=== PATIENT | male | born 1955 | race African-American/Black ===

== ENCOUNTER → 2016-08-31 | Outpatient (CLI) | payer MEDICAID, MEDICARE ==
[~2016-08-31] MED LIST: AMLODIPINE BESY10 MG ORAL; AMLODIPINE BESYL5 MG ORAL; ATARAX25 MG ORAL; CITALOPRAM HBR40 M1 ORAL; FERROUS GLUCON324 M2 PO; FERROUS SULFAT325 MG ORAL; HYDROCORTISO1 APPLIC TOPIC; HYDROXYZINE HCL25 M1 PO; LISINOPRIL10 MG ORAL; LISINOPRIL5 MG ORAL; METHOCARBAMOL5000 GM MC; NORCO 5-325 TA1 EACH ORAL; PROTONIX40 MG ORAL; ROBAXIN-750750 MG PO; VITAMIN C500 M1 ORAL; VITAMIN D400 INTLU ORAL
--- NOTE | 2016-09-01 11:21 | Diagnostic Imaging Report ---
Indication: History of right wrist pain and swelling. Injury to the wrist one month ago. Technique: MRI of the right wrist and the proximal portion of the right hand performed in a 1.5 [place] magnet. Pulse sequences obtained include multiplanar proton fast spin-echo fat saturation, T2 fast echo fat saturation, T1 fast spin-echo. No gadolinium given. Comparison: None Findings: There is widening of the scapholunate distance. The scapholunate ligaments are not seen specifically but based on the distance and intervening T2 edematous signal, there is evidence of a scapholunate dissociation or ligamentous disruption. The acuity of this injury is unknown. Minimal subchondral T2 hyperintense signal noted at the scapholunate interface. Some nonspecific cystic changes are also demonstrated within several carpal bones. In addition the lunate shows a very minor dorsal tilt. Nonspecific subcutaneous edema demonstrated within the dorsum of the hand and in the area of the thumb. No obvious ligamentous or tendinous disruption identified. Bone marrow signal within the first metacarpal and the remainder of the visualized osseous structures appears normal with the exception of the mild cystic changes described. There is a small cystic focus at the head of the third metacarpal which is probably degenerative in nature as it is subchondral location. Extensor tendons appear normal. The contents of the carpal tunnel appear unremarkable. There is no joint effusion. Triangular fibrocartilage complex is unremarkable in appearance. Impression: Scapholunate dissociation. Dorsal tilt of the lunate noted (dorsal intercalated segment instability or DISI). Scapholunate ligamentous tear could be recent given the edema in the intervening space. Please correlate clinically. No acute fracture or bone marrow contusion. Nonspecific subcutaneous edema at the base of the thumb without evidence of associated ligamentous or tendon disruption. Cystic changes within the carpal bones probably degenerative in nature.
--- NOTE | 2016-09-01 11:22 | Diagnostic Imaging Report ---
Please for to the MRI wrist report
== END | disposition home or self-care (01) ==
LOC: MRI 10:35
DX: R22.31 Localized swelling, mass and lump, right upper limb (principal)

== ENCOUNTER 2017-02-04 00:58 | Inpatient (IN) | payer MEDICARE, OTHER ==
[~2017-02-04] VITALS: Ht 182.9 cm; Wt 104.3 kg
[2017-02-04] VITALS (9 sets, daily range): BP systolic 101–147; BP diastolic 46–100
[2017-02-04] MEDS ORDERED: Sodium Chloride 500ML 500 ML IV ONE (01:17)
[2017-02-04] MEDS ORDERED: DiphenhydrAMINE 50mg/ml Inj IVP ONE (01:30)
[2017-02-04] MEDS ORDERED: Morphine Sulfate 4mg/ml Inj IVP ONE (01:30)
[2017-02-04 01:52] LABS: APPEARANCE,URINE CLEAR; BASOPHILS % (AUTO) 0.9 % (0.0-2.0); EOSINOPHILS % (AUTO) 2.9 % (0.0-3.0); KETONES,URINE NEGATIVE (NEGATIVE); LYMPHOCYTES % (AUTO) 37.1 % (20.0-45.0); MEAN CORPUSCULAR HEMOGLOBIN 30.6 PG (27.0-31.0); MEAN CORPUSCULAR VOLUME 96 FL (80-99); MEAN PLATELET VOLUME 9.5 FL (6.5-10.1); MONOCYTES % (AUTO) 8.6 % (1.0-10.0); NEUTROPHILS % (AUTO) 50.4 % (45.0-75.0); NITRITE,URINE NEGATIVE (NEGATIVE); PH,URINE 6 (4.5-8.0); PLATELET COUNT 229 K/UL (150-450); PROTEIN,URINE NEGATIVE (NEGATIVE); RED BLOOD COUNT 4.57 M/UL (4.70-6.10); RED CELL DISTRIBUTION WIDTH 13.7 % (11.6-14.8); UROBILINOGEN,URINE NORMAL MG/DL (0.0-1.0)
[2017-02-04 01:55] LABS: LEUKOCYTE ESTERASE ,URINE NEGATIVE (NEGATIVE)
[2017-02-04] MEDS ORDERED: HYDROCORTISONE-30 GM TOPIC (02:00)
[2017-02-04] MEDS ORDERED: VITAMIN D250000 UNI1 ORAL (02:00)
[2017-02-04] MEDS ORDERED: CATAPRES0.1 MG ORAL (02:00)
[2017-02-04] MEDS ORDERED: DULCOLAX10 MG RC (02:00)
[2017-02-04] MEDS ORDERED: ARTIFICIAL TEAR15 ML BOTH EYES (02:00)
[2017-02-04] MEDS ORDERED: MIRALAX17 G2 ORAL (02:06)
[2017-02-04] MEDS ORDERED: MULTIVITAMINS1 EAC8 ORAL (02:06)
[2017-02-04] MEDS ORDERED: HYDROXYZINE HCL25 M1 PO (02:06)
[2017-02-04] MEDS ORDERED: LACTULOSE20 GM/301 ORAL (02:06)
[2017-02-04] MEDS ORDERED: NITROGLYCERIN0.4 MG SL (02:06)
[2017-02-04 02:09] LABS: ALANINE AMINOTRANSFERASE 20 U/L (3-41); ALBUMIN/GLOBULIN RATIO 1.2 (1.0-2.7); ANION GAP 14 (5-15); ASPARTATE AMINO TRANSFERASE 18 U/L (5-40); CALCIUM 10.1 mg/dL (8.6-10.2); CARBON DIOXIDE 25 mEQ/L (20-30); CHLORIDE 102 mEQ/L (98-107); CREATININE 1.5 mg/dL (0.7-1.2); GLOMERULAR FILTRATION RATE 58.1 mL/min (>60); HEMOLYSIS 9; LIPASE 32 U/L (< 60); POTASSIUM 4.6 mEQ/L (3.4-4.9); SODIUM 141 mEQ/L (135-145); TOTAL PROTEIN 7.7 g/dL (6.6-8.7)
[2017-02-04 02:10] LABS: TROPONIN I < 0.30 ng/mL (<=0.30)
[2017-02-04] MEDS ORDERED: NORCO1 E1 ORAL (02:11)
[2017-02-04] MEDS ORDERED: TYLENOL EXTRA500 MG ORAL (02:11)
[2017-02-04] MEDS ORDERED: ACETAMINOPHEN325 M3 PO (02:11)
[2017-02-04] MEDS ORDERED: RESTORIL30 MG ORAL (02:11)
[2017-02-04] MEDS ORDERED: HYDROmorphone 1mg/ml Carpuject IVP ONE (03:45)
--- NOTE | 2017-02-04 04:59 | Emergency Room Report ---
History of Present Illness General Chief Complaint: Abdominal Pain Source: Patient, Medical Record Present Illness HPI 61-year-old male presents ED for evaluation. Patient states she's been having abdominal pain times one week but worse today. History of chronic abdominal pain but worse over the last one week. Patient resides in the nursing facility. Patient has history of stomach cancer. Has had previous operations. Patient is also noting blood in his stool. Pain is a 10 out of 10, sharp, nonradiating. Denies fevers or chills. Denies chest breath. No other aggravating or leading factors. Denies any other associated symptoms Allergies: Coded Allergies: MORPHINE (Verified Allergy, Unknown, 10/11/15) Patient History Past Medical History: HTN, asthma, psych hx Past Surgical History: other - gastric cancer Social History: Denies: smoking, alcohol use, drug use Immunizations: UTD Reviewed Nursing Documentation: PMH: Agreed, PSxH: Agreed Nursing Documentation-PMH Hx Cardiac Problems: Yes - murmur Hx Hypertension: Yes Hx Pacemaker: No Hx Asthma: Yes Hx COPD: No Hx Diabetes: Yes Hx Cancer: Yes - Gastric cancer Hx Gastrointestinal Problems: No Hx Dialysis: No Hx Neurological Problems: Yes - Depression Hx Cerebrovascular Accident: No Hx Transient Ischemic Attacks: No Hx Dementia: No Hx Alzheimer's Disease: No Hx Parkinson's Disease: No Hx Meningitis: No Hx Encephalitis: No Hx Seizures: No Hx Epilepsy: No Hx Multiple Sclerosis: No Hx Cerebral Palsy: No Hx Amyotrophic Lat Sclerosis: No Hx [place] Syndrome: No Hx Paralysis: No Hx Peripheral Neuropathy: No Hx Spinal Cord Injury: No Hx Head Trauma: No - year 1998 Hx Traumatic Brain Injury: Yes - year 1998 Hx Memory Loss: No Hx Concentration Difficulty: No Hx Speech Problem: No Hx Tremors: No Hx Vertigo: Yes Hx Dizziness: Yes Hx Syncope: Yes Hx Headaches: No Hx Aphasia: No Hx Dysphasia: No Hx Numbness: Yes - fingers and legs Hx Weakness: Yes - general Hx Fatigue: Yes - general Hx Neurologic Surgery: No Hx Brain Shunt: No Review of Systems All Other Systems: negative except mentioned in HPI Physical Exam Vital Signs Date Time Temp Pulse Resp B/P (MAP) Pulse Ox O2 Delivery O2 Flow Rate FiO2 02/04/17 00:58 97.7 84 18 136/86 99 Room Air Sp02 EP Interpretation: reviewed, normal General Appearance: no apparent distress, alert, GCS 15, non-toxic, mild distress Head: normocephalic, atraumatic Eyes: bilateral eye normal inspection, bilateral eye PERRL ENT: hearing grossly normal, normal pharynx, no angioedema, normal voice Neck: full range of motion, supple/symm/no masses Respiratory: chest non-tender, lungs clear, normal breath sounds, speaking full sentences Cardiovascular #1: regular rate, rhythm, no edema Cardiovascular #2: 2+ carotid (R), 2+ carotid (L), 2+ radial (R), 2+ radial (L) , 2+ dorsalis pedis (R), 2+ dorsalis pedis (L) Gastrointestinal: normal bowel sounds, soft, non-distended, no guarding, no rebound, tenderness Rectal: deferred Genitourinary: normal inspection, no CVA tenderness Musculoskeletal: back normal, gait/station normal, normal range of motion, non- tender Neurologic: alert, oriented x3, responsive, motor strength/tone normal, sensory intact, speech normal Psychiatric: judgement/insight normal, memory normal, mood/affect normal, no suicidal/homicidal ideation Reflexes: 3+ bicep (R), 3+ bicep (L), 3+ tricep (R), 3+ tricep (L), 3+ knee (R) , 3+ knee (L) Skin: normal color, no rash, warm/dry, well hydrated Lymphatic: no adenopathy Medical Decision Making Diagnostic Impression: Primary Impression: Intractable abdominal pain Additional Impressions: Renal insufficiency Colon cancer Qualified Codes: C18.9 - Malignant neoplasm of colon, unspecified ER Course Hospital Course 61-year-old male presents to ED with abd pain Differential diagnoses include: SBO, gastritis, pancreatitis Clinical course 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 After initial history and physical I ordered labs, IV fluids, UA, pain medication and CT scan Labs - no leukocytosis, Hb/Hct stable, Cr 1.5 CT abdomen and pelvis - enteritis, diverticulosis without diverticulitis Patient given multiple rounds of pain medication without significant relief. States his PMD is Dr. Sandhu Case discussed with Dr. Sandhu and he agreed to accept the patient to his service for further care and support I feel this is a highly complex case requiring extensive working including EKG/ Rhythm strip, Xray/CT/US, Blood/urine lab work, repeat exams while in ED, and administration of strong opiates/narcotics for pain control, admission to hospital or close patient follow up. Diagnosis - intractable abd pain, renal insufficiency, colon cancer Patient admitted to floor in serious condition Labs Test 02/04/17 01:30 White Blood Count 7.0 K/UL (4.8-10.8) Red Blood Count 4.57 M/UL (4.70-6.10) Hemoglobin 14.0 G/DL (14.2-18.0) Hematocrit 43.7 % (42.0-52.0) Mean Corpuscular Volume 96 FL (80-99) Mean Corpuscular Hemoglobin 30.6 PG (27.0-31.0) Mean Corpuscular Hemoglobin Concent 32.0 G/DL (32.0-36.0) Red Cell Distribution Width 13.7 % (11.6-14.8) Platelet Count 229 K/UL (150-450) Mean Platelet Volume 9.5 FL (6.5-10.1) Neutrophils (%) (Auto) 50.4 % (45.0-75.0) Lymphocytes (%) (Auto) 37.1 % (20.0-45.0) Monocytes (%) (Auto) 8.6 % (1.0-10.0) Eosinophils (%) (Auto) 2.9 % (0.0-3.0) Basophils (%) (Auto) 0.9 % (0.0-2.0) Urine Color Yellow Urine Appearance Clear Urine pH 6 (4.5-8.0) Urine Specific [place] 1.010 (1.005-1.035) Urine Protein Negative (NEGATIVE) Urine Glucose (UA) Negative (NEGATIVE) Urine Ketones Negative (NEGATIVE) Urine Occult Blood Negative (NEGATIVE) Urine Nitrite Negative (NEGATIVE) Urine Bilirubin Negative (NEGATIVE) Urine Urobilinogen Normal MG/DL (0.0-1.0) Urine Leukocyte Esterase Negative (NEGATIVE) Sodium Level 141 mEQ/L (135-145) Potassium Level 4.6 mEQ/L (3.4-4.9) Chloride Level 102 mEQ/L (98-107) Carbon Dioxide Level 25 mEQ/L (20-30) Anion Gap 14 (5-15) Blood Urea Nitrogen 30 mg/dL (7-23) Creatinine 1.5 mg/dL (0.7-1.2) Estimat Glomerular Filtration Rate 58.1 mL/min (>60) Glucose Level 90 mg/dL (74-106) Calcium Level 10.1 mg/dL (8.6-10.2) Total Bilirubin < 0.2 mg/dL (0.0-1.2) Aspartate Amino Transf (AST/SGOT) 18 U/L (5-40) Alanine Aminotransferase (ALT/SGPT) 20 U/L (3-41) Alkaline Phosphatase 84 U/L (40-129) Troponin I < 0.30 ng/mL (<=0.30) Total Protein 7.7 g/dL (6.6-8.7) Albumin 4.2 g/dL (3.5-5.2) Globulin 3.5 g/dL Albumin/Globulin Ratio 1.2 (1.0-2.7) Lipase 32 U/L (< 60) CT/MRI/US Diagnostic Results CT/MRI/US Diagnostic Results : Imaging Test Ordered: CT A/P Impression enteritis. diverticulosis without diverticulitis Last Vital Signs Date Time Temp Pulse Resp B/P (MAP) Pulse Ox O2 Delivery O2 Flow Rate FiO2 02/04/17 04:22 98.3 02/04/17 04:00 82 18 126/84 100 Room Air Status: unchanged Disposition: ADMITTED INPATIENT Condition: Serious Referrals: NON PHYSICIAN (PCP) MILLER HARRINGTON M.D. Feb 04, 2017 04:59
[2017-02-04] MEDS ORDERED: Mylanta II UD 30ml ORAL PRN (07:30)
[2017-02-04] MEDS ORDERED: Nitroglycerin Subl 0.4mg tab SL PRN (07:30)
[2017-02-04] MEDS ORDERED: Miralax 17gm pkt ORAL PRN (07:30)
[2017-02-04] MEDS: Hydromorphone 0.5mg/0.5ml inj IVP PRN ×4 (08:56→22:10)
--- NOTE | 2017-02-04 09:05 | Diagnostic Imaging Report ---
Indication: Abdominal pain, history of colon cancer Comparison: CT abdomen and pelvis 05/17/2015 Technique: Contiguous helical CT images through the abdomen and pelvis was performed without intravenous or oral contrast. Reportedly, patient had elevated creatinine too high to administer IV contrast. Axial, coronal and sagittal reconstructions were reformatted. CT Dose: Total DLP: 1593 mGycm; Total CTDI volume 30.2 Findings: Exam is limited due to lack of IV and oral contrast. Liver is normal. Gallbladder is normal. Spleen is normal. Pancreas is normal. Adrenal glands are normal. Kidneys are without hydronephrosis. There are low densities noted in the bilateral cortical and right parapelvic areas which may represent cysts. Overall, these appear unchanged in size or appearance from the prior exam 05/17/2015. There is a nonobstructive left intrarenal calculus without hydronephrosis. Ureters are normal. Fluid present in nondistended mid/distal small bowel loops and liquid stool present throughout the colon without colonic wall thickening. Given history, findings likely reflect enteritis/diarrheal illness. There is colonic diverticulosis without diverticulitis. Patient is status post segmental sigmoid colectomy without evidence for small bowel obstruction. Normal appendix. No free fluid or free air. Atherosclerosis infrarenal abdominal aortic aneurysm measuring 3.8 cm (unchanged from prior CT scan 05/17/2015). Bibasilar atelectasis/scarring is noted. Thoracolumbar spondylosis. Postsurgical changes in the anterior abdominal wall. Left fat-containing inguinal hernia. Impression: Fluid present in nondistended mid/distal small bowel loops and liquid stool present throughout the colon without colonic wall thickening. Given history, findings likely reflect enteritis/diarrheal illness. Diverticulosis without diverticulitis. Status post segmental sigmoid colectomy without evidence for small obstruction. Atherosclerosis an infrarenal abdominal aortic aneurysm measuring 3.8 cm (unchanged from prior CT 05/17/2015). Normal appendix. No free fluid or free air. Incidental findings include: Bibasilar atelectasis/scarring. Nonobstructive left intrarenal calculus without hydronephrosis. Low -density renal cortical and right parapelvic may represent cysts, unchanged from prior. Fat-containing left inguinal hernia. Postsurgical change in the anterior abdominal wall. Thoracolumbar spondylosis.
[2017-02-04] MEDS: Pantoprazole Inj IVP SCH (10:08)
[2017-02-04] MEDS: Heparin 5000 units/ml inj SUBQ SCH ×2 (10:08→20:57)
[2017-02-04] MEDS: Citalopram 20mg Tab ORAL SCH (10:10)
[2017-02-04] MEDS: D5 1/2NS 1,000 ML IV SCH ×2 (10:11→22:17)
[2017-02-04] MEDS: Lisinopril 10mg tab ORAL SCH (10:11)
--- NOTE | 2017-02-04 13:37 | Infectious Diseases Prog Note ---
Assessment/Plan Assessment/Plan ID consult dictated # [id number] Subjective Allergies: Coded Allergies: MORPHINE (Verified Allergy, Unknown, 10/11/15) Objective Vital Signs Last 24 Hour Vital Signs Date Time Temp Pulse Resp B/P (MAP) Pulse Ox O2 Delivery O2 Flow Rate FiO2 02/04/17 12:00 98.0 77 18 127/82 99 Room Air 02/04/17 10:11 139/85 02/04/17 10:11 76 139/85 02/04/17 08:00 97.9 79 20 121/85 98 Room Air 02/04/17 05:50 97.5 82 18 147/100 98 Room Air 02/04/17 05:45 98.7 70 20 120/73 98 Room Air 02/04/17 05:00 98.7 79 18 128/78 98 Room Air 02/04/17 04:22 98.3 02/04/17 04:00 98.3 82 18 126/84 100 Room Air 02/04/17 02:40 98.6 80 18 130/88 100 Room Air 02/04/17 02:06 98.3 02/04/17 00:58 98.3 87 19 126/96 100 Room Air 02/04/17 00:58 97.7 84 18 136/86 99 Room Air Height (Feet): 6 Height (Inches): 0.00 Weight (Pounds): 230 Laboratory Tests Test 02/04/17 01:30 White Blood Count 7.0 K/UL (4.8-10.8) Red Blood Count 4.57 M/UL (4.70-6.10) L Hemoglobin 14.0 G/DL (14.2-18.0) L Hematocrit 43.7 % (42.0-52.0) Mean Corpuscular Volume 96 FL (80-99) Mean Corpuscular Hemoglobin 30.6 PG (27.0-31.0) Mean Corpuscular Hemoglobin Concent 32.0 G/DL (32.0-36.0) Red Cell Distribution Width 13.7 % (11.6-14.8) Platelet Count 229 K/UL (150-450) Mean Platelet Volume 9.5 FL (6.5-10.1) Neutrophils (%) (Auto) 50.4 % (45.0-75.0) Lymphocytes (%) (Auto) 37.1 % (20.0-45.0) Monocytes (%) (Auto) 8.6 % (1.0-10.0) Eosinophils (%) (Auto) 2.9 % (0.0-3.0) Basophils (%) (Auto) 0.9 % (0.0-2.0) Urine Color Yellow Urine Appearance Clear Urine pH 6 (4.5-8.0) Urine Specific [place] 1.010 (1.005-1.035) Urine Protein Negative (NEGATIVE) Urine Glucose (UA) Negative (NEGATIVE) Urine Ketones Negative (NEGATIVE) Urine Occult Blood Negative (NEGATIVE) Urine Nitrite Negative (NEGATIVE) Urine Bilirubin Negative (NEGATIVE) Urine Urobilinogen Normal MG/DL (0.0-1.0) Urine Leukocyte Esterase Negative (NEGATIVE) Sodium Level 141 mEQ/L (135-145) Potassium Level 4.6 mEQ/L (3.4-4.9) Chloride Level 102 mEQ/L (98-107) Carbon Dioxide Level 25 mEQ/L (20-30) Anion Gap 14 (5-15) Blood Urea Nitrogen 30 mg/dL (7-23) H Creatinine 1.5 mg/dL (0.7-1.2) H Estimat Glomerular Filtration Rate 58.1 mL/min (>60) Glucose Level 90 mg/dL (74-106) Calcium Level 10.1 mg/dL (8.6-10.2) Total Bilirubin < 0.2 mg/dL (0.0-1.2) Aspartate Amino Transf (AST/SGOT) 18 U/L (5-40) Alanine Aminotransferase (ALT/SGPT) 20 U/L (3-41) Alkaline Phosphatase 84 U/L (40-129) Troponin I < 0.30 ng/mL (<=0.30) Total Protein 7.7 g/dL (6.6-8.7) Albumin 4.2 g/dL (3.5-5.2) Globulin 3.5 g/dL Albumin/Globulin Ratio 1.2 (1.0-2.7) Lipase 32 U/L (< 60) Current Medications Medications (Trade) Dose Ordered Sig/Blanche Route PRN Reason Start Time Stop Time Status Last Admin Dose Admin Acetaminophen (Tylenol) 650 mg Q4H PRN ORAL fever 02/04/17 07:30 03/06/17 07:29 Al Hydroxide/Mg Hydroxide (Mylanta II) 30 ml Q6H PRN ORAL dyspepsia 02/04/17 07:30 03/06/17 07:29 Amlodipine Besylate (Norvasc) 10 mg DAILY ORAL 02/04/17 09:00 03/06/17 08:59 02/04/17 10:11 Citalopram Hydrobromide (celeXA) 40 mg DAILY ORAL 02/04/17 09:00 03/06/17 08:59 02/04/17 10:10 Dextrose (Dextrose 50%) STAT PRN IV Hypoglycemia 02/04/17 07:30 03/06/17 07:29 Dextrose/Sodium Chloride 1,000 ml @ 75 mls/hr [id number] IV 02/04/17 09:00 03/06/17 08:59 02/04/17 10:11 Diphenhydramine HCl (Benadryl) 25 mg Q6H PRN ORAL Itching/Pruritis 02/04/17 07:30 03/06/17 07:29 Heparin Sodium (Porcine) (Heparin 5000 units/ml) 5,000 units EVERY 12 HOURS SUBQ 02/04/17 09:00 03/06/17 08:59 02/04/17 10:08 Hydromorphone HCl (Dilaudid) 1 mg Q4H PRN IVP Severe Pain (Pain Scale 7-10) 02/04/17 08:15 02/11/17 08:14 02/04/17 08:56 Lisinopril (Zestril) 10 mg DAILY ORAL 02/04/17 09:00 03/06/17 08:59 02/04/17 10:11 Nitroglycerin (Ntg) 0.4 mg Q5M X 3 DOSES PRN SL Prn Chest Pain 02/04/17 07:30 03/06/17 07:29 Ondansetron HCl (Zofran) 4 mg Q6H PRN IVP Nausea & Vomiting 02/04/17 07:30 03/06/17 07:29 Pantoprazole (Protonix) 40 mg DAILY IVP 02/04/17 09:00 03/06/17 08:59 02/04/17 10:08 Piperacillin Sod/ Tazobactam Sod 3.375 gm/Sodium Chloride 110 ml @ 27.5 mls/hr EVERY 8 HOURS IVPB 02/04/17 14:00 02/11/17 13:59 Polyethylene Glycol (Miralax) 17 gm HSPRN PRN ORAL Constipation 02/04/17 07:30 03/06/17 07:29 Temazepam (Restoril) 15 mg HSPRN PRN ORAL Insomnia 02/04/17 07:30 02/11/17 07:29 SULTANA ELMORE Feb 04, 2017 13:37
[2017-02-04] MEDS: Piperacillin/Tazobactam 3.375 GM in NS 110 ML IVPB SCH ×2 (13:45→22:09)
[2017-02-04] MEDS ORDERED: D5NS 1000ml IV ONE (15:26)
[2017-02-04] MEDS ORDERED: Tubing IV Secondary IV ONE (15:26)
--- NOTE | 2017-02-04 16:13 | History and Physical ---
History of Present Illness General Date patient seen: Feb 04, 2017 Reason for Hospitalization: Abdominal Pain Present Illness HPI 61-year-old male with hx of gastric cancer, sigmoidectomy presented to ED for evaluation of abdominal pain times one week but worse today. Patient is also noting blood in his stool. Pain is a 10 out of 10, sharp, nonradiating. Denies fevers or chills. Denies chest breath. Denies any other associated symptoms. Pt is admitted for further evaluation. Allergies: Coded Allergies: MORPHINE (Verified Allergy, Unknown, 10/11/15) Medication History Scheduled Amlodipine Besylate* (Amlodipine Besylate*), 10 MG ORAL DAILY, (Reported) Ascorbic Acid* (Vitamin C*), 500 MG ORAL DAILY, (Reported) Citalopram Hydrobromide* (Citalopram Hbr*), 40 MG ORAL DAILY, (Reported) Clonidine Hcl* (Catapres*), 0.1 MG ORAL EVERY 8 HOURS, (Reported) Dextran 70/Hypromellose (Artificial Tears Eye Drops*), 1 DROP BOTH EYES BID, ( Reported) Ergocalciferol (Vitamin D2)* (Vitamin D*), 50,000 UNIT ORAL ONCE A WEEK, ( Reported) Ferrous Sulfate* (Ferrous Sulfate*), 325 MG ORAL DAILY, (Reported) Hydroxyzine HCl (Hydroxyzine HCl), 25 MG ORAL FOUR TIMES A DAY Hydroxyzine Hcl (Hydroxyzine Hcl), 25 MG PO TID, (Reported) Lactulose (Lactulose*), 30 ML ORAL BID, (Reported) Lisinopril (Lisinopril*), 10 MG ORAL DAILY, (Reported) Methocarbamol* (Robaxin-750*), 750 MG PO TID Multivitamin With Minerals (Multivitamins With Minerals*), 1 TAB ORAL DAILY, ( Reported) Pantoprazole* (Protonix*), 40 MG ORAL DAILY Polyethylene Glycol 3350* (Miralax*), 17 GM ORAL BID, (Reported) Vitamin D (Vitamin D3), 50,000 UNITS ORAL DAILY, (Reported) Scheduled PRN Acetaminophen (Acetaminophen), 325 MG PO Q4HR PRN for For Pain, (Reported) Acetaminophen* (Tylenol Extra Strength*), 1,000 MG ORAL Q6H PRN for Moderate Pain (Pain Scale 4-6), (Reported) Acetaminophen/Hydrocodone ([place] 7.5-325 Tablet), 2 TAB ORAL Q6HR PRN for Severe Pain (Pain Scale 7-10), (Reported) Bisacodyl (Dulcolax), 10 MG RC for bowel management, (Reported) Hydrocodone Bit/Acetaminophen 5-325* ([place] 5-325*), 1 TAB ORAL Q6H PRN for For Pain Hydrocodone Bit/Acetaminophen 5-325* ([place] 5-325*), 1 TAB ORAL Q12HR PRN for For Pain Temazepam (Restoril*), 30 MG ORAL BEDTIME PRN for insomnia , (Reported) Miscellaneous Medications Hydrocortisone/Aloe Vera 1%* (Hydrocortisone-Aloe 1% Cream*), 1 APPLIC TOPIC, ( Reported) Methocarbamol (Methocarbamol), 5,000 GM MC, (Reported) Nitroglycerin (Nitroglycerin), 0.4 MG SL, (Reported) Patient History Healthcare decision maker Resuscitation status Full Code Advanced Directive on File Past Medical/Surgical History Past Medical/Surgical History: (1) Gastritis (2) Colon cancer (3) HTN (hypertension) Review of Systems All Other Systems: negative except mentioned in HPI Physical Exam General Appearance: WD/WN, no apparent distress Lines, tubes and drains: peripheral HEENT: normocephalic, atraumatic Neck: non-tender, normal alignment Respiratory/Chest: chest wall non-tender, lungs clear Cardiovascular/Chest: normal peripheral pulses, normal rate Genitourinary/Rectal: normal genital exam, normal rectal exam Extremities: normal range of motion, non-tender Skin Exam: normal pigmentation Neurologic: delivery mgr II-XII grossly normal Last 24 Hour Vital Signs Date Time Temp Pulse Resp B/P (MAP) Pulse Ox O2 Delivery O2 Flow Rate FiO2 02/04/17 12:00 98.0 77 18 127/82 99 Room Air 02/04/17 10:11 139/85 02/04/17 10:11 76 139/85 02/04/17 08:00 97.9 79 20 121/85 98 Room Air 02/04/17 05:50 97.5 82 18 147/100 98 Room Air 02/04/17 05:45 98.7 70 20 120/73 98 Room Air 02/04/17 05:00 98.7 79 18 128/78 98 Room Air 02/04/17 04:22 98.3 02/04/17 04:00 98.3 82 18 126/84 100 Room Air 02/04/17 02:40 98.6 80 18 130/88 100 Room Air 02/04/17 02:06 98.3 02/04/17 00:58 98.3 87 19 126/96 100 Room Air 02/04/17 00:58 97.7 84 18 136/86 99 Room Air Laboratory Tests Test 02/04/17 01:30 White Blood Count 7.0 K/UL (4.8-10.8) Red Blood Count 4.57 M/UL (4.70-6.10) L Hemoglobin 14.0 G/DL (14.2-18.0) L Hematocrit 43.7 % (42.0-52.0) Mean Corpuscular Volume 96 FL (80-99) Mean Corpuscular Hemoglobin 30.6 PG (27.0-31.0) Mean Corpuscular Hemoglobin Concent 32.0 G/DL (32.0-36.0) Red Cell Distribution Width 13.7 % (11.6-14.8) Platelet Count 229 K/UL (150-450) Mean Platelet Volume 9.5 FL (6.5-10.1) Neutrophils (%) (Auto) 50.4 % (45.0-75.0) Lymphocytes (%) (Auto) 37.1 % (20.0-45.0) Monocytes (%) (Auto) 8.6 % (1.0-10.0) Eosinophils (%) (Auto) 2.9 % (0.0-3.0) Basophils (%) (Auto) 0.9 % (0.0-2.0) Urine Color Yellow Urine Appearance Clear Urine pH 6 (4.5-8.0) Urine Specific [place] 1.010 (1.005-1.035) Urine Protein Negative (NEGATIVE) Urine Glucose (UA) Negative (NEGATIVE) Urine Ketones Negative (NEGATIVE) Urine Occult Blood Negative (NEGATIVE) Urine Nitrite Negative (NEGATIVE) Urine Bilirubin Negative (NEGATIVE) Urine Urobilinogen Normal MG/DL (0.0-1.0) Urine Leukocyte Esterase Negative (NEGATIVE) Sodium Level 141 mEQ/L (135-145) Potassium Level 4.6 mEQ/L (3.4-4.9) Chloride Level 102 mEQ/L (98-107) Carbon Dioxide Level 25 mEQ/L (20-30) Anion Gap 14 (5-15) Blood Urea Nitrogen 30 mg/dL (7-23) H Creatinine 1.5 mg/dL (0.7-1.2) H Estimat Glomerular Filtration Rate 58.1 mL/min (>60) Glucose Level 90 mg/dL (74-106) Calcium Level 10.1 mg/dL (8.6-10.2) Total Bilirubin < 0.2 mg/dL (0.0-1.2) Aspartate Amino Transf (AST/SGOT) 18 U/L (5-40) Alanine Aminotransferase (ALT/SGPT) 20 U/L (3-41) Alkaline Phosphatase 84 U/L (40-129) Troponin I < 0.30 ng/mL (<=0.30) Total Protein 7.7 g/dL (6.6-8.7) Albumin 4.2 g/dL (3.5-5.2) Globulin 3.5 g/dL Albumin/Globulin Ratio 1.2 (1.0-2.7) Lipase 32 U/L (< 60) Height (Feet): 6 Height (Inches): 0.00 Weight (Pounds): 230 Medications Current Medications Medications (Trade) Dose Ordered Sig/Blanche Route PRN Reason Start Time Stop Time Status Last Admin Dose Admin Acetaminophen (Tylenol) 650 mg Q4H PRN ORAL fever 02/04/17 07:30 03/06/17 07:29 Al Hydroxide/Mg Hydroxide (Mylanta II) 30 ml Q6H PRN ORAL dyspepsia 02/04/17 07:30 03/06/17 07:29 Amlodipine Besylate (Norvasc) 10 mg DAILY ORAL 02/04/17 09:00 03/06/17 08:59 02/04/17 10:11 Citalopram Hydrobromide (celeXA) 40 mg DAILY ORAL 02/04/17 09:00 03/06/17 08:59 02/04/17 10:10 Dextrose (Dextrose 50%) STAT PRN IV Hypoglycemia 02/04/17 07:30 03/06/17 07:29 Dextrose/Sodium Chloride 1,000 ml @ 75 mls/hr [id number] IV 02/04/17 09:00 03/06/17 08:59 101/17 10:11 Diphenhydramine HCl (Benadryl) 25 mg Q6H PRN ORAL Itching/Pruritis 02/04/17 07:30 03/06/17 07:29 Heparin Sodium (Porcine) (Heparin 5000 units/ml) 5,000 units EVERY 12 HOURS SUBQ 02/04/17 09:00 03/06/17 08:59 02/04/17 10:08 Hydromorphone HCl (Dilaudid) 1 mg Q4H PRN IVP Severe Pain (Pain Scale 7-10) 02/04/17 08:15 02/11/17 08:14 02/04/17 13:45 Lisinopril (Zestril) 10 mg DAILY ORAL 02/04/17 09:00 03/06/17 08:59 02/04/17 10:11 Nitroglycerin (Ntg) 0.4 mg Q5M X 3 DOSES PRN SL Prn Chest Pain 02/04/17 07:30 03/06/17 07:29 Ondansetron HCl (Zofran) 4 mg Q6H PRN IVP Nausea & Vomiting 02/04/17 07:30 03/06/17 07:29 Pantoprazole (Protonix) 40 mg DAILY IVP 02/04/17 09:00 03/06/17 08:59 02/04/17 10:08 Piperacillin Sod/ Tazobactam Sod 3.375 gm/Sodium Chloride 110 ml @ 27.5 mls/hr EVERY 8 HOURS IVPB 02/04/17 14:00 02/11/17 13:59 02/04/17 13:45 Polyethylene Glycol (Miralax) 17 gm HSPRN PRN ORAL Constipation 02/04/17 07:30 03/06/17 07:29 Temazepam (Restoril) 15 mg HSPRN PRN ORAL Insomnia 02/04/17 07:30 02/11/17 07:29 Assessment/Plan Problem List: (1) Intractable abdominal pain ICD Codes: R10.9 - Unspecified abdominal pain SNOMED: 85394214, [id number] (2) Diarrhea ICD Codes: R19.7 - Diarrhea, unspecified SNOMED: 94516813 (3) Enteritis ICD Codes: K52.9 - Noninfective gastroenteritis and colitis, unspecified SNOMED: 01012555 (4) Gastritis ICD Codes: K29.70 - Gastritis, unspecified, without bleeding SNOMED: 6611093 (5) HTN (hypertension) ICD Codes: I10 - Essential (primary) hypertension SNOMED: 37581509 Assessment/Plan IV fluids GI evaluation stool for O&P check electrolytes ANURAG GARCIA Feb 04, 2017 16:13
[2017-02-05 00:30] VITALS: BP 124/92
[2017-02-05] MEDS: Hydromorphone 0.5mg/0.5ml inj IVP PRN ×5 (02:10→20:21)
[2017-02-05 04:30] VITALS: BP 104/60
[2017-02-05] MEDS: Piperacillin/Tazobactam 3.375 GM in NS 110 ML IVPB SCH ×2 (05:44→14:00)
[2017-02-05 08:00] VITALS: BP 114/79
[2017-02-05 08:02] LABS: MEAN CORPUSCULAR HEMOGLOBIN 31.9 PG (27.0-31.0); MEAN CORPUSCULAR HGB CONC 32.5 G/DL (32.0-36.0); MEAN CORPUSCULAR VOLUME 98 FL (80-99); MEAN PLATELET VOLUME 10.2 FL (6.5-10.1); PLATELET COUNT 198 K/UL (150-450); RED BLOOD COUNT 4.09 M/UL (4.70-6.10); WHITE BLOOD COUNT 4.7 K/UL (4.8-10.8)
[2017-02-05 08:20] LABS: ALBUMIN/GLOBULIN RATIO 1.1 (1.0-2.7); CREATININE 1.7 mg/dL (0.7-1.2); GLOMERULAR FILTRATION RATE 50.3 mL/min (>60); POTASSIUM 4.5 mEQ/L (3.4-4.9)
--- NOTE | 2017-02-05 08:32 | Consultation ---
DATE OF CONSULTATION: 02/04/2017 INFECTIOUS DISEASES CONSULTATION This consult is for coverage of Dr. Ramos. CONSULTING PHYSICIAN: Homero Cullen M.D. PRIMARY ATTENDING PHYSICIAN: Aleksandra Rodriguez M.D. REASON FOR CONSULTATION: Enteritis. History Of Present Illness: This is a 61-year-old male admitted today from a residential facility complaining of abdominal pain, also had diarrhea. The patient had history of colon cancer before and two abdominal surgeries. Pain is constant, 10/10, has bleeding in the stool. CT scan of the abdomen and pelvis shows enteritis. Past Medical History: Significant for hypertension, asthma, depression, traumatic brain injury in 1998, colon cancer, status post surgery, history of hernia repair, had anemia two years ago, and had colonoscopy and upper GI endoscopy. ALLERGIES: Allergic to morphine. Medications: Zosyn, amlodipine, Celexa, lisinopril, heparin, Protonix, hydromorphone, Tylenol, Zofran, temazepam, Mylanta, Benadryl, nitroglycerin. Social History: senior living resident. Single. Has two grownup children. Family History: Diabetes in mother's side of the family. History of cancer including colon cancer in father's side. Review Of Systems: Like in history of present illness. No fever. No chills. No nausea. No vomiting. Has diarrhea. Has some urinary frequency. PHYSICAL EXAMINATION: GENERAL APPEARANCE: Well developed in no acute distress. Vital Signs: Temperature 98 degrees, pulse 77, and blood pressure 127/82. Head And Neck: No oral lesion. Has poor dentition with many loss of teeth. HEART: Regular. LUNGS: Clear. ABDOMEN: Soft. Scar of previous surgery. Mildly tender. EXTREMITIES: He has no edema. Laboratory And Diagnostic Data: WBC 7000, hemoglobin 13, hematocrit 43.7, and platelets 329. Sodium 141, potassium 4.6, chloride 102, bicarbonate 25, BUN 30, creatinine 1.5, and glucose 90. CT scan for the abdomen and pelvis was limited because of lack of IV and oral contrast; enteritis,, diverticular disease of the colon without diverticulitis. IMPRESSION: 1. Enteritis, may have infectious cause. The patient had history of colon cancer, has infrarenal abdominal aortic aneurysm. 2. Hypertension. 3. Asthma. 4. Depression. Recommendation: We will continue Zosyn. We will follow up to see C. difficile tests. We will follow up with GI. At the end of my exam, I thank, Dr. Rodriguez, for involving me in the care of this patient. Homero Cullen M.D. DR: [place] JOB#: [id number] CC: VICENTA
[2017-02-05] MEDS: Heparin 5000 units/ml inj SUBQ SCH ×2 (08:51→20:20)
[2017-02-05] MEDS: Citalopram 20mg Tab ORAL SCH (08:55)
[2017-02-05] MEDS: Pantoprazole Inj IVP SCH (08:55)
[2017-02-05] MEDS: Lisinopril 10mg tab ORAL SCH (08:56)
[2017-02-05 10:13] LABS: ANISOCYTOSIS 1+; BAND NEUTROPHILS % (MANUAL) 0 % (0-8); BASOPHILS % (MANUAL) 0 % (0-2); EOSINOPHILS % (MANUAL) 6 % (0-3); LYMPHOCYTES % (MANUAL) 38 % (20-45); NEUTROPHILS % (MANUAL) 51 % (45-75); PLATELET ESTIMATE ADEQUATE; PLATELET MORPHOLOGY NORMAL; TOTAL CELLS COUNTED 100
--- NOTE | 2017-02-05 10:56 | Consultation ---
Consult Note Consult Note asked to eval for renal failure and rising Cr Chief Complaint: Abdominal Pain 61-year-old male presents ED for evaluation. Patient states she's been having abdominal pain times one week but worse today. History of chronic abdominal pain but worse over the last one week. Patient resides in the nursing facility. Patient has history of stomach cancer. Has had previous operations. Patient is also noting blood in his stool. Pain is a 10 out of 10, sharp, nonradiating. Denies fevers or chills. Denies chest breath. No other aggravating or leading factors. Denies any other associated symptoms Allergies: MORPHINE (Verified Allergy, Unknown, 10/11/15) Patient History Past Medical History: HTN, asthma, psych hx Hx Cardiac Problems: Yes - murmur Hx Hypertension: Yes Hx Asthma: Yes Hx Diabetes: Yes Hx Cancer: Yes - Gastric cancer Hx Neurological Problems: Yes - Depression Hx Vertigo: Yes Hx Dizziness: Yes Hx Syncope: Yes Hx Numbness: Yes - fingers and legs Hx Weakness: Yes - general Hx Fatigue: Yes - general interviewed examined data reviewed Assessment/Plan Renal failure likely chronic- likely HTN CT abd shows kidney stone- UA negative ! other: 1. Enteritis, may have infectious cause. The patient had history of colon cancer, has infrarenal abdominal aortic aneurysm. 2. Hypertension. 3. Asthma. 4. Depression. Kidney FOX repeat UA and urine studies avoid Nephrotoxics Keep BP in check monitor renal parameters SKY NASH Feb 05, 2017 10:56
[2017-02-05 12:00] VITALS: BP 115/73
--- NOTE | 2017-02-05 12:51 | Infectious Diseases Prog Note ---
Assessment/Plan Assessment/Plan IMPRESSION: Chronic diarrhea with acute abd pain- CT shows Enteritis - given duration fo diarrhea, typical bacterial infections are less likely. R/o parasitic, R/o HIV, r/o non-infectious causes of diarrhea -afebrile,no leukocytosis -Cdiff neg -CT abd/p: Fluid present in nondistended mid/distal small bowel loops and liquid stool present throughout the colon without colonic wall thickening. Given history, findings likely reflect enteritis/diarrheal illness. Diverticulosis without diverticulitis.Status post segmental sigmoid colectomy without evidence for small obstruction.Atherosclerosis an infrarenal abdominal aortic aneurysm measuring 3.8 cm (unchanged). Bibasilar atelectasis/scarring. Nonobstructive left intrarenal calculus without hydronephrosis. Fat-containing left inguinal hernia. history of colon cancer s/p surgery x2 infrarenal abdominal aortic aneurysm. Hypertension. Asthma. Depression. Recommendation: -Will d/c Zosyn and monitor off abx as bacterial infections of diarrhea are less likely and no colitis/diverticulitis -s/p Zosyn #2 02/05 -Check o+p stool x3, Giardia, cyclospora and Cryptosporidium on stool, stool cx -Check HIV screen -appreciate GI recs Discussed with RN Subjective Allergies: Coded Allergies: MORPHINE (Verified Allergy, Unknown, 10/11/15) Subjective afebrile VSS cdiff neg abd pain improving still having about 3 daily episodes of diarrhea Objective Vital Signs Last 24 Hour Vital Signs Date Time Temp Pulse Resp B/P (MAP) Pulse Ox O2 Delivery O2 Flow Rate FiO2 02/05/17 08:56 114/79 02/05/17 08:55 68 114/79 02/05/17 08:00 97.3 68 18 114/79 100 Room Air 02/05/17 06:43 97.5 02/05/17 04:30 97.5 65 19 104/60 96 Room Air 02/05/17 00:30 97.9 96 20 124/92 98 Room Air 02/04/17 21:00 97.4 69 18 101/46 99 Room Air 02/04/17 16:00 97.5 82 18 116/72 97 Room Air Height (Feet): 6 Height (Inches): 0.00 Weight (Pounds): 230 Objective GENERAL APPEARANCE: Well developed in no acute distress. Vital Signs: Temperature 98 degrees, pulse 77, and blood pressure 127/82. Head And Neck: No oral lesion. Has poor dentition with many loss of teeth. HEART: Regular. LUNGS: Clear. ABDOMEN: Soft. Scar of previous surgery. Mildly tender. EXTREMITIES: He has no edema. Microbiology Date/Time Source Procedure Growth Status 02/04/17 11:39 Stool Clostridium difficile Toxin Assay - Final Complete Laboratory Tests Test 02/05/17 07:05 White Blood Count 4.7 K/UL (4.8-10.8) L Red Blood Count 4.09 M/UL (4.70-6.10) L Hemoglobin 13.0 G/DL (14.2-18.0) L Hematocrit 40.1 % (42.0-52.0) L Mean Corpuscular Volume 98 FL (80-99) Mean Corpuscular Hemoglobin 31.9 PG (27.0-31.0) H Mean Corpuscular Hemoglobin Concent 32.5 G/DL (32.0-36.0) Red Cell Distribution Width 14.0 % (11.6-14.8) Platelet Count 198 K/UL (150-450) Mean Platelet Volume 10.2 FL (6.5-10.1) H Neutrophils (%) (Auto) % (45.0-75.0) Lymphocytes (%) (Auto) % (20.0-45.0) Monocytes (%) (Auto) % (1.0-10.0) Eosinophils (%) (Auto) % (0.0-3.0) Basophils (%) (Auto) % (0.0-2.0) Differential Total Cells Counted 100 Neutrophils % (Manual) 51 % (45-75) Lymphocytes % (Manual) 38 % (20-45) Monocytes % (Manual) 5 % (1-10) Eosinophils % (Manual) 6 % (0-3) H Basophils % (Manual) 0 % (0-2) Band Neutrophils 0 % (0-8) Platelet Estimate Adequate Platelet Morphology Normal Anisocytosis 1+ Activated Partial Thromboplast Time 30 SEC (23-33) Sodium Level 139 mEQ/L (135-145) Potassium Level 4.5 mEQ/L (3.4-4.9) Chloride Level 103 mEQ/L (98-107) Carbon Dioxide Level 27 mEQ/L (20-30) Anion Gap 9 (5-15) Blood Urea Nitrogen 19 mg/dL (7-23) Creatinine 1.7 mg/dL (0.7-1.2) H Estimat Glomerular Filtration Rate 50.3 mL/min (>60) Glucose Level 81 mg/dL (74-106) Calcium Level 9.0 mg/dL (8.6-10.2) Total Bilirubin 0.3 mg/dL (0.0-1.2) Aspartate Amino Transf (AST/SGOT) 19 U/L (5-40) Alanine Aminotransferase (ALT/SGPT) 16 U/L (3-41) Alkaline Phosphatase 69 U/L (40-129) Total Protein 7.0 g/dL (6.6-8.7) Albumin 3.8 g/dL (3.5-5.2) Globulin 3.2 g/dL Albumin/Globulin Ratio 1.1 (1.0-2.7) Amylase Level 109 U/L (10-110) Lipase 22 U/L (< 60) Current Medications Medications (Trade) Dose Ordered Sig/Blanche Route PRN Reason Start Time Stop Time Status Last Admin Dose Admin Acetaminophen (Tylenol) 650 mg Q4H PRN ORAL fever 02/04/17 07:30 03/06/17 07:29 Al Hydroxide/Mg Hydroxide (Mylanta II) 30 ml Q6H PRN ORAL dyspepsia 02/04/17 07:30 03/06/17 07:29 Amlodipine Besylate (Norvasc) 5 mg BID ORAL 02/06/17 09:00 03/06/17 08:59 Citalopram Hydrobromide (celeXA) 40 mg DAILY ORAL 02/04/17 09:00 03/06/17 08:59 02/05/17 08:55 Dextrose (Dextrose 50%) STAT PRN IV Hypoglycemia 02/04/17 07:30 03/06/17 07:29 Dextrose/Sodium Chloride 1,000 ml @ 50 mls/hr Q20H IV 02/05/17 11:00 03/07/17 10:59 Diphenhydramine HCl (Benadryl) 25 mg Q6H PRN ORAL Itching/Pruritis 02/04/17 07:30 03/06/17 07:29 Heparin Sodium (Porcine) (Heparin 5000 units/ml) 5,000 units EVERY 12 HOURS SUBQ 02/04/17 09:00 03/06/17 08:59 02/05/17 08:51 Hydromorphone HCl (Dilaudid) 1 mg Q4H PRN IVP Severe Pain (Pain Scale 7-10) 02/04/17 08:15 02/11/17 08:14 02/05/17 10:49 Nitroglycerin (Ntg) 0.4 mg Q5M X 3 DOSES PRN SL Prn Chest Pain 02/04/17 07:30 03/06/17 07:29 Ondansetron HCl (Zofran) 4 mg Q6H PRN IVP Nausea & Vomiting 02/04/17 07:30 03/06/17 07:29 Pantoprazole (Protonix) 40 mg DAILY IVP 02/04/17 09:00 03/06/17 08:59 02/05/17 08:55 Piperacillin Sod/ Tazobactam Sod 3.375 gm/Sodium Chloride 110 ml @ 27.5 mls/hr EVERY 8 HOURS IVPB 02/04/17 14:00 02/11/17 13:59 02/05/17 05:44 Polyethylene Glycol (Miralax) 17 gm HSPRN PRN ORAL Constipation 02/04/17 07:30 03/06/17 07:29 Temazepam (Restoril) 15 mg HSPRN PRN ORAL Insomnia 02/04/17 07:30 02/11/17 07:29 02/04/17 20:55 Shivani Finney M.D. Feb 05, 2017 12:51
[2017-02-05] MEDS: D5NS 1,000 ML IV SCH (13:20)
--- NOTE | 2017-02-05 13:20 | GI Initial Consult Note ---
History of Present Illness General Date patient seen: Feb 05, 2017 Time patient seen: 10:00 Reason for Hospitalization: Abdominal Pain Referring physician: ANURAG WISDOM Reason for Consultation: DIARRHEA Present Illness HPI 61-year-old male presents ED for evaluation. Patient states she's been having abdominal pain times one week but worse today. History of chronic abdominal pain but worse over the last one week. Patient resides in the nursing facility. Patient has history of stomach cancer. Has had previous operations. Patient is also noting blood in his stool. Pain is a 10 out of 10, sharp, nonradiating. Denies fevers or chills. Denies chest breath. No other aggravating or leading factors. Denies any other associated symptoms. GI consult for diarrhea lasting over period of 3+ months. HPI as noted above. Pt seen on floor, awake A&Ox4 NAD, ambulatory, no active s/sx of N/V/D presents today with c/o of watery diarrhea. CT AP shows possible enteritis with history of sigmoid colectomy. Patient states he has history of ?gastric CA with multiple polypectomies. Last EGD/colonoscopy was performed in shown to have gastritis and hemorrhoids. Recent cdiff is negative. Mild anemia noted. Home Meds Active Scripts Hydrocodone Bit/Acetaminophen 5-325* (NORCO 5-325*) 1 Each Tablet, 1 TAB ORAL Q12HR Y for For Pain, #10 TAB Prov:LORETTA YING.ORox 10/11/15 Methocarbamol* (ROBAXIN-750*) 750 Mg Tablet, 750 MG PO TID, #21 TAB 0 Refills Prov:LORETTA YINGORox 10/11/15 Hydrocodone Bit/Acetaminophen 5-325* (NORCO 5-325*) 1 Each Tablet, 1 TAB ORAL Q6H Y for For Pain, #20 TAB 0 Refills Prov:Aamir Frazier 09/02/15 Hydroxyzine HCl (Hydroxyzine HCl) 25 Mg Tab, 25 MG ORAL FOUR TIMES A DAY, #30 TAB Prov:Aamir Frazier 02/23/15 Pantoprazole* (PROTONIX*) 40 Mg Tablet.dr, 40 MG ORAL DAILY for 30 Days, TAB Prov:Daljit Sandhu MD 02/18/15 Reported Medications Acetaminophen (Acetaminophen) 325 Mg Capsule, 325 MG PO Q4HR Y for For Pain, CAP 02/04/17 Acetaminophen* (TYLENOL EXTRA STRENGTH*) 500 Mg Tablet, 1000 MG ORAL Q6H Y for Moderate Pain (Pain Scale 4-6), TAB 0 Refills 02/04/17 Temazepam (RESTORIL*) 30 Mg Capsule, 30 MG ORAL BEDTIME Y for insomnia , #7 CAP 0 Refills 02/04/17 Acetaminophen/Hydrocodone ([place] 7.5-325 Tablet) 1 Each Tablet, 2 TAB ORAL Q6HR Y for Severe Pain (Pain Scale 7-10), #30 TAB 0 Refills 02/04/17 Nitroglycerin (NITROGLYCERIN) 0.4 Mg Tab.subl, 0.4 MG SL, TAB 02/04/17 Multivitamin With Minerals (MULTIVITAMINS WITH MINERALS*) 1 Each Tablet, 1 TAB ORAL DAILY, TAB 02/04/17 Polyethylene Glycol 3350* (MIRALAX*) 17 Gm Powd.pack, 17 GM ORAL BID, PACKET 02/04/17 Lactulose (LACTULOSE*) 20 Gm/30 Ml Solution, 30 ML ORAL BID, ML 0 Refills 02/04/17 Hydroxyzine Hcl (HYDROXYZINE HCL) 25 Mg Tablet, 25 MG PO TID for Itching, TAB 02/04/17 Hydrocortisone/Aloe Vera 1%* (HYDROCORTISONE-ALOE 1% CREAM*) Y Cr, 1 APPLIC TOPIC, #30 GM 02/04/17 Ergocalciferol (Vitamin D2)* (VITAMIN D*) 50,000 Unit Capsule, 42484 UNIT ORAL ONCE A WEEK, CAP Every Sunday for supplement 02/04/17 Bisacodyl (DULCOLAX) 10 Mg Supp.rect, 10 MG RC Y for bowel management, SUPP 02/04/17 Clonidine Hcl* (CATAPRES*) 0.1 Mg Tablet, 0.1 MG ORAL EVERY 8 HOURS for For High Blood Pressure, TAB 02/04/17 Dextran 70/Hypromellose (ARTIFICIAL TEARS EYE DROPS*) 15 Ml Drops, 1 DROP BOTH EYES BID, #15 ML 0 Refills 02/04/17 Amlodipine Besylate* (AMLODIPINE BESYLATE*) 10 Mg Tablet, 10 MG ORAL DAILY, TAB 05/17/15 Lisinopril (LISINOPRIL*) 5 Mg Tablet, 10 MG ORAL DAILY, TAB 05/17/15 Vitamin D (Vitamin D3) 400 Intlu Cap, 20432 UNITS ORAL DAILY, CAP 05/17/15 Ascorbic Acid* (VITAMIN C*) 500 Mg Tablet, 500 MG ORAL DAILY, #30 TAB 0 Refills 05/17/15 Ferrous Sulfate* (FERROUS SULFATE*) 325 Mg Tablet, 325 MG ORAL DAILY, #60 TAB 0 Refills 05/17/15 Methocarbamol (METHOCARBAMOL) 5,000 Gm Powder, 5000 GM MC, GM 02/11/15 Citalopram Hydrobromide* (CITALOPRAM HBR*) 40 Mg Tablet, 40 MG ORAL DAILY, TAB 02/11/15 Med list reviewed/reconciled: Yes Allergies: Coded Allergies: MORPHINE (Verified Allergy, Unknown, 10/11/15) Patient History History Provided By: Patient, Medical Record PMH Narrative Past Medical History: HTN, asthma, psych hx Past Surgical History: other - gastric cancer Social History: Denies: smoking, alcohol use, drug use Immunizations: UTD Reviewed Nursing Documentation: PMH: Agreed, PSxH: Agreed Nursing Documentation-PMH Hx Cardiac Problems: Yes - murmur Hx Hypertension: Yes Hx Pacemaker: No Hx Asthma: Yes Hx COPD: No Hx Diabetes: Yes Hx Cancer: Yes - Gastric cancer Hx Gastrointestinal Problems: No Hx Dialysis: No Hx Neurological Problems: Yes - Depression Hx Cerebrovascular Accident: No Hx Transient Ischemic Attacks: No Hx Dementia: No Hx Alzheimer's Disease: No Hx Parkinson's Disease: No Hx Meningitis: No Hx Encephalitis: No Hx Seizures: No Hx Epilepsy: No Hx Multiple Sclerosis: No Hx Cerebral Palsy: No Hx Amyotrophic Lat Sclerosis: No Hx Guillian-[place] Syndrome: No Hx Paralysis: No Hx Peripheral Neuropathy: No Hx Spinal Cord Injury: No Hx Head Trauma: No - year 1998 Hx Traumatic Brain Injury: Yes - year 1998 Hx Memory Loss: No Hx Concentration Difficulty: No Hx Speech Problem: No Hx Tremors: No Hx Vertigo: Yes Hx Dizziness: Yes Hx Syncope: Yes Hx Headaches: No Hx Aphasia: No Hx Dysphasia: No Hx Numbness: Yes - fingers and legs Hx Weakness: Yes - general Hx Fatigue: Yes - general Hx Neurologic Surgery: No Hx Brain Shunt: No Social History: Denies: smoking, alcohol use, drug use, other Review of Systems All Other Systems: negative except mentioned in HPI Physical Exam Vital Signs Date Time Temp Pulse Resp B/P (MAP) Pulse Ox O2 Delivery O2 Flow Rate FiO2 02/04/17 00:58 97.7 84 18 136/86 99 Room Air Sp02 EP Interpretation: reviewed Labs Laboratory Tests Test 02/05/17 07:05 White Blood Count 4.7 K/UL (4.8-10.8) L Red Blood Count 4.09 M/UL (4.70-6.10) L Hemoglobin 13.0 G/DL (14.2-18.0) L Hematocrit 40.1 % (42.0-52.0) L Mean Corpuscular Volume 98 FL (80-99) Mean Corpuscular Hemoglobin 31.9 PG (27.0-31.0) H Mean Corpuscular Hemoglobin Concent 32.5 G/DL (32.0-36.0) Red Cell Distribution Width 14.0 % (11.6-14.8) Platelet Count 198 K/UL (150-450) Mean Platelet Volume 10.2 FL (6.5-10.1) H Neutrophils (%) (Auto) % (45.0-75.0) Lymphocytes (%) (Auto) % (20.0-45.0) Monocytes (%) (Auto) % (1.0-10.0) Eosinophils (%) (Auto) % (0.0-3.0) Basophils (%) (Auto) % (0.0-2.0) Differential Total Cells Counted 100 Neutrophils % (Manual) 51 % (45-75) Lymphocytes % (Manual) 38 % (20-45) Monocytes % (Manual) 5 % (1-10) Eosinophils % (Manual) 6 % (0-3) H Basophils % (Manual) 0 % (0-2) Band Neutrophils 0 % (0-8) Platelet Estimate Adequate Platelet Morphology Normal Anisocytosis 1+ Activated Partial Thromboplast Time 30 SEC (23-33) Sodium Level 139 mEQ/L (135-145) Potassium Level 4.5 mEQ/L (3.4-4.9) Chloride Level 103 mEQ/L (98-107) Carbon Dioxide Level 27 mEQ/L (20-30) Anion Gap 9 (5-15) Blood Urea Nitrogen 19 mg/dL (7-23) Creatinine 1.7 mg/dL (0.7-1.2) H Estimat Glomerular Filtration Rate 50.3 mL/min (>60) Glucose Level 81 mg/dL (74-106) Calcium Level 9.0 mg/dL (8.6-10.2) Total Bilirubin 0.3 mg/dL (0.0-1.2) Aspartate Amino Transf (AST/SGOT) 19 U/L (5-40) Alanine Aminotransferase (ALT/SGPT) 16 U/L (3-41) Alkaline Phosphatase 69 U/L (40-129) Total Protein 7.0 g/dL (6.6-8.7) Albumin 3.8 g/dL (3.5-5.2) Globulin 3.2 g/dL Albumin/Globulin Ratio 1.1 (1.0-2.7) Amylase Level 109 U/L (10-110) Lipase 22 U/L (< 60) General Appearance: well appearing, no apparent distress, alert Head: normocephalic EENT: PERRL/EOMI, normal ENT inspection Neck: supple Respiratory: normal breath sounds Cardiovascular: normal rate Gastrointestinal: normal inspection, non tender, soft Genitourinary: normal inspection Musculoskeletal: normal inspection, back normal Neurologic: normal inspection, alert, oriented x3, responsive Psychiatric: normal inspection, judgement/insight normal, memory normal Skin: normal inspection, normal color, no rash, warm/dry, palpation normal Lymphatic: normal inspection, no adenopathy Current Medications Current Medications Medications (Trade) Dose Ordered Sig/Blanche Route PRN Reason Start Time Stop Time Status Last Admin Dose Admin Acetaminophen (Tylenol) 650 mg Q4H PRN ORAL fever 02/04/17 07:30 03/06/17 07:29 Al Hydroxide/Mg Hydroxide (Mylanta II) 30 ml Q6H PRN ORAL dyspepsia 02/04/17 07:30 03/06/17 07:29 Amlodipine Besylate (Norvasc) 5 mg BID ORAL 02/06/17 09:00 03/06/17 08:59 Citalopram Hydrobromide (celeXA) 40 mg DAILY ORAL 02/04/17 09:00 03/06/17 08:59 02/05/17 08:55 Dextrose (Dextrose 50%) STAT PRN IV Hypoglycemia 02/04/17 07:30 03/06/17 07:29 Dextrose/Sodium Chloride 1,000 ml @ 50 mls/hr Q20H IV 02/05/17 11:00 03/07/17 10:59 Diphenhydramine HCl (Benadryl) 25 mg Q6H PRN ORAL Itching/Pruritis 02/04/17 07:30 03/06/17 07:29 Heparin Sodium (Porcine) (Heparin 5000 units/ml) 5,000 units EVERY 12 HOURS SUBQ 02/04/17 09:00 03/06/17 08:59 02/05/17 08:51 Hydromorphone HCl (Dilaudid) 1 mg Q4H PRN IVP Severe Pain (Pain Scale 7-10) 02/04/17 08:15 02/11/17 08:14 02/05/17 10:49 Nitroglycerin (Ntg) 0.4 mg Q5M X 3 DOSES PRN SL Prn Chest Pain 02/04/17 07:30 03/06/17 07:29 Ondansetron HCl (Zofran) 4 mg Q6H PRN IVP Nausea & Vomiting 02/04/17 07:30 03/06/17 07:29 Pantoprazole (Protonix) 40 mg DAILY IVP 02/04/17 09:00 03/06/17 08:59 02/05/17 08:55 Piperacillin Sod/ Tazobactam Sod 3.375 gm/Sodium Chloride 110 ml @ 27.5 mls/hr EVERY 8 HOURS IVPB 02/04/17 14:00 02/11/17 13:59 02/05/17 05:44 Polyethylene Glycol (Miralax) 17 gm HSPRN PRN ORAL Constipation 02/04/17 07:30 03/06/17 07:29 Temazepam (Restoril) 15 mg HSPRN PRN ORAL Insomnia 02/04/17 07:30 02/11/17 07:29 02/04/17 20:55 GI: Plan Problems: (1) Gastritis (2) Abdominal pain (3) Colon cancer (4) Iron deficiency anemia (5) Anemia (6) Diarrhea (7) Enteritis Plan cdiff negative s/p EGD/colonoscopy 2014 >> gastritis. hemorrhoids. s/p sigmoid colectomy [address] reviewed >> enteritis history of iron deficiency ordered for stool culture, O&P adv to lactose free/low residual/cardiac diet fu iron panel given history of deficiency cont ppi fu Giardia Ag, celiac panel, thyroid panel avoid NSAIDs PO hydration fu labs Discussed with Dr. Peralta. Thank you for referring this patient, we will follow. Tiny Hall N.P. Feb 05, 2017 13:20
--- NOTE | 2017-02-05 14:40 | Pulmonology Progress Note ---
Assessment/Plan Problems: (1) Intractable abdominal pain (2) Diarrhea (3) Enteritis (4) Gastritis (5) HTN (hypertension) Assessment/Plan IV fluids GI evaluation stool for O&P check electrolytes symptomatic treatment monitor BP Subjective ROS Limited/Unobtainable: No Constitutional: Reports: no symptoms HEENT: Repors: no symptoms Respiratory: Reports: no symptoms Allergies: Coded Allergies: MORPHINE (Verified Allergy, Unknown, 10/11/15) Objective Last 24 Hour Vital Signs Date Time Temp Pulse Resp B/P (MAP) Pulse Ox O2 Delivery O2 Flow Rate FiO2 02/05/17 12:00 98.1 69 18 115/73 100 Room Air 02/05/17 08:56 114/79 02/05/17 08:55 68 114/79 02/05/17 08:00 97.3 68 18 114/79 100 Room Air 02/05/17 06:43 97.5 02/05/17 04:30 97.5 65 19 104/60 96 Room Air 02/05/17 00:30 97.9 96 20 124/92 98 Room Air 02/04/17 21:00 97.4 69 18 101/46 99 Room Air 02/04/17 16:00 97.5 82 18 116/72 97 Room Air General Appearance: WD/WN HEENT: normocephalic, atraumatic Respiratory/Chest: chest wall non-tender, lungs clear Cardiovascular: normal peripheral pulses, normal rate Abdomen: normal bowel sounds, soft, non tender, no organomegaly Genitourinary: normal external genitalia Extremities: no cyanosis Skin: no rash Neurologic/Psychiatric: [place] II-XII grossly normal, abnormal gait Lymphatic: no neck adenopathy Musculoskeletal: normal muscle bulk Microbiology Date/Time Source Procedure Growth Status 02/04/17 11:39 Stool Clostridium difficile Toxin Assay - Final Complete Laboratory Tests 02/05/17 07:05: White Blood Count 4.7L, Red Blood Count 4.09L, Hemoglobin 13.0L, Hematocrit 40.1L, Mean Corpuscular Volume 98, Mean Corpuscular Hemoglobin 31.9H, Mean Corpuscular Hemoglobin Concent 32.5, Red Cell Distribution Width 14.0, Platelet Count 198, Mean Platelet Volume 10.2H, Neutrophils (%) (Auto) , Lymphocytes (%) (Auto) , Monocytes (%) (Auto) , Eosinophils (%) (Auto) , Basophils (%) (Auto) , Differential Total Cells Counted 100, Neutrophils % (Manual) 51, Lymphocytes % ( Manual) 38, Monocytes % (Manual) 5, Eosinophils % (Manual) 6H, Basophils % ( Manual) 0, Band Neutrophils 0, Platelet Estimate Adequate, Platelet Morphology Normal, Anisocytosis 1+, Activated Partial Thromboplast Time 30, Sodium Level 139, Potassium Level 4.5, Chloride Level 103, Carbon Dioxide Level 27, Anion Gap 9, Blood Urea Nitrogen 19, Creatinine 1.7H, Estimat Glomerular Filtration Rate 50.3, Glucose Level 81, Calcium Level 9.0, Total Bilirubin 0.3, Aspartate Amino Transf (AST/SGOT) 19, Alanine Aminotransferase (ALT/SGPT) 16, Alkaline Phosphatase 69, Total Protein 7.0, Albumin 3.8, Globulin 3.2, Albumin/Globulin Ratio 1.1, Amylase Level 109, Lipase 22 Current Medications Medications (Trade) Dose Ordered Sig/Blanche Route PRN Reason Start Time Stop Time Status Last Admin Dose Admin Acetaminophen (Tylenol) 650 mg Q4H PRN ORAL fever 02/04/17 07:30 03/06/17 07:29 Al Hydroxide/Mg Hydroxide (Mylanta II) 30 ml Q6H PRN ORAL dyspepsia 02/04/17 07:30 03/06/17 07:29 Amlodipine Besylate (Norvasc) 5 mg BID ORAL 02/06/17 09:00 03/06/17 08:59 Citalopram Hydrobromide (celeXA) 40 mg DAILY ORAL 02/04/17 09:00 03/06/17 08:59 02/05/17 08:55 Dextrose (Dextrose 50%) STAT PRN IV Hypoglycemia 02/04/17 07:30 03/06/17 07:29 Dextrose/Sodium Chloride 1,000 ml @ 50 mls/hr Q20H IV 02/05/17 11:00 03/07/17 10:59 02/05/17 13:20 Diphenhydramine HCl (Benadryl) 25 mg Q6H PRN ORAL Itching/Pruritis 02/04/17 07:30 03/06/17 07:29 Heparin Sodium (Porcine) (Heparin 5000 units/ml) 5,000 units EVERY 12 HOURS SUBQ 02/04/17 09:00 03/06/17 08:59 02/05/17 08:51 Hydromorphone HCl (Dilaudid) 1 mg Q4H PRN IVP Severe Pain (Pain Scale 7-10) 02/04/17 08:15 02/11/17 08:14 02/05/17 10:49 Nitroglycerin (Ntg) 0.4 mg Q5M X 3 DOSES PRN SL Prn Chest Pain 02/04/17 07:30 03/06/17 07:29 Ondansetron HCl (Zofran) 4 mg Q6H PRN IVP Nausea & Vomiting 02/04/17 07:30 03/06/17 07:29 Pantoprazole (Protonix) 40 mg DAILY IVP 02/04/17 09:00 03/06/17 08:59 02/05/17 08:55 Piperacillin Sod/ Tazobactam Sod 3.375 gm/Sodium Chloride 110 ml @ 27.5 mls/hr EVERY 8 HOURS IVPB 02/04/17 14:00 02/11/17 13:59 02/05/17 05:44 Polyethylene Glycol (Miralax) 17 gm HSPRN PRN ORAL Constipation 02/04/17 07:30 03/06/17 07:29 Temazepam (Restoril) 15 mg HSPRN PRN ORAL Insomnia 02/04/17 07:30 02/11/17 07:29 02/04/17 20:55 ANURAG GARCIA Feb 05, 2017 14:40
[2017-02-05 16:00] VITALS: BP 128/85
[2017-02-05 16:27] LABS: APPEARANCE,URINE CLEAR; KETONES,URINE NEGATIVE (NEGATIVE); LEUKOCYTE ESTERASE ,URINE NEGATIVE (NEGATIVE); NITRITE,URINE NEGATIVE (NEGATIVE); PH,URINE 5 (4.5-8.0); PROTEIN,URINE NEGATIVE (NEGATIVE); UROBILINOGEN,URINE NORMAL MG/DL (0.0-1.0)
[2017-02-05 16:43] LABS: BACTERIA,URINE OCCASIONAL /HPF; RBC,URINE 0-2 /HPF (0 - 0); WBC,URINE 0-2 /HPF (0 - 0)
[2017-02-05 20:00] VITALS: BP 126/82
[2017-02-06] VITALS: BP 139/91
[2017-02-06] MEDS: Hydromorphone 0.5mg/0.5ml inj IVP PRN ×6 (00:52→22:54)
[2017-02-06 04:00] VITALS: BP 141/89
[2017-02-06] MEDS: D5NS 1,000 ML IV SCH (06:08)
[2017-02-06 07:26] LABS: BASOPHILS % (AUTO) 1.8 % (0.0-2.0); EOSINOPHILS % (AUTO) 3.7 % (0.0-3.0); LYMPHOCYTES % (AUTO) 38.7 % (20.0-45.0); MEAN CORPUSCULAR HEMOGLOBIN 31.3 PG (27.0-31.0); MEAN CORPUSCULAR HGB CONC 32.1 G/DL (32.0-36.0); MEAN CORPUSCULAR VOLUME 97 FL (80-99); MEAN PLATELET VOLUME 9.6 FL (6.5-10.1); MONOCYTES % (AUTO) 6.5 % (1.0-10.0); NEUTROPHILS % (AUTO) 49.3 % (45.0-75.0); PLATELET COUNT 203 K/UL (150-450); RED BLOOD COUNT 4.06 M/UL (4.70-6.10); RED CELL DISTRIBUTION WIDTH 13.7 % (11.6-14.8)
[2017-02-06 08:00] VITALS: BP 135/78
[2017-02-06] MEDS: Pantoprazole Inj IVP SCH (08:44)
[2017-02-06] MEDS: Citalopram 20mg Tab ORAL SCH (08:45)
[2017-02-06 08:46] LABS: HEMOGLOBIN A1C 5.1 % (< 6.0)
[2017-02-06 08:48] LABS: HEMOLYSIS 7; IRON 55 ug/dL (59-158); TOTAL IRON BINDING CAPACITY 291 ug/dL (250-400)
[2017-02-06] MEDS: Heparin 5000 units/ml inj SUBQ SCH ×2 (08:48→20:55)
[2017-02-06 08:52] LABS: ALANINE AMINOTRANSFERASE 15 U/L (3-41); ALBUMIN/GLOBULIN RATIO 1.1 (1.0-2.7); ANION GAP 9 (5-15); ASPARTATE AMINO TRANSFERASE 19 U/L (5-40); CALCIUM 9.1 mg/dL (8.6-10.2); CARBON DIOXIDE 26 mEQ/L (20-30); CHLORIDE 105 mEQ/L (98-107); CHOLESTEROL 182 mg/dL (< 200); CREATININE 1.7 mg/dL (0.7-1.2); CRP QUANT 1.4 mg/dL (< 0.5); GLOMERULAR FILTRATION RATE 50.3 mL/min (>60); LDL CHOLESTEROL CALC 82 mg/dL (60-99); MAGNESIUM 2.4 mg/dL (1.7-2.5); PHOSPHORUS 2.9 mg/dL (2.5-4.8); POTASSIUM 5.4 mEQ/L (3.4-4.9); SODIUM 140 mEQ/L (135-145); URIC ACID 6.2 mg/dL (3.0-7.5)
[2017-02-06 08:56] LABS: FERRITIN 58 ng/mL (10-230)
[2017-02-06 12:00] VITALS: BP 129/84
--- NOTE | 2017-02-06 12:13 | General Progress Note ---
Assessment/Plan Status: stable Status Narrative Cr unchanged Assessment/Plan Renal failure likely chronic- likely HTN CT abd shows kidney stone- UA negative ! other: 1. Enteritis, may have infectious cause. The patient had history of colon cancer, has infrarenal abdominal aortic aneurysm. 2. Hypertension. 3. Asthma. 4. Depression. Kidney FOX repeat UA and urine studies avoid Nephrotoxics Keep BP in check monitor renal parameters kayexelate po Subjective ROS Limited/Unobtainable: No Allergies: Coded Allergies: MORPHINE (Verified Allergy, Unknown, 10/11/15) Objective Last 24 Hour Vital Signs Date Time Temp Pulse Resp B/P (MAP) Pulse Ox O2 Delivery O2 Flow Rate FiO2 02/06/17 08:50 86 141/89 02/06/17 08:00 98.4 75 17 135/78 99 Nasal Cannula 02/06/17 04:00 98.2 86 21 141/89 100 Room Air 02/06/17 00:00 97.8 86 21 139/91 96 Room Air 02/05/17 20:00 97.9 80 21 126/82 98 Room Air 02/05/17 16:00 96.6 76 18 128/85 99 Room Air Laboratory Tests 02/05/17 13:56: Giardia Antigen [Pending] 02/05/17 14:47: Urine Color Pale yellow, Urine Appearance Clear, Urine pH 5, Urine Specific [place] 1.010, Urine Protein Negative, Urine Glucose (UA) Negative, Urine Ketones Negative, Urine Occult Blood Negative, Urine Nitrite Negative, Urine Bilirubin Negative, Urine Urobilinogen Normal, Urine Leukocyte Esterase Negative , Urine RBC 0-2H, Urine WBC 0-2, Urine Squamous Epithelial Cells None, Urine Bacteria Occasional, Urine Random Sodium 109 02/05/17 15:30: Stool Cyclospora Smear [Pending], Cryptosporidium Exam (LAB) [Pending], Isospora Exam [Pending] 02/06/17 05:30: White Blood Count 5.0, Red Blood Count 4.06L, Hemoglobin 12.7L, Hematocrit 39.6L , Mean Corpuscular Volume 97, Mean Corpuscular Hemoglobin 31.3H, Mean Corpuscular Hemoglobin Concent 32.1, Red Cell Distribution Width 13.7, Platelet Count 203, Mean Platelet Volume 9.6, Neutrophils (%) (Auto) 49.3, Lymphocytes (% ) (Auto) 38.7, Monocytes (%) (Auto) 6.5, Eosinophils (%) (Auto) 3.7H, Basophils (%) (Auto) 1.8, Sodium Level 140, Potassium Level 5.4H, Chloride Level 105, Carbon Dioxide Level 26, Anion Gap 9, Blood Urea Nitrogen 19, Creatinine 1.7H, Estimat Glomerular Filtration Rate 50.3, Glucose Level 77, Hemoglobin A1c 5.1, Uric Acid 6.2, Calcium Level 9.1, Phosphorus Level 2.9, Magnesium Level 2.4, Iron Level 55L, Total Iron Binding Capacity 291, Percent Iron Saturation 19, Unsaturated Iron Binding 236, Ferritin 58, Total Bilirubin < 0.2, Gamma Glutamyl Transpeptidase 27, Aspartate Amino Transf (AST/SGOT) 19, Alanine Aminotransferase (ALT/SGPT) 15, Alkaline Phosphatase 74, Total Creatine Kinase 241H, C-Reactive Protein, Quantitative 1.4H, Pro-B-Type Natriuretic Peptide 49, Total Protein 7.0, Albumin 3.7, Globulin 3.3, Albumin/Globulin Ratio 1.1, Triglycerides Level 274H, Cholesterol Level 182, LDL Cholesterol 82, HDL Cholesterol 45, Cholesterol/HDL Ratio 4.0, Vitamin B12 Level 1211H, Folate [ Pending], Thyroid Stimulating Hormone (TSH) 1.030, Free Thyroxine 1.40, Free Triiodothyronine [Pending], Immunoglobulin A [Pending], Tissue Transglutaminase IgA Ab [Pending], HIV (1&2) Antibody Rapid Negative 02/06/17 07:25: Urine Eosinophils None seen Height (Feet): 6 Height (Inches): 0.00 Weight (Pounds): 230 General Appearance: no apparent distress Abdomen: soft Objective no change SKY NASH Feb 06, 2017 12:13
[2017-02-06] MEDS ORDERED: Sodium Polystyrene Sulfonate 15gm Powder ORAL ONE (13:30)
--- NOTE | 2017-02-06 14:24 | GI Progress Note ---
Assessment/Plan Problems: (1) HTN (hypertension) ICD Codes: I10 - Essential (primary) hypertension SNOMED: 42915098 (2) Enteritis ICD Codes: K52.9 - Noninfective gastroenteritis and colitis, unspecified SNOMED: 05058590 (3) Diarrhea ICD Codes: R19.7 - Diarrhea, unspecified SNOMED: 07751994 (4) Iron deficiency anemia ICD Codes: D50.9 - Iron deficiency anemia, unspecified SNOMED: 82716050 (5) Abdominal pain ICD Codes: R10.9 - Unspecified abdominal pain SNOMED: 46323844 (6) Gastritis ICD Codes: K29.70 - Gastritis, unspecified, without bleeding SNOMED: 1435889 (7) Anemia ICD Codes: D64.9 - Anemia, unspecified SNOMED: 177645906 (8) Colon cancer ICD Codes: C18.9 - Malignant neoplasm of colon, unspecified SNOMED: 291939355 Qualifiers: Qualified Codes: C18.9 - Malignant neoplasm of colon, unspecified Status: stable Status Narrative Discussed with Dr. Peralta. Assessment/Plan cdiff negative s/p EGD/colonoscopy 2014 >> gastritis. hemorrhoids. s/p sigmoid colectomy [address] reviewed >> enteritis history of iron deficiency >> WNL cont lactose free/low residual/cardiac diet Imodium PRN cont ppi fu Giardia Ag, celiac panel, stool culture, O&P avoid NSAIDs PO hydration fu labs Subjective Subjective continues to have diarrhea Objective Last 24 Hour Vital Signs Date Time Temp Pulse Resp B/P (MAP) Pulse Ox O2 Delivery O2 Flow Rate FiO2 02/06/17 12:00 98.1 69 19 129/84 100 Room Air 02/06/17 08:50 86 141/89 02/06/17 08:00 98.4 75 17 135/78 99 Nasal Cannula 02/06/17 04:00 98.2 86 21 141/89 100 Room Air 02/06/17 00:00 97.8 86 21 139/91 96 Room Air 02/05/17 20:00 97.9 80 21 126/82 98 Room Air 02/05/17 16:00 96.6 76 18 128/85 99 Room Air Laboratory Tests Test 02/05/17 14:47 02/05/17 15:00 02/05/17 15:30 02/06/17 05:30 Urine Color Pale yellow Urine Appearance Clear Urine pH 5 (4.5-8.0) Urine Specific [place] 1.010 (1.005-1.035) Urine Protein Negative (NEGATIVE) Urine Glucose (UA) Negative (NEGATIVE) Urine Ketones Negative (NEGATIVE) Urine Occult Blood Negative (NEGATIVE) Urine Nitrite Negative (NEGATIVE) Urine Bilirubin Negative (NEGATIVE) Urine Urobilinogen Normal MG/DL (0.0-1.0) Urine Leukocyte Esterase Negative (NEGATIVE) Urine RBC 0-2 /HPF (0 - 0) H Urine WBC 0-2 /HPF (0 - 0) Urine Squamous Epithelial Cells None /LPF (NONE/OCC) Urine Bacteria Occasional /HPF (NONE) Urine Random Sodium 109 mmol/L Stool Cyclospora Smear Pending Pending Isospora Exam Pending Pending Cryptosporidium Exam (LAB) Pending White Blood Count 5.0 K/UL (4.8-10.8) Red Blood Count 4.06 M/UL (4.70-6.10) L Hemoglobin 12.7 G/DL (14.2-18.0) L Hematocrit 39.6 % (42.0-52.0) L Mean Corpuscular Volume 97 FL (80-99) Mean Corpuscular Hemoglobin 31.3 PG (27.0-31.0) H Mean Corpuscular Hemoglobin Concent 32.1 G/DL (32.0-36.0) Red Cell Distribution Width 13.7 % (11.6-14.8) Platelet Count 203 K/UL (150-450) Mean Platelet Volume 9.6 FL (6.5-10.1) Neutrophils (%) (Auto) 49.3 % (45.0-75.0) Lymphocytes (%) (Auto) 38.7 % (20.0-45.0) Monocytes (%) (Auto) 6.5 % (1.0-10.0) Eosinophils (%) (Auto) 3.7 % (0.0-3.0) H Basophils (%) (Auto) 1.8 % (0.0-2.0) Sodium Level 140 mEQ/L (135-145) Potassium Level 5.4 mEQ/L (3.4-4.9) H Chloride Level 105 mEQ/L (98-107) Carbon Dioxide Level 26 mEQ/L (20-30) Anion Gap 9 (5-15) Blood Urea Nitrogen 19 mg/dL (7-23) Creatinine 1.7 mg/dL (0.7-1.2) H Estimat Glomerular Filtration Rate 50.3 mL/min (>60) Glucose Level 77 mg/dL (74-106) Hemoglobin A1c 5.1 % (< 6.0) Uric Acid 6.2 mg/dL (3.0-7.5) Calcium Level 9.1 mg/dL (8.6-10.2) Phosphorus Level 2.9 mg/dL (2.5-4.8) Magnesium Level 2.4 mg/dL (1.7-2.5) Iron Level 55 ug/dL (59-158) L Total Iron Binding Capacity 291 ug/dL (250-400) Percent Iron Saturation 19 % (15-50) Unsaturated Iron Binding 236 ug/dL (112-346) Ferritin 58 ng/mL (10-230) Total Bilirubin < 0.2 mg/dL (0.0-1.2) Gamma Glutamyl Transpeptidase 27 U/L (8-61) Aspartate Amino Transf (AST/SGOT) 19 U/L (5-40) Alanine Aminotransferase (ALT/SGPT) 15 U/L (3-41) Alkaline Phosphatase 74 U/L (40-129) Total Creatine Kinase 241 U/L (38-174) H C-Reactive Protein, Quantitative 1.4 mg/dL (< 0.5) H Pro-B-Type Natriuretic Peptide 49 pg/mL (0-125) Total Protein 7.0 g/dL (6.6-8.7) Albumin 3.7 g/dL (3.5-5.2) Globulin 3.3 g/dL Albumin/Globulin Ratio 1.1 (1.0-2.7) Triglycerides Level 274 mg/dL (< 150) H Cholesterol Level 182 mg/dL (< 200) LDL Cholesterol 82 mg/dL (60-99) HDL Cholesterol 45 mg/dL (> 60) Cholesterol/HDL Ratio 4.0 (3.3-4.4) Vitamin B12 Level 1211 pg/mL (211-946) H Folate Pending Thyroid Stimulating Hormone (TSH) 1.030 uIU/mL (0.300-4.500) Free Thyroxine 1.40 ng/dL (0.86-1.85) Free Triiodothyronine Pending Immunoglobulin A Pending Tissue Transglutaminase IgA Ab Pending HIV (1&2) Antibody Rapid Negative (NEGATIVE) Test 02/06/17 07:25 Urine Eosinophils None seen Height (Feet): 6 Height (Inches): 0.00 Weight (Pounds): 230 General Appearance: no apparent distress, alert, overweight Cardiovascular: normal rate Respiratory/Chest: normal breath sounds, no respiratory distress Abdominal Exam: normal bowel sounds, non tender, soft Extremities: normal range of motion Tiny Hall N.P. Feb 06, 2017 14:24
[2017-02-06] MEDS ORDERED: Loperamide 2mg cap ORAL PRN (14:30)
[2017-02-06 16:00] VITALS: BP 150/101
--- NOTE | 2017-02-06 18:20 | Pulmonology Progress Note ---
Assessment/Plan Problems: (1) Intractable abdominal pain (2) Diarrhea (3) Enteritis (4) Gastritis (5) HTN (hypertension) Assessment/Plan no change IV fluids GI evaluation stool for O&P check electrolytes symptomatic treatment monitor BP check stool studies Subjective ROS Limited/Unobtainable: No Constitutional: Reports: no symptoms HEENT: Repors: no symptoms Respiratory: Reports: no symptoms Cardiovascular: Reports: no symptoms Allergies: Coded Allergies: MORPHINE (Verified Allergy, Unknown, 10/11/15) Objective Last 24 Hour Vital Signs Date Time Temp Pulse Resp B/P (MAP) Pulse Ox O2 Delivery O2 Flow Rate FiO2 02/06/17 16:00 98.1 84 16 150/101 94 Room Air 02/06/17 12:00 98.1 69 19 129/84 100 Room Air 02/06/17 08:50 86 141/89 02/06/17 08:00 98.4 75 17 135/78 99 Nasal Cannula 02/06/17 04:00 98.2 86 21 141/89 100 Room Air 02/06/17 00:00 97.8 86 21 139/91 96 Room Air 02/05/17 20:00 97.9 80 21 126/82 98 Room Air Intake and Output 02/06/17 02/07/17 19:00 07:00 Intake Total 1150 ml Balance 1150 ml Intake Oral 600 ml IV Total 550 ml # Voids 3 # Bowel Movements 4 General Appearance: WD/WN Respiratory/Chest: chest wall non-tender, lungs clear Cardiovascular: normal peripheral pulses, normal rate, regular rhythm Abdomen: normal bowel sounds, soft, non tender, no organomegaly Genitourinary: normal external genitalia Extremities: no cyanosis Skin: no rash, no ulcers Neurologic/Psychiatric: [place]aw[place] II-XII grossly normal Microbiology Date/Time Source Procedure Growth Status 02/04/17 05:30 Nasal Nares MRSA Culture - Final NO METHICILLIN RESISTANT STAPH AUREUS... Complete 02/05/17 13:56 Stool Stool Culture - Preliminary NORMAL FECAL ANTONETTE. Resulted 02/04/17 11:39 Stool Clostridium difficile Toxin Assay - Final Complete Laboratory Tests 02/06/17 05:30: White Blood Count 5.0, Red Blood Count 4.06L, Hemoglobin 12.7L, Hematocrit 39.6L , Mean Corpuscular Volume 97, Mean Corpuscular Hemoglobin 31.3H, Mean Corpuscular Hemoglobin Concent 32.1, Red Cell Distribution Width 13.7, Platelet Count 203, Mean Platelet Volume 9.6, Neutrophils (%) (Auto) 49.3, Lymphocytes (% ) (Auto) 38.7, Monocytes (%) (Auto) 6.5, Eosinophils (%) (Auto) 3.7H, Basophils (%) (Auto) 1.8, Sodium Level 140, Potassium Level 5.4H, Chloride Level 105, Carbon Dioxide Level 26, Anion Gap 9, Blood Urea Nitrogen 19, Creatinine 1.7H, Estimat Glomerular Filtration Rate 50.3, Glucose Level 77, Hemoglobin A1c 5.1, Uric Acid 6.2, Calcium Level 9.1, Phosphorus Level 2.9, Magnesium Level 2.4, Iron Level 55L, Total Iron Binding Capacity 291, Percent Iron Saturation 19, Unsaturated Iron Binding 236, Ferritin 58, Total Bilirubin < 0.2, Gamma Glutamyl Transpeptidase 27, Aspartate Amino Transf (AST/SGOT) 19, Alanine Aminotransferase (ALT/SGPT) 15, Alkaline Phosphatase 74, Total Creatine Kinase 241H, C-Reactive Protein, Quantitative 1.4H, Pro-B-Type Natriuretic Peptide 49, Total Protein 7.0, Albumin 3.7, Globulin 3.3, Albumin/Globulin Ratio 1.1, Triglycerides Level 274H, Cholesterol Level 182, LDL Cholesterol 82, HDL Cholesterol 45, Cholesterol/HDL Ratio 4.0, Vitamin B12 Level 1211H, Folate [ Pending], Thyroid Stimulating Hormone (TSH) 1.030, Free Thyroxine 1.40, Free Triiodothyronine [Pending], Immunoglobulin A [Pending], Tissue Transglutaminase IgA Ab [Pending], HIV (1&2) Antibody Rapid Negative 02/06/17 07:25: Urine Eosinophils None seen Current Medications Medications (Trade) Dose Ordered Sig/Blanche Route PRN Reason Start Time Stop Time Status Last Admin Dose Admin Acetaminophen (Tylenol) 650 mg Q4H PRN ORAL fever 02/04/17 07:30 03/06/17 07:29 Amlodipine Besylate (Norvasc) 5 mg BID ORAL 02/06/17 09:00 03/06/17 08:59 02/06/17 08:50 Citalopram Hydrobromide (celeXA) 40 mg DAILY ORAL 02/04/17 09:00 03/06/17 08:59 02/06/17 08:45 Dextrose (Dextrose 50%) STAT PRN IV Hypoglycemia 02/04/17 07:30 03/06/17 07:29 Dextrose/Sodium Chloride 1,000 ml @ 50 mls/hr Q20H IV 02/05/17 11:00 03/07/17 10:59 02/06/17 06:08 Diphenhydramine HCl (Benadryl) 25 mg Q6H PRN ORAL Itching/Pruritis 02/04/17 07:30 03/06/17 07:29 Heparin Sodium (Porcine) (Heparin 5000 units/ml) 5,000 units EVERY 12 HOURS SUBQ 02/04/17 09:00 03/06/17 08:59 02/06/17 08:48 Hydromorphone HCl (Dilaudid) 1 mg Q4H PRN IVP Severe Pain (Pain Scale 7-10) 02/04/17 08:15 02/11/17 08:14 02/06/17 14:30 Lansoprazole (Prevacid) 30 mg DAILY ORAL 02/06/17 13:30 03/08/17 13:29 02/06/17 14:30 Loperamide HCl (Imodium) 2 mg Q4H PRN ORAL Diarrhea 02/06/17 14:30 03/08/17 14:29 02/06/17 16:51 Nitroglycerin (Ntg) 0.4 mg Q5M X 3 DOSES PRN SL Prn Chest Pain 02/04/17 07:30 03/06/17 07:29 Ondansetron HCl (Zofran) 4 mg Q6H PRN IVP Nausea & Vomiting 02/04/17 07:30 03/06/17 07:29 Polyethylene Glycol (Miralax) 17 gm HSPRN PRN ORAL Constipation 02/04/17 07:30 03/06/17 07:29 Temazepam (Restoril) 15 mg HSPRN PRN ORAL Insomnia 02/04/17 07:30 02/11/17 07:29 02/06/17 00:57 ANURAG GARCIA Feb 06, 2017 18:20
[2017-02-06 20:00] VITALS: BP 149/88
--- NOTE | 2017-02-06 20:21 | Infectious Diseases Prog Note ---
Assessment/Plan Assessment/Plan IMPRESSION: Chronic diarrhea with acute abd pain- CT shows Enteritis - given duration fo diarrhea, typical bacterial infections are less likely. R/o parasitic, r/o non- infectious causes of diarrhea -afebrile,no leukocytosis -Cdiff neg -Stool cx (prelim)- normal enteric wagner to date -HIV ag/ab neg -parasitic stool studies pending -CT abd/p: Fluid present in nondistended mid/distal small bowel loops and liquid stool present throughout the colon without colonic wall thickening. Given history, findings likely reflect enteritis/diarrheal illness. Diverticulosis without diverticulitis.Status post segmental sigmoid colectomy without evidence for small obstruction.Atherosclerosis an infrarenal abdominal aortic aneurysm measuring 3.8 cm (unchanged). Bibasilar atelectasis/scarring. Nonobstructive left intrarenal calculus without hydronephrosis. Fat-containing left inguinal hernia. history of colon cancer s/p surgery x2 infrarenal abdominal aortic aneurysm. Hypertension. Asthma. Depression. Recommendation: -Continue to monitor off abx as bacterial infections of diarrhea are less likely and no colitis/diverticulitis -s/p Zosyn #2 02/05 -f/u o+p stool x3, Giardia, cyclospora and Cryptosporidium on stool, stool cx -appreciate GI recs Discussed with RN Subjective Allergies: Coded Allergies: MORPHINE (Verified Allergy, Unknown, 10/11/15) Subjective afebrile off abx VSS cdiff neg,s tool cx normal wagner to date Objective Vital Signs Last 24 Hour Vital Signs Date Time Temp Pulse Resp B/P (MAP) Pulse Ox O2 Delivery O2 Flow Rate FiO2 02/06/17 18:32 84 150/101 02/06/17 16:00 98.1 84 16 150/101 94 Room Air 02/06/17 12:00 98.1 69 19 129/84 100 Room Air 02/06/17 08:50 86 141/89 02/06/17 08:00 98.4 75 17 135/78 99 Nasal Cannula 02/06/17 04:00 98.2 86 21 141/89 100 Room Air 02/06/17 00:00 97.8 86 21 139/91 96 Room Air Height (Feet): 6 Height (Inches): 0.00 Weight (Pounds): 230 Objective GENERAL APPEARANCE: Well developed in no acute distress. Vital Signs: Temperature 98 degrees, pulse 77, and blood pressure 127/82. Head And Neck: No oral lesion. Has poor dentition with many loss of teeth. HEART: Regular. LUNGS: Clear. ABDOMEN: Soft. Scar of previous surgery. Mildly tender. EXTREMITIES: He has no edema. Microbiology Date/Time Source Procedure Growth Status 02/04/17 05:30 Nasal Nares MRSA Culture - Final NO METHICILLIN RESISTANT STAPH AUREUS... Complete 02/05/17 13:56 Stool Stool Culture - Preliminary NORMAL FECAL WAGNER. Resulted 02/04/17 11:39 Stool Clostridium difficile Toxin Assay - Final Complete Laboratory Tests Test 02/06/17 05:30 02/06/17 07:25 White Blood Count 5.0 K/UL (4.8-10.8) Red Blood Count 4.06 M/UL (4.70-6.10) L Hemoglobin 12.7 G/DL (14.2-18.0) L Hematocrit 39.6 % (42.0-52.0) L Mean Corpuscular Volume 97 FL (80-99) Mean Corpuscular Hemoglobin 31.3 PG (27.0-31.0) H Mean Corpuscular Hemoglobin Concent 32.1 G/DL (32.0-36.0) Red Cell Distribution Width 13.7 % (11.6-14.8) Platelet Count 203 K/UL (150-450) Mean Platelet Volume 9.6 FL (6.5-10.1) Neutrophils (%) (Auto) 49.3 % (45.0-75.0) Lymphocytes (%) (Auto) 38.7 % (20.0-45.0) Monocytes (%) (Auto) 6.5 % (1.0-10.0) Eosinophils (%) (Auto) 3.7 % (0.0-3.0) H Basophils (%) (Auto) 1.8 % (0.0-2.0) Sodium Level 140 mEQ/L (135-145) Potassium Level 5.4 mEQ/L (3.4-4.9) H Chloride Level 105 mEQ/L (98-107) Carbon Dioxide Level 26 mEQ/L (20-30) Anion Gap 9 (5-15) Blood Urea Nitrogen 19 mg/dL (7-23) Creatinine 1.7 mg/dL (0.7-1.2) H Estimat Glomerular Filtration Rate 50.3 mL/min (>60) Glucose Level 77 mg/dL (74-106) Hemoglobin A1c 5.1 % (< 6.0) Uric Acid 6.2 mg/dL (3.0-7.5) Calcium Level 9.1 mg/dL (8.6-10.2) Phosphorus Level 2.9 mg/dL (2.5-4.8) Magnesium Level 2.4 mg/dL (1.7-2.5) Iron Level 55 ug/dL (59-158) L Total Iron Binding Capacity 291 ug/dL (250-400) Percent Iron Saturation 19 % (15-50) Unsaturated Iron Binding 236 ug/dL (112-346) Ferritin 58 ng/mL (10-230) Total Bilirubin < 0.2 mg/dL (0.0-1.2) Gamma Glutamyl Transpeptidase 27 U/L (8-61) Aspartate Amino Transf (AST/SGOT) 19 U/L (5-40) Alanine Aminotransferase (ALT/SGPT) 15 U/L (3-41) Alkaline Phosphatase 74 U/L (40-129) Total Creatine Kinase 241 U/L (38-174) H C-Reactive Protein, Quantitative 1.4 mg/dL (< 0.5) H Pro-B-Type Natriuretic Peptide 49 pg/mL (0-125) Total Protein 7.0 g/dL (6.6-8.7) Albumin 3.7 g/dL (3.5-5.2) Globulin 3.3 g/dL Albumin/Globulin Ratio 1.1 (1.0-2.7) Triglycerides Level 274 mg/dL (< 150) H Cholesterol Level 182 mg/dL (< 200) LDL Cholesterol 82 mg/dL (60-99) HDL Cholesterol 45 mg/dL (> 60) Cholesterol/HDL Ratio 4.0 (3.3-4.4) Vitamin B12 Level 1211 pg/mL (211-946) H Folate Pending Thyroid Stimulating Hormone (TSH) 1.030 uIU/mL (0.300-4.500) Free Thyroxine 1.40 ng/dL (0.86-1.85) Free Triiodothyronine Pending Immunoglobulin A Pending Tissue Transglutaminase IgA Ab Pending HIV (1&2) Antibody Rapid Negative (NEGATIVE) Urine Eosinophils None seen Current Medications Medications (Trade) Dose Ordered Sig/Blanche Route PRN Reason Start Time Stop Time Status Last Admin Dose Admin Acetaminophen (Tylenol) 650 mg Q4H PRN ORAL fever 02/04/17 07:30 03/06/17 07:29 Amlodipine Besylate (Norvasc) 5 mg BID ORAL 02/06/17 09:00 03/06/17 08:59 02/06/17 18:32 Citalopram Hydrobromide (celeXA) 40 mg DAILY ORAL 02/04/17 09:00 03/06/17 08:59 02/06/17 08:45 Dextrose (Dextrose 50%) STAT PRN IV Hypoglycemia 02/04/17 07:30 03/06/17 07:29 Dextrose/Sodium Chloride 1,000 ml @ 50 mls/hr Q20H IV 02/05/17 11:00 03/07/17 10:59 02/06/17 06:08 Diphenhydramine HCl (Benadryl) 25 mg Q6H PRN ORAL Itching/Pruritis 02/04/17 07:30 03/06/17 07:29 Heparin Sodium (Porcine) (Heparin 5000 units/ml) 5,000 units EVERY 12 HOURS SUBQ 02/04/17 09:00 03/06/17 08:59 02/06/17 08:48 Hydromorphone HCl (Dilaudid) 1 mg Q4H PRN IVP Severe Pain (Pain Scale 7-10) 02/04/17 08:15 02/11/17 08:14 02/06/17 18:31 Lansoprazole (Prevacid) 30 mg DAILY ORAL 02/06/17 13:30 03/08/17 13:29 02/06/17 14:30 Loperamide HCl (Imodium) 2 mg Q4H PRN ORAL Diarrhea 02/06/17 14:30 03/08/17 14:29 02/06/17 16:51 Nitroglycerin (Ntg) 0.4 mg Q5M X 3 DOSES PRN SL Prn Chest Pain 02/04/17 07:30 03/06/17 07:29 Ondansetron HCl (Zofran) 4 mg Q6H PRN IVP Nausea & Vomiting 02/04/17 07:30 03/06/17 07:29 Polyethylene Glycol (Miralax) 17 gm HSPRN PRN ORAL Constipation 02/04/17 07:30 03/06/17 07:29 Temazepam (Restoril) 15 mg HSPRN PRN ORAL Insomnia 02/04/17 07:30 02/11/17 07:29 02/06/17 00:57 Shivani Finney M.D. Feb 06, 2017 20:21
[2017-02-07] VITALS: BP 143/96
[2017-02-07] MEDS: D5NS 1,000 ML IV SCH (02:55)
[2017-02-07] MEDS: Hydromorphone 0.5mg/0.5ml inj IVP PRN ×3 (02:55→13:35)
[2017-02-07 04:00] VITALS: BP 145/90
[2017-02-07 08:02] VITALS: BP 140/80
[2017-02-07 08:33] LABS: BASOPHILS % (AUTO) 1.3 % (0.0-2.0); EOSINOPHILS % (AUTO) 3.8 % (0.0-3.0); LYMPHOCYTES % (AUTO) 36.7 % (20.0-45.0); MEAN CORPUSCULAR HEMOGLOBIN 32.2 PG (27.0-31.0); MEAN CORPUSCULAR VOLUME 97 FL (80-99); MONOCYTES % (AUTO) 7.4 % (1.0-10.0); NEUTROPHILS % (AUTO) 50.9 % (45.0-75.0); PLATELET COUNT 189 K/UL (150-450); RED BLOOD COUNT 3.95 M/UL (4.70-6.10); RED CELL DISTRIBUTION WIDTH 13.8 % (11.6-14.8); WHITE BLOOD COUNT 4.7 K/UL (4.8-10.8)
[2017-02-07 08:41] LABS: CALCIUM 9.2 mg/dL (8.6-10.2); CREATININE 1.5 mg/dL (0.7-1.2); GLOMERULAR FILTRATION RATE 58.1 mL/min (>60); POTASSIUM 4.2 mEQ/L (3.4-4.9)
[2017-02-07] MEDS: Heparin 5000 units/ml inj SUBQ SCH (08:51)
--- NOTE | 2017-02-07 10:40 | GI Progress Note ---
Assessment/Plan Problems: (1) HTN (hypertension) ICD Codes: I10 - Essential (primary) hypertension SNOMED: 94448090 (2) Enteritis ICD Codes: K52.9 - Noninfective gastroenteritis and colitis, unspecified SNOMED: 41389405 (3) Diarrhea ICD Codes: R19.7 - Diarrhea, unspecified SNOMED: 23175078 (4) Iron deficiency anemia ICD Codes: D50.9 - Iron deficiency anemia, unspecified SNOMED: 38733358 (5) Abdominal pain ICD Codes: R10.9 - Unspecified abdominal pain SNOMED: 71957090 (6) Gastritis ICD Codes: K29.70 - Gastritis, unspecified, without bleeding SNOMED: 3908340 (7) Anemia ICD Codes: D64.9 - Anemia, unspecified SNOMED: 170004677 (8) Colon cancer ICD Codes: C18.9 - Malignant neoplasm of colon, unspecified SNOMED: 298073399 Qualifiers: Qualified Codes: C18.9 - Malignant neoplasm of colon, unspecified Status: stable, progressing Status Narrative Discussed with Dr. Peralta. Assessment/Plan cdiff negative stool culture >> negative s/p EGD/colonoscopy 2014 >> gastritis. hemorrhoids. s/p sigmoid colectomy [address] reviewed >> enteritis history of iron deficiency >> WNL clear for DC per GI standpoint, fu as outpatient Imodium PRN lactose free/low residual/cardiac diet cont ppi fu Giardia Ag, celiac panel, O&P avoid NSAIDs PO hydration fu labs Subjective Subjective Imodium has helped reduce number of episodes of diarrhea Objective Last 24 Hour Vital Signs Date Time Temp Pulse Resp B/P (MAP) Pulse Ox O2 Delivery O2 Flow Rate FiO2 02/07/17 08:40 70 140/80 02/07/17 08:02 97.0 70 19 140/80 99 Room Air 02/07/17 04:00 97.9 81 20 145/90 97 Room Air 02/07/17 00:00 98.6 80 20 143/96 97 Room Air 02/06/17 20:00 97.8 77 21 149/88 100 Room Air 02/06/17 18:32 84 150/101 02/06/17 16:00 98.1 84 16 150/101 94 Room Air 02/06/17 12:00 98.1 69 19 129/84 100 Room Air Intake and Output 02/07/17 02/08/17 19:00 07:00 Output Total 400 ml Balance -400 ml Output Urine Total 400 ml Laboratory Tests Test 02/07/17 02:30 02/07/17 08:05 Urine Eosinophils None seen White Blood Count 4.7 K/UL (4.8-10.8) L Red Blood Count 3.95 M/UL (4.70-6.10) L Hemoglobin 12.7 G/DL (14.2-18.0) L Hematocrit 38.5 % (42.0-52.0) L Mean Corpuscular Volume 97 FL (80-99) Mean Corpuscular Hemoglobin 32.2 PG (27.0-31.0) H Mean Corpuscular Hemoglobin Concent 33.0 G/DL (32.0-36.0) Red Cell Distribution Width 13.8 % (11.6-14.8) Platelet Count 189 K/UL (150-450) Mean Platelet Volume 9.0 FL (6.5-10.1) Neutrophils (%) (Auto) 50.9 % (45.0-75.0) Lymphocytes (%) (Auto) 36.7 % (20.0-45.0) Monocytes (%) (Auto) 7.4 % (1.0-10.0) Eosinophils (%) (Auto) 3.8 % (0.0-3.0) H Basophils (%) (Auto) 1.3 % (0.0-2.0) Sodium Level 138 mEQ/L (135-145) Potassium Level 4.2 mEQ/L (3.4-4.9) Chloride Level 104 mEQ/L (98-107) Carbon Dioxide Level 25 mEQ/L (20-30) Anion Gap 9 (5-15) Blood Urea Nitrogen 21 mg/dL (7-23) Creatinine 1.5 mg/dL (0.7-1.2) H Estimat Glomerular Filtration Rate 58.1 mL/min (>60) Glucose Level 116 mg/dL (74-106) H Calcium Level 9.2 mg/dL (8.6-10.2) Carcinoembryonic Antigen 1.8 ng/mL Height (Feet): 6 Height (Inches): 0.00 Weight (Pounds): 230 General Appearance: no apparent distress, alert Cardiovascular: normal rate Respiratory/Chest: normal breath sounds Abdominal Exam: normal bowel sounds, non tender, soft Extremities: normal range of motion Tiny Hall N.P. Feb 07, 2017 10:40
[2017-02-07 11:53] VITALS: BP 140/100
--- NOTE | 2017-02-07 11:56 | General Progress Note ---
Assessment/Plan Status: stable Status Narrative Cr down 1.5 Assessment/Plan Renal failure likely chronic- likely HTN CT abd shows kidney stone- UA negative ! other: 1. Enteritis, may have infectious cause. The patient had history of colon cancer, has infrarenal abdominal aortic aneurysm. 2. Hypertension. 3. Asthma. 4. Depression. Kidney FOX repeat UA and urine studies avoid Nephrotoxics Keep BP in check monitor renal parameters kayexelate po Subjective ROS Limited/Unobtainable: No Constitutional: Reports: malaise Allergies: Coded Allergies: MORPHINE (Verified Allergy, Unknown, 10/11/15) Objective Last 24 Hour Vital Signs Date Time Temp Pulse Resp B/P (MAP) Pulse Ox O2 Delivery O2 Flow Rate FiO2 02/07/17 11:53 98.3 92 21 140/100 98 Room Air 02/07/17 08:40 70 140/80 02/07/17 08:02 97.0 70 19 140/80 99 Room Air 02/07/17 04:00 97.9 81 20 145/90 97 Room Air 02/07/17 00:00 98.6 80 20 143/96 97 Room Air 02/06/17 20:00 97.8 77 21 149/88 100 Room Air 02/06/17 18:32 84 150/101 02/06/17 16:00 98.1 84 16 150/101 94 Room Air 02/06/17 12:00 98.1 69 19 129/84 100 Room Air Intake and Output 02/07/17 02/08/17 19:00 07:00 Output Total 400 ml Balance -400 ml Output Urine Total 400 ml Laboratory Tests 02/07/17 02:30: Urine Eosinophils None seen 02/07/17 08:05: White Blood Count 4.7L, Red Blood Count 3.95L, Hemoglobin 12.7L, Hematocrit 38.5L, Mean Corpuscular Volume 97, Mean Corpuscular Hemoglobin 32.2H, Mean Corpuscular Hemoglobin Concent 33.0, Red Cell Distribution Width 13.8, Platelet Count 189, Mean Platelet Volume 9.0, Neutrophils (%) (Auto) 50.9, Lymphocytes (% ) (Auto) 36.7, Monocytes (%) (Auto) 7.4, Eosinophils (%) (Auto) 3.8H, Basophils (%) (Auto) 1.3, Sodium Level 138, Potassium Level 4.2, Chloride Level 104, Carbon Dioxide Level 25, Anion Gap 9, Blood Urea Nitrogen 21, Creatinine 1.5H, Estimat Glomerular Filtration Rate 58.1, Glucose Level 116H, Calcium Level 9.2, Carcinoembryonic Antigen 1.8 Height (Feet): 6 Height (Inches): 0.00 Weight (Pounds): 230 General Appearance: no apparent distress Respiratory/Chest: lungs clear Abdomen: soft Objective no change SKY NASH Feb 07, 2017 11:56
[2017-02-07] MEDS: Citalopram 20mg Tab ORAL SCH (11:59)
--- NOTE | 2017-02-07 15:03 | Pulmonology Progress Note ---
Assessment/Plan Problems: (1) Intractable abdominal pain (2) Diarrhea (3) Enteritis (4) Gastritis (5) HTN (hypertension) Assessment/Plan improving GI evaluation stool for O&P are all negative check electrolytes symptomatic treatment monitor BP dc to SNF with prior meds Subjective ROS Limited/Unobtainable: No Constitutional: Reports: no symptoms HEENT: Repors: no symptoms Respiratory: Reports: no symptoms Cardiovascular: Reports: no symptoms Allergies: Coded Allergies: MORPHINE (Verified Allergy, Unknown, 10/11/15) Objective Last 24 Hour Vital Signs Date Time Temp Pulse Resp B/P (MAP) Pulse Ox O2 Delivery O2 Flow Rate FiO2 02/07/17 11:53 98.3 92 21 140/100 98 Room Air 02/07/17 08:40 70 140/80 02/07/17 08:02 97.0 70 19 140/80 99 Room Air 02/07/17 04:00 97.9 81 20 145/90 97 Room Air 02/07/17 00:00 98.6 80 20 143/96 97 Room Air 02/06/17 20:00 97.8 77 21 149/88 100 Room Air 02/06/17 18:32 84 150/101 02/06/17 16:00 98.1 84 16 150/101 94 Room Air Intake and Output 02/07/17 02/08/17 19:00 07:00 Output Total 400 ml Balance -400 ml Output Urine Total 400 ml General Appearance: WD/WN, no acute distress Cardiovascular: normal peripheral pulses, normal rate Abdomen: normal bowel sounds, soft, non tender Genitourinary: normal external genitalia Skin: no rash, no ulcers Microbiology Date/Time Source Procedure Growth Status 02/05/17 13:56 Stool Stool Culture - Preliminary NO SALMONELLA,SHIGELLA,OR CAMPYLOBACT... Resulted Laboratory Tests 02/07/17 02:30: Urine Eosinophils None seen 02/07/17 08:05: White Blood Count 4.7L, Red Blood Count 3.95L, Hemoglobin 12.7L, Hematocrit 38.5L, Mean Corpuscular Volume 97, Mean Corpuscular Hemoglobin 32.2H, Mean Corpuscular Hemoglobin Concent 33.0, Red Cell Distribution Width 13.8, Platelet Count 189, Mean Platelet Volume 9.0, Neutrophils (%) (Auto) 50.9, Lymphocytes (% ) (Auto) 36.7, Monocytes (%) (Auto) 7.4, Eosinophils (%) (Auto) 3.8H, Basophils (%) (Auto) 1.3, Sodium Level 138, Potassium Level 4.2, Chloride Level 104, Carbon Dioxide Level 25, Anion Gap 9, Blood Urea Nitrogen 21, Creatinine 1.5H, Estimat Glomerular Filtration Rate 58.1, Glucose Level 116H, Calcium Level 9.2, Carcinoembryonic Antigen 1.8 Current Medications Medications (Trade) Dose Ordered Sig/Blanche Route PRN Reason Start Time Stop Time Status Last Admin Dose Admin Acetaminophen (Tylenol) 650 mg Q4H PRN ORAL fever 02/04/17 07:30 03/06/17 07:29 Amlodipine Besylate (Norvasc) 5 mg BID ORAL 02/06/17 09:00 03/06/17 08:59 02/07/17 08:40 Citalopram Hydrobromide (celeXA) 40 mg DAILY ORAL 02/04/17 09:00 03/06/17 08:59 02/07/17 11:59 Dextrose (Dextrose 50%) STAT PRN IV Hypoglycemia 02/04/17 07:30 03/06/17 07:29 Dextrose/Sodium Chloride 1,000 ml @ 50 mls/hr Q20H IV 02/05/17 11:00 03/07/17 10:59 02/07/17 02:55 Diphenhydramine HCl (Benadryl) 25 mg Q6H PRN ORAL Itching/Pruritis 02/04/17 07:30 03/06/17 07:29 02/06/17 21:15 Heparin Sodium (Porcine) (Heparin 5000 units/ml) 5,000 units EVERY 12 HOURS SUBQ 02/04/17 09:00 03/06/17 08:59 02/07/17 08:51 Hydromorphone HCl (Dilaudid) 1 mg Q4H PRN IVP Severe Pain (Pain Scale 7-10) 02/04/17 08:15 02/11/17 08:14 02/07/17 13:35 Lansoprazole (Prevacid) 30 mg DAILY ORAL 02/06/17 13:30 03/08/17 13:29 02/07/17 08:39 Loperamide HCl (Imodium) 2 mg Q4H ORAL 02/07/17 16:00 03/08/17 14:29 02/07/17 13:34 Nitroglycerin (Ntg) 0.4 mg Q5M X 3 DOSES PRN SL Prn Chest Pain 02/04/17 07:30 03/06/17 07:29 Ondansetron HCl (Zofran) 4 mg Q6H PRN IVP Nausea & Vomiting 02/04/17 07:30 03/06/17 07:29 Polyethylene Glycol (Miralax) 17 gm HSPRN PRN ORAL Constipation 02/04/17 07:30 03/06/17 07:29 Temazepam (Restoril) 15 mg HSPRN PRN ORAL Insomnia 02/04/17 07:30 02/11/17 07:29 02/06/17 00:57 ANURAG GARCIA Feb 07, 2017 15:03
[2017-02-07] MEDS ORDERED: Loperamide 2mg cap ORAL SCH (16:00)
[2017-02-07 16:05] VITALS: BP 141/96
--- NOTE | 2017-02-07 16:33 | Diagnostic Imaging Report ---
Indication:Elevated Bun and Creatinine. Technique: Grayscale and duplex Doppler imaging of the kidneys performed. Comparison: None Findings: There are multiple cysts present within both kidneys. This is our varying size. There is calcification in the left kidney likely a small nonobstructive stone. The right kidney is 12.3 CM. Left kidney 11.1 CM in length. IVC and bladder are unremarkable. Impression: Nonobstructive stone in the left kidney. Multiple bilateral renal cysts
[2017-02-07] MEDS ORDERED: D5NS 1000ml IV ONE (16:44)
--- NOTE | 2017-02-07 16:56 | Infectious Diseases Prog Note ---
Assessment/Plan Assessment/Plan IMPRESSION: Chronic diarrhea with acute abd pain- CT shows Enteritis - given duration fo diarrhea, typical bacterial infections are less likely. R/o parasitic, r/o non- infectious causes of diarrhea -afebrile,no leukocytosis -Cdiff neg -Stool cx (prelim)- normal enteric wagner to date -HIV ag/ab neg -parasitic stool studies pending -CT abd/p: Fluid present in nondistended mid/distal small bowel loops and liquid stool present throughout the colon without colonic wall thickening. Given history, findings likely reflect enteritis/diarrheal illness. Diverticulosis without diverticulitis.Status post segmental sigmoid colectomy without evidence for small obstruction.Atherosclerosis an infrarenal abdominal aortic aneurysm measuring 3.8 cm (unchanged). Bibasilar atelectasis/scarring. Nonobstructive left intrarenal calculus without hydronephrosis. Fat-containing left inguinal hernia. history of colon cancer s/p surgery x2 infrarenal abdominal aortic aneurysm. Hypertension. Asthma. Depression. Recommendation: -Ok to disharge home off abx -s/p Zosyn #2 02/05 -f/u o+p stool x3, Giardia, cyclospora and Cryptosporidium on stool, stool cx -GI f/u as outpatient Discussed with RN Subjective Allergies: Coded Allergies: MORPHINE (Verified Allergy, Unknown, 10/11/15) Subjective afebrile off abx VSS cdiff neg,s tool cx normal wagner to date for discharge today Objective Vital Signs Last 24 Hour Vital Signs Date Time Temp Pulse Resp B/P (MAP) Pulse Ox O2 Delivery O2 Flow Rate FiO2 02/07/17 16:05 97.9 104 19 141/96 97 Room Air 02/07/17 11:53 98.3 92 21 140/100 98 Room Air 02/07/17 08:40 70 140/80 02/07/17 08:02 97.0 70 19 140/80 99 Room Air 02/07/17 04:00 97.9 81 20 145/90 97 Room Air 02/07/17 00:00 98.6 80 20 143/96 97 Room Air 02/06/17 20:00 97.8 77 21 149/88 100 Room Air 02/06/17 18:32 84 150/101 Height (Feet): 6 Height (Inches): 0.00 Weight (Pounds): 230 Objective not done as patient already discharged Microbiology Date/Time Source Procedure Growth Status 02/05/17 13:56 Stool Stool Culture - Preliminary NO SALMONELLA,SHIGELLA,OR CAMPYLOBACT... Resulted Laboratory Tests Test 02/07/17 02:30 02/07/17 08:05 Urine Eosinophils None seen White Blood Count 4.7 K/UL (4.8-10.8) L Red Blood Count 3.95 M/UL (4.70-6.10) L Hemoglobin 12.7 G/DL (14.2-18.0) L Hematocrit 38.5 % (42.0-52.0) L Mean Corpuscular Volume 97 FL (80-99) Mean Corpuscular Hemoglobin 32.2 PG (27.0-31.0) H Mean Corpuscular Hemoglobin Concent 33.0 G/DL (32.0-36.0) Red Cell Distribution Width 13.8 % (11.6-14.8) Platelet Count 189 K/UL (150-450) Mean Platelet Volume 9.0 FL (6.5-10.1) Neutrophils (%) (Auto) 50.9 % (45.0-75.0) Lymphocytes (%) (Auto) 36.7 % (20.0-45.0) Monocytes (%) (Auto) 7.4 % (1.0-10.0) Eosinophils (%) (Auto) 3.8 % (0.0-3.0) H Basophils (%) (Auto) 1.3 % (0.0-2.0) Sodium Level 138 mEQ/L (135-145) Potassium Level 4.2 mEQ/L (3.4-4.9) Chloride Level 104 mEQ/L (98-107) Carbon Dioxide Level 25 mEQ/L (20-30) Anion Gap 9 (5-15) Blood Urea Nitrogen 21 mg/dL (7-23) Creatinine 1.5 mg/dL (0.7-1.2) H Estimat Glomerular Filtration Rate 58.1 mL/min (>60) Glucose Level 116 mg/dL (74-106) H Calcium Level 9.2 mg/dL (8.6-10.2) Carcinoembryonic Antigen 1.8 ng/mL Current Medications Medications (Trade) Dose Ordered Sig/Blanche Route PRN Reason Start Time Stop Time Status Last Admin Dose Admin Acetaminophen (Tylenol) 650 mg Q4H PRN ORAL fever 02/04/17 07:30 03/06/17 07:29 Amlodipine Besylate (Norvasc) 5 mg BID ORAL 02/06/17 09:00 03/06/17 08:59 02/07/17 08:40 Citalopram Hydrobromide (celeXA) 40 mg DAILY ORAL 02/04/17 09:00 03/06/17 08:59 02/07/17 11:59 Dextrose (Dextrose 50%) STAT PRN IV Hypoglycemia 02/04/17 07:30 03/06/17 07:29 Dextrose/Sodium Chloride 1,000 ml @ 50 mls/hr Q20H IV 02/05/17 11:00 03/07/17 10:59 02/07/17 02:55 Diphenhydramine HCl (Benadryl) 25 mg Q6H PRN ORAL Itching/Pruritis 02/04/17 07:30 03/06/17 07:29 02/06/17 21:15 Heparin Sodium (Porcine) (Heparin 5000 units/ml) 5,000 units EVERY 12 HOURS SUBQ 02/04/17 09:00 03/06/17 08:59 02/07/17 08:51 Hydromorphone HCl (Dilaudid) 1 mg Q4H PRN IVP Severe Pain (Pain Scale 7-10) 02/04/17 08:15 02/11/17 08:14 02/07/17 13:35 Lansoprazole (Prevacid) 30 mg DAILY ORAL 02/06/17 13:30 03/08/17 13:29 02/07/17 08:39 Loperamide HCl (Imodium) 2 mg Q4H ORAL 02/07/17 16:00 03/08/17 14:29 02/07/17 13:34 Nitroglycerin (Ntg) 0.4 mg Q5M X 3 DOSES PRN SL Prn Chest Pain 02/04/17 07:30 03/06/17 07:29 Ondansetron HCl (Zofran) 4 mg Q6H PRN IVP Nausea & Vomiting 02/04/17 07:30 03/06/17 07:29 Polyethylene Glycol (Miralax) 17 gm HSPRN PRN ORAL Constipation 02/04/17 07:30 10/31/17 07:29 Temazepam (Restoril) 15 mg HSPRN PRN ORAL Insomnia 02/04/17 07:30 02/11/17 07:29 02/06/17 00:57 Shivani Finney M.D. Feb 07, 2017 16:56
[2017-02-07 17:38] VITALS: BP 141/96
--- NOTE | 2017-02-08 14:24 | Discharge Summary ---
Discharge Summary Hospital Course Date of Admission Feb 04, 2017 at 04:02 Date of Discharge Feb 07, 2017 at 18:00 Admitting Diagnosis abdominal pain HPI Michel Morales is a 61 year old male who was admitted on Feb 04, 2017 at 04:02 for Abdominal Pain Hospital Course [id number] Discharge Discharge Disposition Patient was discharged to SNF/Subacute Facility(03) Discharge Diagnoses: Catherine Ross NP Feb 08, 2017 14:24
--- NOTE | 2017-02-09 01:45 | Discharge Summary 2 SIG ---
DATE OF ADMISSION: 02/04/2017 DATE OF DISCHARGE: 02/07/2017 CONSULTANTS: 1. David Arredondo M.D. 2. Emeterio Peralta M.D. 3. Dr. Maria Ines Finney Brief Hospital Course: The patient is a 61-year-old male with history of gastric CA, sigmoidectomy presented to ED for evaluation of abdominal pain for a week that has gotten worse. He also noted blood in the stools. The pain was described to be 10/10 which is sharp and nonradiating. On evaluation at ED, labs showed no leukocytosis. Creatinine was elevated to 1.5. CT of the abdomen and pelvis showed enteritis and diverticulosis without diverticulitis. He was given multiple rounds of pain medication without significant relief. He was then admitted for intractable pain. The patient was given IV hydration and was started on Zosyn. The patient was having watery diarrhea. C. difficile was negative. Stool culture was negative for Salmonella, Shigella, or Campylobacter. Diet was advanced to lactose-free low residual cardiac diet. Renal failure was likely chronic possibly secondary to hypertensive nephrosclerosis. Renal ultrasound showed nonobstructive stone in the left kidney with multiple bilateral renal cyst. Stool studies were negative, he was taken off antibiotics and was observed off antibiotics. He was given Imodium p.r.n. Potassium was elevated to 5.4 and was given Kayexalate. He was eventually discharged back to SNF. FINAL DIAGNOSES: 1. Intractable abdominal pain. 2. Enteritis. 3. Diarrhea. 4. Gastritis. 5. Hypertension. 6. History of colon cancer, status post surgery. 7. Hypertension. 8. Asthma. 9. Depression. DISPOSITION: The patient was discharged home. DISCHARGE MEDICATIONS: Refer to medication list. Aleksandra Rodriguez M.D. I have been assigned to dictate discharge summary on this account and I was not involved in the patient's management. Catherine Ross N.P. DR: Yogi JOB#: [id number] CC: VICENTA
[2017-02-12 00:39] LABS: FREE TRIIODOTHYRONINE 3.7 pg/mL (2.0-4.4)
== END 2017-02-07 18:00 | DRG 392 ==
LOC: EDBD 00:58 → EMR 01:24 → EDBEDREQ 04:01 → 4E 04:02 → EDBEDREQ 04:06
DX: K52.9 Noninfective gastroenteritis and colitis, unspecified (principal); I12.9 Hypertensive chronic kidney disease with stage 1 through stage 4 chronic kidney disease, or unspecified chronic kidney disease; N18.9 Chronic kidney disease, unspecified; K57.30 Diverticulosis of large intestine without perforation or abscess without bleeding; F32.9 Major depressive disorder, single episode, unspecified; I71.4 Abdominal aortic aneurysm, without rupture; Z85.038 Personal history of other malignant neoplasm of large intestine; Z88.6 Allergy status to analgesic agent; Z90.49 Acquired absence of other specified parts of digestive tract; R10.9 Unspecified abdominal pain; J45.909 Unspecified asthma, uncomplicated; K29.70 Gastritis, unspecified, without bleeding; Z87.820 Personal history of traumatic brain injury; D50.9 Iron deficiency anemia, unspecified
CPT/HCPCS: 36415; 74176; 76775; 80048; 80053; 80061; 81001; 81003; 82150; 82378; 82550; 82607; 82728; 82746; 82784; 82977; 83036; 83516; 83540; 83550; 83690; 83735; 83880; 84100; 84300; 84439; 84443; 84481; 84484; 84550; 85007; 85025; 85730; 86140; 86703; 86999; 87015; 87045; 87081; 87324; 87329; 89050; 99285

== ENCOUNTER 2017-05-10 09:30 | Inpatient (IN) | payer MEDICARE, OTHER ==
[~2017-05-10] VITALS: Ht 198.1 cm; Wt 102.1 kg
[~2017-05-10 09:30] MED LIST changes: +ACETAMINOPHEN325 M3 PO; +ARTIFICIAL TEAR15 ML BOTH EYES; +CATAPRES0.1 MG ORAL; +DULCOLAX10 MG RC; +HYDROCORTISONE-30 GM TOPIC; +LACTULOSE20 GM/301 ORAL; +MIRALAX17 G2 ORAL; +MULTIVITAMINS1 EAC8 ORAL; +NITROGLYCERIN0.4 MG SL; +NORCO1 E1 ORAL; +RESTORIL30 MG ORAL; +TYLENOL EXTRA500 MG ORAL; +VITAMIN D250000 UNI1 ORAL
[2017-05-10 09:53] VITALS: BP 125/84
[2017-05-10 11:12] LABS: HEMATOCRIT 25.5 % (42.0-52.0); HEMOGLOBIN 7.5 G/DL (14.2-18.0); MEAN CORPUSCULAR VOLUME 104 FL (80-99); PLATELET COUNT 295 K/UL (150-450); RED BLOOD COUNT 2.46 M/UL (4.70-6.10); RED CELL DISTRIBUTION WIDTH 16.8 % (11.6-14.8); WHITE BLOOD COUNT 7.8 K/UL (4.8-10.8)
[2017-05-10 11:23] LABS: ANION GAP 6 mmol/L (5-15); BLOOD UREA NITROGEN 13 mg/dL (7-18); CALCIUM 8.6 MG/DL (8.5-10.1); CARBON DIOXIDE 26 MMOL/L (21-32); CHLORIDE 110 MMOL/L (98-107); CREATININE 1.5 MG/DL (0.55-1.30); POTASSIUM 4.7 MMOL/L (3.5-5.1); SODIUM 142 MMOL/L (136-145)
[2017-05-10 11:36] LABS: ALANINE AMINOTRANSFERASE 25 U/L (12-78); ALBUMIN 3.4 G/DL (3.4-5.0); ALBUMIN/GLOBULIN RATIO 0.9 (1.0-2.7); ALKALINE PHOSPHATASE 58 U/L (46-116); ASPARTATE AMINO TRANSFERASE 31 U/L (15-37); BILIRUBIN,TOTAL 0.3 MG/DL (0.2-1.0); CREATINE KINASE 126 U/L (26-308)
--- NOTE | 2017-05-10 11:46 | Diagnostic Imaging Report ---
Indication: Chest pain Technique: One view of the chest Comparison: 08/26/2015 Findings: Lungs and pleural spaces are clear. Heart size is normal. No significant interim change Impression: No acute process
[2017-05-10 12:06] VITALS: BP 125/80
--- NOTE | 2017-05-10 13:16 | Emergency Room Report ---
History of Present Illness General Chief Complaint: Dizziness Source: Patient Present Illness HPI 61-year-old male with known iron-def anemia presents with shortness of breath on exertion for last week. Recent admission outside facility for anemia requiring transfusion. Associated with intermittent dizziness and shortness of breath. denies chest pain, fever chills or body aches Is compliant with iron Allergies: Coded Allergies: MORPHINE (Verified Allergy, Unknown, 10/11/15) Patient History Past Medical History: other - anemia Past Surgical History: none Pertinent Family History: none Social History: Denies: smoking, alcohol use, drug use Immunizations: UTD Reviewed Nursing Documentation: PMH: Agreed, PSxH: Agreed Nursing Documentation-PMH Hx Cardiac Problems: Yes - murmur Hx Hypertension: Yes Hx Pacemaker: No Hx Asthma: Yes Hx COPD: No Hx Diabetes: Yes Hx Cancer: Yes - Gastric cancer Hx Gastrointestinal Problems: Yes - GI cancer Hx Dialysis: No Hx Neurological Problems: Yes - Depression Hx Cerebrovascular Accident: No Hx Transient Ischemic Attacks: No Hx Dementia: No Hx Alzheimer's Disease: No Hx Parkinson's Disease: No Hx Meningitis: No Hx Encephalitis: No Hx Seizures: No Hx Epilepsy: No Hx Multiple Sclerosis: No Hx Cerebral Palsy: No Hx Amyotrophic Lat Sclerosis: No Hx Guillian-[place] Syndrome: No Hx Paralysis: No Hx Peripheral Neuropathy: No Hx Spinal Cord Injury: No Hx Head Trauma: No - year 1998 Hx Traumatic Brain Injury: Yes - year 1998 Hx Memory Loss: No Hx Concentration Difficulty: No Hx Speech Problem: No Hx Tremors: No Hx Vertigo: Yes Hx Dizziness: Yes Hx Syncope: Yes Hx Headaches: No Hx Aphasia: No Hx Dysphasia: No Hx Numbness: Yes - fingers and legs Hx Weakness: Yes - general Hx Fatigue: Yes - general Hx Neurologic Surgery: No Hx Brain Shunt: No Review of Systems All Other Systems: negative except mentioned in HPI Physical Exam Vital Signs Date Time Temp Pulse Resp B/P (MAP) Pulse Ox O2 Delivery O2 Flow Rate FiO2 05/10/17 09:38 98.2 104 18 145/84 100 Room Air Sp02 EP Interpretation: reviewed, normal General Appearance: normal inspection, well appearing, no apparent distress, alert, GCS 15, non-toxic Head: normocephalic, atraumatic Eyes: bilateral eye PERRL, bilateral eye EOMI ENT: normal ENT inspection, hearing grossly normal, normal pharynx, no angioedema, normal voice, TMs + canals normal, uvula midline, moist mucus membranes Neck: normal inspection, full range of motion, supple, thyroid normal, no meningismus, no bony tend Respiratory: normal inspection, lungs clear, normal breath sounds, no rhonchi, no respiratory distress, no retraction, no accessory muscle use, no wheezing, speaking full sentences Cardiovascular #1: regular rate, rhythm, no edema, no JVD, normal capillary refill Gastrointestinal: normal inspection, normal bowel sounds, non tender, soft, no mass, no peritonitis, non-distended, no guarding, no hernia, no pulsatile mass Genitourinary: no CVA tenderness Musculoskeletal: normal inspection, back normal, normal range of motion, no calf tenderness, pelvis stable, Jazlyn's Sign negative Neurologic: normal inspection, alert, oriented x3, responsive, operator electronic 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 Was transfused 2 units of blood in the ER Endorse to Dr. Rodriguez, medical surgical bed 115pm EKG Diagnostic Results Rate: normal Rhythm: NSR ST Segments: no acute changes ASA given to the pt in ED: No Rhythm Strip Diag. Results EP Interpretation: yes Rate: 94 Rhythm: NSR, no PVC's, no ectopy Last Vital Signs Date Time Temp Pulse Resp B/P (MAP) Pulse Ox O2 Delivery O2 Flow Rate FiO2 05/10/17 12:06 98.8 90 15 125/80 100 Room Air Status: improved Disposition: ADMITTED INPATIENT Condition: Serious Referrals: NOT CHOSEN IPA/,REFERRING (PCP) ELISSA ZAZUETA M.D. May 10, 2017 13:16
[2017-05-10] MEDS ORDERED: Morphine Sulfate 2mg/ml Inj IVP ONE (14:15)
[2017-05-10 15:30] VITALS: BP 131/87
[2017-05-10] MEDS: HydrOXYzine tab 25 MG TAB ORAL SCH ×2 (17:52→21:04)
[2017-05-10] MEDS: D5NS 1,000 ML IV SCH ×2 (17:52→21:04)
[2017-05-10] MEDS: Lactulose 20gm/30ml UDC ORAL SCH (17:52)
[2017-05-10] MEDS ORDERED: Nitroglycerin Subl 0.4mg tab SL PRN (18:00)
[2017-05-10] MEDS ORDERED: Mylanta II UD 30ml ORAL PRN (18:00)
[2017-05-10] MEDS: Morphine Sulfate 2mg/ml Inj IVP PRN ×2 (18:08→22:52)
[2017-05-10] MEDS ORDERED: Phytonadione 10 MG in D5W 55 ML IVPB ONE (18:30)
--- NOTE | 2017-05-10 18:44 | History and Physical ---
History of Present Illness General Date patient seen: May 10, 2017 Reason for Hospitalization: Dizziness Present Illness HPI 61-year-old male with pmhx iron-deficiency anemia and no other known past medical history presents with shortness of breath on exertion and increasing weakness since last week. Patient admits to recently requiring hospitilization for severe anemia and requiring a blood transfusion. Patient unable to describe the cause of his acute or chronic blood loss, though the patient admits he was told his iron levels are low and he was given a iron supplement. The patient also admits to profound weakness and shortness of breath. Denies chest pain, fever chills or body aches Allergies: Coded Allergies: No Known Allergies (Unverified , 05/10/17) Medication History Scheduled Amlodipine Besylate* (Amlodipine Besylate*), 10 MG ORAL DAILY, (Reported) Ascorbic Acid* (Vitamin C*), 500 MG ORAL DAILY, (Reported) Aspirin* (Aspirin*), 81 MG ORAL DAILY, (Reported) Citalopram Hydrobromide* (Citalopram Hbr*), 40 MG ORAL DAILY, (Reported) Dextran 70/Hypromellose (Artificial Tears Eye Drops*), 1 DROP BOTH EYES BID, ( Reported) Ferrous Sulfate* (Ferrous Sulfate*), 325 MG ORAL DAILY, (Reported) Fluconazole (Fluconazole), 100 MG ORAL DAILY, (Reported) Lisinopril* (Lisinopril*), 10 MG ORAL DAILY, (Reported) Metoprolol Tartrate* (Metoprolol Tartrate*), 25 MG ORAL DAILY, (Reported) Multivitamin With Minerals (Multivitamins With Minerals*), 1 TAB ORAL DAILY, ( Reported) Pantoprazole* (Pantoprazole*), 40 MG ORAL DAILY, (Reported) Scheduled PRN Acetaminophen With Codeine (T#3) (Tylenol #3 Tab*), 1 TAB ORAL Q6HR PRN for For Pain, (Reported) Diphenhydramine Hcl* (Benadryl*), 25 MG ORAL QHS PRN for Itching, (Reported) Hydrocodone Bit/Acetaminophen 5-325* ([place] 5-325*), 1 TAB ORAL Q6H PRN for For Pain Miscellaneous Medications Nitroglycerin (Nitroglycerin), 0.4 MG SL, (Reported) Patient History Healthcare decision maker Resuscitation status Full Code Advanced Directive on File Past Medical/Surgical History Past Medical/Surgical History: (1) Enteritis (2) Rash (3) Gastritis (4) Chest pain (5) ARF (acute renal failure) (6) Acute renal disease (7) Bleeding hemorrhoids (8) Acute blood loss anemia (9) Diarrhea (10) Iron deficiency anemia (11) Abdominal pain (12) Dark stools (13) Colon cancer (14) Dudonal ulcerations (15) Hemorrhagic shock (16) Symptomatic anemia (17) Gastrointestinal malignancy (18) Anemia (19) Lower GI bleed (20) SOB (shortness of breath) (21) Syncope (22) HTN (hypertension) (23) Pre-diabetes (24) History of colon cancer (25) Diverticulosis (26) Hemorrhoids Review of Systems Constitutional: Reports: weakness Respiratory: Reports: shortness of breath, DOMÍNGUEZ Physical Exam General Appearance: moderate distress Lines, tubes and drains: peripheral HEENT: normocephalic, atraumatic, anicteric, PERRL Neck: non-tender, normal alignment, supple, normal inspection Respiratory/Chest: chest wall non-tender, lungs clear, normal breath sounds, no respiratory distress, no accessory muscle use Breasts: no masses Cardiovascular/Chest: normal peripheral pulses, normal rate, regular rhythm, no JVD Abdomen: normal bowel sounds, non tender, soft, no organomegaly, no mass, abnormal bowel sounds Genitourinary/Rectal: normal genital exam, normal rectal exam Extremities: normal range of motion, non-tender, normal inspection, non-pitting Skin Exam: normal pigmentation, warm/dry Neurologic: technology advisor II-XII grossly normal, no motor/sensory deficits Last 24 Hour Vital Signs Date Time Temp Pulse Resp B/P (MAP) Pulse Ox O2 Delivery O2 Flow Rate FiO2 05/10/17 18:38 98.2 05/10/17 15:30 98.2 103 20 131/87 96 Room Air 05/10/17 15:20 98.8 05/10/17 12:06 98.8 90 15 125/80 100 Room Air 05/10/17 09:53 98.2 18 125/84 100 Room Air 05/10/17 09:38 98.2 104 18 145/84 100 Room Air Laboratory Tests Test 05/10/17 10:07 05/10/17 10:52 Sodium Level 142 MMOL/L (136-145) Potassium Level 4.7 MMOL/L (3.5-5.1) Chloride Level 110 MMOL/L (98-107) H Carbon Dioxide Level 26 MMOL/L (21-32) Anion Gap 6 mmol/L (5-15) Blood Urea Nitrogen 13 mg/dL (7-18) Creatinine 1.5 MG/DL (0.55-1.30) H Estimat Glomerular Filtration Rate 58.1 mL/min (>60) Glucose Level 89 MG/DL (74-106) Calcium Level 8.6 MG/DL (8.5-10.1) Total Bilirubin 0.3 MG/DL (0.2-1.0) Aspartate Amino Transf (AST/SGOT) 31 U/L (15-37) Alanine Aminotransferase (ALT/SGPT) 25 U/L (12-78) Alkaline Phosphatase 58 U/L (46-116) Total Creatine Kinase 126 U/L (26-308) Creatine Kinase MB 1.0 NG/ML (0.0-3.6) Creatine Kinase MB Relative Index 0.7 Troponin I 0.000 ng/mL (0.000-0.056) Total Protein 7.4 G/DL (6.4-8.2) Albumin 3.4 G/DL (3.4-5.0) Globulin 4.0 g/dL Albumin/Globulin Ratio 0.9 (1.0-2.7) L White Blood Count 7.8 K/UL (4.8-10.8) Red Blood Count 2.46 M/UL (4.70-6.10) L Hemoglobin 7.5 G/DL (14.2-18.0) L Hematocrit 25.5 % (42.0-52.0) L Mean Corpuscular Volume 104 FL (80-99) H Mean Corpuscular Hemoglobin 30.5 PG (27.0-31.0) Mean Corpuscular Hemoglobin Concent 29.4 G/DL (32.0-36.0) L Red Cell Distribution Width 16.8 % (11.6-14.8) H Platelet Count 295 K/UL (150-450) Mean Platelet Volume 6.7 FL (6.5-10.1) Neutrophils (%) (Auto) % (45.0-75.0) Lymphocytes (%) (Auto) % (20.0-45.0) Monocytes (%) (Auto) % (1.0-10.0) Eosinophils (%) (Auto) % (0.0-3.0) Basophils (%) (Auto) % (0.0-2.0) Differential Total Cells Counted 100 Neutrophils % (Manual) 82 % (45-75) H Lymphocytes % (Manual) 13 % (20-45) L Monocytes % (Manual) 3 % (1-10) Eosinophils % (Manual) 2 % (0-3) Basophils % (Manual) 0 % (0-2) Band Neutrophils 0 % (0-8) Platelet Estimate Adequate Platelet Morphology Normal Hypochromasia 1+ Anisocytosis 1+ Macrocytosis 1+ Prothrombin Time 10.0 SEC (9.30-11.50) Prothromb Time International Ratio 1.0 (0.9-1.1) Height (Feet): 6 Weight (Pounds): 225 Medications Current Medications Medications (Trade) Dose Ordered Sig/Blanche Route PRN Reason Start Time Stop Time Status Last Admin Dose Admin Acetaminophen (Tylenol) 650 mg Q4H PRN ORAL fever>100.5 05/10/17 17:30 06/09/17 17:29 Al Hydroxide/Mg Hydroxide (Mylanta II) 30 ml Q6H PRN ORAL dyspepsia 05/10/17 18:00 06/09/17 17:59 Amlodipine Besylate (Norvasc) 10 mg DAILY ORAL 05/11/17 09:00 06/10/17 08:59 Citalopram Hydrobromide (celeXA) 40 mg DAILY ORAL 05/11/17 09:00 06/10/17 08:59 Clonidine HCl (Catapres) 0.1 mg EVERY 8 HOURS ORAL 05/10/17 22:00 06/09/17 21:59 Dextrose (Dextrose 50%) STAT PRN IV Hypoglycemia 05/10/17 18:00 06/09/17 17:59 Dextrose/Sodium Chloride 1,000 ml @ 100 mls/hr Q10H IV 05/10/17 17:30 06/09/17 17:29 05/10/17 17:52 Diphenhydramine HCl (Benadryl) 25 mg Q6H PRN ORAL Itching/Pruritis 05/10/17 18:00 06/09/17 17:59 Hydroxyzine HCl (Atarax) 25 mg FOUR TIMES A DAY ORAL 05/10/17 18:00 06/09/17 17:59 05/10/17 17:52 Lactulose (Cephulac) 20 gm BID ORAL 05/10/17 18:00 06/09/17 17:59 05/10/17 17:52 Lisinopril (Zestril) 10 mg DAILY ORAL 05/11/17 09:00 06/10/17 08:59 Morphine Sulfate (Morphine Sulfate) 2 mg Q4H PRN IVP severe Pain (Pain Scale 7-10) 05/10/17 17:30 05/17/17 17:29 05/10/17 18:08 Nitroglycerin (Ntg) 0.4 mg Q5M X 3 DOSES PRN SL Prn Chest Pain 05/10/17 18:00 06/09/17 17:59 Ondansetron HCl (Zofran) 4 mg Q6H PRN IVP Nausea & Vomiting 05/10/17 18:00 06/09/17 17:59 Pantoprazole (Protonix) 40 mg ACBREAKFAST ORAL 05/11/17 06:30 06/10/17 06:29 Phytonadione 10 mg/Dextrose 56 ml @ 110 mls/hr ONCE ONCE IVPB 05/10/17 18:30 05/10/17 19:00 05/10/17 18:38 Polyethylene Glycol (Miralax) 17 gm HSPRN PRN ORAL Constipation 05/10/17 21:00 06/09/17 20:59 Temazepam (Restoril) 15 mg HSPRN PRN ORAL Insomnia 05/10/17 21:00 05/17/17 20:59 Assessment/Plan Status: stable, progressing Assessment/Plan (1) Severe Anemia (2) HTN (3) ARF (acute renal failure) (4) Acute renal disease PLAN GI consultation requested to evaluate CT of abdomen requested H/H monitor closely IV venofer Tumor markers requested Stool for OB x 2 . ANURAG GARCIA May 10, 2017 18:44
[2017-05-10] MEDS ORDERED: Miralax 17gm pkt ORAL PRN (21:00)
[2017-05-11] VITALS (9 sets, daily range): BP systolic 103–132; BP diastolic 64–85
[2017-05-11 00:09] LABS: CREATINE KINASE 91 U/L (26-308)
[2017-05-11] MEDS: Morphine Sulfate 2mg/ml Inj IVP PRN ×4 (04:08→21:35)
[2017-05-11 06:32] LABS: APPEARANCE,URINE CLEAR; BILIRUBIN, URINE NEGATIVE (NEGATIVE); COLOR,URINE PALE YELLOW; GLUCOSE, URINE (UA) NEGATIVE (NEGATIVE); KETONES,URINE NEGATIVE (NEGATIVE); LEUKOCYTE ESTERASE ,URINE NEGATIVE (NEGATIVE); NITRITE,URINE NEGATIVE (NEGATIVE); PH,URINE 5 (4.5-8.0); PROTEIN,URINE NEGATIVE (NEGATIVE); UROBILINOGEN,URINE NORMAL MG/DL (0.0-1.0)
[2017-05-11 07:20] LABS: HEMATOCRIT 23.8 % (42.0-52.0); HEMOGLOBIN 7.5 G/DL (14.2-18.0); MEAN CORPUSCULAR VOLUME 99 FL (80-99); PLATELET COUNT 301 K/UL (150-450); RED BLOOD COUNT 2.39 M/UL (4.70-6.10); RED CELL DISTRIBUTION WIDTH 16.9 % (11.6-14.8); WHITE BLOOD COUNT 7.2 K/UL (4.8-10.8)
--- NOTE | 2017-05-11 07:48 | Pulmonology Progress Note ---
Assessment/Plan Assessment/Plan ASSESSMENT acute blood loss anemia likely GI bleeding s/p blood transfusion SOB 2 to anemia gastric Ca HTN STACY PLAN OF CARE [facility] floor IVF s/p1 u PRBC blood transfusion, HH still low ( actually no change from pretransfusion) transfuse additional unit this am anemia w/up monitor HH, BP management with CCB and MEKA, optimize further as needed GI prophayxlis bowel regimen check CEA ,stool OB GI consult - check renal US, monitor renal parameters, lytes ? gastric Ca as per patient was diagnosed in 1999, never got any treatment workup as per GI Venous Duplex BLE case discussed and evaluated by supervising physician Subjective Allergies: Coded Allergies: No Known Allergies (Unverified , 05/10/17) Subjective admits to intermittent abdominal pain, still some SOB on RA pulse ox stable HH still low after 1 u PRBC( no change from pre-transfusion) Objective Last 24 Hour Vital Signs Date Time Temp Pulse Resp B/P (MAP) Pulse Ox O2 Delivery O2 Flow Rate FiO2 05/11/17 05:26 132/85 05/11/17 04:00 98.4 86 18 132/85 100 Room Air 05/11/17 00:00 99.4 98 18 124/76 97 Room Air 05/10/17 21:12 128/83 05/10/17 18:38 98.2 05/10/17 15:30 98.2 103 20 131/87 96 Room Air 05/10/17 15:20 98.8 05/10/17 12:06 98.8 90 15 125/80 100 Room Air 05/10/17 09:53 98.2 18 125/84 100 Room Air 05/10/17 09:38 98.2 104 18 145/84 100 Room Air Intake and Output 05/10/17 05/11/17 19:00 07:00 Intake Total 506 ml 1200 ml Balance 506 ml 1200 ml Intake Oral 0 ml IV Total 256 ml 1200 ml Blood Product 250 ml # Voids 3 General Appearance: no acute distress, other - A/A/O x 3 AA male in NAD HEENT: normocephalic, atraumatic, anicteric, mucous membranes moist Respiratory/Chest: lungs clear, no respiratory distress, no accessory muscle use Cardiovascular: normal rate, no JVD Abdomen: normal bowel sounds - mild diffused tenderness epigastric area , no rebound, no guarding Genitourinary: normal external genitalia Extremities: no edema Neurologic/Psychiatric: alert Musculoskeletal: normal muscle bulk Laboratory Tests 05/10/17 10:07: Sodium Level 142, Potassium Level 4.7, Chloride Level 110H, Carbon Dioxide Level 26, Anion Gap 6, Blood Urea Nitrogen 13, Creatinine 1.5H, Estimat Glomerular Filtration Rate 58.1, Glucose Level 89, Calcium Level 8.6, Total Bilirubin 0.3, Aspartate Amino Transf (AST/SGOT) 31, Alanine Aminotransferase ( ALT/SGPT) 25, Alkaline Phosphatase 58, Total Creatine Kinase 126, Creatine Kinase MB 1.0, Creatine Kinase MB Relative Index 0.7, Troponin I 0.000, Total Protein 7.4, Albumin 3.4, Globulin 4.0, Albumin/Globulin Ratio 0.9L 05/10/17 10:52: White Blood Count 7.8, Red Blood Count 2.46L, Hemoglobin 7.5L, Hematocrit 25.5L , Mean Corpuscular Volume 104H, Mean Corpuscular Hemoglobin 30.5, Mean Corpuscular Hemoglobin Concent 29.4L, Red Cell Distribution Width 16.8H, Platelet Count 295, Mean Platelet Volume 6.7, Neutrophils (%) (Auto) , Lymphocytes (%) (Auto) , Monocytes (%) (Auto) , Eosinophils (%) (Auto) , Basophils (%) (Auto) , Differential Total Cells Counted 100, Neutrophils % ( Manual) 82H, Lymphocytes % (Manual) 13L, Monocytes % (Manual) 3, Eosinophils % ( Manual) 2, Basophils % (Manual) 0, Band Neutrophils 0, Platelet Estimate Adequate, Platelet Morphology Normal, Hypochromasia 1+, Anisocytosis 1+, Macrocytosis 1+, Prothrombin Time 10.0, Prothromb Time International Ratio 1.0 05/10/17 23:30: Total Creatine Kinase 91, Uric Acid 5.3 05/11/17 05:30: Urine Color Pale yellow, Urine Appearance Clear, Urine pH 5, Urine Specific [place] 1.020, Urine Protein Negative, Urine Glucose (UA) Negative, Urine Ketones Negative, Urine Occult Blood Negative, Urine Nitrite Negative, Urine Bilirubin Negative, Urine Urobilinogen Normal, Urine Leukocyte Esterase Negative , Urine RBC 0, Urine WBC 0-2, Urine Squamous Epithelial Cells Occasional, Urine Bacteria Occasional, Urine Mucus FewH, Urine Eosinophils [Pending], Urine Random Sodium 168H, Urine Potassium Timed 63H 05/11/17 05:35: White Blood Count 7.2, Red Blood Count 2.39L, Hemoglobin 7.5L, Hematocrit 23.8L , Mean Corpuscular Volume 99, Mean Corpuscular Hemoglobin 31.5H, Mean Corpuscular Hemoglobin Concent 31.7L, Red Cell Distribution Width 16.9H, Platelet Count 301, Mean Platelet Volume 7.7, Neutrophils (%) (Auto) , Lymphocytes (%) (Auto) , Monocytes (%) (Auto) , Eosinophils (%) (Auto) , Basophils (%) (Auto) , Neutrophils % (Manual) [Pending], Lymphocytes % (Manual) [Pending], Platelet Estimate [Pending], Platelet Morphology [Pending], Erythrocyte Sedimentation Rate [Pending], Reticulocyte Count [Pending], Prothrombin Time 10.1, Prothromb Time International Ratio 1.0, Activated Partial Thromboplast Time 27, Sodium Level [Pending], Potassium Level [Pending] , Chloride Level [Pending], Carbon Dioxide Level [Pending], Blood Urea Nitrogen [Pending], Creatinine [Pending], Estimat Glomerular Filtration Rate [Pending], Glucose Level [Pending], Calcium Level [Pending], Iron Level [Pending], Unsaturated Iron Binding [Pending], Total Bilirubin [Pending], Aspartate Amino Transf (AST/SGOT) [Pending], Alanine Aminotransferase (ALT/SGPT) [Pending], Alkaline Phosphatase [Pending], Lactate Dehydrogenase [Pending], Total Protein [ Pending], Albumin [Pending], Globulin [Pending], Amylase Level [Pending], Lipase [Pending], Vitamin B12 Level [Pending], Folate [Pending] Current Medications Medications (Trade) Dose Ordered Sig/Blanche Route PRN Reason Start Time Stop Time Status Last Admin Dose Admin Acetaminophen (Tylenol) 650 mg Q4H PRN ORAL fever>100.5 05/10/17 17:30 06/09/17 17:29 Al Hydroxide/Mg Hydroxide (Mylanta II) 30 ml Q6H PRN ORAL dyspepsia 05/10/17 18:00 06/09/17 17:59 Amlodipine Besylate (Norvasc) 10 mg DAILY ORAL 05/11/17 09:00 2/4/18 08:59 Citalopram Hydrobromide (celeXA) 40 mg DAILY ORAL 05/11/17 09:00 06/10/17 08:59 Clonidine HCl (Catapres) 0.1 mg EVERY 8 HOURS ORAL 05/10/17 22:00 06/09/17 21:59 05/11/17 05:26 Dextrose (Dextrose 50%) STAT PRN IV Hypoglycemia 05/10/17 18:00 06/09/17 17:59 Dextrose/Sodium Chloride 1,000 ml @ 100 mls/hr Q10H IV 05/10/17 17:30 06/09/17 17:29 05/10/17 21:04 Diphenhydramine HCl (Benadryl) 25 mg Q6H PRN ORAL Itching/Pruritis 05/10/17 18:00 06/09/17 17:59 Hydroxyzine HCl (Atarax) 25 mg FOUR TIMES A DAY ORAL 05/10/17 18:00 06/09/17 17:59 05/10/17 21:04 Lactulose (Cephulac) 20 gm BID ORAL 05/10/17 18:00 06/09/17 17:59 05/10/17 17:52 Lisinopril (Zestril) 10 mg DAILY ORAL 05/11/17 09:00 06/10/17 08:59 Morphine Sulfate (Morphine Sulfate) 2 mg Q4H PRN IVP severe Pain (Pain Scale 7-10) 05/10/17 17:30 05/17/17 17:29 05/11/17 04:08 Nitroglycerin (Ntg) 0.4 mg Q5M X 3 DOSES PRN SL Prn Chest Pain 05/10/17 18:00 06/09/17 17:59 Ondansetron HCl (Zofran) 4 mg Q6H PRN IVP Nausea & Vomiting 05/10/17 18:00 06/09/17 17:59 Pantoprazole (Protonix) 40 mg ACBREAKFAST ORAL 05/11/17 06:30 06/10/17 06:29 05/11/17 05:23 Polyethylene Glycol (Miralax) 17 gm HSPRN PRN ORAL Constipation 05/10/17 21:00 06/09/17 20:59 Temazepam (Restoril) 15 mg HSPRN PRN ORAL Insomnia 05/10/17 21:00 05/17/17 20:59 Julio Cesar (Isisnagi)Elisabeth NP May 11, 2017 07:48
[2017-05-11 07:54] LABS: ALANINE AMINOTRANSFERASE 22 U/L (12-78); ALBUMIN 2.9 G/DL (3.4-5.0); ALBUMIN/GLOBULIN RATIO 0.8 (1.0-2.7); ALKALINE PHOSPHATASE 57 U/L (46-116); AMYLASE 102 U/L (25-115); ANION GAP 9 mmol/L (5-15); ASPARTATE AMINO TRANSFERASE 15 U/L (15-37); BILIRUBIN,TOTAL 0.3 MG/DL (0.2-1.0); BLOOD UREA NITROGEN 13 mg/dL (7-18); CALCIUM 7.7 MG/DL (8.5-10.1); CARBON DIOXIDE 24 MMOL/L (21-32); CHLORIDE 112 MMOL/L (98-107); CREATININE 1.5 MG/DL (0.55-1.30); POTASSIUM 3.8 MMOL/L (3.5-5.1); SODIUM 144 MMOL/L (136-145)
[2017-05-11] MEDS: Lactulose 20gm/30ml UDC ORAL SCH ×2 (08:24→17:41)
[2017-05-11] MEDS: Lisinopril 10mg tab ORAL SCH (08:25)
[2017-05-11] MEDS: HydrOXYzine tab 25 MG TAB ORAL SCH ×4 (08:32→21:10)
[2017-05-11] MEDS ORDERED: Citalopram 20mg Tab ORAL SCH (09:00)
[2017-05-11 09:02] LABS: LACTATE DEHYDROGENASE 142 U/L (81-234)
[2017-05-11 09:05] LABS: % IRON SATURATION 6 % (15-50); IRON 16 ug/dL (50-175); TOTAL IRON BINDING CAPACITY 287 ug/dL (250-450)
--- NOTE | 2017-05-11 12:54 | GI Initial Consult Note ---
History of Present Illness General Date patient seen: May 11, 2017 Time patient seen: 12:46 Reason for Hospitalization: Dizziness Referring physician: ANURAG GARCIA Reason for Consultation: ABDOMINAL PAIN Present Illness HPI 61-year-old male with known iron-def anemia presents with shortness of breath on exertion for last week. Recent admission outside facility for anemia requiring transfusion. Associated with intermittent dizziness and shortness of breath. denies chest pain, fever chills or body aches. GI consulted for abdominal pain. HPI noted above. Pt seen on floor, awake A& Ox4 NAD with no active s/sx of N/V/D. Per the patient, he had recent episode of syncope and found himself on the ground prior to admission. He states recently he's been noticing dark black stools, more frequent in the past month. Unsure if he's had a history of EGD or colonoscopy. History of abdominal surgery for hernia repair back in 2001. Labs show anemia and iron deficiency. Home Meds Active Scripts Hydrocodone Bit/Acetaminophen 5-325* (NORCO 5-325*) 1 Each Tablet, 1 TAB ORAL Q12HR Y for For Pain, #10 TAB Prov:LORETTA YINGO. 10/11/15 Methocarbamol* (ROBAXIN-750*) 750 Mg Tablet, 750 MG PO TID, #21 TAB 0 Refills Prov:LORETTA YINGO. 10/11/15 Hydrocodone Bit/Acetaminophen 5-325* (NORCO 5-325*) 1 Each Tablet, 1 TAB ORAL Q6H Y for For Pain, #20 TAB 0 Refills Prov:Aamir Frazier 09/02/15 Hydroxyzine HCl (Hydroxyzine HCl) 25 Mg Tab, 25 MG ORAL FOUR TIMES A DAY, #30 TAB Prov:Aamir Frazier 02/23/15 Pantoprazole* (PROTONIX*) 40 Mg Tablet.dr, 40 MG ORAL DAILY for 30 Days, TAB Prov:Daljit Sandhu MD 02/18/15 Reported Medications Acetaminophen (Acetaminophen) 325 Mg Capsule, 325 MG PO Q4HR Y for For Pain, CAP 02/04/17 Acetaminophen* (TYLENOL EXTRA STRENGTH*) 500 Mg Tablet, 1000 MG ORAL Q6H Y for Moderate Pain (Pain Scale 4-6), TAB 0 Refills 02/04/17 Temazepam (RESTORIL*) 30 Mg Capsule, 30 MG ORAL BEDTIME Y for insomnia , #7 CAP 0 Refills 02/04/17 Acetaminophen/Hydrocodone ([place] 7.5-325 Tablet) 1 Each Tablet, 2 TAB ORAL Q6HR Y for Severe Pain (Pain Scale 7-10), #30 TAB 0 Refills 02/04/17 Nitroglycerin (NITROGLYCERIN) 0.4 Mg Tab.subl, 0.4 MG SL, TAB 02/04/17 Multivitamin With Minerals (MULTIVITAMINS WITH MINERALS*) 1 Each Tablet, 1 TAB ORAL DAILY, TAB 02/04/17 Polyethylene Glycol 3350* (MIRALAX*) 17 Gm Powd.pack, 17 GM ORAL BID, PACKET 02/04/17 Lactulose (LACTULOSE*) 20 Gm/30 Ml Solution, 30 ML ORAL BID, ML 0 Refills 02/04/17 Hydroxyzine Hcl (HYDROXYZINE HCL) 25 Mg Tablet, 25 MG PO TID for Itching, TAB 02/04/17 Hydrocortisone/Aloe Vera 1%* (HYDROCORTISONE-ALOE 1% CREAM*) Y Cr, 1 APPLIC TOPIC, #30 GM 02/04/17 Ergocalciferol (Vitamin D2)* (VITAMIN D*) 50,000 Unit Capsule, 36696 UNIT ORAL ONCE A WEEK, CAP Every Sunday for supplement 02/04/17 Bisacodyl (DULCOLAX) 10 Mg Supp.rect, 10 MG RC Y for bowel management, SUPP 02/04/17 Clonidine Hcl* (CATAPRES*) 0.1 Mg Tablet, 0.1 MG ORAL EVERY 8 HOURS for For High Blood Pressure, TAB 02/04/17 Dextran 70/Hypromellose (ARTIFICIAL TEARS EYE DROPS*) 15 Ml Drops, 1 DROP BOTH EYES BID, #15 ML 0 Refills 02/04/17 Amlodipine Besylate* (AMLODIPINE BESYLATE*) 10 Mg Tablet, 10 MG ORAL DAILY, TAB 05/17/15 Lisinopril (LISINOPRIL*) 5 Mg Tablet, 10 MG ORAL DAILY, TAB 05/17/15 Vitamin D (Vitamin D3) 400 Intlu Cap, 03150 UNITS ORAL DAILY, CAP 05/17/15 Ascorbic Acid* (VITAMIN C*) 500 Mg Tablet, 500 MG ORAL DAILY, #30 TAB 0 Refills 05/17/15 Ferrous Sulfate* (FERROUS SULFATE*) 325 Mg Tablet, 325 MG ORAL DAILY, #60 TAB 0 Refills 05/17/15 Methocarbamol (METHOCARBAMOL) 5,000 Gm Powder, 5000 GM MC, GM 02/11/15 Citalopram Hydrobromide* (CITALOPRAM HBR*) 40 Mg Tablet, 40 MG ORAL DAILY, TAB 02/11/15 Med list reviewed/reconciled: Yes Allergies: Coded Allergies: No Known Allergies (Unverified , 05/10/17) Patient History History Provided By: Patient, Medical Record PMH Narrative Past Medical History: other - anemia Past Surgical History: none Pertinent Family History: none Social History: Denies: smoking, alcohol use, drug use Immunizations: UTD Reviewed Nursing Documentation: PMH: Agreed, PSxH: Agreed Nursing Documentation-PMH Hx Cardiac Problems: Yes - murmur Hx Hypertension: Yes Hx Pacemaker: No Hx Asthma: Yes Hx COPD: No Hx Diabetes: Yes Hx Cancer: Yes - Gastric cancer Hx Gastrointestinal Problems: Yes - GI cancer Hx Dialysis: No Hx Neurological Problems: Yes - Depression Hx Cerebrovascular Accident: No Hx Transient Ischemic Attacks: No Hx Dementia: No Hx Alzheimer's Disease: No Hx Parkinson's Disease: No Hx Meningitis: No Hx Encephalitis: No Hx Seizures: No Hx Epilepsy: No Hx Multiple Sclerosis: No Hx Cerebral Palsy: No Hx Amyotrophic Lat Sclerosis: No Hx Guillian-Merrill Syndrome: No Hx Paralysis: No Hx Peripheral Neuropathy: No Hx Spinal Cord Injury: No Hx Head Trauma: No - year 1998 Hx Traumatic Brain Injury: Yes - year 1998 Hx Memory Loss: No Hx Concentration Difficulty: No Hx Speech Problem: No Hx Tremors: No Hx Vertigo: Yes Hx Dizziness: Yes Hx Syncope: Yes Hx Headaches: No Hx Aphasia: No Hx Dysphasia: No Hx Numbness: Yes - fingers and legs Hx Weakness: Yes - general Hx Fatigue: Yes - general Hx Neurologic Surgery: No Hx Brain Shunt: No Social History: Reports: smoking Review of Systems All Other Systems: negative except mentioned in HPI Physical Exam Vital Signs Date Time Temp Pulse Resp B/P (MAP) Pulse Ox O2 Delivery O2 Flow Rate FiO2 05/10/17 09:38 98.2 104 18 145/84 100 Room Air Sp02 EP Interpretation: reviewed, normal Labs Laboratory Tests Test 05/10/17 23:30 05/11/17 05:30 05/11/17 05:35 Uric Acid 5.3 MG/DL (2.6-7.2) Total Creatine Kinase 91 U/L (26-308) Urine Color Pale yellow Urine Appearance Clear Urine pH 5 (4.5-8.0) Urine Specific [place] 1.020 (1.005-1.035) Urine Protein Negative (NEGATIVE) Urine Glucose (UA) Negative (NEGATIVE) Urine Ketones Negative (NEGATIVE) Urine Occult Blood Negative (NEGATIVE) Urine Nitrite Negative (NEGATIVE) Urine Bilirubin Negative (NEGATIVE) Urine Urobilinogen Normal MG/DL (0.0-1.0) Urine Leukocyte Esterase Negative (NEGATIVE) Urine RBC 0 /HPF (0 - 0) Urine WBC 0-2 /HPF (0 - 0) Urine Squamous Epithelial Cells Occasional /LPF Urine Bacteria Occasional /HPF (NONE) Urine Mucus Few /LPF (NONE/OCC) H Urine Eosinophils None seen Urine Random Sodium 168 MEQ/L (20-110) H Urine Potassium Timed 63 mmol/L (12-62) H White Blood Count 7.2 K/UL (4.8-10.8) Red Blood Count 2.39 M/UL (4.70-6.10) L Hemoglobin 7.5 G/DL (14.2-18.0) L Hematocrit 23.8 % (42.0-52.0) L Mean Corpuscular Volume 99 FL (80-99) Mean Corpuscular Hemoglobin 31.5 PG (27.0-31.0) H Mean Corpuscular Hemoglobin Concent 31.7 G/DL (32.0-36.0) L Red Cell Distribution Width 16.9 % (11.6-14.8) H Platelet Count 301 K/UL (150-450) Mean Platelet Volume 7.7 FL (6.5-10.1) Neutrophils (%) (Auto) % (45.0-75.0) Lymphocytes (%) (Auto) % (20.0-45.0) Monocytes (%) (Auto) % (1.0-10.0) Eosinophils (%) (Auto) % (0.0-3.0) Basophils (%) (Auto) % (0.0-2.0) Differential Total Cells Counted 100 Neutrophils % (Manual) 75 % (45-75) Lymphocytes % (Manual) 21 % (20-45) Monocytes % (Manual) 3 % (1-10) Eosinophils % (Manual) 1 % (0-3) Basophils % (Manual) 0 % (0-2) Band Neutrophils 0 % (0-8) Platelet Estimate Adequate Platelet Morphology Normal Polychromasia 1+ Hypochromasia 1+ Anisocytosis 1+ Macrocytosis 1+ Erythrocyte Sedimentation Rate 63 MM/HR (0-20) H Reticulocyte Count 2.7 % (0.0-2.0) H Prothrombin Time 10.1 SEC (9.30-11.50) Prothromb Time International Ratio 1.0 (0.9-1.1) Activated Partial Thromboplast Time 27 SEC (23-33) Sodium Level 144 MMOL/L (136-145) Potassium Level 3.8 MMOL/L (3.5-5.1) Chloride Level 112 MMOL/L (98-107) H Carbon Dioxide Level 24 MMOL/L (21-32) Anion Gap 9 mmol/L (5-15) Blood Urea Nitrogen 13 mg/dL (7-18) Creatinine 1.5 MG/DL (0.55-1.30) H Estimat Glomerular Filtration Rate 58.1 mL/min (>60) Glucose Level 87 MG/DL (74-106) Calcium Level 7.7 MG/DL (8.5-10.1) L Iron Level 16 ug/dL (50-175) L Total Iron Binding Capacity 287 ug/dL (250-450) Percent Iron Saturation 6 % (15-50) L Unsaturated Iron Binding 271 ug/dL (112-346) Total Bilirubin 0.3 MG/DL (0.2-1.0) Aspartate Amino Transf (AST/SGOT) 15 U/L (15-37) Alanine Aminotransferase (ALT/SGPT) 22 U/L (12-78) Alkaline Phosphatase 57 U/L (46-116) Lactate Dehydrogenase 142 U/L (81-234) Total Protein 6.6 G/DL (6.4-8.2) Albumin 2.9 G/DL (3.4-5.0) L Globulin 3.7 g/dL Albumin/Globulin Ratio 0.8 (1.0-2.7) L Amylase Level 102 U/L (25-115) Lipase 138 U/L (73-393) Vitamin B12 Level 674 PG/ML (193-986) Folate 15.4 NG/ML (8.6-58.9) General Appearance: well appearing, no apparent distress, alert Head: normocephalic EENT: PERRL/EOMI, normal ENT inspection Neck: supple Respiratory: normal breath sounds, no respiratory distress Cardiovascular: normal rate Gastrointestinal: normal inspection, non tender, soft, normal bowel sounds, non -distended Rectal: deferred Genitourinary: deferred Musculoskeletal: normal inspection, back normal Neurologic: normal inspection, alert, oriented x3, responsive Psychiatric: normal inspection, judgement/insight normal, memory normal Skin: normal inspection, normal color, no rash, warm/dry, palpation normal, well hydrated Lymphatic: normal inspection, no adenopathy Current Medications Current Medications Medications (Trade) Dose Ordered Sig/Blanche Route PRN Reason Start Time Stop Time Status Last Admin Dose Admin Acetaminophen (Tylenol) 650 mg Q4H PRN ORAL fever>100.5 05/10/17 17:30 06/09/17 17:29 Al Hydroxide/Mg Hydroxide (Mylanta II) 30 ml Q6H PRN ORAL dyspepsia 05/10/17 18:00 06/09/17 17:59 Amlodipine Besylate (Norvasc) 10 mg DAILY ORAL 05/11/17 09:00 06/10/17 08:59 05/11/17 08:24 Citalopram Hydrobromide (celeXA) 40 mg DAILY ORAL 05/11/17 09:00 06/10/17 08:59 05/11/17 08:41 Clonidine HCl (Catapres) 0.1 mg EVERY 8 HOURS ORAL 05/10/17 22:00 06/09/17 21:59 05/11/17 05:26 Dextrose (Dextrose 50%) STAT PRN IV Hypoglycemia 05/10/17 18:00 06/09/17 17:59 Dextrose/Sodium Chloride 1,000 ml @ 100 mls/hr Q10H IV 05/10/17 17:30 06/09/17 17:29 05/10/17 21:04 Diphenhydramine HCl (Benadryl) 25 mg Q6H PRN ORAL Itching/Pruritis 05/10/17 18:00 06/09/17 17:59 Hydroxyzine HCl (Atarax) 25 mg FOUR TIMES A DAY ORAL 05/10/17 18:00 06/09/17 17:59 05/11/17 08:32 Iron Sucrose 100 mg/Sodium Chloride 60 ml @ 240 mls/hr BEDTIME IV 05/11/17 21:00 05/13/17 21:14 Lactulose (Cephulac) 20 gm BID ORAL 05/10/17 18:00 06/09/17 17:59 05/11/17 08:24 Lisinopril (Zestril) 10 mg DAILY ORAL 05/11/17 09:00 06/10/17 08:59 05/11/17 08:25 Morphine Sulfate (Morphine Sulfate) 2 mg Q4H PRN IVP severe Pain (Pain Scale 7-10) 05/10/17 17:30 05/17/17 17:29 05/11/17 08:32 Nitroglycerin (Ntg) 0.4 mg Q5M X 3 DOSES PRN SL Prn Chest Pain 05/10/17 18:00 06/09/17 17:59 Ondansetron HCl (Zofran) 4 mg Q6H PRN IVP Nausea & Vomiting 05/10/17 18:00 06/09/17 17:59 Pantoprazole (Protonix) 40 mg ACBREAKFAST ORAL 05/11/17 06:30 06/10/17 06:29 05/11/17 05:23 Polyethylene Glycol (Miralax) 17 gm HSPRN PRN ORAL Constipation 05/10/17 21:00 06/09/17 20:59 Temazepam (Restoril) 15 mg HSPRN PRN ORAL Insomnia 05/10/17 21:00 05/17/17 20:59 GI: Plan Problems: (1) Dark stools (2) Anemia (3) Diarrhea (4) Abdominal pain (5) Iron deficiency anemia (6) Acute blood loss anemia Plan anemia work up reviewed >> macrocytic anemia not suggestive of iron deficiency anemia, however pt has iron deficiency - venofer. patient will benefit from EGD/colonoscopy given c/o of melena OB stool r/o GI bleed ppi BID ok to adv diet, CLD on sunday pending GI procedures. fu labs Discussed with Dr. Peralta. Thank you for this patient referral, we will follow. Tiny Hall N.P. May 11, 2017 12:54
[2017-05-11] MEDS: D5NS 1,000 ML IV SCH ×2 (13:42→21:11)
--- NOTE | 2017-05-11 14:04 | Consultation ---
History of Present Illness General Date patient seen: May 11, 2017 Chief Complaint: Dizziness Referring physician: ANURAG GARCIA Reason for Consultation: ABDOMINAL PAIN Present Illness HPI 61M presented with fatigue, syncope, anemia. has recent diagnosed anemia and received transfusion few days ago at outside facility prior to d/c. states he has been having dark/blackish stool. no n/v/f/c. abdominal discomfort described as vague generalized cramping. has history of sigmoid colon resection for possible cancer? patient seen, chart reviewed, exam performed. Allergies: Coded Allergies: No Known Allergies (Unverified , 05/10/17) Medication History Scheduled Amlodipine Besylate* (Amlodipine Besylate*), 10 MG ORAL DAILY, (Reported) Ascorbic Acid* (Vitamin C*), 500 MG ORAL DAILY, (Reported) Citalopram Hydrobromide* (Citalopram Hbr*), 40 MG ORAL DAILY, (Reported) Clonidine Hcl* (Catapres*), 0.1 MG ORAL EVERY 8 HOURS, (Reported) Dextran 70/Hypromellose (Artificial Tears Eye Drops*), 1 DROP BOTH EYES BID, ( Reported) Ergocalciferol (Vitamin D2)* (Vitamin D*), 50,000 UNIT ORAL ONCE A WEEK, ( Reported) Ferrous Sulfate* (Ferrous Sulfate*), 325 MG ORAL DAILY, (Reported) Hydroxyzine HCl (Hydroxyzine HCl), 25 MG ORAL FOUR TIMES A DAY Hydroxyzine Hcl (Hydroxyzine Hcl), 25 MG PO TID, (Reported) Lactulose (Lactulose*), 30 ML ORAL BID, (Reported) Lisinopril (Lisinopril*), 10 MG ORAL DAILY, (Reported) Methocarbamol* (Robaxin-750*), 750 MG PO TID Multivitamin With Minerals (Multivitamins With Minerals*), 1 TAB ORAL DAILY, ( Reported) Pantoprazole* (Protonix*), 40 MG ORAL DAILY Polyethylene Glycol 3350* (Miralax*), 17 GM ORAL BID, (Reported) Vitamin D (Vitamin D3), 50,000 UNITS ORAL DAILY, (Reported) Scheduled PRN Acetaminophen (Acetaminophen), 325 MG PO Q4HR PRN for For Pain, (Reported) Acetaminophen* (Tylenol Extra Strength*), 1,000 MG ORAL Q6H PRN for Moderate Pain (Pain Scale 4-6), (Reported) Acetaminophen/Hydrocodone ([place] 7.5-325 Tablet), 2 TAB ORAL Q6HR PRN for Severe Pain (Pain Scale 7-10), (Reported) Bisacodyl (Dulcolax), 10 MG RC for bowel management, (Reported) Hydrocodone Bit/Acetaminophen 5-325* ([place] 5-325*), 1 TAB ORAL Q6H PRN for For Pain Hydrocodone Bit/Acetaminophen 5-325* ([place] 5-325*), 1 TAB ORAL Q12HR PRN for For Pain Temazepam (Restoril*), 30 MG ORAL BEDTIME PRN for insomnia , (Reported) Miscellaneous Medications Hydrocortisone/Aloe Vera 1%* (Hydrocortisone-Aloe 1% Cream*), 1 APPLIC TOPIC, ( Reported) Methocarbamol (Methocarbamol), 5,000 GM MC, (Reported) Nitroglycerin (Nitroglycerin), 0.4 MG SL, (Reported) Patient History History Provided By: Patient, Medical Record Healthcare decision maker Resuscitation status Full Code Advanced Directive on File Past Medical/Surgical History Past Medical/Surgical History: (1) Acute renal disease (2) ARF (acute renal failure) (3) Dudonal ulcerations (4) Rash (5) Syncope (6) Chest pain (7) Colon cancer (8) Gastritis (9) Enteritis (10) HTN (hypertension) (11) Acute blood loss anemia (12) Anemia (13) Diarrhea (14) Iron deficiency anemia (15) Abdominal pain (16) Dark stools Review of Systems Constitutional: Denies: no symptoms, see HPI, chills, sweats, fever, malaise, weakness, other Eye: Denies: no symptoms, see HPI, eye pain, blurred vision, tearing, double vision, nose pain, nose congestion, acuity changes, discharge, other ENT: Denies: no symptoms, see HPI, ear pain, ear discharge, nose pain, nose congestion, throat pain, throat swelling, mouth pain, hearing loss, nasal discharge, other Respiratory: Denies: no symptoms, see HPI, cough, orthopnea, shortness of breath, stridor, wheezing, DOMÍNGUEZ, sputum, other Gastrointestinal: Reports: abdominal pain Genitourinary: Denies: no symptoms, see HPI, discharge, dysuria, frequency, hematuria, pain, retention, incontinence, urgency, vag bleed/dc, other Musculoskeletal: Denies: no symptoms, see HPI, back pain, gout, joint pain, joint swelling, muscle pain, muscle stiffness, other Skin: Denies: no symptoms, see HPI, rash, change in color, change in hair/nails , dryness, lesions, other Psychiatric: Denies: no symptoms, see HPI, prior hx, anxiety, depressed feelings, emotional problems, SI, HI, hallucinations, other Neurological: Denies: no symptoms, see HPI, headache, numbness, paresthesia, seizure, tingling, tremors, focal weakness, syncope, dizziness, other Endocrine: Denies: no symptoms, see HPI, excessive sweating, flushing, intolerance to temperature, increased thirst, increased urine, unexplained weight loss, other Hematologic/Lymphatic: Denies: no symptoms, see HPI, anemia, blood clots, easy bleeding, easy bruising, swollen glands, diathesis, other Physical Exam General Appearance: no apparent distress, alert Lines, tubes and drains: peripheral HEENT: normocephalic, PERRL Neck: supple, normal inspection Respiratory/Chest: lungs clear, normal breath sounds, no respiratory distress, no accessory muscle use Cardiovascular/Chest: normal peripheral pulses, normal rate, regular rhythm Abdomen: normal bowel sounds, non tender, soft, no organomegaly, no mass Skin Exam: normal pigmentation, warm/dry Neurologic: alert, oriented x 3, responsive Last 24 Hour Vital Signs Date Time Temp Pulse Resp B/P (MAP) Pulse Ox O2 Delivery O2 Flow Rate FiO2 05/11/17 12:47 98.3 83 18 116/65 99 Room Air 05/11/17 12:00 99.2 73 18 110/67 98 Room Air 05/11/17 10:15 99.2 79 18 120/71 100 Room Air 05/11/17 09:55 98.4 79 18 119/84 99 Room Air 05/11/17 09:02 98.4 05/11/17 08:25 122/78 05/11/17 08:24 76 122/78 05/11/17 08:00 98.9 76 18 122/76 98 Room Air 05/11/17 05:26 132/85 05/11/17 04:00 98.4 86 18 132/85 100 Room Air 05/11/17 00:00 99.4 98 18 124/76 97 Room Air 05/10/17 21:12 128/83 05/10/17 15:30 98.2 103 20 131/87 96 Room Air 05/10/17 15:20 98.8 Intake and Output 05/10/17 05/11/17 19:00 07:00 Intake Total 506 ml 1200 ml Balance 506 ml 1200 ml Intake Oral 0 ml IV Total 256 ml 1200 ml Blood Product 250 ml # Voids 3 Laboratory Tests Test 05/10/17 23:30 05/11/17 05:30 05/11/17 05:35 Uric Acid 5.3 MG/DL (2.6-7.2) Total Creatine Kinase 91 U/L (26-308) Urine Color Pale yellow Urine Appearance Clear Urine pH 5 (4.5-8.0) Urine Specific [place] 1.020 (1.005-1.035) Urine Protein Negative (NEGATIVE) Urine Glucose (UA) Negative (NEGATIVE) Urine Ketones Negative (NEGATIVE) Urine Occult Blood Negative (NEGATIVE) Urine Nitrite Negative (NEGATIVE) Urine Bilirubin Negative (NEGATIVE) Urine Urobilinogen Normal MG/DL (0.0-1.0) Urine Leukocyte Esterase Negative (NEGATIVE) Urine RBC 0 /HPF (0 - 0) Urine WBC 0-2 /HPF (0 - 0) Urine Squamous Epithelial Cells Occasional /LPF Urine Bacteria Occasional /HPF (NONE) Urine Mucus Few /LPF (NONE/OCC) H Urine Eosinophils None seen Urine Random Sodium 168 MEQ/L (20-110) H Urine Potassium Timed 63 mmol/L (12-62) H White Blood Count 7.2 K/UL (4.8-10.8) Red Blood Count 2.39 M/UL (4.70-6.10) L Hemoglobin 7.5 G/DL (14.2-18.0) L Hematocrit 23.8 % (42.0-52.0) L Mean Corpuscular Volume 99 FL (80-99) Mean Corpuscular Hemoglobin 31.5 PG (27.0-31.0) H Mean Corpuscular Hemoglobin Concent 31.7 G/DL (32.0-36.0) L Red Cell Distribution Width 16.9 % (11.6-14.8) H Platelet Count 301 K/UL (150-450) Mean Platelet Volume 7.7 FL (6.5-10.1) Neutrophils (%) (Auto) % (45.0-75.0) Lymphocytes (%) (Auto) % (20.0-45.0) Monocytes (%) (Auto) % (1.0-10.0) Eosinophils (%) (Auto) % (0.0-3.0) Basophils (%) (Auto) % (0.0-2.0) Differential Total Cells Counted 100 Neutrophils % (Manual) 75 % (45-75) Lymphocytes % (Manual) 21 % (20-45) Monocytes % (Manual) 3 % (1-10) Eosinophils % (Manual) 1 % (0-3) Basophils % (Manual) 0 % (0-2) Band Neutrophils 0 % (0-8) Platelet Estimate Adequate Platelet Morphology Normal Polychromasia 1+ Hypochromasia 1+ Anisocytosis 1+ Macrocytosis 1+ Erythrocyte Sedimentation Rate 63 MM/HR (0-20) H Reticulocyte Count 2.7 % (0.0-2.0) H Prothrombin Time 10.1 SEC (9.30-11.50) Prothromb Time International Ratio 1.0 (0.9-1.1) Activated Partial Thromboplast Time 27 SEC (23-33) Sodium Level 144 MMOL/L (136-145) Potassium Level 3.8 MMOL/L (3.5-5.1) Chloride Level 112 MMOL/L (98-107) H Carbon Dioxide Level 24 MMOL/L (21-32) Anion Gap 9 mmol/L (5-15) Blood Urea Nitrogen 13 mg/dL (7-18) Creatinine 1.5 MG/DL (0.55-1.30) H Estimat Glomerular Filtration Rate 58.1 mL/min (>60) Glucose Level 87 MG/DL (74-106) Calcium Level 7.7 MG/DL (8.5-10.1) L Iron Level 16 ug/dL (50-175) L Total Iron Binding Capacity 287 ug/dL (250-450) Percent Iron Saturation 6 % (15-50) L Unsaturated Iron Binding 271 ug/dL (112-346) Total Bilirubin 0.3 MG/DL (0.2-1.0) Aspartate Amino Transf (AST/SGOT) 15 U/L (15-37) Alanine Aminotransferase (ALT/SGPT) 22 U/L (12-78) Alkaline Phosphatase 57 U/L (46-116) Lactate Dehydrogenase 142 U/L (81-234) Total Protein 6.6 G/DL (6.4-8.2) Albumin 2.9 G/DL (3.4-5.0) L Globulin 3.7 g/dL Albumin/Globulin Ratio 0.8 (1.0-2.7) L Amylase Level 102 U/L (25-115) Lipase 138 U/L (73-393) Vitamin B12 Level 674 PG/ML (193-986) Folate 15.4 NG/ML (8.6-58.9) Height (Feet): 6 Weight (Pounds): 225 Medications Current Medications Medications (Trade) Dose Ordered Sig/Blanche Route PRN Reason Start Time Stop Time Status Last Admin Dose Admin Acetaminophen (Tylenol) 650 mg Q4H PRN ORAL fever>100.5 05/10/17 17:30 06/09/17 17:29 Al Hydroxide/Mg Hydroxide (Mylanta II) 30 ml Q6H PRN ORAL dyspepsia 05/10/17 18:00 06/09/17 17:59 Amlodipine Besylate (Norvasc) 10 mg DAILY ORAL 05/11/17 09:00 06/10/17 08:59 05/11/17 08:24 Citalopram Hydrobromide (celeXA) 40 mg DAILY ORAL 05/11/17 09:00 06/10/17 08:59 05/11/17 08:41 Clonidine HCl (Catapres) 0.1 mg EVERY 8 HOURS ORAL 05/10/17 22:00 06/09/17 21:59 05/11/17 05:26 Dextrose (Dextrose 50%) STAT PRN IV Hypoglycemia 05/10/17 18:00 06/09/17 17:59 Dextrose/Sodium Chloride 1,000 ml @ 100 mls/hr Q10H IV 05/10/17 17:30 06/09/17 17:29 05/11/17 13:42 Diphenhydramine HCl (Benadryl) 25 mg Q6H PRN ORAL Itching/Pruritis 05/10/17 18:00 06/09/17 17:59 Hydroxyzine HCl (Atarax) 25 mg FOUR TIMES A DAY ORAL 05/10/17 18:00 06/09/17 17:59 05/11/17 12:47 Iron Sucrose 100 mg/Sodium Chloride 60 ml @ 240 mls/hr BEDTIME IV 05/11/17 21:00 05/13/17 21:14 Lactulose (Cephulac) 20 gm BID ORAL 05/10/17 18:00 06/09/17 17:59 05/11/17 08:24 Lisinopril (Zestril) 10 mg DAILY ORAL 05/11/17 09:00 06/10/17 08:59 05/11/17 08:25 Morphine Sulfate (Morphine Sulfate) 2 mg Q4H PRN IVP severe Pain (Pain Scale 7-10) 05/10/17 17:30 05/17/17 17:29 05/11/17 08:32 Nitroglycerin (Ntg) 0.4 mg Q5M X 3 DOSES PRN SL Prn Chest Pain 05/10/17 18:00 06/09/17 17:59 Ondansetron HCl (Zofran) 4 mg Q6H PRN IVP Nausea & Vomiting 05/10/17 18:00 06/09/17 17:59 Pantoprazole (Protonix) 40 mg ACBREAKFAST ORAL 05/11/17 06:30 06/10/17 06:29 05/11/17 05:23 Polyethylene Glycol (Miralax) 17 gm HSPRN PRN ORAL Constipation 05/10/17 21:00 06/09/17 20:59 Temazepam (Restoril) 15 mg HSPRN PRN ORAL Insomnia 05/10/17 21:00 05/17/17 20:59 Assessment/Plan Problem List: (1) Abdominal pain Assessment & Plan: 61M with abdominal pain, fatigue, anemia, and history of colon resection. abdominal pain vague and resolving. significant anemia with black stools. receiving transfusion. -Colon/EGD as per GI. will await results -diet as tolerated -transfuse as needed -will order CT scan and CEA. thank you for this consultation. will follow. ICD Codes: R10.9 - Unspecified abdominal pain SNOMED: [id number] Qualifiers: Qualified Codes: R10.84 - Generalized abdominal pain Status: stable Leo Jacobs May 11, 2017 14:04
[2017-05-11] MEDS: Iron Sucrose 100 MG in NS 55 ML IV SCH (21:10)
[2017-05-12] VITALS: BP 113/57
[2017-05-12] MEDS: Morphine Sulfate 2mg/ml Inj IVP PRN ×4 (02:42→22:34)
[2017-05-12 04:00] VITALS: BP 124/79
[2017-05-12 07:42] LABS: EOSINOPHILS % (AUTO) 2.4 % (0.0-3.0); HEMATOCRIT 25.8 % (42.0-52.0); MEAN CORPUSCULAR VOLUME 98 FL (80-99); NEUTROPHILS % (AUTO) 68.6 % (45.0-75.0); PLATELET COUNT 296 K/UL (150-450); RED BLOOD COUNT 2.63 M/UL (4.70-6.10); RED CELL DISTRIBUTION WIDTH 16.3 % (11.6-14.8); WHITE BLOOD COUNT 6.8 K/UL (4.8-10.8)
[2017-05-12 08:00] VITALS: BP 132/82
[2017-05-12 08:02] LABS: ANION GAP 8 mmol/L (5-15); BLOOD UREA NITROGEN 19 mg/dL (7-18); CALCIUM 7.5 MG/DL (8.5-10.1); CARBON DIOXIDE 21 MMOL/L (21-32); CHLORIDE 112 MMOL/L (98-107); CREATININE 1.7 MG/DL (0.55-1.30); SODIUM 141 MMOL/L (136-145)
[2017-05-12] MEDS: Citalopram Hydrobromide 10mg Tab ORAL SCH ×2 (08:48→09:00)
[2017-05-12] MEDS: Lactulose 20gm/30ml UDC ORAL SCH ×3 (08:48→17:40)
[2017-05-12] MEDS: HydrOXYzine tab 25 MG TAB ORAL SCH ×5 (08:48→20:41)
[2017-05-12] MEDS: D5NS 1,000 ML IV SCH ×2 (08:49→20:16)
[2017-05-12] MEDS: Lisinopril 10mg tab ORAL SCH ×2 (08:49→09:00)
--- NOTE | 2017-05-12 11:25 | General Progress Note ---
Assessment/Plan Problem List: (1) Iron deficiency anemia ICD Codes: D50.9 - Iron deficiency anemia, unspecified SNOMED: 51705385 (2) Abdominal pain ICD Codes: R10.9 - Unspecified abdominal pain SNOMED: 87548026 Qualifiers: Qualified Codes: R10.84 - Generalized abdominal pain Assessment/Plan iv iron fu H&H consider CLN on Sunday fu stool ob Subjective ROS Limited/Unobtainable: Yes Allergies: Coded Allergies: No Known Allergies (Unverified , 05/10/17) Subjective c/o abd pain Objective Last 24 Hour Vital Signs Date Time Temp Pulse Resp B/P (MAP) Pulse Ox O2 Delivery O2 Flow Rate FiO2 05/12/17 08:00 98.6 74 18 132/82 100 Room Air 05/12/17 05:35 124/79 05/12/17 04:00 98.2 76 18 124/79 100 Room Air 05/12/17 00:00 98.8 77 18 113/57 99 Room Air 05/11/17 22:00 106/65 05/11/17 20:00 97.9 83 18 106/65 100 Room Air 05/11/17 16:00 98.3 80 18 103/64 100 Room Air 05/11/17 15:29 98.3 05/11/17 14:53 109/69 05/11/17 12:47 98.3 83 18 116/65 99 Room Air 05/11/17 12:00 99.2 73 18 110/67 98 Room Air Intake and Output 05/11/17 05/12/17 19:00 07:00 Intake Total 1650 ml 800 ml Balance 1650 ml 800 ml Intake Oral 700 ml IV Total 700 ml 800 ml Blood Product 250 ml # Voids 2 Laboratory Tests 05/12/17 05:15: White Blood Count 6.8, Red Blood Count 2.63L, Hemoglobin 8.0L, Hematocrit 25.8L , Mean Corpuscular Volume 98, Mean Corpuscular Hemoglobin 30.6, Mean Corpuscular Hemoglobin Concent 31.1L, Red Cell Distribution Width 16.3H, Platelet Count 296, Mean Platelet Volume 7.7, Neutrophils (%) (Auto) 68.6, Lymphocytes (%) (Auto) 22.0, Monocytes (%) (Auto) 6.0, Eosinophils (%) (Auto) 2.4, Basophils (%) (Auto) 1.0, Sodium Level 141, Potassium Level 4.0, Chloride Level 112H, Carbon Dioxide Level 21, Anion Gap 8, Blood Urea Nitrogen 19H, Creatinine 1.7H, Estimat Glomerular Filtration Rate 50.3, Glucose Level 89, Calcium Level 7.5L Height (Feet): 6 Weight (Pounds): 225 General Appearance: alert EENT: normal ENT inspection Neck: supple Cardiovascular: normal rate Respiratory/Chest: decreased breath sounds Abdomen: normal bowel sounds, non tender, soft Extremities: non-tender FRANCO ONEIL May 12, 2017 11:25
[2017-05-12 11:52] VITALS: BP 128/81
--- NOTE | 2017-05-12 12:22 | General Surgery Progress Note ---
General Surgery-Progress Note Subjective Additional Comments doing well. no acute events. comfortable. no recent active bleeding. h/h stable Objective Last 24 Hour Vital Signs Date Time Temp Pulse Resp B/P (MAP) Pulse Ox O2 Delivery O2 Flow Rate FiO2 05/12/17 11:52 98.0 74 18 128/81 100 Room Air 05/12/17 08:00 98.6 74 18 132/82 100 Room Air 05/12/17 05:35 124/79 05/12/17 04:00 98.2 76 18 124/79 100 Room Air 05/12/17 00:00 98.8 77 18 113/57 99 Room Air 05/11/17 22:00 106/65 05/11/17 20:00 97.9 83 18 106/65 100 Room Air 05/11/17 16:00 98.3 80 18 103/64 100 Room Air 05/11/17 15:29 98.3 05/11/17 14:53 109/69 05/11/17 12:47 98.3 83 18 116/65 99 Room Air I&O Intake and Output 05/11/17 05/12/17 19:00 07:00 Intake Total 1650 ml 800 ml Balance 1650 ml 800 ml Intake Oral 700 ml IV Total 700 ml 800 ml Blood Product 250 ml # Voids 2 Drains: none Cardiovascular: RSR Respiratory: clear Abdomen: soft, non-tender, present bowel sounds Extremities: no tenderness Laboratory Tests Test 05/12/17 05:15 White Blood Count 6.8 K/UL (4.8-10.8) Red Blood Count 2.63 M/UL (4.70-6.10) L Hemoglobin 8.0 G/DL (14.2-18.0) L Hematocrit 25.8 % (42.0-52.0) L Mean Corpuscular Volume 98 FL (80-99) Mean Corpuscular Hemoglobin 30.6 PG (27.0-31.0) Mean Corpuscular Hemoglobin Concent 31.1 G/DL (32.0-36.0) L Red Cell Distribution Width 16.3 % (11.6-14.8) H Platelet Count 296 K/UL (150-450) Mean Platelet Volume 7.7 FL (6.5-10.1) Neutrophils (%) (Auto) 68.6 % (45.0-75.0) Lymphocytes (%) (Auto) 22.0 % (20.0-45.0) Monocytes (%) (Auto) 6.0 % (1.0-10.0) Eosinophils (%) (Auto) 2.4 % (0.0-3.0) Basophils (%) (Auto) 1.0 % (0.0-2.0) Sodium Level 141 MMOL/L (136-145) Potassium Level 4.0 MMOL/L (3.5-5.1) Chloride Level 112 MMOL/L (98-107) H Carbon Dioxide Level 21 MMOL/L (21-32) Anion Gap 8 mmol/L (5-15) Blood Urea Nitrogen 19 mg/dL (7-18) H Creatinine 1.7 MG/DL (0.55-1.30) H Estimat Glomerular Filtration Rate 50.3 mL/min (>60) Glucose Level 89 MG/DL (74-106) Calcium Level 7.5 MG/DL (8.5-10.1) L Plan Problems: (1) Abdominal pain Assessment & Plan: 61M with abdominal pain, fatigue, anemia, and history of colon resection. abdominal pain vague and resolving. significant anemia with black stools. receiving transfusion. H/H stable. -Colon/EGD as per GI. -diet as tolerated -trend h/h -transfuse as needed -Pending CT scan and CEA. thank you for this consultation. will follow. Leo Jacobs May 12, 2017 12:22
--- NOTE | 2017-05-12 12:26 | Pulmonology Progress Note ---
Assessment/Plan Assessment/Plan ASSESSMENT acute blood loss anemia likely GI bleeding s/p blood transfusion SOB 2 to anemia gastric Ca HTN STACY nicotine dependency with withdrawal PLAN OF CARE [facility] floor IVF s/p 2 u PRBC blood transfusion, HH still low ( actually no change from pretransfusion) transfuse additional unit this am anemia w/up c/w GUERO, started on Venofer monitor HH, BP management with CCB and MEKA, optimize further as needed GI prophayxlis bowel regimen check CEA ,stool OB GI follows renal US, monitor renal parameters, lytes , creat with small trend up ? gastric Ca as per patient was diagnosed in 1999, never got any treatment workup as per GI colonoscopy tentatively Sunday as per GI Venous Duplex BLE Nicotine patch, business and financial counsel on smoking cessation case discussed and evaluated by supervising physician Subjective Allergies: Coded Allergies: No Known Allergies (Unverified , 05/10/17) Subjective admits to intermittent abdominal pain, no n/v/ on RA pulse ox stable HH minimally improved after 2 u PRBC GI follows Objective Last 24 Hour Vital Signs Date Time Temp Pulse Resp B/P (MAP) Pulse Ox O2 Delivery O2 Flow Rate FiO2 05/12/17 11:52 98.0 74 18 128/81 100 Room Air 05/12/17 08:00 98.6 74 18 132/82 100 Room Air 05/12/17 05:35 124/79 05/12/17 04:00 98.2 76 18 124/79 100 Room Air 05/12/17 00:00 98.8 77 18 113/57 99 Room Air 05/11/17 22:00 106/65 05/11/17 20:00 97.9 83 18 106/65 100 Room Air 05/11/17 16:00 98.3 80 18 103/64 100 Room Air 05/11/17 15:29 98.3 05/11/17 14:53 109/69 05/11/17 12:47 98.3 83 18 116/65 99 Room Air Intake and Output 05/11/17 05/12/17 19:00 07:00 Intake Total 1650 ml 800 ml Balance 1650 ml 800 ml Intake Oral 700 ml IV Total 700 ml 800 ml Blood Product 250 ml # Voids 2 Objective General Appearance: no acute distress, other - A/A/O x 3 AA male in NAD HEENT: normocephalic, atraumatic, anicteric, mucous membranes moist Respiratory/Chest: lungs clear, no respiratory distress, no accessory muscle use Cardiovascular: normal rate, no JVD Abdomen: normal bowel sounds - mild diffused tenderness epigastric area , no rebound, no guarding Genitourinary: normal external genitalia Extremities: no edema Neurologic/Psychiatric: alert Musculoskeletal: normal muscle bulk Laboratory Tests 05/12/17 05:15: White Blood Count 6.8, Red Blood Count 2.63L, Hemoglobin 8.0L, Hematocrit 25.8L , Mean Corpuscular Volume 98, Mean Corpuscular Hemoglobin 30.6, Mean Corpuscular Hemoglobin Concent 31.1L, Red Cell Distribution Width 16.3H, Platelet Count 296, Mean Platelet Volume 7.7, Neutrophils (%) (Auto) 68.6, Lymphocytes (%) (Auto) 22.0, Monocytes (%) (Auto) 6.0, Eosinophils (%) (Auto) 2.4, Basophils (%) (Auto) 1.0, Sodium Level 141, Potassium Level 4.0, Chloride Level 112H, Carbon Dioxide Level 21, Anion Gap 8, Blood Urea Nitrogen 19H, Creatinine 1.7H, Estimat Glomerular Filtration Rate 50.3, Glucose Level 89, Calcium Level 7.5L Current Medications Medications (Trade) Dose Ordered Sig/Blanche Route PRN Reason Start Time Stop Time Status Last Admin Dose Admin Acetaminophen (Tylenol) 650 mg Q4H PRN ORAL fever>100.5 05/10/17 17:30 06/09/17 17:29 Al Hydroxide/Mg Hydroxide (Mylanta II) 30 ml Q6H PRN ORAL dyspepsia 05/10/17 18:00 06/09/17 17:59 Amlodipine Besylate (Norvasc) 10 mg DAILY ORAL 05/11/17 09:00 06/10/17 08:59 05/11/17 08:24 Citalopram Hydrobromide (celeXA) 40 mg DAILY ORAL 05/12/17 09:00 06/11/17 08:59 Clonidine HCl (Catapres) 0.1 mg EVERY 8 HOURS ORAL 05/10/17 22:00 06/09/17 21:59 05/11/17 14:53 Dextrose (Dextrose 50%) STAT PRN IV Hypoglycemia 05/10/17 18:00 06/09/17 17:59 Dextrose/Sodium Chloride 1,000 ml @ 100 mls/hr Q10H IV 05/10/17 17:30 06/09/17 17:29 05/12/17 08:49 Diphenhydramine HCl (Benadryl) 25 mg Q6H PRN ORAL Itching/Pruritis 05/10/17 18:00 06/09/17 17:59 Hydroxyzine HCl (Atarax) 25 mg FOUR TIMES A DAY ORAL 05/10/17 18:00 06/09/17 17:59 05/11/17 21:10 Iron Sucrose 100 mg/Sodium Chloride 60 ml @ 240 mls/hr BEDTIME IV 05/11/17 21:00 05/13/17 21:14 05/11/17 21:10 Lactulose (Cephulac) 20 gm BID ORAL 05/10/17 18:00 06/09/17 17:59 05/11/17 17:41 Lisinopril (Zestril) 10 mg DAILY ORAL 05/11/17 09:00 06/10/17 08:59 05/11/17 08:25 Morphine Sulfate (Morphine Sulfate) 2 mg Q4H PRN IVP severe Pain (Pain Scale 7-10) 05/10/17 17:30 05/17/17 17:29 05/12/17 11:43 Nicotine (Nicoderm) 1 patch Q24H TDERMAL 05/12/17 13:00 06/11/17 12:59 Nitroglycerin (Ntg) 0.4 mg Q5M X 3 DOSES PRN SL Prn Chest Pain 05/10/17 18:00 06/09/17 17:59 Ondansetron HCl (Zofran) 4 mg Q6H PRN IVP Nausea & Vomiting 05/10/17 18:00 06/09/17 17:59 Pantoprazole (Protonix) 40 mg ACBREAKFAST ORAL 05/11/17 06:30 06/10/17 06:29 05/12/17 05:39 Polyethylene Glycol (Miralax) 17 gm HSPRN PRN ORAL Constipation 05/10/17 21:00 06/09/17 20:59 Temazepam (Restoril) 15 mg HSPRN PRN ORAL Insomnia 05/10/17 21:00 05/17/17 20:59 Julio Cesar Thomas)Elisabeth NP 6, 2018 12:26
[2017-05-12 16:00] VITALS: BP 125/81
[2017-05-12 18:03] LABS: BASOPHILS % (AUTO) 1.2 % (0.0-2.0); EOSINOPHILS % (AUTO) 2.4 % (0.0-3.0); HEMATOCRIT 27.3 % (42.0-52.0); HEMOGLOBIN 8.2 G/DL (14.2-18.0); LYMPHOCYTES % (AUTO) 21.9 % (20.0-45.0); MEAN CORPUSCULAR VOLUME 98 FL (80-99); MONOCYTES % (AUTO) 4.9 % (1.0-10.0); NEUTROPHILS % (AUTO) 69.6 % (45.0-75.0); PLATELET COUNT 303 K/UL (150-450); RED BLOOD COUNT 2.79 M/UL (4.70-6.10); WHITE BLOOD COUNT 7.5 K/UL (4.8-10.8)
[2017-05-12] MEDS: Iron Sucrose 100 MG in NS 55 ML IV SCH (20:40)
[2017-05-12 20:48] VITALS: BP 115/79
[2017-05-12] MEDS ORDERED: Tubing IV Secondary IV ONE (22:31)
[2017-05-12] MEDS ORDERED: D5NS 1000ml IV ONE ×3 (22:31→22:37)
[2017-05-13 00:29] VITALS: BP 120/74
[2017-05-13] MEDS: Morphine Sulfate 2mg/ml Inj IVP PRN ×3 (02:57→21:46)
[2017-05-13 04:52] VITALS: BP 113/66
[2017-05-13] MEDS: D5NS 1,000 ML IV SCH ×2 (05:33→16:13)
[2017-05-13 08:00] VITALS: BP 127/81
[2017-05-13] MEDS: Lactulose 20gm/30ml UDC ORAL SCH ×2 (08:07→17:23)
[2017-05-13] MEDS: Citalopram Hydrobromide 10mg Tab ORAL SCH (08:08)
[2017-05-13] MEDS: HydrOXYzine tab 25 MG TAB ORAL SCH ×4 (08:10→21:47)
[2017-05-13] MEDS: Lisinopril 10mg tab ORAL SCH (08:11)
[2017-05-13 09:19] LABS: BASOPHILS % (AUTO) 1.4 % (0.0-2.0); EOSINOPHILS % (AUTO) 3.6 % (0.0-3.0); HEMATOCRIT 25.8 % (42.0-52.0); LYMPHOCYTES % (AUTO) 22.4 % (20.0-45.0); MEAN CORPUSCULAR VOLUME 98 FL (80-99); MONOCYTES % (AUTO) 6.5 % (1.0-10.0); NEUTROPHILS % (AUTO) 66.2 % (45.0-75.0); PLATELET COUNT 301 K/UL (150-450); RED BLOOD COUNT 2.63 M/UL (4.70-6.10); RED CELL DISTRIBUTION WIDTH 16.4 % (11.6-14.8); WHITE BLOOD COUNT 5.8 K/UL (4.8-10.8)
[2017-05-13 09:37] LABS: ALANINE AMINOTRANSFERASE 21 U/L (12-78); ALBUMIN 2.7 G/DL (3.4-5.0); ALBUMIN/GLOBULIN RATIO 0.8 (1.0-2.7); ALKALINE PHOSPHATASE 57 U/L (46-116); ANION GAP 9 mmol/L (5-15); ASPARTATE AMINO TRANSFERASE 14 U/L (15-37); BILIRUBIN,TOTAL 0.2 MG/DL (0.2-1.0); BLOOD UREA NITROGEN 15 mg/dL (7-18); CALCIUM 7.5 MG/DL (8.5-10.1); CARBON DIOXIDE 21 MMOL/L (21-32); CHLORIDE 113 MMOL/L (98-107); CREATININE 1.5 MG/DL (0.55-1.30); SODIUM 143 MMOL/L (136-145)
[2017-05-13 12:00] VITALS: BP 137/75
--- NOTE | 2017-05-13 12:52 | General Progress Note ---
Assessment/Plan Problem List: (1) Iron deficiency anemia ICD Codes: D50.9 - Iron deficiency anemia, unspecified SNOMED: 35708155 (2) Abdominal pain ICD Codes: R10.9 - Unspecified abdominal pain SNOMED: 78826561 Qualifiers: Qualified Codes: R10.84 - Generalized abdominal pain Assessment/Plan iv iron fu H&H plan colonoscopy on Sunday fu stool ob Subjective ROS Limited/Unobtainable: Yes Allergies: Coded Allergies: No Known Allergies (Unverified , 05/10/17) Subjective c/o abd pain Objective Last 24 Hour Vital Signs Date Time Temp Pulse Resp B/P (MAP) Pulse Ox O2 Delivery O2 Flow Rate FiO2 05/13/17 08:11 127/81 05/13/17 08:11 75 127/81 05/13/17 08:00 98.8 79 18 127/81 100 Room Air 05/13/17 06:14 113/66 05/13/17 04:52 99.4 77 21 113/66 98 05/13/17 00:29 99.6 80 19 120/74 97 Room Air 05/12/17 22:10 115/79 05/12/17 20:48 100.1 86 18 115/79 97 05/12/17 16:00 98.9 83 18 125/81 100 Room Air 05/12/17 14:36 128/81 Intake and Output 05/12/17 05/13/17 19:00 07:00 Intake Total 1000 ml 1240 ml Balance 1000 ml 1240 ml IV Total 1000 ml 1240 ml # Voids 1 1 Laboratory Tests 05/12/17 17:45: White Blood Count 7.5, Red Blood Count 2.79L, Hemoglobin 8.2L, Hematocrit 27.3L , Mean Corpuscular Volume 98, Mean Corpuscular Hemoglobin 29.2, Mean Corpuscular Hemoglobin Concent 29.9L, Red Cell Distribution Width 16.0H, Platelet Count 303, Mean Platelet Volume 6.5, Neutrophils (%) (Auto) 69.6, Lymphocytes (%) (Auto) 21.9, Monocytes (%) (Auto) 4.9, Eosinophils (%) (Auto) 2.4, Basophils (%) (Auto) 1.2 05/13/17 05:00: Stool Occult Blood [Pending] 05/13/17 06:50: White Blood Count 5.8, Red Blood Count 2.63L, Hemoglobin 8.0L, Hematocrit 25.8L , Mean Corpuscular Volume 98, Mean Corpuscular Hemoglobin 30.4, Mean Corpuscular Hemoglobin Concent 30.9L, Red Cell Distribution Width 16.4H, Platelet Count 301, Mean Platelet Volume 7.4, Neutrophils (%) (Auto) 66.2, Lymphocytes (%) (Auto) 22.4, Monocytes (%) (Auto) 6.5, Eosinophils (%) (Auto) 3.6H, Basophils (%) (Auto) 1.4, Sodium Level 143, Potassium Level 4.0, Chloride Level 113H, Carbon Dioxide Level 21, Anion Gap 9, Blood Urea Nitrogen 15, Creatinine 1.5H, Estimat Glomerular Filtration Rate 58.1, Glucose Level 89, Calcium Level 7.5L, Total Bilirubin 0.2, Aspartate Amino Transf (AST/SGOT) 14L, Alanine Aminotransferase (ALT/SGPT) 21, Alkaline Phosphatase 57, Total Protein 6.3L, Albumin 2.7L, Globulin 3.6, Albumin/Globulin Ratio 0.8L Height (Feet): 6 Weight (Pounds): 225 General Appearance: alert EENT: normal ENT inspection Neck: supple Cardiovascular: normal rate Respiratory/Chest: decreased breath sounds Abdomen: normal bowel sounds, non tender, soft Extremities: non-tender FRANCO ONEIL May 13, 2017 12:52
--- NOTE | 2017-05-13 12:55 | General Surgery Progress Note ---
General Surgery-Progress Note Subjective Symptoms: improved Additional Comments still has some abdominal discomfort but tolerating diet. ambulatory. +loose stools. no n/v/f/c. labs stable. Objective Last 24 Hour Vital Signs Date Time Temp Pulse Resp B/P (MAP) Pulse Ox O2 Delivery O2 Flow Rate FiO2 05/13/17 08:11 127/81 05/13/17 08:11 75 127/81 05/13/17 08:00 98.8 79 18 127/81 100 Room Air 05/13/17 06:14 113/66 05/13/17 04:52 99.4 77 21 113/66 98 05/13/17 00:29 99.6 80 19 120/74 97 Room Air 05/12/17 22:10 115/79 05/12/17 20:48 100.1 86 18 115/79 97 05/12/17 16:00 98.9 83 18 125/81 100 Room Air 05/12/17 14:36 128/81 I&O Intake and Output 05/12/17 05/13/17 19:00 07:00 Intake Total 1000 ml 1240 ml Balance 1000 ml 1240 ml IV Total 1000 ml 1240 ml # Voids 1 1 Cardiovascular: RSR Respiratory: clear Abdomen: soft, distended, non-tender, present bowel sounds Extremities: no tenderness Laboratory Tests Test 05/12/17 17:45 05/13/17 05:00 05/13/17 06:50 White Blood Count 7.5 K/UL (4.8-10.8) 5.8 K/UL (4.8-10.8) Red Blood Count 2.79 M/UL (4.70-6.10) L 2.63 M/UL (4.70-6.10) L Hemoglobin 8.2 G/DL (14.2-18.0) L 8.0 G/DL (14.2-18.0) L Hematocrit 27.3 % (42.0-52.0) L 25.8 % (42.0-52.0) L Mean Corpuscular Volume 98 FL (80-99) 98 FL (80-99) Mean Corpuscular Hemoglobin 29.2 PG (27.0-31.0) 30.4 PG (27.0-31.0) Mean Corpuscular Hemoglobin Concent 29.9 G/DL (32.0-36.0) L 30.9 G/DL (32.0-36.0) L Red Cell Distribution Width 16.0 % (11.6-14.8) H 16.4 % (11.6-14.8) H Platelet Count 303 K/UL (150-450) 301 K/UL (150-450) Mean Platelet Volume 6.5 FL (6.5-10.1) 7.4 FL (6.5-10.1) Neutrophils (%) (Auto) 69.6 % (45.0-75.0) 66.2 % (45.0-75.0) Lymphocytes (%) (Auto) 21.9 % (20.0-45.0) 22.4 % (20.0-45.0) Monocytes (%) (Auto) 4.9 % (1.0-10.0) 6.5 % (1.0-10.0) Eosinophils (%) (Auto) 2.4 % (0.0-3.0) 3.6 % (0.0-3.0) H Basophils (%) (Auto) 1.2 % (0.0-2.0) 1.4 % (0.0-2.0) Stool Occult Blood Pending Sodium Level 143 MMOL/L (136-145) Potassium Level 4.0 MMOL/L (3.5-5.1) Chloride Level 113 MMOL/L (98-107) H Carbon Dioxide Level 21 MMOL/L (21-32) Anion Gap 9 mmol/L (5-15) Blood Urea Nitrogen 15 mg/dL (7-18) Creatinine 1.5 MG/DL (0.55-1.30) H Estimat Glomerular Filtration Rate 58.1 mL/min (>60) Glucose Level 89 MG/DL (74-106) Calcium Level 7.5 MG/DL (8.5-10.1) L Total Bilirubin 0.2 MG/DL (0.2-1.0) Aspartate Amino Transf (AST/SGOT) 14 U/L (15-37) L Alanine Aminotransferase (ALT/SGPT) 21 U/L (12-78) Alkaline Phosphatase 57 U/L (46-116) Total Protein 6.3 G/DL (6.4-8.2) L Albumin 2.7 G/DL (3.4-5.0) L Globulin 3.6 g/dL Albumin/Globulin Ratio 0.8 (1.0-2.7) L Plan Problems: (1) Abdominal pain Assessment & Plan: 61M with abdominal pain, fatigue, anemia, and history of colon resection. abdominal pain vague and resolving. significant anemia with black stools. receiving transfusion. H/H unchanged -Colon/EGD as per GI. -diet as tolerated -trend h/h -transfuse as needed -Pending labs CEA. -pending final CT read. CT reviewed and no acute surgical intervention necessary thank you for this consultation. will follow. Leo Jacobs May 13, 2017 12:55
--- NOTE | 2017-05-13 14:57 | Pulmonology Progress Note ---
Assessment/Plan Assessment/Plan ASSESSMENT acute blood loss anemia likely GI bleeding s/p blood transfusion SOB 2 to anemia -resolved hx of Partial colectomy without evidence of obstruction. HTN CRI nicotine dependency with withdrawal PLAN OF CARE [facility] floor IVF s/p 2 u PRBC blood transfusion, HH still low anemia w/up noted, on Venofer monitor HH, BP management with CCB and MEKA, optimize further as needed GI prophayxlis bowel regimen stool OB + GI and surgery follow CT A/P Partial colectomy without evidence of obstruction. 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 case discussed and evaluated by supervising physician Subjective Allergies: Coded Allergies: No Known Allergies (Unverified , 05/10/17) Subjective admits to intermittent abdominal pain, no n/v/ on RA pulse ox stable Hgb down to 8 GI follows Objective Last 24 Hour Vital Signs Date Time Temp Pulse Resp B/P (MAP) Pulse Ox O2 Delivery O2 Flow Rate FiO2 05/13/17 14:00 99/61 05/13/17 12:00 97.2 78 20 137/75 99 Room Air 05/13/17 08:11 127/81 05/13/17 08:11 75 127/81 05/13/17 08:00 98.8 79 18 127/81 100 Room Air 05/13/17 06:14 113/66 05/13/17 04:52 99.4 77 21 113/66 98 05/13/17 00:29 99.6 80 19 120/74 97 Room Air 05/12/17 22:10 115/79 05/12/17 20:48 100.1 86 18 115/79 97 05/12/17 16:00 98.9 83 18 125/81 100 Room Air Intake and Output 05/12/17 05/13/17 19:00 07:00 Intake Total 1000 ml 1240 ml Balance 1000 ml 1240 ml IV Total 1000 ml 1240 ml # Voids 1 1 Objective General Appearance: no acute distress, other - A/A/O x 3 AA male in NAD HEENT: normocephalic, atraumatic, anicteric, mucous membranes moist Respiratory/Chest: lungs clear, no respiratory distress, no accessory muscle use Cardiovascular: normal rate, no JVD Abdomen: normal bowel sounds - mild diffused tenderness epigastric area , no rebound, no guarding Genitourinary: normal external genitalia Extremities: no edema Neurologic/Psychiatric: alert Musculoskeletal: normal muscle bulk Laboratory Tests 05/12/17 17:45: White Blood Count 7.5, Red Blood Count 2.79L, Hemoglobin 8.2L, Hematocrit 27.3L , Mean Corpuscular Volume 98, Mean Corpuscular Hemoglobin 29.2, Mean Corpuscular Hemoglobin Concent 29.9L, Red Cell Distribution Width 16.0H, Platelet Count 303, Mean Platelet Volume 6.5, Neutrophils (%) (Auto) 69.6, Lymphocytes (%) (Auto) 21.9, Monocytes (%) (Auto) 4.9, Eosinophils (%) (Auto) 2.4, Basophils (%) (Auto) 1.2 05/13/17 05:00: Stool Occult Blood Positive 05/13/17 06:50: White Blood Count 5.8, Red Blood Count 2.63L, Hemoglobin 8.0L, Hematocrit 25.8L , Mean Corpuscular Volume 98, Mean Corpuscular Hemoglobin 30.4, Mean Corpuscular Hemoglobin Concent 30.9L, Red Cell Distribution Width 16.4H, Platelet Count 301, Mean Platelet Volume 7.4, Neutrophils (%) (Auto) 66.2, Lymphocytes (%) (Auto) 22.4, Monocytes (%) (Auto) 6.5, Eosinophils (%) (Auto) 3.6H, Basophils (%) (Auto) 1.4, Sodium Level 143, Potassium Level 4.0, Chloride Level 113H, Carbon Dioxide Level 21, Anion Gap 9, Blood Urea Nitrogen 15, Creatinine 1.5H, Estimat Glomerular Filtration Rate 58.1, Glucose Level 89, Calcium Level 7.5L, Total Bilirubin 0.2, Aspartate Amino Transf (AST/SGOT) 14L, Alanine Aminotransferase (ALT/SGPT) 21, Alkaline Phosphatase 57, Total Protein 6.3L, Albumin 2.7L, Globulin 3.6, Albumin/Globulin Ratio 0.8L Current Medications Medications (Trade) Dose Ordered Sig/Blanche Route PRN Reason Start Time Stop Time Status Last Admin Dose Admin Acetaminophen (Tylenol) 650 mg Q4H PRN ORAL fever>100.5 05/10/17 17:30 06/09/17 17:29 Al Hydroxide/Mg Hydroxide (Mylanta II) 30 ml Q6H PRN ORAL dyspepsia 05/10/17 18:00 06/09/17 17:59 Amlodipine Besylate (Norvasc) 10 mg DAILY ORAL 05/11/17 09:00 06/10/17 08:59 05/13/17 08:11 Citalopram Hydrobromide (celeXA) 40 mg DAILY ORAL 05/12/17 09:00 06/11/17 08:59 05/13/17 08:08 Clonidine HCl (Catapres) 0.1 mg EVERY 8 HOURS ORAL 05/10/17 22:00 06/09/17 21:59 05/13/17 06:14 Dextrose (Dextrose 50%) STAT PRN IV Hypoglycemia 05/10/17 18:00 06/09/17 17:59 Dextrose/Sodium Chloride 1,000 ml @ 100 mls/hr Q10H IV 05/10/17 17:30 06/09/17 17:29 05/13/17 05:33 Diphenhydramine HCl (Benadryl) 25 mg Q6H PRN ORAL Itching/Pruritis 05/10/17 18:00 06/09/17 17:59 Hydroxyzine HCl (Atarax) 25 mg FOUR TIMES A DAY ORAL 05/10/17 18:00 06/09/17 17:59 05/13/17 13:43 Iron Sucrose 100 mg/Sodium Chloride 60 ml @ 240 mls/hr BEDTIME IV 05/11/17 21:00 05/13/17 21:14 05/12/17 20:40 Lactulose (Cephulac) 20 gm BID ORAL 05/10/17 18:00 06/09/17 17:59 05/13/17 08:07 Lisinopril (Zestril) 10 mg DAILY ORAL 05/11/17 09:00 06/10/17 08:59 05/13/17 08:11 Morphine Sulfate (Morphine Sulfate) 2 mg Q4H PRN IVP severe Pain (Pain Scale 7-10) 05/10/17 17:30 05/17/17 17:29 05/13/17 13:44 Nicotine (Nicoderm) 1 patch Q24H TDERMAL 05/12/17 13:00 06/11/17 12:59 05/13/17 13:44 Nitroglycerin (Ntg) 0.4 mg Q5M X 3 DOSES PRN SL Prn Chest Pain 05/10/17 18:00 06/09/17 17:59 Ondansetron HCl (Zofran) 4 mg Q6H PRN IVP Nausea & Vomiting 05/10/17 18:00 06/09/17 17:59 05/12/17 19:29 Pantoprazole (Protonix) 40 mg ACBREAKFAST ORAL 05/11/17 06:30 06/10/17 06:29 05/13/17 06:14 Polyethylene Glycol (Miralax) 17 gm HSPRN PRN ORAL Constipation 05/10/17 21:00 06/09/17 20:59 Polyethylene Glycol/ Electrolytes (Nulytely) 4,000 ml ONCE ONCE ORAL 05/13/17 16:00 05/13/17 16:01 Temazepam (Restoril) 15 mg HSPRN PRN ORAL Insomnia 05/10/17 21:00 05/17/17 20:59 Julio Cesar ([facility])Elisabeth NP May 13, 2017 14:57
[2017-05-13] MEDS ORDERED: Nulytely 4L ORAL ONE (16:00)
[2017-05-13 16:19] VITALS: BP 111/64
[2017-05-13 20:00] VITALS: BP 128/71
[2017-05-13] MEDS: Iron Sucrose 100 MG in NS 55 ML IV SCH (21:47)
[2017-05-14] VITALS (12 sets, daily range): BP systolic 102–134; BP diastolic 55–93
[2017-05-14] MEDS: D5NS 1,000 ML IV SCH ×2 (01:30→06:20)
[2017-05-14] MEDS: Morphine Sulfate 2mg/ml Inj IVP PRN ×3 (01:58→17:36)
--- NOTE | 2017-05-14 07:13 | Pre-Procedure Note/Attestation ---
Pre-Procedure Note/Attestation Complete Prior to Procedure Planned Procedure: not applicable Procedure Narrative: esophagogastroduodenoscopy and colonoscopy Indications for Procedure Pre-Operative Diagnosis: anemia Attestation I attest that I discussed the nature of the procedure; its benefits; risks and complications; and alternatives (and the risks and benefits of such alternatives ), prior to the procedure, with the patient (or the patient's legal national sales representative). I attest that, if there was a reasonable possibility of needing a blood transfusion, the patient (or the patient's legal national sales representative) was given the [facility] standardized written summary, pursuant to the [employer] Blood Safety Act ([place] Health and Safety Code # 1645, as amended). I attest that I re-evaluated the patient just prior to the surgery and that there has been no change in the patient's H&P, except as documented below: FRANCO ONEIL May 14, 2017 07:13
[2017-05-14] MEDS ORDERED: NS 500ML IV ONE (07:15)
[2017-05-14] MEDS ORDERED: fentaNYL 100 mcg/2 mL IV PRN (07:30)
[2017-05-14 07:31] LABS: BASOPHILS % (AUTO) 0.7 % (0.0-2.0); EOSINOPHILS % (AUTO) 3.9 % (0.0-3.0); HEMATOCRIT 27.8 % (42.0-52.0); HEMOGLOBIN 8.7 G/DL (14.2-18.0); LYMPHOCYTES % (AUTO) 20.9 % (20.0-45.0); MEAN CORPUSCULAR VOLUME 98 FL (80-99); MONOCYTES % (AUTO) 6.6 % (1.0-10.0); NEUTROPHILS % (AUTO) 67.9 % (45.0-75.0); PLATELET COUNT 289 K/UL (150-450); RED BLOOD COUNT 2.85 M/UL (4.70-6.10); RED CELL DISTRIBUTION WIDTH 15.8 % (11.6-14.8); WHITE BLOOD COUNT 6.4 K/UL (4.8-10.8)
--- NOTE | 2017-05-14 07:33 | Anethesia Preoperative Eval ---
Anesthesia Pre-op PMH/ROS General Date of Evaluation: May 14, 2017 Time of Evaluation: 07:00 Anesthesiologist: Ellie ASA Score: ASA 3 Mallampati Score Class I : Soft palate, uvula, fauces, pillars visible Class II: Soft palate, uvula, fauces visible Class III: Soft palate, base of uvula visible Class IV: Only hard plate visible Mallampati Classification: Class II Surgeon: Kathryn Diagnosis: Anemia, GI bleed Surgical Procedure: EGD, Colonoscopy Allergies: Coded Allergies: No Known Allergies (Unverified , 05/10/17) Medications: see eMAR Past Medical History Cardiovascular: Reports: HTN, CAD Neurologic/Psychiatric: Reports: depression/anxiety Hematology/Immune: Reports: anemia PMH Narrative: HTN, CAD, Colon CA, anemia PSxH Narrative: Colon resection Anesthesia Pre-op Phys. Exam Physician Exam Last Vital Signs Date Time Temp Pulse Resp B/P (MAP) Pulse Ox O2 Delivery O2 Flow Rate FiO2 05/14/17 06:19 125/93 05/14/17 04:00 98.5 74 20 99 Room Air Constitutional: NAD Neurologic: CN 2-12 intact Cardiovascular: RRR, no M/R/G Respiratory: CTA Gastrointestinal: S/NT/ND Airway Exam Mallampati Score: Class II MO: full ROM: full Teeth: missing, loose Anesthesia Pre-op A/P Labs Hematology Test 05/14/17 05:30 White Blood Count Pending Red Blood Count Pending Hemoglobin Pending Hematocrit Pending Mean Corpuscular Volume Pending Mean Corpuscular Hemoglobin Pending Mean Corpuscular Hemoglobin Concent Pending Red Cell Distribution Width Pending Platelet Count Pending Mean Platelet Volume Pending Neutrophils (%) (Auto) Pending Lymphocytes (%) (Auto) Pending Monocytes (%) (Auto) Pending Eosinophils (%) (Auto) Pending Basophils (%) (Auto) Pending Chemistry Test 05/14/17 05:30 Sodium Level Pending Potassium Level Pending Chloride Level Pending Carbon Dioxide Level Pending Blood Urea Nitrogen Pending Creatinine Pending Estimat Glomerular Filtration Rate Pending Glucose Level Pending Calcium Level Pending Risk Assessment & Plan Assessment: Anemia in a 61 yo male with h/o colon ca Plan: GA Status Change Before Surgery: No Pre-Antibiotics Drug: None EARNESTINE WILKERSON M.D. May 14, 2017 07:33
--- NOTE | 2017-05-14 07:34 | Immediate Post-Op Evaluation ---
Immediate Post-Op Evalulation Immediate Post-Op Evalulation Procedure: EGD, Colonoscopy Date of Evaluation: May 14, 2017 Time of Evaluation: 07:50 IV Fluids: 200 Blood Pressure Systolic: 102 Blood Pressure Diastolic: 56 Pulse Rate: 68 Respiratory Rate: 20 O2 Sat by Pulse Oximetry: 100 Temperature (Fahrenheit): 98.3 Pain Score (1-10): 0 Nausea: No Vomiting: No Complications No complication Patient Status: awake, patent, none Hydration Status: adequate Drug: None EARNESTINE WILKERSON M.D. May 14, 2017 07:34
--- NOTE | 2017-05-14 07:46 | Endoscopy Procedure Note ---
Endoscopy Procedure Note Indication for Procedure: anemia Procedures Performed: EGD, colonoscopy Operative Findings/Diagnosis: gastritis, diverticulosis Specimen: yes Pt Tolerated Procedure Well: Yes Estimated Blood Loss: none Anesthesiologist: jacques Anesthesia: MAC Implant(s) used?: No 50 yrs or older w/o bx or poly: Not Applicable 10yrs. F/U not recommended: Not Applicable FRANCO ONEIL May 14, 2017 07:46
[2017-05-14 07:53] LABS: ANION GAP 10 mmol/L (5-15); BLOOD UREA NITROGEN 11 mg/dL (7-18); CALCIUM 7.7 MG/DL (8.5-10.1); CARBON DIOXIDE 20 MMOL/L (21-32); CHLORIDE 112 MMOL/L (98-107); CREATININE 1.4 MG/DL (0.55-1.30); POTASSIUM 3.9 MMOL/L (3.5-5.1); SODIUM 142 MMOL/L (136-145)
[2017-05-14] MEDS: HydrOXYzine tab 25 MG TAB ORAL SCH ×3 (11:12→17:37)
[2017-05-14] MEDS: Lactulose 20gm/30ml UDC ORAL SCH ×2 (11:12→17:36)
[2017-05-14] MEDS: Lisinopril 10mg tab ORAL SCH (11:12)
[2017-05-14] MEDS: Citalopram Hydrobromide 10mg Tab ORAL SCH (11:13)
--- NOTE | 2017-05-14 15:00 | Procedure Note ---
DATE OF PROCEDURE: 05/14/2017 SURGEON: Emeterio Peralta M.D. REFERRING PHYSICIAN: Aleksandra Rodriguez M.D. CHIEF COMPLAINT: Anemia, stool OB positive. The procedure, risks, benefits, and possible consequences, including hemorrhage, aspiration, perforation and infection, and alternative treatments, were explained to the patient/legal guardian by Dr. Emeterio Peralta and the patient/legal guardian understood and accepted these risks. DESCRIPTION OF PROCEDURE: After informed consent was obtained and the patient was adequately sedated, Olympus upper endoscope was advanced from mouth into the second portion of duodenum and retroflexion was performed in stomach. The patient had a lesion in the mid distal body of the stomach. There were two clips on it probably from prior bleeding site. No evidence of an active bleeding at this time. There was evidence of diffuse gastritis. Random biopsy from antrum was obtained to rule out H. pylori infection. At this time, the upper endoscope was retrieved and the patient was turned over for colonoscopy. First, a rectal exam was performed, which was normal. Then, the scope was advanced from the rectum into the area seems to be cecum, was not pushing. The quality of prep was very poor. The patient has some solid stool in the cecum and also in ascending colon and throughout the colon, actually making this examination is limited. There is no evidence of any active bleeding. There is a lipoma in the mid transverse colon with a tattoo around it. I am not sure if somebody already went through this colon and tattoo this area because it is lipoma. The patient had evidence of diverticulosis throughout the colon. Retroflexion of rectum showed evidence of internal hemorrhoids. SUMMARY OF FINDINGS: 1. Prior history of possibly gastrointestinal bleeding and there are two old clips in the stomach probably from prior endoscopies. 2. Gastritis, status post biopsy. 3. Poor colonic prep. 4. Colonic lipoma. 5. Diverticulosis. 6. Internal hemorrhoids. RECOMMENDATIONS: Follow up biopsy results and treat accordingly. I want to thank Dr. Rodriguez, for this kind referral. Emeterio Peralta M.D. DR: ERIS JOB#: [id number] CC: Aleksandra Rodriguez M.D.; Fax#: [phone]
--- NOTE | 2017-05-14 16:13 | General Surgery Progress Note ---
General Surgery-Progress Note Subjective Additional Comments doing well. tolerating diet. ambulatory. states he still feels a vague abdominal discomfort. no n/v/f/c. Objective Last 24 Hour Vital Signs Date Time Temp Pulse Resp B/P (MAP) Pulse Ox O2 Delivery O2 Flow Rate FiO2 05/14/17 14:00 98/65 05/14/17 12:00 98.8 68 17 125/70 100 Room Air 05/14/17 11:13 65 121/81 05/14/17 11:12 120/71 05/14/17 09:00 98.7 60 17 120/71 100 Room Air 05/14/17 08:45 53 16 130/82 100 Room Air 05/14/17 08:30 98.0 55 14 123/82 100 Room Air 05/14/17 08:25 57 15 134/78 100 Room Air 05/14/17 08:15 59 13 123/84 100 Room Air 05/14/17 08:00 63 15 123/84 100 Simple Mask 6.0 05/14/17 07:55 60 12 110/74 100 Simple Mask 6.0 05/14/17 07:54 68 20 100 05/14/17 07:50 61 13 102/55 100 Simple Mask 6.0 05/14/17 07:45 98.3 62 14 102/55 100 Simple Mask 6.0 05/14/17 06:19 125/93 05/14/17 04:00 98.5 74 20 125/93 99 Room Air 05/13/17 21:47 128/71 05/13/17 20:00 98.6 70 20 128/71 100 Room Air 05/13/17 16:19 98.5 69 22 111/64 98 Room Air I&O Intake and Output 05/13/17 05/14/17 19:00 07:00 Intake Total 1660 ml 1360 ml Output Total 600 ml Balance 1060 ml 1360 ml Intake Oral 960 ml 500 ml IV Total 700 ml 860 ml Output Urine Total 600 ml # Voids 2 3 # Bowel Movements 5 Cardiovascular: RSR Respiratory: clear Abdomen: soft, distended, non-tender, present bowel sounds Extremities: no tenderness Laboratory Tests Test 05/14/17 05:30 White Blood Count 6.4 K/UL (4.8-10.8) Red Blood Count 2.85 M/UL (4.70-6.10) L Hemoglobin 8.7 G/DL (14.2-18.0) L Hematocrit 27.8 % (42.0-52.0) L Mean Corpuscular Volume 98 FL (80-99) Mean Corpuscular Hemoglobin 30.4 PG (27.0-31.0) Mean Corpuscular Hemoglobin Concent 31.2 G/DL (32.0-36.0) L Red Cell Distribution Width 15.8 % (11.6-14.8) H Platelet Count 289 K/UL (150-450) Mean Platelet Volume 7.2 FL (6.5-10.1) Neutrophils (%) (Auto) 67.9 % (45.0-75.0) Lymphocytes (%) (Auto) 20.9 % (20.0-45.0) Monocytes (%) (Auto) 6.6 % (1.0-10.0) Eosinophils (%) (Auto) 3.9 % (0.0-3.0) H Basophils (%) (Auto) 0.7 % (0.0-2.0) Sodium Level 142 MMOL/L (136-145) Potassium Level 3.9 MMOL/L (3.5-5.1) Chloride Level 112 MMOL/L (98-107) H Carbon Dioxide Level 20 MMOL/L (21-32) L Anion Gap 10 mmol/L (5-15) Blood Urea Nitrogen 11 mg/dL (7-18) Creatinine 1.4 MG/DL (0.55-1.30) H Estimat Glomerular Filtration Rate > 60 mL/min (>60) Glucose Level 88 MG/DL (74-106) Calcium Level 7.7 MG/DL (8.5-10.1) L Plan Problems: (1) Abdominal pain Assessment & Plan: 61M with abdominal pain, fatigue, anemia, and history of colon resection. abdominal pain vague and resolving. significant anemia with black stools. receiving transfusion. H/H unchanged CT reviewed. prior colectomy noted. no significant pathology noted to explain abdominal discomfort. no acute surgical intervention necessary -Colon/EGD done. await final results. -diet as tolerated -trend h/h -transfuse as needed -Pending labs CEA. thank you for this consultation. will follow. Leo Jacobs May 14, 2017 16:13
--- NOTE | 2017-05-14 16:26 | Pulmonology Progress Note ---
Assessment/Plan Problems: (1) Anemia (2) HTN (hypertension) (3) ARF (acute renal failure) (4) Acute renal disease Assessment/Plan Colonoscopy and EGD noted CT of abdomen reviewed H/H stable f/u tumor markers. f/u by PMD as outpatient. Subjective ROS Limited/Unobtainable: No Constitutional: Reports: no symptoms Respiratory: Reports: no symptoms Cardiovascular: Reports: no symptoms Allergies: Coded Allergies: No Known Allergies (Unverified , 05/10/17) Objective Last 24 Hour Vital Signs Date Time Temp Pulse Resp B/P (MAP) Pulse Ox O2 Delivery O2 Flow Rate FiO2 05/14/17 14:00 98/65 05/14/17 12:00 98.8 68 17 125/70 100 Room Air 05/14/17 11:13 65 121/81 05/14/17 11:12 120/71 05/14/17 09:00 98.7 60 17 120/71 100 Room Air 05/14/17 08:45 53 16 130/82 100 Room Air 05/14/17 08:30 98.0 55 14 123/82 100 Room Air 05/14/17 08:25 57 15 134/78 100 Room Air 05/14/17 08:15 59 13 123/84 100 Room Air 05/14/17 08:00 63 15 123/84 100 Simple Mask 6.0 05/14/17 07:55 60 12 110/74 100 Simple Mask 6.0 05/14/17 07:54 68 20 100 05/14/17 07:50 61 13 102/55 100 Simple Mask 6.0 05/14/17 07:45 98.3 62 14 102/55 100 Simple Mask 6.0 05/14/17 06:19 125/93 05/14/17 04:00 98.5 74 20 125/93 99 Room Air 05/13/17 21:47 128/71 05/13/17 20:00 98.6 70 20 128/71 100 Room Air Intake and Output 05/13/17 05/14/17 19:00 07:00 Intake Total 1660 ml 1360 ml Output Total 600 ml Balance 1060 ml 1360 ml Intake Oral 960 ml 500 ml IV Total 700 ml 860 ml Output Urine Total 600 ml # Voids 2 3 # Bowel Movements 5 General Appearance: WD/WN HEENT: normocephalic, atraumatic Respiratory/Chest: normal breath sounds Cardiovascular: normal peripheral pulses, normal rate Abdomen: normal bowel sounds, soft, non tender Laboratory Tests 05/14/17 05:30: White Blood Count 6.4, Red Blood Count 2.85L, Hemoglobin 8.7L, Hematocrit 27.8L , Mean Corpuscular Volume 98, Mean Corpuscular Hemoglobin 30.4, Mean Corpuscular Hemoglobin Concent 31.2L, Red Cell Distribution Width 15.8H, Platelet Count 289, Mean Platelet Volume 7.2, Neutrophils (%) (Auto) 67.9, Lymphocytes (%) (Auto) 20.9, Monocytes (%) (Auto) 6.6, Eosinophils (%) (Auto) 3.9H, Basophils (%) (Auto) 0.7, Sodium Level 142, Potassium Level 3.9, Chloride Level 112H, Carbon Dioxide Level 20L, Anion Gap 10, Blood Urea Nitrogen 11, Creatinine 1.4H, Estimat Glomerular Filtration Rate > 60, Glucose Level 88, Calcium Level 7.7L Current Medications Medications (Trade) Dose Ordered Sig/Blanche Route PRN Reason Start Time Stop Time Status Last Admin Dose Admin Acetaminophen (Tylenol) 650 mg Q4H PRN ORAL fever>100.5 05/10/17 17:30 06/09/17 17:29 Al Hydroxide/Mg Hydroxide (Mylanta II) 30 ml Q6H PRN ORAL dyspepsia 05/10/17 18:00 06/09/17 17:59 Amlodipine Besylate (Norvasc) 10 mg DAILY ORAL 05/11/17 09:00 06/10/17 08:59 05/14/17 11:13 Citalopram Hydrobromide (celeXA) 40 mg DAILY ORAL 05/12/17 09:00 06/11/17 08:59 05/14/17 11:13 Clonidine HCl (Catapres) 0.1 mg EVERY 8 HOURS ORAL 05/10/17 22:00 06/09/17 21:59 05/14/17 06:19 Dextrose (Dextrose 50%) STAT PRN IV Hypoglycemia 05/10/17 18:00 06/09/17 17:59 Dextrose/Sodium Chloride 1,000 ml @ 100 mls/hr Q10H IV 05/10/17 17:30 06/09/17 17:29 05/14/17 06:20 Diphenhydramine HCl (Benadryl) 25 mg Q6H PRN ORAL Itching/Pruritis 05/10/17 18:00 06/09/17 17:59 Hydroxyzine HCl (Atarax) 25 mg FOUR TIMES A DAY ORAL 05/10/17 18:00 06/09/17 17:59 05/14/17 13:22 Iron Sucrose 100 mg/Sodium Chloride 60 ml @ 240 mls/hr BEDTIME IVPB 05/14/17 21:00 05/18/17 21:14 UNV Lactulose (Cephulac) 20 gm BID ORAL 05/10/17 18:00 06/09/17 17:59 05/14/17 11:12 Lisinopril (Zestril) 10 mg DAILY ORAL 05/11/17 09:00 06/10/17 08:59 05/14/17 11:12 Morphine Sulfate (Morphine Sulfate) 2 mg Q4H PRN IVP severe Pain (Pain Scale 7-10) 05/10/17 17:30 05/17/17 17:29 05/14/17 10:05 Nicotine (Nicoderm) 1 patch Q24H TDERMAL 05/12/17 13:00 06/11/17 12:59 05/14/17 13:22 Nitroglycerin (Ntg) 0.4 mg Q5M X 3 DOSES PRN SL Prn Chest Pain 05/10/17 18:00 06/09/17 17:59 Ondansetron HCl (Zofran) 4 mg Q6H PRN IVP Nausea & Vomiting 05/10/17 18:00 06/09/17 17:59 05/12/17 19:29 Pantoprazole (Protonix) 40 mg ACBREAKFAST ORAL 05/11/17 06:30 06/10/17 06:29 05/14/17 06:19 Polyethylene Glycol (Miralax) 17 gm HSPRN PRN ORAL Constipation 05/10/17 21:00 06/09/17 20:59 Temazepam (Restoril) 15 mg HSPRN PRN ORAL Insomnia 05/10/17 21:00 05/17/17 20:59 ANURAG GARCIA May 14, 2017 16:26
[2017-05-14] MEDS ORDERED: D5NS 1000ml IV ONE (20:24)
[2017-05-14] MEDS ORDERED: Tubing IV Secondary IV ONE (20:24)
[2017-05-14] MEDS ORDERED: Propofol 200mg/20ml IV ONE (20:24)
[2017-05-14] MEDS ORDERED: Iron Sucrose 100 MG in NS 55 ML IV SCH (21:00)
--- NOTE | 2017-05-15 13:34 | Diagnostic Imaging Report ---
Indication: Abdominal pain Technique: CT scan of the abdomen and pelvis utilizing automated exposure control with oral contrast. Axial, sagittal and coronal images were obtained. CT dose: Total DLP 1024 mGycm; CTDI vol 19.1 mGy Comparison: 02/04/2017 Findings: Evaluation of the solid organs is limited without intravenous contrast material. There is a 6 mm nodule in the right lower lobe series 2 image 5. Atelectasis is also noted in the lung bases. The liver, adrenal glands, spleen and pancreas are unremarkable. No CT dense gallstones are identified. There is a nonobstructive calculus in the left kidney. Bilateral renal hypodense lesions are present measuring up to 5 cm and the left kidney. There is an infrarenal abdominal aortic aneurysm that measures 3.7 cm. No periaortic fluid is identified. The small bowel loops are normal in caliber. The appendix is normal. There is colonic diverticulosis. Postsurgical changes of the distal colon are noted. Contrast reaches the rectum with moderate rectal stool. There is a fat-containing left inguinal hernia. Bladder is grossly unremarkable. Degenerative changes of the spine are seen. Impression: Partial colectomy without evidence of obstruction. Passage of contrast to the rectum with moderate rectal distention by stool. Clinical correlation recommended. Small fat-containing left inguinal hernia. Normal appendix. Infrarenal abdominal aortic aneurysm grossly unchanged measuring approximately 3.7 cm. Nonobstructive left renal calculus. Bilateral renal hypodense lesions probably cysts. Approximately 6 mm right lower lobe nodule. Follow-up recommended as indicated. Other findings as above. The CT scanner at [facility] is accredited by the [employer] and the scans are performed using protocols designed to limit radiation exposure to as low as reasonably achievable to attain images of sufficient resolution adequate for diagnostic evaluation.
--- NOTE | 2017-05-15 13:35 | Diagnostic Imaging Report ---
Indication: Elevated renal function tests Technique: Renal ultrasound Comparison: 02/05/2017 Findings: Right renal cysts are seen measuring up to 2.8 cm in the upper pole. Right kidney measures 12.0 cm in length. Left renal cysts measure up to 4.4 cm in the upper pole. Left kidney measures 11.1 cm in length. There is no hydronephrosis. There is a nonobstructive left renal calculus. Bladder is not well-distended limiting evaluation. Visualized IVC is unremarkable. Impression: No hydronephrosis. Bilateral renal cysts. Nonobstructive left renal calculus.
--- NOTE | 2017-05-16 12:11 | Discharge Summary ---
Discharge Summary Hospital Course Date of Admission May 10, 2017 at 12:39 Date of Discharge May 14, 2017 at 20:25 Admitting Diagnosis abd pain/ascites RAYMUNDO Morales is a 61 year old male who was admitted on May 10, 2017 at 12:39 for Abdominal Pain, Ascites Hospital Course dc summary #[id number] Discharge Medications Continued Medications: Amlodipine Besylate* (Amlodipine Besylate*) 10 Mg Tablet 10 MG ORAL DAILY, TAB Citalopram Hydrobromide* (Citalopram Hbr*) 40 Mg Tablet 40 MG ORAL DAILY, TAB Clonidine Hcl* (Catapres*) 0.1 Mg Tablet 0.1 MG ORAL EVERY 8 HOURS for For High Blood Pressure, TAB Hydrocodone Bit/Acetaminophen 5-325* ([place] 5-325*) 1 Each Tablet 1 TAB ORAL Q6H PRN for For Pain, #20 TAB 0 Refills Hydrocodone Bit/Acetaminophen 5-325* ([place] 5-325*) 1 Each Tablet 1 TAB ORAL Q12HR PRN for For Pain, #10 TAB Hydroxyzine HCl (Hydroxyzine HCl) 25 Mg Tab 25 MG ORAL FOUR TIMES A DAY, #30 TAB Lactulose (Lactulose*) 20 Gm/30 Ml Solution 30 ML ORAL BID, ML 0 Refills Lisinopril (Lisinopril*) 5 Mg Tablet 10 MG ORAL DAILY, TAB Methocarbamol* (Robaxin-750*) 750 Mg Tablet 750 MG PO TID, #21 TAB 0 Refills Pantoprazole* (Protonix*) 40 Mg Tablet.dr 40 MG ORAL DAILY for 30 Days, TAB Discharge Discharge Disposition Patient was discharged to Home (01) Discharge Diagnoses: Julio Cesar (Diane)Elisabeth NP May 16, 2017 12:11
--- NOTE | 2017-05-17 03:00 | Discharge Summary 2 SIG ---
DATE OF ADMISSION: 05/10/2017 DATE OF DISCHARGE: 05/14/2017 REASON FOR ADMISSION: 61-year-old male with known history of anemia, presented with shortness of breath on exertion for the last week. The patient complained of intermittent dizziness. However, he denied chest pain, fever, chills, and body aches. Workup in the emergency room revealed mild tachycardia -104. Pulse oximetry was stable on room air. Blood pressure -145/84. Laboratory workup revealed anemia with hemoglobin - 7.5 and hematocrit -25.5. No leukocytosis. MCV -104. Chemistry revealed evidence of renal insufficiency with BUN -13 and creatinine -1.5. The patient was transfused with two units of packed red blood cells in the emergency department. EKG revealed normal sinus rhythm. No acute ischemic changes. No PVC. No ectopy. The patient was admitted with diagnoses of anemia, rule out gastrointestinal bleeding, shortness of breath, acute kidney injury, and questionable history of gastric CA. HOSPITAL COURSE: The patient was admitted to Med/Surg floor. GI and surgery consults were requested. The patient was started on the IV fluids. Anemia workup was consistent with anemia of chronic disease. Hemoglobin and hematocrit were closely monitored. Bowel regimen instituted. Stool OB was positive. CT abdomen and pelvis revealed partial colectomy without evidence of obstruction. Small fat-containing left inguinal hernia.Infrarenal abdominal aortic aneurysm grossly unchanged measuring approximately 3.7 cm. Nonobstructive left renal calculus No evidence of tumor on CT scan. Surgeon seen and evaluated the patient. No acute surgical intervention at this time. Management of left inguinal hernia as outpatient. Follow up periodically for surveillance of abdominal aortic aneurysm; ( too small, size not changed from previous-observe). GI specialist closely followed. The patient was scheduled for EGD and colonoscopy, which he subsequently undergone on 05/14/17. EGD and colonoscopy revealed gastritis, diverticulosis, internal hemorrhoids. No evidence of active bleeding. No evidence of diverticulitis. No evidence of malignancy. EGD also demonstrated two old clips in the stomach probably from prior endoscopies. Biopsy revealed evidence of mild chronic gastritis. No H. pylori infection. Venous duplex of bilateral lower extremity was negative. Renal ultrasound revealed no evidence of hydronephrosis. Nephrotoxics were avoided. Renal parameters and electrolytes were closely monitored. Apparently, the patient had chronic renal insufficiency, creatinine without change with IV hydration. Blood pressure was managed with calcium channel albin and MEKA inhibitor and was stable. GI prophylaxis provided. The patient was provided with nicotine patch and counseled on smoking cessation. Patient was able to tolerate diet. Hemoglobin and hematocrit remained stable, no evidence of acute bleeding. No chest pain, no shortness of breath. Pulse oximetry stable on room air. The patient was stable for discharge home. FINAL DIAGNOSES: 1. Acute blood loss anemia,status post blood transfusion 2. Likely GI bleeding; history of prior GI bleeding 3. Diverticulosis. 4. Gastritis. 5. Internal hemorrhoids 6. Shortness of breath secondary to anemia, resolved. 7. Hypertension. 8. Chronic renal insufficiency. 9. Nicotine dependency with withdrawal. Prior history of possibly gastrointestinal bleeding and there are two old clips in the stomach probably from prior endoscopies. DISCHARGE MEDICATIONS: See medication reconciliation list. DISCHARGE INSTRUCTIONS: The patient was discharged home. Follow up with primary medical doctor. Aleksandra Rodriguez M.D. [facility] DR: COOPER JOB#: [id number] CC: VICENTA
--- NOTE | 2017-05-19 16:10 | Cardiology Report ---
APPROVED REPORT EKG Measurement Heart [id number] Normal sinus rhythm Normal ECG
== END 2017-05-14 20:25 | disposition home or self-care (01) | DRG 378 ==
LOC: EMR 11:00 → 3E 12:39 → EDBEDREQ 12:57
DX: K92.2 Gastrointestinal hemorrhage, unspecified (principal); D62 Acute posthemorrhagic anemia; N17.9 Acute kidney failure, unspecified; F17.213 Nicotine dependence, cigarettes, with withdrawal; K57.90 Diverticulosis of intestine, part unspecified, without perforation or abscess without bleeding; K29.50 Unspecified chronic gastritis without bleeding; Z71.6 Tobacco abuse counseling; I12.9 Hypertensive chronic kidney disease with stage 1 through stage 4 chronic kidney disease, or unspecified chronic kidney disease; K40.90 Unilateral inguinal hernia, without obstruction or gangrene, not specified as recurrent; N18.9 Chronic kidney disease, unspecified; Z85.028 Personal history of other malignant neoplasm of stomach
CPT/HCPCS: 36415; 71045; 74176; 76775; 80048; 80053; 81001; 82150; 82270; 82378; 82550; 82553; 82607; 82746; 83540; 83550; 83615; 83690; 84133; 84300; 84484; 84550; 85007; 85025; 85044; 85060; 85610; 85651; 85730; 86850; 86900; 86901; 86920; 89050; 93005; 93970; 94003; 94150; 99285; J2405

== ENCOUNTER 2017-06-27 13:22 | Inpatient (IN) | payer MEDICARE, OTHER ==
[~2017-06-27] VITALS: Ht 182.9 cm; Wt 99.8 kg
[2017-06-27 13:37] VITALS: BP 139/88
[2017-06-27 14:34] LABS: APPEARANCE,URINE CLEAR; BILIRUBIN, URINE NEGATIVE (NEGATIVE); GLUCOSE, URINE (UA) NEGATIVE (NEGATIVE); KETONES,URINE 1+ (NEGATIVE); LEUKOCYTE ESTERASE ,URINE 1+ (NEGATIVE); NITRITE,URINE NEGATIVE (NEGATIVE); PH,URINE 5 (4.5-8.0); PROTEIN,URINE 1+ (NEGATIVE); UROBILINOGEN,URINE 1 MG/DL (0.0-1.0)
--- NOTE | 2017-06-27 14:34 | Emergency Room Report ---
History of Present Illness General Chief Complaint: Abdominal Pain Source: Patient Present Illness HPI Patient's 61-year-old male who presented after increased abdominal pain and generalized weakness. Patient noted have increased shortness of breath. The patient had a report having some prior history of GI bleeding and bloody stools. He reports having dark bowel movements for the past 2 days. He reports having increased generalized weakness. Patient states he been having decreased exercise tolerance. Allergies: Coded Allergies: No Known Allergies (Unverified , 05/10/17) Patient History Past Medical History: see triage record Reviewed Nursing Documentation: PMH: Agreed, PSxH: Agreed Nursing Documentation-PMH Past Medical History: No History, Except For Hx Cardiac Problems: Yes - heart murmur Hx Hypertension: Yes Hx Pacemaker: No Hx Asthma: Yes Hx COPD: No Hx Diabetes: Yes Hx Cancer: Yes - Gastric cancer Hx Gastrointestinal Problems: Yes Hx Dialysis: No History Of Psychiatric Problem: Yes - Depression Hx Neurological Problems: Yes Hx Cerebrovascular Accident: No Hx Transient Ischemic Attacks: No Hx Dementia: No Hx Alzheimer's Disease: No Hx Parkinson's Disease: No Hx Meningitis: No Hx Encephalitis: No Hx Seizures: No Hx Epilepsy: No Hx Multiple Sclerosis: No Hx Cerebral Palsy: No Hx Amyotrophic Lat Sclerosis: No Hx [place] Syndrome: No Hx Paralysis: No Hx Peripheral Neuropathy: No Hx Spinal Cord Injury: No Hx Head Trauma: No - year 1998 Hx Traumatic Brain Injury: Yes - year 1998 Hx Memory Loss: No Hx Concentration Difficulty: No Hx Speech Problem: No Hx Tremors: No Hx Vertigo: Yes Hx Dizziness: Yes Hx Syncope: Yes Hx Headaches: No Hx Aphasia: No Hx Dysphasia: No Hx Numbness: Yes - fingers and legs Hx Weakness: Yes - general Hx Fatigue: Yes - general Hx Neurologic Surgery: No Hx Brain Shunt: No Review of Systems All Other Systems: negative except mentioned in HPI Physical Exam Vital Signs Date Time Temp Pulse Resp B/P (MAP) Pulse Ox O2 Delivery O2 Flow Rate FiO2 06/27/17 13:27 98.5 86 16 134/82 99 Room Air 98.4 Sp02 EP Interpretation: reviewed, normal General Appearance: normal inspection, well appearing, no apparent distress, alert, GCS 15 Head: atraumatic ENT: normal ENT inspection, hearing grossly normal, normal voice Neck: normal inspection, full range of motion, supple, no bony tend Respiratory: normal inspection, lungs clear, normal breath sounds, no respiratory distress, no retraction, no wheezing Cardiovascular #1: regular rate, rhythm, no edema Gastrointestinal: normal inspection, normal bowel sounds, non tender, soft, no guarding, no hernia Rectal: heme positive stool Genitourinary: no CVA tenderness Musculoskeletal: normal inspection, back normal, normal range of motion Neurologic: normal inspection, alert, oriented x3, responsive, blind lacer III-XII nml as tested, speech normal Psychiatric: normal inspection, judgement/insight normal, mood/affect normal Skin: normal inspection, normal color, no rash Medical Decision Making Diagnostic Impression: Primary Impression: Anemia Additional Impression: Lower GI bleed ER Course Patient presented for generalized weakness. Differential diagnosis included was not limited to anemia, urinary tract infection, electrolyte abnormality, hypothyroidism, myocardial infarction, myasthenia gravis, dehydration, among others. Because of complexity of patient's case laboratory testing and imaging studies were ordered.Laboratory testing was notable for evidence of anemia. Rectal exam was noted to have guaiac positive stool. Patient noted to have previous history of GI bleeding.Dr. Daljit Sandhu was contacted for inpatient management Labs Test 06/27/17 14:10 White Blood Count 9.2 K/UL (4.8-10.8) Red Blood Count 2.84 M/UL (4.70-6.10) Hemoglobin 8.4 G/DL (14.2-18.0) Hematocrit 27.1 % (42.0-52.0) Mean Corpuscular Volume 95 FL (80-99) Mean Corpuscular Hemoglobin 29.6 PG (27.0-31.0) Mean Corpuscular Hemoglobin Concent 31.0 G/DL (32.0-36.0) Red Cell Distribution Width 19.0 % (11.6-14.8) Platelet Count 177 K/UL (150-450) Mean Platelet Volume 9.2 FL (6.5-10.1) Neutrophils (%) (Auto) 76.4 % (45.0-75.0) Lymphocytes (%) (Auto) 15.6 % (20.0-45.0) Monocytes (%) (Auto) 5.5 % (1.0-10.0) Eosinophils (%) (Auto) 1.8 % (0.0-3.0) Basophils (%) (Auto) 0.7 % (0.0-2.0) Prothrombin Time 9.4 SEC (9.30-11.50) Prothromb Time International Ratio 0.9 (0.9-1.1) Activated Partial Thromboplast Time 24 SEC (23-33) Urine Color Yellow Urine Appearance Clear Urine pH 5 (4.5-8.0) Urine Specific [place] 1.020 (1.005-1.035) Urine Protein 1+ (NEGATIVE) Urine Glucose (UA) Negative (NEGATIVE) Urine Ketones 1+ (NEGATIVE) Urine Occult Blood Negative (NEGATIVE) Urine Nitrite Negative (NEGATIVE) Urine Bilirubin Negative (NEGATIVE) Urine Urobilinogen 1 MG/DL (0.0-1.0) Urine Leukocyte Esterase 1+ (NEGATIVE) Urine RBC 0 /HPF (0 - 0) Urine WBC 2-4 /HPF (0 - 0) Urine Squamous Epithelial Cells Occasional /LPF Urine Bacteria Occasional /HPF (NONE) Sodium Level 139 MMOL/L (136-145) Potassium Level 3.9 MMOL/L (3.5-5.1) Chloride Level 108 MMOL/L (98-107) Carbon Dioxide Level 25 MMOL/L (21-32) Anion Gap 6 mmol/L (5-15) Blood Urea Nitrogen 18 mg/dL (7-18) Creatinine 1.3 MG/DL (0.55-1.30) Estimat Glomerular Filtration Rate > 60 mL/min (>60) Glucose Level 88 MG/DL (74-106) Calcium Level 9.4 MG/DL (8.5-10.1) Total Bilirubin 0.2 MG/DL (0.2-1.0) Aspartate Amino Transf (AST/SGOT) 22 U/L (15-37) Alanine Aminotransferase (ALT/SGPT) 33 U/L (12-78) Alkaline Phosphatase 70 U/L (46-116) Troponin I 0.006 ng/mL (0.000-0.056) Total Protein 6.7 G/DL (6.4-8.2) Albumin 3.2 G/DL (3.4-5.0) Globulin 3.5 g/dL Albumin/Globulin Ratio 0.9 (1.0-2.7) Lipase 140 U/L (73-393) EKG Diagnostic Results Rate: normal Last Vital Signs Date Time Temp Pulse Resp B/P (MAP) Pulse Ox O2 Delivery O2 Flow Rate FiO2 06/27/17 13:37 98.5 99 15 139/88 100 Room Air 98.5 Status: unchanged Disposition: ADMITTED INPATIENT Condition: Serious FreddieAamir Jun 27, 2017 14:34
[2017-06-27 14:35] LABS: BASOPHILS % (AUTO) 0.7 % (0.0-2.0); COLOR,URINE YELLOW; EOSINOPHILS % (AUTO) 1.8 % (0.0-3.0); HEMATOCRIT 27.1 % (42.0-52.0); HEMOGLOBIN 8.4 G/DL (14.2-18.0); LYMPHOCYTES % (AUTO) 15.6 % (20.0-45.0); MEAN CORPUSCULAR VOLUME 95 FL (80-99); MONOCYTES % (AUTO) 5.5 % (1.0-10.0); NEUTROPHILS % (AUTO) 76.4 % (45.0-75.0); PLATELET COUNT 177 K/UL (150-450); RED BLOOD COUNT 2.84 M/UL (4.70-6.10); WHITE BLOOD COUNT 9.2 K/UL (4.8-10.8)
--- NOTE | 2017-06-27 14:43 | Diagnostic Imaging Report ---
Indication: Shortness of breath Technique: XRAY Chest 1v Comparison: 05/10/2017 Findings: Heart size and mediastinal contours are within normal limits and stable allowing for differences in technique. There is no focal consolidation, pneumothorax or pleural effusion. Osseous structures demonstrate no acute abnormality. Impression: No definite radiographic evidence of acute cardiopulmonary disease.
[2017-06-27 14:44] LABS: ANION GAP 6 mmol/L (5-15); BLOOD UREA NITROGEN 18 mg/dL (7-18); CALCIUM 9.4 MG/DL (8.5-10.1); CARBON DIOXIDE 25 MMOL/L (21-32); CHLORIDE 108 MMOL/L (98-107); CREATININE 1.3 MG/DL (0.55-1.30); INR 0.9 (0.9-1.1); POTASSIUM 3.9 MMOL/L (3.5-5.1); SODIUM 139 MMOL/L (136-145)
[2017-06-27] MEDS ORDERED: Morphine Sulfate 4mg/ml Inj IVP ONE (14:45)
[2017-06-27 14:49] LABS: ALANINE AMINOTRANSFERASE 33 U/L (12-78); ALBUMIN 3.2 G/DL (3.4-5.0); ALBUMIN/GLOBULIN RATIO 0.9 (1.0-2.7); ALKALINE PHOSPHATASE 70 U/L (46-116); ASPARTATE AMINO TRANSFERASE 22 U/L (15-37); BILIRUBIN,TOTAL 0.2 MG/DL (0.2-1.0)
[2017-06-27 15:46] VITALS: BP 134/93
[2017-06-27] MEDS ORDERED: Promethazine/Codeine 5ml UD ORAL PRN (16:15)
[2017-06-27] MEDS ORDERED: Mylanta II UD 30ml ORAL PRN (16:15)
[2017-06-27] MEDS ORDERED: Miralax 17gm pkt ORAL PRN (17:30)
[2017-06-27] MEDS ORDERED: Nitroglycerin Subl 0.4mg tab SL PRN (17:30)
[2017-06-27 17:37] VITALS: BP 123/77
--- NOTE | 2017-06-27 18:08 | Consultation ---
History of Present Illness General Date patient seen: Jun 27, 2017 Chief Complaint: Abdominal Pain Present Illness HPI Patient's 61-year-old male with hx of COPD, gastric cancer, who presented after increased abdominal pain and generalized weakness. Patient also had increased shortness of breath. He reports having dark bowel movements for the past 2 days and increased generalized weakness. Patient states he been having decreased exercise tolerance. He was found to have low H/H and admitted to telemetry for acute GI bleeding. Allergies: Coded Allergies: No Known Allergies (Unverified , 05/10/17) Medication History Scheduled Amlodipine Besylate* (Amlodipine Besylate*), 10 MG ORAL DAILY, (Reported) Ascorbic Acid* (Vitamin C*), 500 MG ORAL DAILY, (Reported) Aspirin* (Aspirin*), 81 MG ORAL DAILY, (Reported) Citalopram Hydrobromide* (Citalopram Hbr*), 40 MG ORAL DAILY, (Reported) Dextran 70/Hypromellose (Artificial Tears Eye Drops*), 1 DROP BOTH EYES BID, ( Reported) Ferrous Sulfate* (Ferrous Sulfate*), 325 MG ORAL DAILY, (Reported) Fluconazole (Fluconazole), 100 MG ORAL DAILY, (Reported) Lisinopril* (Lisinopril*), 10 MG ORAL DAILY, (Reported) Metoprolol Tartrate* (Metoprolol Tartrate*), 25 MG ORAL DAILY, (Reported) Multivitamin With Minerals (Multivitamins With Minerals*), 1 TAB ORAL DAILY, ( Reported) Omeprazole (Omeprazole), 20 MG ORAL DAILY, (Reported) Pantoprazole* (Pantoprazole*), 40 MG ORAL DAILY, (Reported) Scheduled PRN Acetaminophen With Codeine (T#3) (Tylenol #3 Tab*), 1 TAB ORAL Q6HR PRN for For Pain, (Reported) Diphenhydramine Hcl* (Benadryl*), 25 MG ORAL QHS PRN for Itching, (Reported) Hydrocodone Bit/Acetaminophen 5-325* ([place] 5-325*), 1 TAB ORAL Q6H PRN for For Pain Miscellaneous Medications Nitroglycerin (Nitroglycerin), 0.4 MG SL, (Reported) Discontinued Medications Acetaminophen (Acetaminophen), 325 MG PO Q4HR PRN for For Pain, (Reported) Discontinued Reason: Pt stopped taking med Acetaminophen* (Tylenol Extra Strength*), 1,000 MG ORAL Q6H PRN for Moderate Pain (Pain Scale 4-6), (Reported) Discontinued Reason: Pt stopped taking med Acetaminophen/Hydrocodone ([place] 7.5-325 Tablet), 2 TAB ORAL Q6HR PRN for Severe Pain (Pain Scale 7-10), (Reported) Discontinued Reason: Medication dose changed Bisacodyl (Dulcolax), 10 MG RC for bowel management, (Reported) Discontinued Reason: Pt stopped taking med Clonidine Hcl* (Catapres*), 0.1 MG ORAL EVERY 8 HOURS, (Reported) Discontinued Reason: Pt stopped taking med Ergocalciferol (Vitamin D2)* (Vitamin D*), 50,000 UNIT ORAL ONCE A WEEK, ( Reported) Discontinued Reason: Pt stopped taking med Hydrocortisone/Aloe Vera 1%* (Hydrocortisone-Aloe 1% Cream*), 1 APPLIC TOPIC, ( Reported) Discontinued Reason: Pt stopped taking med Hydroxyzine HCl (Hydroxyzine HCl), 25 MG ORAL FOUR TIMES A DAY Discontinued Reason: Pt stopped taking med Hydroxyzine Hcl (Hydroxyzine Hcl), 25 MG PO TID, (Reported) Discontinued Reason: Pt stopped taking med Lactulose (Lactulose*), 30 ML ORAL BID, (Reported) Discontinued Reason: Pt stopped taking med Methocarbamol (Methocarbamol), 5,000 GM MC, (Reported) Discontinued Reason: Pt stopped taking med Methocarbamol* (Robaxin-750*), 750 MG PO TID Discontinued Reason: Pt stopped taking med Polyethylene Glycol 3350* (Miralax*), 17 GM ORAL BID, (Reported) Discontinued Reason: Pt stopped taking med Temazepam (Restoril*), 30 MG ORAL BEDTIME PRN for insomnia , (Reported) Discontinued Reason: Pt stopped taking med Vitamin D (Vitamin D3), 50,000 UNITS ORAL DAILY, (Reported) Discontinued Reason: Pt stopped taking med Patient History Healthcare decision maker Resuscitation status Advanced Directive on File Past Medical/Surgical History Past Medical/Surgical History: (1) Colon cancer (2) Dudonal ulcerations Review of Systems Constitutional: Reports: malaise, weakness All Other Systems: negative except mentioned in HPI Physical Exam General Appearance: WD/WN, no apparent distress Lines, tubes and drains: peripheral HEENT: normocephalic, atraumatic Neck: non-tender, normal alignment Respiratory/Chest: chest wall non-tender, lungs clear Breasts: no masses Cardiovascular/Chest: normal peripheral pulses Abdomen: normal bowel sounds, non tender Genitourinary/Rectal: normal genital exam Extremities: normal range of motion Skin Exam: normal pigmentation Last 24 Hour Vital Signs Date Time Temp Pulse Resp B/P (MAP) Pulse Ox O2 Delivery O2 Flow Rate FiO2 06/27/17 17:37 98.6 92 15 123/77 100 Room Air 98.6 06/27/17 15:46 91 15 134/93 100 Room Air 06/27/17 15:14 98.5 06/27/17 14:44 98.5 06/27/17 13:37 98.5 99 15 139/88 100 Room Air 98.5 06/27/17 13:27 98.5 86 16 134/82 99 Room Air 98.4 Laboratory Tests Test 06/27/17 14:10 White Blood Count 9.2 K/UL (4.8-10.8) Red Blood Count 2.84 M/UL (4.70-6.10) L Hemoglobin 8.4 G/DL (14.2-18.0) L Hematocrit 27.1 % (42.0-52.0) L Mean Corpuscular Volume 95 FL (80-99) Mean Corpuscular Hemoglobin 29.6 PG (27.0-31.0) Mean Corpuscular Hemoglobin Concent 31.0 G/DL (32.0-36.0) L Red Cell Distribution Width 19.0 % (11.6-14.8) H Platelet Count 177 K/UL (150-450) Mean Platelet Volume 9.2 FL (6.5-10.1) Neutrophils (%) (Auto) 76.4 % (45.0-75.0) H Lymphocytes (%) (Auto) 15.6 % (20.0-45.0) L Monocytes (%) (Auto) 5.5 % (1.0-10.0) Eosinophils (%) (Auto) 1.8 % (0.0-3.0) Basophils (%) (Auto) 0.7 % (0.0-2.0) Prothrombin Time 9.4 SEC (9.30-11.50) Prothromb Time International Ratio 0.9 (0.9-1.1) Activated Partial Thromboplast Time 24 SEC (23-33) Urine Color Yellow Urine Appearance Clear Urine pH 5 (4.5-8.0) Urine Specific [place] 1.020 (1.005-1.035) Urine Protein 1+ (NEGATIVE) H Urine Glucose (UA) Negative (NEGATIVE) Urine Ketones 1+ (NEGATIVE) H Urine Occult Blood Negative (NEGATIVE) Urine Nitrite Negative (NEGATIVE) Urine Bilirubin Negative (NEGATIVE) Urine Urobilinogen 1 MG/DL (0.0-1.0) H Urine Leukocyte Esterase 1+ (NEGATIVE) H Urine RBC 0 /HPF (0 - 0) Urine WBC 2-4 /HPF (0 - 0) Urine Squamous Epithelial Cells Occasional /LPF Urine Bacteria Occasional /HPF (NONE) Sodium Level 139 MMOL/L (136-145) Potassium Level 3.9 MMOL/L (3.5-5.1) Chloride Level 108 MMOL/L (98-107) H Carbon Dioxide Level 25 MMOL/L (21-32) Anion Gap 6 mmol/L (5-15) Blood Urea Nitrogen 18 mg/dL (7-18) Creatinine 1.3 MG/DL (0.55-1.30) Estimat Glomerular Filtration Rate > 60 mL/min (>60) Glucose Level 88 MG/DL (74-106) Calcium Level 9.4 MG/DL (8.5-10.1) Total Bilirubin 0.2 MG/DL (0.2-1.0) Aspartate Amino Transf (AST/SGOT) 22 U/L (15-37) Alanine Aminotransferase (ALT/SGPT) 33 U/L (12-78) Alkaline Phosphatase 70 U/L (46-116) Troponin I 0.006 ng/mL (0.000-0.056) Total Protein 6.7 G/DL (6.4-8.2) Albumin 3.2 G/DL (3.4-5.0) L Globulin 3.5 g/dL Albumin/Globulin Ratio 0.9 (1.0-2.7) L Lipase 140 U/L (73-393) Height (Feet): 6 Weight (Pounds): 220 Medications Current Medications Medications (Trade) Dose Ordered Sig/Blanche Route PRN Reason Start Time Stop Time Status Last Admin Dose Admin Acetaminophen (Tylenol) 650 mg Q4H PRN ORAL T>100.5 06/27/17 16:15 07/27/17 16:14 Al Hydroxide/Mg Hydroxide (Mylanta II) 30 ml Q6H PRN ORAL dyspepsia 06/27/17 16:15 07/27/17 16:14 Albuterol/ Ipratropium (Albuterol/ Ipratropium) 3 ml Q4H PRN HHN Shortness of Breath 06/27/17 16:15 07/02/17 16:14 Amlodipine Besylate (Norvasc) 10 mg DAILY ORAL 06/28/17 09:00 07/28/17 08:59 Cefepime HCl 1 gm/ Dextrose 55 ml @ 110 mls/hr Q12HR@0630,1830 IV 06/27/17 18:30 07/04/17 18:29 Citalopram Hydrobromide (celeXA) 40 mg DAILY ORAL 06/28/17 09:00 07/28/17 08:59 Lisinopril (Zestril) 10 mg DAILY ORAL 06/28/17 09:00 07/28/17 08:59 Nitroglycerin (Ntg) 0.4 mg Q5M PRN SL Prn Chest Pain 06/27/17 17:30 07/27/17 17:29 Ondansetron HCl (Zofran) 4 mg Q6H PRN IVP Nausea & Vomiting 06/27/17 16:15 07/27/17 16:14 Polyethylene Glycol (Miralax) 17 gm DAILYPRN PRN ORAL Constipation 06/27/17 17:30 07/27/17 17:29 Promethazine HCl/ Codeine (Phenergan with Codeine) 5 ml Q4H PRN ORAL For Cough 06/27/17 16:15 07/27/17 16:14 Temazepam (Restoril) 15 mg HSPRN PRN ORAL Insomnia 06/27/17 21:00 07/04/17 20:59 Vancomycin HCl (Vanco rx to dose) 1 ea DAILY PRN MISC Per rx protocol 06/27/17 16:15 07/27/17 16:14 UNV Vancomycin HCl 2 gm/Sodium Chloride 550 ml @ 220 mls/hr ONCE ONCE IVPB 06/27/17 19:30 06/27/17 21:59 Vancomycin HCl/ Dextrose 250 ml @ 166.667 mls/hr Q12HR@0800,1999 IVPB 06/28/17 08:00 07/03/17 07:59 Assessment/Plan Problem List: (1) Hemorrhagic shock ICD Codes: R57.8 - Other shock SNOMED: 269989 (2) Lower GI bleed ICD Codes: K92.2 - Gastrointestinal hemorrhage, unspecified SNOMED: 59833404 (3) Symptomatic anemia ICD Codes: D64.9 - Anemia, unspecified SNOMED: 102188743 (4) Gastrointestinal malignancy ICD Codes: C26.9 - Malignant neoplasm of ill-defined sites within the digestive system SNOMED: 711517323 Assessment/Plan NPO GI evaluation IV fluids oncology to see check electrolytes. dvt prophylaxis ANURAG GARCIA Jun 27, 2017 18:08
[2017-06-27 18:30] VITALS: BP 147/86
[2017-06-27] MEDS ORDERED: Cefepime HCl 1 GM in D5W 55 ML IV SCH (18:30)
[2017-06-27] MEDS ORDERED: FLUCONAZOLE100 MG ORAL (19:13)
[2017-06-27] MEDS ORDERED: PANTOPRAZOLE SO40 MG ORAL (19:13)
[2017-06-27] MEDS ORDERED: METOPROLOL TART25 MG ORAL (19:13)
[2017-06-27] MEDS ORDERED: OMEPRAZOLE20 M2 ORAL (19:13)
[2017-06-27] MEDS ORDERED: BENADRYL25 MG ORAL (19:23)
[2017-06-27] MEDS ORDERED: LISINOPRIL10 MG ORAL (19:23)
[2017-06-27] MEDS ORDERED: ACETAMINOPHEN-1 EAC1 ORAL (19:23)
[2017-06-27] MEDS ORDERED: ASPIRIN81 MG ORAL (19:26)
[2017-06-27] MEDS ORDERED: VANCOMYCIN IVPB ONE (19:30)
[2017-06-27] MEDS ORDERED: SODIUM CHLORIDE IVPB ONE (19:30)
[2017-06-27] MEDS: Albuterol/Ipratropium 3ml neb HHN PRN (19:33)
[2017-06-27] MEDS: Cefepime HCl 1 GM in NS 55 ML IV SCH (19:42)
[2017-06-27 20:00] VITALS: BP 119/88
[2017-06-27] MEDS: Norco 5mg/325mg tab ORAL PRN (21:16)
[2017-06-28] VITALS (7 sets, daily range): BP systolic 109–136; BP diastolic 70–87
[2017-06-28] MEDS: Albuterol/Ipratropium 3ml neb HHN PRN (02:50)
[2017-06-28] MEDS: Cefepime HCl 1 GM in NS 55 ML IV SCH ×2 (06:31→19:24)
[2017-06-28 07:17] LABS: HEMATOCRIT 23.1 % (42.0-52.0); HEMOGLOBIN 7.4 G/DL (14.2-18.0); MEAN CORPUSCULAR VOLUME 95 FL (80-99); PLATELET COUNT 157 K/UL (150-450); RED BLOOD COUNT 2.44 M/UL (4.70-6.10); RED CELL DISTRIBUTION WIDTH 18.5 % (11.6-14.8); WHITE BLOOD COUNT 6.4 K/UL (4.8-10.8)
[2017-06-28 07:20] LABS: ALBUMIN 2.8 G/DL (3.4-5.0); ANION GAP 5 mmol/L (5-15); BLOOD UREA NITROGEN 13 mg/dL (7-18); CALCIUM 8.4 MG/DL (8.5-10.1); CARBON DIOXIDE 28 MMOL/L (21-32); CHLORIDE 108 MMOL/L (98-107); CREATININE 1.2 MG/DL (0.55-1.30); PHOSPHORUS 3.2 MG/DL (2.5-4.9); POTASSIUM 4.1 MMOL/L (3.5-5.1); SODIUM 141 MMOL/L (136-145)
[2017-06-28] MEDS ORDERED: Vancomycin 1250mg/D5W 250ml IVPB SCH (08:00)
[2017-06-28] MEDS ORDERED: Flu Vaccine Quadrivalent 0.5ml IM ONE (09:00)
[2017-06-28] MEDS ORDERED: Pneumococcal Vaccine 25mcg/0.5ml IM ONE (09:00)
[2017-06-28] MEDS: Citalopram Hydrobromide 10mg Tab ORAL SCH (09:13)
[2017-06-28] MEDS: Lisinopril 10mg tab ORAL SCH (09:13)
[2017-06-28] MEDS: Norco 5mg/325mg tab ORAL PRN (09:22)
--- NOTE | 2017-06-28 09:58 | GI Initial Consult Note ---
History of Present Illness General Date patient seen: Jun 28, 2017 Time patient seen: 09:58 Reason for Hospitalization: Abdominal Pain Referring physician: KRISTINE PHILLIPS Reason for Consultation: LGIB Present Illness HPI Patient's 61-year-old male who presented after increased abdominal pain and generalized weakness. Patient noted have increased shortness of breath. The patient had a report having some prior history of GI bleeding and bloody stools. He reports having dark bowel movements for the past 2 days. He reports having increased generalized weakness. Patient states he been having decreased exercise tolerance. GI consulted for LGIB. Patient seen ambulating [facility], awake A& Ox4 NAD with no active s/sx of N/V/D. Per patient, he had episodes of BRBPR and now presents with anemia of acute blood loss. The patient was a recent admission here at [place] where he underwent both EGD/colonoscopy, see summary below. s/p EGD/colonoscopy SUMMARY OF FINDINGS: 1. Prior history of possibly gastrointestinal bleeding and there are two old clips in the stomach probably from prior endoscopies. 2. Gastritis, status post biopsy. >> negative for H. Pylori 3. Poor colonic prep. 4. Colonic lipoma. 5. Diverticulosis. 6. Internal hemorrhoids. Home Meds Active Scripts Hydrocodone Bit/Acetaminophen 5-325* (NORCO 5-325*) 1 Each Tablet, 1 TAB ORAL Q6H Y for For Pain, #20 TAB 0 Refills Prov:Aamir Frazier 09/02/15 Reported Medications Aspirin* (ASPIRIN*) 81 Mg Tab.chew, 81 MG ORAL DAILY 06/27/17 Diphenhydramine Hcl* (BENADRYL*) 25 Mg Capsule, 25 MG ORAL QHS Y for Itching 06/27/17 Acetaminophen With Codeine (T#3) (TYLENOL #3 TAB*) Y Tab, 1 TAB ORAL Q6HR Y for For Pain 06/27/17 Lisinopril* (LISINOPRIL*) 10 Mg Tablet, 10 MG ORAL DAILY 06/27/17 Pantoprazole* (PANTOPRAZOLE*) 40 Mg Tablet., 40 MG ORAL DAILY 06/27/17 Metoprolol Tartrate* (METOPROLOL TARTRATE*) 25 Mg Tablet, 25 MG ORAL DAILY 06/27/17 Omeprazole (OMEPRAZOLE) 20 Mg Capsule., 20 MG ORAL DAILY 06/27/17 Fluconazole (FLUCONAZOLE) 100 Mg Tablet, 100 MG ORAL DAILY, #7 TAB 06/27/17 Nitroglycerin (NITROGLYCERIN) 0.4 Mg Tab.subl, 0.4 MG SL, TAB 02/04/17 Multivitamin With Minerals (MULTIVITAMINS WITH MINERALS*) 1 Each Tablet, 1 TAB ORAL DAILY, TAB 02/04/17 Dextran 70/Hypromellose (ARTIFICIAL TEARS EYE DROPS*) 15 Ml Drops, 1 DROP BOTH EYES BID, #15 ML 0 Refills 02/04/17 Amlodipine Besylate* (AMLODIPINE BESYLATE*) 10 Mg Tablet, 10 MG ORAL DAILY, TAB 05/17/15 Ascorbic Acid* (VITAMIN C*) 500 Mg Tablet, 500 MG ORAL DAILY, #30 TAB 0 Refills 05/17/15 Ferrous Sulfate* (FERROUS SULFATE*) 325 Mg Tablet, 325 MG ORAL DAILY, #60 TAB 0 Refills 05/17/15 Citalopram Hydrobromide* (CITALOPRAM HBR*) 40 Mg Tablet, 40 MG ORAL DAILY, TAB 02/11/15 Discontinued Reported Medications Acetaminophen (Acetaminophen) 325 Mg Capsule, 325 MG PO Q4HR Y for For Pain, CAP 02/04/17 Acetaminophen* (TYLENOL EXTRA STRENGTH*) 500 Mg Tablet, 1000 MG ORAL Q6H Y for Moderate Pain (Pain Scale 4-6), TAB 0 Refills 02/04/17 Temazepam (RESTORIL*) 30 Mg Capsule, 30 MG ORAL BEDTIME Y for insomnia , #7 CAP 0 Refills 02/04/17 Acetaminophen/Hydrocodone (Rule 7.5-325 Tablet) 1 Each Tablet, 2 TAB ORAL Q6HR Y for Severe Pain (Pain Scale 7-10), #30 TAB 0 Refills 02/04/17 Polyethylene Glycol 3350* (MIRALAX*) 17 Gm Powd.pack, 17 GM ORAL BID, PACKET 02/04/17 Lactulose (LACTULOSE*) 20 Gm/30 Ml Solution, 30 ML ORAL BID, ML 0 Refills 02/04/17 Hydroxyzine Hcl (HYDROXYZINE HCL) 25 Mg Tablet, 25 MG PO TID for Itching, TAB 02/04/17 Hydrocortisone/Aloe Vera 1%* (HYDROCORTISONE-ALOE 1% CREAM*) Y Cr, 1 APPLIC TOPIC, #30 GM 02/04/17 Ergocalciferol (Vitamin D2)* (VITAMIN D*) 50,000 Unit Capsule, 29773 UNIT ORAL ONCE A WEEK, CAP Every Sunday for supplement 02/04/17 Bisacodyl (DULCOLAX) 10 Mg Supp.rect, 10 MG RC Y for bowel management, SUPP 02/04/17 Clonidine Hcl* (CATAPRES*) 0.1 Mg Tablet, 0.1 MG ORAL EVERY 8 HOURS for For High Blood Pressure, TAB 02/04/17 Vitamin D (Vitamin D3) 400 Intlu Cap, 71598 UNITS ORAL DAILY, CAP 05/17/15 Methocarbamol (METHOCARBAMOL) 5,000 Gm Powder, 5000 GM MC, GM 02/11/15 Discontinued Scripts Methocarbamol* (ROBAXIN-750*) 750 Mg Tablet, 750 MG PO TID, #21 TAB 0 Refills Prov:LORETTA YING DLuana 10/11/15 Hydroxyzine HCl (Hydroxyzine HCl) 25 Mg Tab, 25 MG ORAL FOUR TIMES A DAY, #30 TAB Prov:Aamir Frazier 02/23/15 Med list reviewed/reconciled: Yes Allergies: Coded Allergies: No Known Allergies (Unverified , 05/10/17) Patient History History Provided By: Patient, Medical Record PMH Narrative Past Medical History: No History, Except For Hx Cardiac Problems: Yes - heart murmur Hx Hypertension: Yes Hx Pacemaker: No Hx Asthma: Yes Hx COPD: No Hx Diabetes: Yes Hx Cancer: Yes - Gastric cancer Hx Gastrointestinal Problems: Yes Hx Dialysis: No History Of Psychiatric Problem: Yes - Depression Hx Neurological Problems: Yes Hx Cerebrovascular Accident: No Hx Transient Ischemic Attacks: No Hx Dementia: No Hx Alzheimer's Disease: No Hx Parkinson's Disease: No Hx Meningitis: No Hx Encephalitis: No Hx Seizures: No Hx Epilepsy: No Hx Multiple Sclerosis: No Hx Cerebral Palsy: No Hx Amyotrophic Lat Sclerosis: No Hx [place] Syndrome: No Hx Paralysis: No Hx Peripheral Neuropathy: No Hx Spinal Cord Injury: No Hx Head Trauma: No - year 1998 Hx Traumatic Brain Injury: Yes - year 1998 Hx Memory Loss: No Hx Concentration Difficulty: No Hx Speech Problem: No Hx Tremors: No Hx Vertigo: Yes Hx Dizziness: Yes Hx Syncope: Yes Hx Headaches: No Hx Aphasia: No Hx Dysphasia: No Hx Numbness: Yes - fingers and legs Hx Weakness: Yes - general Hx Fatigue: Yes - general Hx Neurologic Surgery: No Hx Brain Shunt: No Review of Systems All Other Systems: negative except mentioned in HPI Physical Exam Vital Signs Date Time Temp Pulse Resp B/P (MAP) Pulse Ox O2 Delivery O2 Flow Rate FiO2 06/27/17 13:27 98.5 86 16 134/82 99 Room Air 98.4 06/27/17 19:36 21 06/28/17 00:10 2.0 Sp02 EP Interpretation: reviewed, normal Labs Laboratory Tests Test 06/27/17 14:10 06/28/17 06:10 White Blood Count 9.2 K/UL (4.8-10.8) 6.4 K/UL (4.8-10.8) Red Blood Count 2.84 M/UL (4.70-6.10) L 2.44 M/UL (4.70-6.10) L Hemoglobin 8.4 G/DL (14.2-18.0) L 7.4 G/DL (14.2-18.0) L Hematocrit 27.1 % (42.0-52.0) L 23.1 % (42.0-52.0) L Mean Corpuscular Volume 95 FL (80-99) 95 FL (80-99) Mean Corpuscular Hemoglobin 29.6 PG (27.0-31.0) 30.5 PG (27.0-31.0) Mean Corpuscular Hemoglobin Concent 31.0 G/DL (32.0-36.0) L 32.1 G/DL (32.0-36.0) Red Cell Distribution Width 19.0 % (11.6-14.8) H 18.5 % (11.6-14.8) H Platelet Count 177 K/UL (150-450) 157 K/UL (150-450) Mean Platelet Volume 9.2 FL (6.5-10.1) 9.6 FL (6.5-10.1) Neutrophils (%) (Auto) 76.4 % (45.0-75.0) H % (45.0-75.0) Lymphocytes (%) (Auto) 15.6 % (20.0-45.0) L % (20.0-45.0) Monocytes (%) (Auto) 5.5 % (1.0-10.0) % (1.0-10.0) Eosinophils (%) (Auto) 1.8 % (0.0-3.0) % (0.0-3.0) Basophils (%) (Auto) 0.7 % (0.0-2.0) % (0.0-2.0) Prothrombin Time 9.4 SEC (9.30-11.50) Prothromb Time International Ratio 0.9 (0.9-1.1) Activated Partial Thromboplast Time 24 SEC (23-33) Urine Color Yellow Urine Appearance Clear Urine pH 5 (4.5-8.0) Urine Specific [place] 1.020 (1.005-1.035) Urine Protein 1+ (NEGATIVE) H Urine Glucose (UA) Negative (NEGATIVE) Urine Ketones 1+ (NEGATIVE) H Urine Occult Blood Negative (NEGATIVE) Urine Nitrite Negative (NEGATIVE) Urine Bilirubin Negative (NEGATIVE) Urine Urobilinogen 1 MG/DL (0.0-1.0) H Urine Leukocyte Esterase 1+ (NEGATIVE) H Urine RBC 0 /HPF (0 - 0) Urine WBC 2-4 /HPF (0 - 0) Urine Squamous Epithelial Cells Occasional /LPF Urine Bacteria Occasional /HPF (NONE) Sodium Level 139 MMOL/L (136-145) 141 MMOL/L (136-145) Potassium Level 3.9 MMOL/L (3.5-5.1) 4.1 MMOL/L (3.5-5.1) Chloride Level 108 MMOL/L (98-107) H 108 MMOL/L (98-107) H Carbon Dioxide Level 25 MMOL/L (21-32) 28 MMOL/L (21-32) Anion Gap 6 mmol/L (5-15) 5 mmol/L (5-15) Blood Urea Nitrogen 18 mg/dL (7-18) 13 mg/dL (7-18) Creatinine 1.3 MG/DL (0.55-1.30) 1.2 MG/DL (0.55-1.30) Estimat Glomerular Filtration Rate > 60 mL/min (>60) > 60 mL/min (>60) Glucose Level 88 MG/DL (74-106) 91 MG/DL (74-106) Calcium Level 9.4 MG/DL (8.5-10.1) 8.4 MG/DL (8.5-10.1) L Total Bilirubin 0.2 MG/DL (0.2-1.0) Aspartate Amino Transf (AST/SGOT) 22 U/L (15-37) Alanine Aminotransferase (ALT/SGPT) 33 U/L (12-78) Alkaline Phosphatase 70 U/L (46-116) Troponin I 0.006 ng/mL (0.000-0.056) Total Protein 6.7 G/DL (6.4-8.2) Albumin 3.2 G/DL (3.4-5.0) L 2.8 G/DL (3.4-5.0) L Globulin 3.5 g/dL Albumin/Globulin Ratio 0.9 (1.0-2.7) L Lipase 140 U/L (73-393) Neutrophils % (Manual) Pending Lymphocytes % (Manual) Pending Platelet Estimate Pending Platelet Morphology Pending Phosphorus Level 3.2 MG/DL (2.5-4.9) General Appearance: well appearing, no apparent distress, alert Head: normocephalic EENT: PERRL/EOMI, normal ENT inspection Neck: supple Respiratory: normal breath sounds, no respiratory distress Cardiovascular: normal rate Gastrointestinal: normal inspection, non tender, soft, normal bowel sounds, non -distended Rectal: deferred Genitourinary: deferred Musculoskeletal: normal inspection, back normal Neurologic: normal inspection, alert, oriented x3, responsive Psychiatric: normal inspection, judgement/insight normal, memory normal Skin: normal inspection, normal color, no rash, warm/dry, palpation normal, well hydrated Lymphatic: normal inspection, no adenopathy Current Medications Current Medications Medications (Trade) Dose Ordered Sig/Blanche Route PRN Reason Start Time Stop Time Status Last Admin Dose Admin Acetaminophen (Tylenol) 650 mg Q4H PRN ORAL T>100.5 06/27/17 16:15 07/27/17 16:14 Acetaminophen/ Hydrocodone Bitart (Rule 5/325) 1 tab Q6H PRN ORAL Severe Pain (Pain Scale 7-10) 06/27/17 21:00 07/04/17 20:59 06/28/17 09:22 Al Hydroxide/Mg Hydroxide (Mylanta II) 30 ml Q6H PRN ORAL dyspepsia 06/27/17 16:15 07/27/17 16:14 Albuterol/ Ipratropium (Albuterol/ Ipratropium) 3 ml Q4H PRN HHN Shortness of Breath 06/27/17 16:15 07/02/17 16:14 06/28/17 02:50 Amlodipine Besylate (Norvasc) 10 mg DAILY ORAL 06/28/17 09:00 07/28/17 08:59 06/28/17 09:12 Cefepime HCl 1 gm/ Sodium Chloride 55 ml @ 110 mls/hr Q12HR@0630,1830 IV 06/27/17 18:30 07/04/17 18:29 06/28/17 06:31 Citalopram Hydrobromide (celeXA) 40 mg DAILY ORAL 06/28/17 09:00 07/28/17 08:59 06/28/17 09:13 Influenza Virus Vaccine Quadrival (Flu Vaccine Quadrivalent) 0.5 ml ONCE ONCE IM 06/29/17 10:00 06/29/17 10:01 Lisinopril (Zestril) 10 mg DAILY ORAL 06/28/17 09:00 07/28/17 08:59 06/28/17 09:13 Nitroglycerin (Ntg) 0.4 mg Q5M PRN SL Prn Chest Pain 06/27/17 17:30 07/27/17 17:29 Ondansetron HCl (Zofran) 4 mg Q6H PRN IVP Nausea & Vomiting 06/27/17 16:15 07/27/17 16:14 Pneumococcal Polyvalent Vaccine (Pneumovax) 0.5 ml ONCE ONCE IM 06/29/17 09:00 06/29/17 09:01 Polyethylene Glycol (Miralax) 17 gm DAILYPRN PRN ORAL Constipation 06/27/17 17:30 07/27/17 17:29 Promethazine HCl/ Codeine (Phenergan with Codeine) 5 ml Q4H PRN ORAL For Cough 06/27/17 16:15 07/27/17 16:14 Temazepam (Restoril) 15 mg HSPRN PRN ORAL Insomnia 06/27/17 21:00 07/04/17 20:59 Vancomycin HCl (Vanco rx to dose) 1 ea DAILY PRN MISC Per rx protocol 06/27/17 16:15 07/27/17 16:14 Vancomycin HCl/ Dextrose 250 ml @ 166.667 mls/hr Q12HR@0800,1999 IVPB 06/28/17 08:00 07/03/17 07:59 06/28/17 09:12 GI: Plan Problems: (1) Bleeding hemorrhoids (2) Acute blood loss anemia (3) Abdominal pain (4) Iron deficiency anemia (5) Diarrhea (6) Dark stools Plan s/p EGD/colonoscopy SUMMARY OF FINDINGS 05/14/17: 1. Prior history of possibly gastrointestinal bleeding and there are two old clips in the stomach probably from prior endoscopies. 2. Gastritis, status post biopsy. >> negative for H. Pylori 3. Poor colonic prep. 4. Colonic lipoma. 5. Diverticulosis. 6. Internal hemorrhoids. repeat colonoscopy tomorrow given previous poor prep and significant Hgb drop from baseline. - CLD now, NPO @ [facility]. - hold all blood thinners anusol HC BID ppi daily fu labs, iron panel given history Discussed with Dr. Peralta. Thank you for this patient referral, we will follow. Tiny Hall N.P. Jun 28, 2017 09:58
[2017-06-28] MEDS: Pantoprazole Inj IVP SCH (11:07)
--- NOTE | 2017-06-28 14:07 | Consultation ---
Consult Note Consult Note [id number] MANOHAR KNIGHT M.D. Jun 28, 2017 14:07
--- NOTE | 2017-06-28 14:13 | Infectious Diseases Prog Note ---
Assessment/Plan Assessment/Plan ID DIC # Subjective Constitutional: Denies: no symptoms, fever, chills, fatigue, anorexia, drenching sweats, other Allergies: Coded Allergies: No Known Allergies (Unverified , 05/10/17) Objective Vital Signs Last 24 Hour Vital Signs Date Time Temp Pulse Resp B/P (MAP) Pulse Ox O2 Delivery O2 Flow Rate FiO2 06/28/17 12:00 98.2 75 20 109/80 99 Room Air 98.2 06/28/17 09:13 119/70 06/28/17 09:12 80 119/70 06/28/17 08:09 80 16 Room Air 21 06/28/17 08:09 Nasal Cannula 2.0 28 06/28/17 08:09 98 Nasal Cannula 2.0 28 06/28/17 08:00 98.0 75 18 119/70 98 Nasal Cannula 2.0 98.0 06/28/17 04:00 82 06/28/17 04:00 98.2 84 20 136/82 100 Room Air 98.2 06/28/17 02:57 80 20 100 Nasal Cannula 2.0 28 06/28/17 02:56 100 Nasal Cannula 2.0 28 06/28/17 02:48 80 22 100 Nasal Cannula 2.0 28 06/28/17 02:30 85 16 118/87 100 Room Air 06/28/17 00:10 Nasal Cannula 2.0 28 06/28/17 00:10 100 Nasal Cannula 2.0 28 06/28/17 00:00 82 06/28/17 00:00 97.3 88 20 121/81 99 Room Air 97.3 06/27/17 20:00 130 06/27/17 20:00 98.8 94 20 119/88 99 Room Air 98.8 06/27/17 19:36 83 18 Room Air 21 06/27/17 19:33 82 18 98 Room Air 06/27/17 18:30 98.2 89 20 147/86 100 Room Air 98.2 06/27/17 18:20 98.6 92 15 123/77 100 Room Air 98.6 06/27/17 17:37 98.6 92 15 123/77 100 Room Air 98.6 06/27/17 15:46 91 15 134/93 100 Room Air 06/27/17 15:14 98.5 06/27/17 14:44 98.5 Height (Feet): 6 Height (Inches): 0.00 Weight (Pounds): 220 HEENT: anicteric Respiratory/Chest: chest wall non-tender Cardiovascular: no gallop/murmur Abdomen: no organomegaly Laboratory Tests Test 06/28/17 06:10 White Blood Count 6.4 K/UL (4.8-10.8) Red Blood Count 2.44 M/UL (4.70-6.10) L Hemoglobin 7.4 G/DL (14.2-18.0) L Hematocrit 23.1 % (42.0-52.0) L Mean Corpuscular Volume 95 FL (80-99) Mean Corpuscular Hemoglobin 30.5 PG (27.0-31.0) Mean Corpuscular Hemoglobin Concent 32.1 G/DL (32.0-36.0) Red Cell Distribution Width 18.5 % (11.6-14.8) H Platelet Count 157 K/UL (150-450) Mean Platelet Volume 9.6 FL (6.5-10.1) Neutrophils (%) (Auto) % (45.0-75.0) Lymphocytes (%) (Auto) % (20.0-45.0) Monocytes (%) (Auto) % (1.0-10.0) Eosinophils (%) (Auto) % (0.0-3.0) Basophils (%) (Auto) % (0.0-2.0) Differential Total Cells Counted 100 Neutrophils % (Manual) 73 % (45-75) Lymphocytes % (Manual) 18 % (20-45) L Monocytes % (Manual) 6 % (1-10) Eosinophils % (Manual) 2 % (0-3) Basophils % (Manual) 1 % (0-2) Band Neutrophils 0 % (0-8) Platelet Estimate Adequate Platelet Morphology Normal Hypochromasia 3+ Anisocytosis 2+ Spherocytes 2+ Sodium Level 141 MMOL/L (136-145) Potassium Level 4.1 MMOL/L (3.5-5.1) Chloride Level 108 MMOL/L (98-107) H Carbon Dioxide Level 28 MMOL/L (21-32) Anion Gap 5 mmol/L (5-15) Blood Urea Nitrogen 13 mg/dL (7-18) Creatinine 1.2 MG/DL (0.55-1.30) Estimat Glomerular Filtration Rate > 60 mL/min (>60) Glucose Level 91 MG/DL (74-106) Calcium Level 8.4 MG/DL (8.5-10.1) L Phosphorus Level 3.2 MG/DL (2.5-4.9) Albumin 2.8 G/DL (3.4-5.0) L Current Medications Medications (Trade) Dose Ordered Sig/Blanche Route PRN Reason Start Time Stop Time Status Last Admin Dose Admin Acetaminophen (Tylenol) 650 mg Q4H PRN ORAL T>100.5 06/27/17 16:15 07/27/17 16:14 Acetaminophen/ Hydrocodone Bitart ([place] 5/325) 1 tab Q6H PRN ORAL Severe Pain (Pain Scale 7-10) 06/27/17 21:00 07/04/17 20:59 06/28/17 09:22 Al Hydroxide/Mg Hydroxide (Mylanta II) 30 ml Q6H PRN ORAL dyspepsia 06/27/17 16:15 07/27/17 16:14 Albuterol/ Ipratropium (Albuterol/ Ipratropium) 3 ml Q4H PRN HHN Shortness of Breath 06/27/17 16:15 07/02/17 16:14 06/28/17 02:50 Amlodipine Besylate (Norvasc) 10 mg DAILY ORAL 06/28/17 09:00 07/28/17 08:59 06/28/17 09:12 Bisacodyl (Dulcolax) 10 mg ONCE ONCE ORAL 06/28/17 16:00 06/28/17 16:01 Cefepime HCl 1 gm/ Sodium Chloride 55 ml @ 110 mls/hr Q12HR@0630,1830 IV 06/27/17 18:30 07/04/17 18:29 06/28/17 06:31 Citalopram Hydrobromide (celeXA) 40 mg DAILY ORAL 06/28/17 09:00 07/28/17 08:59 06/28/17 09:13 Hydrocortisone (Anusol HC) 1 supp TWICE A DAY RECTAL 06/28/17 18:00 07/28/17 17:59 Influenza Virus Vaccine Quadrival (Flu Vaccine Quadrivalent) 0.5 ml ONCE ONCE IM 06/29/17 10:00 06/29/17 10:01 Lisinopril (Zestril) 10 mg DAILY ORAL 06/28/17 09:00 07/28/17 08:59 06/28/17 09:13 Magnesium Citrate (Citrate Of Magnesia) 300 ml ONCE ONCE ORAL 06/28/17 16:00 06/28/17 16:01 Nitroglycerin (Ntg) 0.4 mg Q5M PRN SL Prn Chest Pain 06/27/17 17:30 07/27/17 17:29 Ondansetron HCl (Zofran) 4 mg Q6H PRN IVP Nausea & Vomiting 06/27/17 16:15 07/27/17 16:14 Pantoprazole (Protonix) 40 mg DAILY IVP 06/28/17 10:30 07/28/17 10:29 06/28/17 11:07 Pneumococcal Polyvalent Vaccine (Pneumovax) 0.5 ml ONCE ONCE IM 06/29/17 09:00 06/29/17 09:01 Polyethylene Glycol (Miralax) 17 gm DAILYPRN PRN ORAL Constipation 06/27/17 17:30 07/27/17 17:29 Polyethylene Glycol (Miralax) 238 gm ONCE ONCE ORAL 06/28/17 16:00 06/28/17 16:01 Promethazine HCl/ Codeine (Phenergan with Codeine) 5 ml Q4H PRN ORAL For Cough 06/27/17 16:15 07/27/17 16:14 Temazepam (Restoril) 15 mg HSPRN PRN ORAL Insomnia 06/27/17 21:00 07/04/17 20:59 Vancomycin HCl (Vanco rx to dose) 1 ea DAILY PRN MISC Per rx protocol 06/27/17 16:15 07/27/17 16:14 Vancomycin HCl/ Dextrose 250 ml @ 166.667 mls/hr Q12HR@0800,2000 IVPB 06/28/17 08:00 07/03/17 07:59 06/28/17 09:12 MANOHAR KNIGHT M.D. Jun 28, 2017 14:13
--- NOTE | 2017-06-28 15:07 | Pulmonology Progress Note ---
Assessment/Plan Problems: (1) Hemorrhagic shock (2) Lower GI bleed (3) Symptomatic anemia (4) Gastrointestinal malignancy Assessment/Plan receiving blood now GI following check h/h ID to follow oncology called. Subjective ROS Limited/Unobtainable: No Constitutional: Reports: no symptoms HEENT: Repors: no symptoms Allergies: Coded Allergies: No Known Allergies (Unverified , 05/10/17) Objective Last 24 Hour Vital Signs Date Time Temp Pulse Resp B/P (MAP) Pulse Ox O2 Delivery O2 Flow Rate FiO2 06/28/17 12:00 98.2 75 20 109/80 99 Room Air 98.2 06/28/17 09:13 119/70 06/28/17 09:12 80 119/70 06/28/17 08:09 80 16 Room Air 21 06/28/17 08:09 Nasal Cannula 2.0 28 06/28/17 08:09 98 Nasal Cannula 2.0 28 06/28/17 08:00 98.0 75 18 119/70 98 Nasal Cannula 2.0 98.0 06/28/17 04:00 82 06/28/17 04:00 98.2 84 20 136/82 100 Room Air 98.2 06/28/17 02:57 80 20 100 Nasal Cannula 2.0 28 06/28/17 02:56 100 Nasal Cannula 2.0 28 06/28/17 02:48 80 22 100 Nasal Cannula 2.0 28 06/28/17 02:30 85 16 118/87 100 Room Air 06/28/17 00:10 Nasal Cannula 2.0 28 06/28/17 00:10 100 Nasal Cannula 2.0 28 06/28/17 00:00 82 06/28/17 00:00 97.3 88 20 121/81 99 Room Air 97.3 06/27/17 20:00 130 06/27/17 20:00 98.8 94 20 119/88 99 Room Air 98.8 06/27/17 19:36 83 18 Room Air 21 06/27/17 19:33 82 18 98 Room Air 06/27/17 18:30 98.2 89 20 147/86 100 Room Air 98.2 06/27/17 18:20 98.6 92 15 123/77 100 Room Air 98.6 06/27/17 17:37 98.6 92 15 123/77 100 Room Air 98.6 06/27/17 15:46 91 15 134/93 100 Room Air 06/27/17 15:14 98.5 Intake and Output 06/27/17 06/28/17 19:00 07:00 Intake Total 845 ml Output Total 1250 ml Balance -405 ml Intake Oral 240 ml IV Total 605 ml Output Urine Total 1250 ml # Voids 1 3 # Bowel Movements 5 Objective General Appearance: WD/WN, no apparent distress Lines, tubes and drains: peripheral HEENT: normocephalic, atraumatic Neck: non-tender, normal alignment Respiratory/Chest: chest wall non-tender, lungs clear Breasts: no masses Cardiovascular/Chest: normal peripheral pulses Abdomen: normal bowel sounds, non tender Genitourinary/Rectal: normal genital exam Extremities: normal range of motion Skin Exam: normal pigmentation General Appearance: WD/WN Laboratory Tests 06/28/17 06:10: White Blood Count 6.4, Red Blood Count 2.44L, Hemoglobin 7.4L, Hematocrit 23.1L , Mean Corpuscular Volume 95, Mean Corpuscular Hemoglobin 30.5, Mean Corpuscular Hemoglobin Concent 32.1, Red Cell Distribution Width 18.5H, Platelet Count 157, Mean Platelet Volume 9.6, Neutrophils (%) (Auto) , Lymphocytes (%) (Auto) , Monocytes (%) (Auto) , Eosinophils (%) (Auto) , Basophils (%) (Auto) , Differential Total Cells Counted 100, Neutrophils % ( Manual) 73, Lymphocytes % (Manual) 18L, Monocytes % (Manual) 6, Eosinophils % ( Manual) 2, Basophils % (Manual) 1, Band Neutrophils 0, Platelet Estimate Adequate, Platelet Morphology Normal, Hypochromasia 3+, Anisocytosis 2+, Spherocytes 2+, Sodium Level 141, Potassium Level 4.1, Chloride Level 108H, Carbon Dioxide Level 28, Anion Gap 5, Blood Urea Nitrogen 13, Creatinine 1.2, Estimat Glomerular Filtration Rate > 60, Glucose Level 91, Calcium Level 8.4L, Phosphorus Level 3.2, Albumin 2.8L Current Medications Medications (Trade) Dose Ordered Sig/Blanche Route PRN Reason Start Time Stop Time Status Last Admin Dose Admin Acetaminophen (Tylenol) 650 mg Q4H PRN ORAL T>100.5 06/27/17 16:15 07/27/17 16:14 Acetaminophen/ Hydrocodone Bitart ([place] 5/325) 1 tab Q6H PRN ORAL Severe Pain (Pain Scale 7-10) 06/27/17 21:00 07/04/17 20:59 06/28/17 09:22 Al Hydroxide/Mg Hydroxide (Mylanta II) 30 ml Q6H PRN ORAL dyspepsia 06/27/17 16:15 07/27/17 16:14 Albuterol/ Ipratropium (Albuterol/ Ipratropium) 3 ml Q4H PRN HHN Shortness of Breath 06/27/17 16:15 07/02/17 16:14 06/28/17 02:50 Amlodipine Besylate (Norvasc) 10 mg DAILY ORAL 06/28/17 09:00 07/28/17 08:59 06/28/17 09:12 Bisacodyl (Dulcolax) 10 mg ONCE ONCE ORAL 06/28/17 16:00 06/28/17 16:01 Cefepime HCl 1 gm/ Sodium Chloride 55 ml @ 110 mls/hr Q12HR@0630,1830 IV 06/27/17 18:30 07/04/17 18:29 06/28/17 06:31 Citalopram Hydrobromide (celeXA) 40 mg DAILY ORAL 06/28/17 09:00 07/28/17 08:59 06/28/17 09:13 Hydrocortisone (Anusol HC) 1 supp TWICE A DAY RECTAL 06/28/17 18:00 07/28/17 17:59 Influenza Virus Vaccine Quadrival (Flu Vaccine Quadrivalent) 0.5 ml ONCE ONCE IM 06/29/17 10:00 06/29/17 10:01 Lisinopril (Zestril) 10 mg DAILY ORAL 06/28/17 09:00 07/28/17 08:59 06/28/17 09:13 Magnesium Citrate (Citrate Of Magnesia) 300 ml ONCE ONCE ORAL 06/28/17 16:00 06/28/17 16:01 Metronidazole 100 ml @ 100 mls/hr Q6H IVPB 06/28/17 15:30 07/05/17 15:29 Nitroglycerin (Ntg) 0.4 mg Q5M PRN SL Prn Chest Pain 06/27/17 17:30 07/27/17 17:29 Ondansetron HCl (Zofran) 4 mg Q6H PRN IVP Nausea & Vomiting 06/27/17 16:15 07/27/17 16:14 Pantoprazole (Protonix) 40 mg DAILY IVP 06/28/17 10:30 07/28/17 10:29 06/28/17 11:07 Pneumococcal Polyvalent Vaccine (Pneumovax) 0.5 ml ONCE ONCE IM 06/29/17 09:00 06/29/17 09:01 Polyethylene Glycol (Miralax) 17 gm DAILYPRN PRN ORAL Constipation 06/27/17 17:30 07/27/17 17:29 Polyethylene Glycol (Miralax) 238 gm ONCE ONCE ORAL 06/28/17 16:00 06/28/17 16:01 Promethazine HCl/ Codeine (Phenergan with Codeine) 5 ml Q4H PRN ORAL For Cough 06/27/17 16:15 07/27/17 16:14 Temazepam (Restoril) 15 mg HSPRN PRN ORAL Insomnia 06/27/17 21:00 07/04/17 20:59 ANURAG GARCIA Jun 28, 2017 15:07
[2017-06-28] MEDS ORDERED: Magnesium Citrate Liq Btl ORAL ONE (16:00)
[2017-06-28] MEDS ORDERED: Polyethylene Glycol 238gm bottle ORAL ONE (16:00)
[2017-06-28] MEDS ORDERED: Bisacodyl EC 5mg tab ORAL ONE (16:00)
--- NOTE | 2017-06-28 16:55 | History & Physical ---
History and Physical History & Physicial Dictated for Int Med-Dr Sandhu no. [id number]. HEATH CRUZ Jun 28, 2017 16:55
--- NOTE | 2017-06-28 17:08 | Cardiac Electrophysiology PN ---
Subjective Subjective [id number] Objective Last 24 Hour Vital Signs Date Time Temp Pulse Resp B/P (MAP) Pulse Ox O2 Delivery O2 Flow Rate FiO2 06/28/17 16:00 98.1 75 17 126/74 99 Room Air 98.1 06/28/17 12:00 98.2 75 20 109/80 99 Room Air 98.2 06/28/17 09:13 119/70 06/28/17 09:12 80 119/70 06/28/17 08:09 80 16 Room Air 21 06/28/17 08:09 Nasal Cannula 2.0 28 06/28/17 08:09 98 Nasal Cannula 2.0 28 06/28/17 08:00 98.0 75 18 119/70 98 Nasal Cannula 2.0 98.0 06/28/17 04:00 82 06/28/17 04:00 98.2 84 20 136/82 100 Room Air 98.2 06/28/17 02:57 80 20 100 Nasal Cannula 2.0 28 06/28/17 02:56 100 Nasal Cannula 2.0 28 06/28/17 02:48 80 22 100 Nasal Cannula 2.0 28 06/28/17 02:30 85 16 118/87 100 Room Air 06/28/17 00:10 Nasal Cannula 2.0 28 06/28/17 00:10 100 Nasal Cannula 2.0 28 06/28/17 00:00 82 06/28/17 00:00 97.3 88 20 121/81 99 Room Air 97.3 06/27/17 20:00 130 06/27/17 20:00 98.8 94 20 119/88 99 Room Air 98.8 06/27/17 19:36 83 18 Room Air 21 06/27/17 19:33 82 18 98 Room Air 06/27/17 18:30 98.2 89 20 147/86 100 Room Air 98.2 06/27/17 18:20 98.6 92 15 123/77 100 Room Air 98.6 06/27/17 17:37 98.6 92 15 123/77 100 Room Air 98.6 Intake and Output 06/27/17 06/28/17 19:00 07:00 Intake Total 845 ml Output Total 1250 ml Balance -405 ml Intake Oral 240 ml IV Total 605 ml Output Urine Total 1250 ml # Voids 1 3 # Bowel Movements 5 Laboratory Tests Test 06/28/17 06:10 White Blood Count 6.4 K/UL (4.8-10.8) Red Blood Count 2.44 M/UL (4.70-6.10) L Hemoglobin 7.4 G/DL (14.2-18.0) L Hematocrit 23.1 % (42.0-52.0) L Mean Corpuscular Volume 95 FL (80-99) Mean Corpuscular Hemoglobin 30.5 PG (27.0-31.0) Mean Corpuscular Hemoglobin Concent 32.1 G/DL (32.0-36.0) Red Cell Distribution Width 18.5 % (11.6-14.8) H Platelet Count 157 K/UL (150-450) Mean Platelet Volume 9.6 FL (6.5-10.1) Neutrophils (%) (Auto) % (45.0-75.0) Lymphocytes (%) (Auto) % (20.0-45.0) Monocytes (%) (Auto) % (1.0-10.0) Eosinophils (%) (Auto) % (0.0-3.0) Basophils (%) (Auto) % (0.0-2.0) Differential Total Cells Counted 100 Neutrophils % (Manual) 73 % (45-75) Lymphocytes % (Manual) 18 % (20-45) L Monocytes % (Manual) 6 % (1-10) Eosinophils % (Manual) 2 % (0-3) Basophils % (Manual) 1 % (0-2) Band Neutrophils 0 % (0-8) Platelet Estimate Adequate Platelet Morphology Normal Hypochromasia 3+ Anisocytosis 2+ Spherocytes 2+ Sodium Level 141 MMOL/L (136-145) Potassium Level 4.1 MMOL/L (3.5-5.1) Chloride Level 108 MMOL/L (98-107) H Carbon Dioxide Level 28 MMOL/L (21-32) Anion Gap 5 mmol/L (5-15) Blood Urea Nitrogen 13 mg/dL (7-18) Creatinine 1.2 MG/DL (0.55-1.30) Estimat Glomerular Filtration Rate > 60 mL/min (>60) Glucose Level 91 MG/DL (74-106) Calcium Level 8.4 MG/DL (8.5-10.1) L Phosphorus Level 3.2 MG/DL (2.5-4.9) Albumin 2.8 G/DL (3.4-5.0) CORRIE GONZALEZ Jun 28, 2017 17:08
[2017-06-28] MEDS: Hydrocortisone SUPP RECTAL SCH (17:13)
[2017-06-28] MEDS ORDERED: Norco 5mg/325mg tab ORAL PRN (17:30)
[2017-06-28 17:52] LABS: BASOPHILS % (AUTO) 0.7 % (0.0-2.0); EOSINOPHILS % (AUTO) 2.5 % (0.0-3.0); HEMATOCRIT 28.6 % (42.0-52.0); HEMOGLOBIN 9.1 G/DL (14.2-18.0); LYMPHOCYTES % (AUTO) 15.8 % (20.0-45.0); MEAN CORPUSCULAR VOLUME 94 FL (80-99); MONOCYTES % (AUTO) 6.2 % (1.0-10.0); NEUTROPHILS % (AUTO) 74.8 % (45.0-75.0); PLATELET COUNT 171 K/UL (150-450); RED BLOOD COUNT 3.03 M/UL (4.70-6.10); RED CELL DISTRIBUTION WIDTH 17.9 % (11.6-14.8); WHITE BLOOD COUNT 6.6 K/UL (4.8-10.8)
--- NOTE | 2017-06-28 19:24 | Consultation ---
Consult Note Consult Note NEUROLOGY CONSULTATION: Full note dictated #[id number] 61 y/o RH BM with PH of HTN, borderline DM, DL and since January 2017 multiple episodes of bleeding per rectum. He was hospitalized on 06/27/17 after he again had a rectal bleed followed by passing out and generalized weakness. He feels better now after he was given some blood. ON EXAM: Mild memory problems. Globally diminished DTRs IMPRESSION: Syncope due to blood loss. 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 Ezequiel Morales M.D., M.S.P.H. EZEQUIEL MORALES Jun 28, 2017 19:24
--- NOTE | 2017-06-28 20:02 | Consultation ---
DATE OF CONSULTATION: 06/28/2017 INFECTIOUS DISEASES CONSULTATION REQUESTING PHYSICIAN: Aleksandra Rodriguez M.D. REASON FOR CONSULTATION: Evaluation of the patient for diarrhea, abdominal pain, and antibiotic management. HISTORY OF PRESENT ILLNESS: The patient is a 61-year-old male with multiple medical problems who has been admitted recently to this medical center for history of passing fresh blood from rectum. Also, the patient mentioned having one episode of vomiting with possible blood in it. The patient is complaining of cough and lower abdominal pain. Infectious Diseases consultation has been requested for evaluation of the patient for possible need for antibiotic treatment. PAST MEDICAL HISTORY: Significant for: 1. History of lower gastrointestinal bleed. 2. History of chronic diarrhea possibly due to lower GI bleed. 3. History of colon cancer, status post surgery. 4. History of infrarenal abdominal aorta. 5. . 6. Hypertension. 7. Asthma. 8. Depression. MEDICATIONS: IV vancomycin and cefepime. ALLERGIES: No known drug allergies. SOCIAL HISTORY: Ex-smoker. No history of alcohol, drug abuse, or smoking currently. FAMILY HISTORY: Not contributing. REVIEW OF SYSTEMS: PULMONARY: Occasional cough. CARDIOVASCULAR: No chest pain or palpitation. GASTROINTESTINAL/ABDOMEN: As mentioned above. GENITOURINARY: The patient with history of having some diarrhea. PHYSICAL EXAMINATION: VITAL SIGNS: Temperature 98 degrees, pulse 86, respiratory rate 18, and blood pressure 109/80. HEENT: No icterus. NECK: No lymphadenopathy. CHEST: Clear. HEART: S1 and S2. ABDOMEN: Soft. Obese. Lower abdominal tenderness. EXTREMITIES: No cyanosis. NEUROLOGIC: Awake and alert. LABORATORY AND DIAGNOSTIC DATA: WBC 6, hemoglobin 7, and platelets 157,000. UA unremarkable. BUN 13 and creatinine 1.2. HIV negative as of February 2017. The patient's labs from February were negative for ova and parasites x3. Chest x-ray, no evidence of pulmonary disease. CT of the abdomen back in May 2015 showed evidence of partial colectomy. No evidence of obstruction. ASSESSMENT: The patient is a 61-year-old male with: 1. Anemia. 2. Lower abdominal pain. 3. ? possible colitis. 4. Diarrhea ? due to lower gastrointestinal bleed. 5. Rule out Clostridium difficile and pathogens causing diarrhea. PLAN: 1. We will continue the patient on cefepime. 2. Add Flagyl. 3. Discontinue vancomycin. 4. Monitor CBC. 5. Monitor BMP. 6. Monitor cultures (stool). 7. Stool for C. diff. 8. GI to follow, have colonoscopy tomorrow. 9. Based on the patient's labs, we will do further recommendation. Thank you for this consultation. I will follow during the patient's admission. Leoncio Ramos M.D. DR: Frankie JOB#: [id number] CC:
--- NOTE | 2017-06-28 21:17 | History and Physical Report ---
DATE OF ADMISSION: 06/27/2017 CHIEF COMPLAINT: The patient is a 61-year-old male who presents with complaint of rectal bleeding. HISTORY OF PRESENT ILLNESS: It began in January 2017. The patient began to experience anemia. The patient received blood transfusions in January and February 2017. The patient was admitted to [facility] in May 2017. The patient underwent a colonoscopy and endoscopy on May 14, 2017. Please see his procedure note from that time. The patient states he began to experience heavy rectal bleeding yesterday, June 27, 2017. Bleeding is bright red in color. The patient also began to feel short of breath and dizzy. The patient presented to [facility]. The patient is admitted with rectal bleed to rule out severe anemia. REVIEW OF SYSTEMS: CONSTITUTIONAL: The patient denies weight loss, weight gain. The patient denies fevers or chills. HEENT: The patient denies ear or throat pain. The patient denies headache. CARDIOVASCULAR: The patient denies palpitations or chest pain. CHEST: The patient denies wheeze or shortness of breath. ABDOMINAL: The patient complains of abdominal pain. The patient complains of rectal bleeding as above. The patient denies nausea, vomiting, diarrhea, or constipation. GENITOURINARY: The patient denies dysuria or increased frequency of urination. NEUROMUSCULAR: The patient complains of dizziness. The patient denies seizures or generalized weakness. PAST MEDICAL HISTORY: Significant for: 1. Hypertension. 2. History of colon cancer in 2001. 3. Prediabetes. PAST SURGICAL HISTORY: Significant for: 1. Colon resection in 2001 secondary to colon cancer. 2. Incisional hernia repair. 3. Right wrist reconstruction in 2016. CURRENT MEDICATIONS: 1. Tylenol No.2 one tablet p.o. q.6 hours p.r.n. 2. Amlodipine 10 mg p.o. daily. 3. Vitamin C 500 mg p.o. daily. 4. Aspirin 81 mg p.o. daily. 5. Citalopram 40 mg p.o. daily. 6. Iron sulfate 325 mg p.o. daily. 7. Lisinopril 10 mg p.o. daily. 8. Metoprolol 25 mg p.o. daily. 9. Nitroglycerin 0.4 mg sublingual p.r.n. 10. Omeprazole 20 mg p.o. daily. 11. Protonix 40 mg p.o. daily. ALLERGIES: No known drug allergies. SOCIAL HISTORY: The patient is single and is disabled. The patient admits to tobacco use of one-quarter pack per day. The patient denies alcohol use. PHYSICAL EXAMINATION: VITAL SIGNS: Temperature 98.0, respirations 18, pulse 75, blood pressure 119/70. GENERAL: The patient is a well-developed, well-nourished male, in no apparent distress. HEENT: Eyes, pupils equal and responsive to light and accommodation. Extraocular movements are intact. NECK: Supple without lymphadenopathy. CHEST: Lungs are clear to auscultation bilaterally without wheezes or rales. CARDIOVASCULAR: Regular rhythm and rate. S1, S2 normal without murmurs, rubs, or gallops. ABDOMEN: Soft, diffusely tender in the bilateral lower quadrants without rebound or guarding noted. No evidence of hepatosplenomegaly. Currently, no rebound or guarding noted. EXTREMITIES: Negative for clubbing, cyanosis, or edema. RECTAL: Performed in the emergency room. GENITAL: Performed in the emergency room. NEUROLOGICAL: Cranial nerves II through XII are grossly intact without focal deficits. Motor strength is 5/5 bilaterally intact. Deep tendon reflexes 2+, plantar. LABORATORY STUDIES: WBC 9.2, hemoglobin 8.4, hematocrit 27.1, platelets 177,000. Sodium 139, potassium 3.9, chloride 108, CO2 25, BUN 18, creatinine 1.3, and glucose 88. Troponin 0.006. ProTime 9.4, INR 0.9, PTT 24. ASSESSMENT: This is a 61-year-old male with: 1. Vertigo. 2. Shortness of breath. 3. Rectal bleed. 4. Abdominal pain. 5. Hypertension. 6. Prediabetes. 7. History of colon cancer. 8. Anemia of acute blood loss. TREATMENT: 1. Rectal bleeding/anemia. Gastroenterology consultation has been obtained with Dr. Emeterio Peralta. The patient may require colonoscopy during this hospitalization. The patient has been placed empirically on Protonix. Serial hemoglobin and hematocrit will be performed. The patient may require transfusion if hemoglobin drops below 7.0. 2. Abdominal pain. This is probably secondary to rectal bleeding as above. 3. Hypertension. Continue metoprolol and amlodipine as above. 4. Prediabetes. An initial blood sugar was within normal limits. 5. Colon cancer. The patient is status post colon resection. 6. Shortness of breath. This is probably secondary to anemia. Franco Livingston M.D. DR: Danitza JOB#: [id number] CC:
[2017-06-28] MEDS: Morphine Sulfate 4mg/ml Inj IVP PRN (21:27)
--- NOTE | 2017-06-28 21:32 | Consultation ---
DATE OF CONSULTATION: 06/28/2017 CARDIOLOGY CONSULTATION REASON FOR CONSULTATION: Syncope, cardiac murmur, and hypertension. HISTORY OF PRESENT ILLNESS: The patient is a 61-year-old gentleman with history of hypertension, history of cardiac murmur and palpitation, as well as asthma and diabetes as well as history of gastric cancer in remission, who presented to the emergency room with abdominal pain and generalized weakness. The patient was also hypotensive and was admitted for hemorrhagic shock due to lower gastrointestinal bleed and symptomatic anemia. The patient apparently also had a syncopal episode without any warning. Cardiology consultation was obtained for further evaluation and management. The patient had a recent EGD and colonoscopy that showed two old clips in the stomach from prior endoscopies and gastritis, which was negative for H. pylori. hemorrhoid as well. PAST MEDICAL HISTORY: As mentioned above. MEDICATIONS: Per reconciliation. FAMILY HISTORY: Noncontributory. SOCIAL HISTORY: Lives at home. Does not smoke or drink alcohol. REVIEW OF SYSTEMS: Thoroughly performed and was negative other than what was mentioned in history of present illness PHYSICAL EXAMINATION: VITAL SIGNS: Blood pressure is 126/74, pulse 75, respirations 18, and temperature 98.1. HEAD AND NECK: Showed no JVD. LUNGS: Clear. CARDIOVASCULAR: Shows regular S1 and S2 with no gallop or murmur. ABDOMEN: Soft. EXTREMITIES: No pitting edema. LABORATORY DATA: Labs showed white count is 6.4, hemoglobin is initially 8.4 and now is 7.4, and platelet count is 157,000. Sodium 141, potassium 4.1, BUN of , creatinine 1.2, and glucose of 91. INR is 0.9. ASSESSMENT AND PLAN: 1. Syncope, etiology is not clear at this time, but could be due to gastrointestinal bleed. We will watch the patient on telemetry. We will get an echocardiogram to evaluate for ejection fraction and wall motion abnormality and check orthostatic vital signs. 2. Hypertension. Continue Norvasc 10 mg daily and lisinopril 20 mg daily. 3. Severe anemia. Hemoglobin 7.5. The patient was evaluated by Dr. Peralta. The recent endoscopy result was noted and the patient will be undergoing repeat colonoscopy tomorrow for further evaluation. Thank you very much, Dr. Sanduh, for allowing me to participate in the care of this patient. Please do not hesitate to contact for any questions regarding my evaluation. Reinier Benitez M.D. DR: CARLOS JOB#: [id number] CC:
--- NOTE | 2017-06-28 23:01 | Consultation ---
DATE OF CONSULTATION: 06/28/2017 NEUROLOGY CONSULTATION REQUESTING PHYSICIAN: Aleksandra Rodriguez M.D. HISTORY: Mr. Michel Morales is a 61-year-old, right-handed, black gentleman, who does have a past history of hypertension, borderline diabetes mellitus, and dyslipidemia. Since January 2017, he has had multiple episodes of bleeding per rectum. On one occasion, he passed out after a large bleed. He was functioning relatively well until 06/26/2017 when he again had an episode of bleeding through his rectum. He has been feeling unwell and generally weak following that, but on 06/27/2017, he had another episode of bleeding via his rectum and then passed out. As a result of that, he was brought into the [facility] Emergency Room and has since been admitted. He was given some blood and since then he feels a little more steady on his feet and stronger. He denies any weakness on one side or the other, numbness on one side or the other, problems with speech, problems with language, problems with vision, or problems with his memory. PAST MEDICAL HISTORY: Significant for hypertension, borderline diabetes mellitus, dyslipidemia, and multiple episodes of bleeding per rectum. He also has a history of a single syncopal event in the past. FAMILY HISTORY: His mother had diabetes mellitus. PERSONAL HISTORY: Home: He lives alone. 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 Habits: He smoked in the past, but stopped smoking quite some time back. He used to have rare alcoholic drink in the past, but has not had one for quite some time now. He denies the use of any illicit drugs at this point in time, but in the past, he used to smoke weed. PRESENT MEDICATIONS: Include influenza vaccine, pneumococcal vaccine, Anusol suppositories, morphine p.r.n., Gordon p.r.n., metronidazole, Protonix, amlodipine, Celexa, lisinopril, Restoril, cefepime, MiraLax, nitroglycerin p.r.n., Tylenol p.r.n., Mylanta p.r.n., albuterol and ipratropium p.r.n., and Zofran p.r.n. PHYSICAL EXAMINATION: GENERAL: He is a well-developed, well-nourished, pleasant, black gentleman, lying in bed, in no acute distress. VITAL SIGNS: Pulse 75 per minute, blood pressure 126/74 mmHg, respirations 18 per minute, and temperature 98.1 degrees Fahrenheit. HEAD: Normocephalic and atraumatic. NECK: No neck rigidity was observed. EENT: Benign. NEUROLOGICAL EXAMINATION: MENTAL STATUS EXAMINATION: He was awake and alert. He was oriented to person, place, and time. He was able to recall 3/3 words immediately, but could only remember 2/3 words in 1 minute and 3 minutes. He was able to remember presidents, Trump and Obama spontaneously, but needed hints to remember presidents up to [place] and could not remember presidents prior to that. His mathematical skills were fairly good. His visuospatial function was preserved. SPEECH: He had no dysarthria. LANGUAGE: He had a mild anomia for low-frequency words. However, it is unclear as to what his educational level is. CRANIAL NERVE EXAMINATION: II: The visual brar were intact on confrontation testing. III, IV & : The external ocular movements were full and the pupils 3 mm in diameter, equal, round, regular, and reactive to light. V: He had normal facial sensations and the temporales, masseters, and pterygoids functioned normally. VII: He had normal facial expressions and no facial asymmetry. VIII: He was able to hear well bilaterally and had no nystagmus. IX: The palate moved symmetrically on phonation. X: He had no hoarseness of voice. XI: The sternocleidomastoids and trapezii functioned normally. XII: The tongue was in the midline without any fasciculations or atrophy. MOTOR SYSTEM: The tone was normal in all four extremities. Examination of muscle mass revealed no focal wasting. Examination of power revealed G 5/5 power in all muscle groups tested. SENSORY EXAMINATION: He had intact sensations to pinprick, light touch, and graphesthesia. COORDINATION: He performed well on [id number] and [id number] testing. On Romberg test, he swayed, but did not fall to one side or the other. REFLEXES: Trace+ and bilaterally symmetrical at the biceps, triceps, brachioradialis, and knees, 0 at both ankles. The plantar responses were flexor bilaterally. STANCE: He had a minimally wide-based, but stable stance. GAIT: He walked with a minimally wide-based, but stable gait. DIAGNOSTIC IMPRESSION: 1. Mr. Michel Morales is a 61-year-old, right-handed, black gentleman, who does have a past history of hypertension, borderline diabetes mellitus, dyslipidemia, and since January 2017, multiple episodes of bleeding per rectum, one of them followed by a syncopal event. He again started bleeding per rectum on 06/26/2017 and after an episode of loss of consciousness, he was brought into the [facility] Emergency Room and has since been admitted. He feels better today after he was given some blood. 2. On neurological examination, at this time, he does have mild problems with recent and remote memory, a mild anomia, and globally diminished deep tendon reflexes with a wide-based stance and gait. The rest of the neurological examination is essentially benign. 3. Laboratory data revealed that his hemoglobin had dropped down to 7.4 G earlier today. His chemistry panel was relatively benign except for a low albumin of 2.8. His urinalysis revealed 1+ leukocyte esterase, 0 red blood cells, and 2 to 4 white blood cells per high-power field. 4. The patient's history, neurological examination, and laboratory data are most compatible with a syncopal event due to acute blood loss. He also exhibits some mild cognitive dysfunction, which may be related to the anemia versus other etiology. RECOMMENDATIONS: 1. Agree with management thus far. 2. Attempts should be made to find the patient's source of bleeding and it should be treated appropriately. 3. His anemia should be corrected to a hemoglobin of greater than 10 G. 4. He should be worked up for other treatable causes of cognitive dysfunction. 5. Depending on how the patient fares over the next day or so, further recommendations will be given. Thank you for entrusting me with the care of Mr. Morales. I shall follow him with you. Uriel Morales M.D., M.S.P.H. DR: Diane JOB#: [id number] [facility] NETWORK[facility]aqas
[2017-06-29] VITALS (9 sets, daily range): BP systolic 110–128; BP diastolic 75–83
[2017-06-29] MEDS: Morphine Sulfate 4mg/ml Inj IVP PRN ×5 (03:13→22:40)
[2017-06-29] MEDS: Cefepime HCl 1 GM in NS 55 ML IV SCH ×2 (06:16→18:21)
[2017-06-29 07:19] LABS: BASOPHILS % (AUTO) 0.7 % (0.0-2.0); EOSINOPHILS % (AUTO) 3.2 % (0.0-3.0); HEMATOCRIT 28.2 % (42.0-52.0); LYMPHOCYTES % (AUTO) 17.3 % (20.0-45.0); MEAN CORPUSCULAR VOLUME 94 FL (80-99); MONOCYTES % (AUTO) 5.5 % (1.0-10.0); NEUTROPHILS % (AUTO) 73.4 % (45.0-75.0); PLATELET COUNT 183 K/UL (150-450); RED BLOOD COUNT 2.99 M/UL (4.70-6.10); WHITE BLOOD COUNT 5.1 K/UL (4.8-10.8)
[2017-06-29 07:20] LABS: INR 0.9 (0.9-1.1)
[2017-06-29 07:27] LABS: ANION GAP 6 mmol/L (5-15); BLOOD UREA NITROGEN 9 mg/dL (7-18); CARBON DIOXIDE 26 MMOL/L (21-32); CHLORIDE 108 MMOL/L (98-107); CREATININE 1.2 MG/DL (0.55-1.30); PHOSPHORUS 2.8 MG/DL (2.5-4.9); POTASSIUM 3.7 MMOL/L (3.5-5.1); SODIUM 140 MMOL/L (136-145)
[2017-06-29] MEDS: Albuterol/Ipratropium 3ml neb HHN PRN (07:43)
[2017-06-29 07:45] LABS: % IRON SATURATION 6 % (15-50); IRON 18 ug/dL (50-175); TOTAL IRON BINDING CAPACITY 326 ug/dL (250-450)
[2017-06-29] MEDS: Pantoprazole Inj IVP SCH (08:52)
[2017-06-29] MEDS ORDERED: Pneumococcal Vaccine 25mcg/0.5ml IM ONE (09:00)
[2017-06-29] MEDS: Citalopram Hydrobromide 10mg Tab ORAL SCH (09:00)
[2017-06-29] MEDS: Lisinopril 10mg tab ORAL SCH (09:00)
[2017-06-29] MEDS ORDERED: Fleet's Enema 133ml RECTAL ONE ×2 (09:00→11:30)
[2017-06-29] MEDS ORDERED: Flu Vaccine Quadrivalent 0.5ml IM ONE (10:00)
[2017-06-29] MEDS: Hydrocortisone SUPP RECTAL SCH ×2 (10:12→18:21)
--- NOTE | 2017-06-29 11:06 | Infectious Diseases Prog Note ---
Assessment/Plan Assessment/Plan ASSESSMENT: The patient is a 61-year-old male with: Anemia. Lower abdominal pain. ? possible colitis. Diarrhea, ? Chronic ? due to lower gastrointestinal bleed. Rule out Clostridium difficile HIV Neg February 2017 Stool negative for ova and parasites x3 ( Oxt 2016) Chest x-ray: no evidence of pulmonary disease CT of the abdomen back in May 2015: partial colectomy. Hx of lower gastrointestinal bleed ? History of colon cancer, status post surgery. History of infrarenal abdominal aorta. Hypertension. Asthma Depression PLAN: continue the patient on cefepime and Flagyl d# 2 Monitor CBC. Monitor BMP. Monitor cultures (stool). Stool for C. diff GI to follow colonoscopy Subjective Allergies: Coded Allergies: No Known Allergies (Unverified , 05/10/17) Subjective Afebrile Objective Vital Signs Last 24 Hour Vital Signs Date Time Temp Pulse Resp B/P (MAP) Pulse Ox O2 Delivery O2 Flow Rate FiO2 06/29/17 09:00 122/83 06/29/17 09:00 89 122/83 06/29/17 07:53 89 20 99 Room Air 21 06/29/17 07:43 86 20 98 Room Air 21 06/29/17 07:43 98 Nasal Cannula 21 06/29/17 07:43 86 20 Room Air 21 06/29/17 07:43 Room Air 21 06/29/17 04:00 74 06/29/17 04:00 97.2 83 21 122/83 100 Room Air 97.2 06/29/17 00:00 97.7 81 20 128/79 97 Room Air 97.7 06/29/17 00:00 82 06/28/17 21:00 76 06/28/17 20:31 Nasal Cannula 2.0 28 06/28/17 20:30 99 Nasal Cannula 2.0 28 06/28/17 20:30 74 16 Room Air 21 06/28/17 20:10 105 06/28/17 20:05 90 06/28/17 20:00 98.2 83 20 117/74 100 Room Air 98.2 06/28/17 20:00 83 06/28/17 16:00 98.1 75 17 126/74 99 Room Air 98.1 06/28/17 16:00 82 06/28/17 12:00 98.2 75 20 109/80 99 Room Air 98.2 06/28/17 12:00 73 Height (Feet): 6 Height (Inches): 0.00 Weight (Pounds): 220 HEENT: anicteric Respiratory/Chest: no respiratory distress Cardiovascular: no gallop/murmur Abdomen: no organomegaly Microbiology Date/Time Source Procedure Growth Status 06/29/17 00:15 Stool Received Laboratory Tests Test 06/28/17 17:25 06/29/17 06:40 White Blood Count 6.6 K/UL (4.8-10.8) 5.1 K/UL (4.8-10.8) Red Blood Count 3.03 M/UL (4.70-6.10) L 2.99 M/UL (4.70-6.10) L Hemoglobin 9.1 G/DL (14.2-18.0) L 9.0 G/DL (14.2-18.0) L Hematocrit 28.6 % (42.0-52.0) L 28.2 % (42.0-52.0) L Mean Corpuscular Volume 94 FL (80-99) 94 FL (80-99) Mean Corpuscular Hemoglobin 30.1 PG (27.0-31.0) 30.0 PG (27.0-31.0) Mean Corpuscular Hemoglobin Concent 31.9 G/DL (32.0-36.0) L 31.9 G/DL (32.0-36.0) L Red Cell Distribution Width 17.9 % (11.6-14.8) H 18.0 % (11.6-14.8) H Platelet Count 171 K/UL (150-450) 183 K/UL (150-450) Mean Platelet Volume 9.2 FL (6.5-10.1) 8.8 FL (6.5-10.1) Neutrophils (%) (Auto) 74.8 % (45.0-75.0) 73.4 % (45.0-75.0) Lymphocytes (%) (Auto) 15.8 % (20.0-45.0) L 17.3 % (20.0-45.0) L Monocytes (%) (Auto) 6.2 % (1.0-10.0) 5.5 % (1.0-10.0) Eosinophils (%) (Auto) 2.5 % (0.0-3.0) 3.2 % (0.0-3.0) H Basophils (%) (Auto) 0.7 % (0.0-2.0) 0.7 % (0.0-2.0) Erythrocyte Sedimentation Rate 46 MM/HR (0-20) H Hemoglobin A1c 5.8 % (4.3-6.0) Total Protein (PEP) Pending Albumin (PEP) Pending Globulin (PEP) Pending Albumin/Globulin Ratio Pending Xhvmb-0-Xavvityng Pending Ayggd-6-Hqgqgvxbs Pending Beta Globulins Pending Beta Gamma Globulin Pending PEP Abnormal Protein Bands Pending Protein Electrophoresis Interpret Pending Vitamin B12 Level 1255 PG/ML (193-986) H Vitamin D 25-Hydroxy Pending 25-Hydroxy Vitamin D2 Pending 25-Hydroxy Vitamin D3 Pending Thyroid Stimulating Hormone (TSH) 0.780 uiU/mL (0.358-3.740) Rapid Plasma Reagin Non reactive (Non Reactive) Prothrombin Time 9.8 SEC (9.30-11.50) Prothromb Time International Ratio 0.9 (0.9-1.1) Activated Partial Thromboplast Time 26 SEC (23-33) Sodium Level 140 MMOL/L (136-145) Potassium Level 3.7 MMOL/L (3.5-5.1) Chloride Level 108 MMOL/L (98-107) H Carbon Dioxide Level 26 MMOL/L (21-32) Anion Gap 6 mmol/L (5-15) Blood Urea Nitrogen 9 mg/dL (7-18) Creatinine 1.2 MG/DL (0.55-1.30) Estimat Glomerular Filtration Rate > 60 mL/min (>60) Glucose Level 95 MG/DL (74-106) Calcium Level 9.0 MG/DL (8.5-10.1) Phosphorus Level 2.8 MG/DL (2.5-4.9) Magnesium Level 1.8 MG/DL (1.8-2.4) Iron Level 18 ug/dL (50-175) L Total Iron Binding Capacity 326 ug/dL (250-450) Percent Iron Saturation 6 % (15-50) L Unsaturated Iron Binding 308 ug/dL (112-346) Current Medications Medications (Trade) Dose Ordered Sig/Blanche Route PRN Reason Start Time Stop Time Status Last Admin Dose Admin Acetaminophen (Tylenol) 650 mg Q4H PRN ORAL T>100.5 06/27/17 16:15 07/27/17 16:14 Acetaminophen/ Hydrocodone Bitart ([place] 5/325) 1 tab Q6H PRN ORAL Moderate Pain (Pain Scale 4-6) 06/28/17 17:30 07/04/17 20:59 Al Hydroxide/Mg Hydroxide (Mylanta II) 30 ml Q6H PRN ORAL dyspepsia 06/27/17 16:15 07/27/17 16:14 Albuterol/ Ipratropium (Albuterol/ Ipratropium) 3 ml Q4H PRN HHN Shortness of Breath 06/27/17 16:15 07/02/17 16:14 06/29/17 07:43 Amlodipine Besylate (Norvasc) 10 mg DAILY ORAL 06/28/17 09:00 07/28/17 08:59 06/28/17 09:12 Cefepime HCl 1 gm/ Sodium Chloride 55 ml @ 110 mls/hr Q12HR@0630,1830 IV 06/27/17 18:30 07/04/17 18:29 06/29/17 06:16 Citalopram Hydrobromide (celeXA) 40 mg DAILY ORAL 06/28/17 09:00 07/28/17 08:59 06/28/17 09:13 Hydrocortisone (Anusol HC) 1 supp TWICE A DAY RECTAL 06/28/17 18:00 07/28/17 17:59 06/29/17 10:12 Lisinopril (Zestril) 10 mg DAILY ORAL 06/28/17 09:00 07/28/17 08:59 06/28/17 09:13 Metronidazole 100 ml @ 100 mls/hr Q6H IVPB 06/28/17 15:30 07/05/17 15:29 06/29/17 08:53 Morphine Sulfate (Morphine Sulfate) 4 mg Q4H PRN IVP Severe Pain (Pain Scale 7-10) 06/28/17 17:30 07/05/17 17:29 06/29/17 08:55 Nitroglycerin (Ntg) 0.4 mg Q5M PRN SL Prn Chest Pain 06/27/17 17:30 07/27/17 17:29 Ondansetron HCl (Zofran) 4 mg Q6H PRN IVP Nausea & Vomiting 06/27/17 16:15 07/27/17 16:14 Pantoprazole (Protonix) 40 mg DAILY IVP 06/28/17 10:30 07/28/17 10:29 06/29/17 08:52 Polyethylene Glycol (Miralax) 17 gm DAILYPRN PRN ORAL Constipation 06/27/17 17:30 07/27/17 17:29 Promethazine HCl/ Codeine (Phenergan with Codeine) 5 ml Q4H PRN ORAL For Cough 06/27/17 16:15 07/27/17 16:14 Temazepam (Restoril) 15 mg HSPRN PRN ORAL Insomnia 06/27/17 21:00 07/04/17 20:59 MANOHAR KNIGHT M.D. Jun 29, 2017 11:06
--- NOTE | 2017-06-29 11:52 | Neurology Progress Note ---
Interim History Interim History Interim History Mr. Morales feels a little better. He is still passing blood per rectum. He did get a little lightheaded when the physical therapist walked him. He continues to feel generally weak. He has had no further episodes of loss of consciousness. Plans are for a colonoscopy today. Review of Systems Neuro Review of Systems Benign. Objective Physical Exam Last Vital Signs Date Time Temp Pulse Resp B/P (MAP) Pulse Ox O2 Delivery O2 Flow Rate FiO2 06/29/17 09:00 122/83 06/29/17 09:00 89 06/29/17 07:53 20 99 Room Air 21 06/29/17 04:00 97.2 97.2 06/28/17 20:31 2.0 Laboratory Tests Test 06/28/17 17:25 06/29/17 06:40 White Blood Count 6.6 K/UL (4.8-10.8) 5.1 K/UL (4.8-10.8) Red Blood Count 3.03 M/UL (4.70-6.10) L 2.99 M/UL (4.70-6.10) L Hemoglobin 9.1 G/DL (14.2-18.0) L 9.0 G/DL (14.2-18.0) L Hematocrit 28.6 % (42.0-52.0) L 28.2 % (42.0-52.0) L Mean Corpuscular Volume 94 FL (80-99) 94 FL (80-99) Mean Corpuscular Hemoglobin 30.1 PG (27.0-31.0) 30.0 PG (27.0-31.0) Mean Corpuscular Hemoglobin Concent 31.9 G/DL (32.0-36.0) L 31.9 G/DL (32.0-36.0) L Red Cell Distribution Width 17.9 % (11.6-14.8) H 18.0 % (11.6-14.8) H Platelet Count 171 K/UL (150-450) 183 K/UL (150-450) Mean Platelet Volume 9.2 FL (6.5-10.1) 8.8 FL (6.5-10.1) Neutrophils (%) (Auto) 74.8 % (45.0-75.0) 73.4 % (45.0-75.0) Lymphocytes (%) (Auto) 15.8 % (20.0-45.0) L 17.3 % (20.0-45.0) L Monocytes (%) (Auto) 6.2 % (1.0-10.0) 5.5 % (1.0-10.0) Eosinophils (%) (Auto) 2.5 % (0.0-3.0) 3.2 % (0.0-3.0) H Basophils (%) (Auto) 0.7 % (0.0-2.0) 0.7 % (0.0-2.0) Erythrocyte Sedimentation Rate 46 MM/HR (0-20) H Hemoglobin A1c 5.8 % (4.3-6.0) Total Protein (PEP) 5.0 g/dL (6.0-8.5) L Albumin (PEP) 2.9 g/dL (2.9-4.4) Globulin (PEP) 2.1 g/dL (2.2-3.9) L Albumin/Globulin Ratio 1.4 (0.7-1.7) Veodj-1-Fvmwkcjqw 0.2 g/dL (0.0-0.4) Vfsfm-4-Mukcbxcwy 0.5 g/dL (0.4-1.0) Beta Globulins 0.8 g/dL (0.7-1.3) Beta Gamma Globulin 0.5 g/dL (0.4-1.8) PEP Abnormal Protein Bands Not observed g/dL (Not Protein Electrophoresis Interpret Comment (.) Vitamin B12 Level 1255 PG/ML (193-986) H Vitamin D 25-Hydroxy Pending 25-Hydroxy Vitamin D2 Pending 25-Hydroxy Vitamin D3 Pending Thyroid Stimulating Hormone (TSH) 0.780 uiU/mL (0.358-3.740) Rapid Plasma Reagin Non reactive (Non Reactive) Prothrombin Time 9.8 SEC (9.30-11.50) Prothromb Time International Ratio 0.9 (0.9-1.1) Activated Partial Thromboplast Time 26 SEC (23-33) Sodium Level 140 MMOL/L (136-145) Potassium Level 3.7 MMOL/L (3.5-5.1) Chloride Level 108 MMOL/L (98-107) H Carbon Dioxide Level 26 MMOL/L (21-32) Anion Gap 6 mmol/L (5-15) Blood Urea Nitrogen 9 mg/dL (7-18) Creatinine 1.2 MG/DL (0.55-1.30) Estimat Glomerular Filtration Rate > 60 mL/min (>60) Glucose Level 95 MG/DL (74-106) Calcium Level 9.0 MG/DL (8.5-10.1) Phosphorus Level 2.8 MG/DL (2.5-4.9) Magnesium Level 1.8 MG/DL (1.8-2.4) Iron Level 18 ug/dL (50-175) L Total Iron Binding Capacity 326 ug/dL (250-450) Percent Iron Saturation 6 % (15-50) L Unsaturated Iron Binding 308 ug/dL (112-346) Neurologic Exam Objective PHYSICAL EXAMINATION: GENERAL: He is a well-developed, well-nourished, pleasant, black gentleman, lying in bed, in no acute distress. HEAD: Normocephalic and atraumatic. NECK: No neck rigidity was observed. EENT: Benign. NEUROLOGICAL EXAMINATION: MENTAL STATUS EXAMINATION: He was awake and alert. He was oriented to person, place, and time. He was able to recall 3/3 words immediately, but could only remember 2/3 words in 1 minute and 3 minutes. He was able to remember presidents, Trump and Obama spontaneously, but needed hints to remember presidents up to [place] and could not remember presidents prior to that. His mathematical skills were fairly good. His visuospatial function was preserved. SPEECH: He had no dysarthria. LANGUAGE: He had a mild anomia for low-frequency words. However, it is unclear as to what his educational level is. CRANIAL NERVE EXAMINATION: II: The visual brar were intact on confrontation testing. III, IV & : The external ocular movements were full and the pupils 3 mm in diameter, equal, round, regular, and reactive to light. V: He had normal facial sensations and the temporales, masseters, and pterygoids functioned normally. VII: He had normal facial expressions and no facial asymmetry. VIII: He was able to hear well bilaterally and had no nystagmus. IX: The palate moved symmetrically on phonation. X: He had no hoarseness of voice. XI: The sternocleidomastoids and trapezii functioned normally. XII: The tongue was in the midline without any fasciculations or atrophy. MOTOR SYSTEM: The tone was normal in all four extremities. Examination of muscle mass revealed no focal wasting. Examination of power revealed G 5/5 power in all muscle groups tested. SENSORY EXAMINATION: He had intact sensations to pinprick, light touch, and graphesthesia. COORDINATION: He performed well on sjgpda-rg-swvu and hqkd-fh-ocan testing. On Romberg test, he swayed, but did not fall to one side or the other. REFLEXES: Trace+ and bilaterally symmetrical at the biceps, triceps, brachioradialis, and knees, 0 at both ankles. The plantar responses were flexor bilaterally. STANCE: He had a minimally wide-based, but stable stance. GAIT: He walked with a minimally wide-based, but stable gait. Impression/Recommendations Diagnostic Impression 1. Mr. Michel Morales is a 61-year-old, right-handed, black gentleman, who does have a past history of hypertension, borderline diabetes mellitus, dyslipidemia , and since January 2017, multiple episodes of bleeding per rectum, one of them followed by a syncopal event. He again started bleeding per rectum on and after an episode of loss of consciousness, he was brought into the [facility] Emergency Room and has since been admitted. He he was given some blood and felt better. 2. He feels a little better. He is still passing blood per rectum. He did get a little lightheaded when the physical therapist walked him. He continues to feel generally weak. He has had no further episodes of loss of consciousness. Plans are for a colonoscopy today. 3. On neurological examination, at this time, he does have mild problems with recent and remote memory, a mild anomia, and globally diminished deep tendon reflexes with a wide-based stance and gait. The rest of the neurological examination is essentially benign. 4. Laboratory data on my initial evaluation revealed that his hemoglobin had dropped down to 7.4 G. His chemistry panel was relatively benign except for a low albumin of 2.8. His urinalysis revealed 1+ leukocyte esterase, 0 red blood cells, and 2 to 4 white blood cells per high-power field. 5. The patient's history, neurological examination, and laboratory data are most compatible with a syncopal event due to acute blood loss. He also exhibits some mild cognitive dysfunction, which may be related to the anemia versus other etiology. Recommendations 1. Continue present management. 2. Attempts should be made to find the patient's source of bleeding and it should be treated appropriately. 3. His anemia should be corrected to a hemoglobin of greater than 10 G. 4. Observe. Ezequiel Sanchez M.D., M.S.P.H. EZEQUIEL SANCHEZ Jun 29, 2017 11:52
--- NOTE | 2017-06-29 12:08 | Pulmonology Progress Note ---
Assessment/Plan Problems: (1) Hemorrhagic shock (2) Lower GI bleed (3) Symptomatic anemia (4) Gastrointestinal malignancy Assessment/Plan h/h stable GI following check h/h ID to follow oncology called. symptomatic treatment med/surg Subjective ROS Limited/Unobtainable: No Constitutional: Reports: no symptoms HEENT: Repors: no symptoms Respiratory: Reports: no symptoms Allergies: Coded Allergies: No Known Allergies (Unverified , 05/10/17) Objective Last 24 Hour Vital Signs Date Time Temp Pulse Resp B/P (MAP) Pulse Ox O2 Delivery O2 Flow Rate FiO2 06/29/17 09:00 122/83 06/29/17 09:00 89 122/83 06/29/17 07:53 89 20 99 Room Air 21 06/29/17 07:43 86 20 98 Room Air 21 06/29/17 07:43 98 Nasal Cannula 21 06/29/17 07:43 86 20 Room Air 21 06/29/17 07:43 Room Air 21 06/29/17 04:00 74 06/29/17 04:00 97.2 83 21 122/83 100 Room Air 97.2 06/29/17 00:00 97.7 81 20 128/79 97 Room Air 97.7 06/29/17 00:00 82 06/28/17 21:00 76 06/28/17 20:31 Nasal Cannula 2.0 28 06/28/17 20:30 99 Nasal Cannula 2.0 28 06/28/17 20:30 74 16 Room Air 21 06/28/17 20:10 105 06/28/17 20:05 90 06/28/17 20:00 98.2 83 20 117/74 100 Room Air 98.2 06/28/17 20:00 83 06/28/17 16:00 98.1 75 17 126/74 99 Room Air 98.1 06/28/17 16:00 82 Intake and Output 06/28/17 06/29/17 19:00 07:00 Intake Total 888.334 ml 310 ml Output Total 850 ml Balance 38.334 ml 310 ml Intake Oral 500 ml IV Total 388.334 ml 310 ml Output Urine Total 850 ml # Voids 3 # Bowel Movements 4 Objective General Appearance: WD/WN, no apparent distress Lines, tubes and drains: peripheral HEENT: normocephalic, atraumatic Neck: non-tender, normal alignment Respiratory/Chest: chest wall non-tender, lungs clear Breasts: no masses Cardiovascular/Chest: normal peripheral pulses Abdomen: normal bowel sounds, non tender Genitourinary/Rectal: normal genital exam Extremities: normal range of motion Skin Exam: normal pigmentation Microbiology Date/Time Source Procedure Growth Status 06/29/17 00:15 Stool Received Laboratory Tests 06/28/17 17:25: White Blood Count 6.6, Red Blood Count 3.03L, Hemoglobin 9.1L, Hematocrit 28.6L , Mean Corpuscular Volume 94, Mean Corpuscular Hemoglobin 30.1, Mean Corpuscular Hemoglobin Concent 31.9L, Red Cell Distribution Width 17.9H, Platelet Count 171, Mean Platelet Volume 9.2, Neutrophils (%) (Auto) 74.8, Lymphocytes (%) (Auto) 15.8L, Monocytes (%) (Auto) 6.2, Eosinophils (%) (Auto) 2.5, Basophils (%) (Auto) 0.7, Erythrocyte Sedimentation Rate 46H, Hemoglobin A1c 5.8, Total Protein (PEP) 5.0L, Albumin (PEP) 2.9, Globulin (PEP) 2.1L, Albumin/Globulin Ratio 1.4, Ltxcy-9-Qqqdxzfdw 0.2, Mlbgl-4-Lllvyentq 0.5, Beta Globulins 0.8, Beta Gamma Globulin 0.5, PEP Abnormal Protein Bands Not observed , Protein Electrophoresis Interpret Comment, Vitamin B12 Level 1255H, Vitamin D 25-Hydroxy [Pending], 25-Hydroxy Vitamin D2 [Pending], 25-Hydroxy Vitamin D3 [ Pending], Thyroid Stimulating Hormone (TSH) 0.780, Rapid Plasma Reagin Non reactive 06/29/17 06:40: White Blood Count 5.1, Red Blood Count 2.99L, Hemoglobin 9.0L, Hematocrit 28.2L , Mean Corpuscular Volume 94, Mean Corpuscular Hemoglobin 30.0, Mean Corpuscular Hemoglobin Concent 31.9L, Red Cell Distribution Width 18.0H, Platelet Count 183, Mean Platelet Volume 8.8, Neutrophils (%) (Auto) 73.4, Lymphocytes (%) (Auto) 17.3L, Monocytes (%) (Auto) 5.5, Eosinophils (%) (Auto) 3.2H, Basophils (%) (Auto) 0.7, Prothrombin Time 9.8, Prothromb Time International Ratio 0.9, Activated Partial Thromboplast Time 26, Sodium Level 140, Potassium Level 3.7, Chloride Level 108H, Carbon Dioxide Level 26, Anion Gap 6, Blood Urea Nitrogen 9, Creatinine 1.2, Estimat Glomerular Filtration Rate > 60, Glucose Level 95, Calcium Level 9.0, Phosphorus Level 2.8, Magnesium Level 1.8, Iron Level 18L, Total Iron Binding Capacity 326, Percent Iron Saturation 6L, Unsaturated Iron Binding 308 Current Medications Medications (Trade) Dose Ordered Sig/Blanche Route PRN Reason Start Time Stop Time Status Last Admin Dose Admin Acetaminophen (Tylenol) 650 mg Q4H PRN ORAL T>100.5 06/27/17 16:15 07/27/17 16:14 Acetaminophen/ Hydrocodone Bitart ([place] 5/325) 1 tab Q6H PRN ORAL Moderate Pain (Pain Scale 4-6) 06/28/17 17:30 07/04/17 20:59 Al Hydroxide/Mg Hydroxide (Mylanta II) 30 ml Q6H PRN ORAL dyspepsia 06/27/17 16:15 07/27/17 16:14 Albuterol/ Ipratropium (Albuterol/ Ipratropium) 3 ml Q4H PRN HHN Shortness of Breath 06/27/17 16:15 07/02/17 16:14 06/29/17 07:43 Amlodipine Besylate (Norvasc) 10 mg DAILY ORAL 06/28/17 09:00 07/28/17 08:59 06/28/17 09:12 Cefepime HCl 1 gm/ Sodium Chloride 55 ml @ 110 mls/hr Q12HR@0630,1830 IV 06/27/17 18:30 07/04/17 18:29 06/29/17 06:16 Citalopram Hydrobromide (celeXA) 40 mg DAILY ORAL 06/28/17 09:00 07/28/17 08:59 06/28/17 09:13 Hydrocortisone (Anusol HC) 1 supp TWICE A DAY RECTAL 06/28/17 18:00 07/28/17 17:59 06/29/17 10:12 Lisinopril (Zestril) 10 mg DAILY ORAL 06/28/17 09:00 07/28/17 08:59 06/28/17 09:13 Metronidazole 100 ml @ 100 mls/hr Q6H IVPB 06/28/17 15:30 07/05/17 15:29 06/29/17 08:53 Morphine Sulfate (Morphine Sulfate) 4 mg Q4H PRN IVP Severe Pain (Pain Scale 7-10) 06/28/17 17:30 07/05/17 17:29 06/29/17 08:55 Nitroglycerin (Ntg) 0.4 mg Q5M PRN SL Prn Chest Pain 06/27/17 17:30 07/27/17 17:29 Ondansetron HCl (Zofran) 4 mg Q6H PRN IVP Nausea & Vomiting 06/27/17 16:15 07/27/17 16:14 Pantoprazole (Protonix) 40 mg DAILY IVP 06/28/17 10:30 07/28/17 10:29 06/29/17 08:52 Polyethylene Glycol (Miralax) 17 gm DAILYPRN PRN ORAL Constipation 06/27/17 17:30 07/27/17 17:29 Promethazine HCl/ Codeine (Phenergan with Codeine) 5 ml Q4H PRN ORAL For Cough 06/27/17 16:15 07/27/17 16:14 Temazepam (Restoril) 15 mg HSPRN PRN ORAL Insomnia 06/27/17 21:00 07/04/17 20:59 ANURAG GARCIA Jun 29, 2017 12:08
--- NOTE | 2017-06-29 12:28 | General Progress Note ---
Assessment/Plan Problem List: (1) Lower GI bleed ICD Codes: K92.2 - Gastrointestinal hemorrhage, unspecified SNOMED: 36249726 (2) Iron deficiency anemia ICD Codes: D50.9 - Iron deficiency anemia, unspecified SNOMED: 97150682 (3) Anemia ICD Codes: D64.9 - Anemia, unspecified SNOMED: 970310992 Assessment/Plan plan colonoscopy today Subjective ROS Limited/Unobtainable: Yes Allergies: Coded Allergies: No Known Allergies (Unverified , 05/10/17) Subjective no event Objective Last 24 Hour Vital Signs Date Time Temp Pulse Resp B/P (MAP) Pulse Ox O2 Delivery O2 Flow Rate FiO2 06/29/17 09:00 122/83 06/29/17 09:00 89 122/83 06/29/17 07:53 89 20 99 Room Air 21 06/29/17 07:43 86 20 98 Room Air 21 06/29/17 07:43 98 Nasal Cannula 21 06/29/17 07:43 86 20 Room Air 21 06/29/17 07:43 Room Air 21 06/29/17 04:00 74 06/29/17 04:00 97.2 83 21 122/83 100 Room Air 97.2 06/29/17 00:00 97.7 81 20 128/79 97 Room Air 97.7 06/29/17 00:00 82 06/28/17 21:00 76 06/28/17 20:31 Nasal Cannula 2.0 28 06/28/17 20:30 99 Nasal Cannula 2.0 28 06/28/17 20:30 74 16 Room Air 21 06/28/17 20:10 105 06/28/17 20:05 90 06/28/17 20:00 98.2 83 20 117/74 100 Room Air 98.2 06/28/17 20:00 83 06/28/17 16:00 98.1 75 17 126/74 99 Room Air 98.1 06/28/17 16:00 82 Intake and Output 06/28/17 06/29/17 19:00 07:00 Intake Total 888.334 ml 310 ml Output Total 850 ml Balance 38.334 ml 310 ml Intake Oral 500 ml IV Total 388.334 ml 310 ml Output Urine Total 850 ml # Voids 3 # Bowel Movements 4 Laboratory Tests 06/28/17 17:25: White Blood Count 6.6, Red Blood Count 3.03L, Hemoglobin 9.1L, Hematocrit 28.6L , Mean Corpuscular Volume 94, Mean Corpuscular Hemoglobin 30.1, Mean Corpuscular Hemoglobin Concent 31.9L, Red Cell Distribution Width 17.9H, Platelet Count 171, Mean Platelet Volume 9.2, Neutrophils (%) (Auto) 74.8, Lymphocytes (%) (Auto) 15.8L, Monocytes (%) (Auto) 6.2, Eosinophils (%) (Auto) 2.5, Basophils (%) (Auto) 0.7, Erythrocyte Sedimentation Rate 46H, Hemoglobin A1c 5.8, Total Protein (PEP) 5.0L, Albumin (PEP) 2.9, Globulin (PEP) 2.1L, Albumin/Globulin Ratio 1.4, Lomdp-1-Ihoqfchps 0.2, Soduh-7-Hlcomeckt 0.5, Beta Globulins 0.8, Beta Gamma Globulin 0.5, PEP Abnormal Protein Bands Not observed , Protein Electrophoresis Interpret Comment, Vitamin B12 Level 1255H, Vitamin D 25-Hydroxy [Pending], 25-Hydroxy Vitamin D2 [Pending], 25-Hydroxy Vitamin D3 [ Pending], Thyroid Stimulating Hormone (TSH) 0.780, Rapid Plasma Reagin Non reactive 06/29/17 06:40: White Blood Count 5.1, Red Blood Count 2.99L, Hemoglobin 9.0L, Hematocrit 28.2L , Mean Corpuscular Volume 94, Mean Corpuscular Hemoglobin 30.0, Mean Corpuscular Hemoglobin Concent 31.9L, Red Cell Distribution Width 18.0H, Platelet Count 183, Mean Platelet Volume 8.8, Neutrophils (%) (Auto) 73.4, Lymphocytes (%) (Auto) 17.3L, Monocytes (%) (Auto) 5.5, Eosinophils (%) (Auto) 3.2H, Basophils (%) (Auto) 0.7, Prothrombin Time 9.8, Prothromb Time International Ratio 0.9, Activated Partial Thromboplast Time 26, Sodium Level 140, Potassium Level 3.7, Chloride Level 108H, Carbon Dioxide Level 26, Anion Gap 6, Blood Urea Nitrogen 9, Creatinine 1.2, Estimat Glomerular Filtration Rate > 60, Glucose Level 95, Calcium Level 9.0, Phosphorus Level 2.8, Magnesium Level 1.8, Iron Level 18L, Total Iron Binding Capacity 326, Percent Iron Saturation 6L, Unsaturated Iron Binding 308 Height (Feet): 6 Height (Inches): 0.00 Weight (Pounds): 220 General Appearance: no apparent distress EENT: normal ENT inspection Neck: supple Cardiovascular: normal rate Respiratory/Chest: decreased breath sounds Abdomen: normal bowel sounds, non tender, soft Extremities: non-tender FRANCO ONEIL Jun 29, 2017 12:28
[2017-06-29] MEDS ORDERED: LR 1000ml ONE (14:00)
[2017-06-29] MEDS ORDERED: Propofol 200mg/20ml IV ONE (14:00)
[2017-06-29] MEDS ORDERED: Lidocaine 1% MPF 10mg/ml 5ml ONE (14:00)
--- NOTE | 2017-06-29 14:10 | Pre-Procedure Note/Attestation ---
Pre-Procedure Note/Attestation Complete Prior to Procedure Planned Procedure: not applicable Procedure Narrative: colonoscopy Indications for Procedure Pre-Operative Diagnosis: gib Attestation I attest that I discussed the nature of the procedure; its benefits; risks and complications; and alternatives (and the risks and benefits of such alternatives ), prior to the procedure, with the patient (or the patient's legal food service sales representatives). I attest that, if there was a reasonable possibility of needing a blood transfusion, the patient (or the patient's legal food service sales representatives) was given the [facility] standardized written summary, pursuant to the Jose Alfredo Blood Safety Act ([place] Health and Safety Code # 1645, as amended). I attest that I re-evaluated the patient just prior to the surgery and that there has been no change in the patient's H&P, except as documented below: FRANCO ONEIL Jun 29, 2017 14:10
[2017-06-29] MEDS ORDERED: NS 500ML IV ONE (14:20)
--- NOTE | 2017-06-29 14:33 | Endoscopy Procedure Note ---
Endoscopy Procedure Note General Indication for Procedure: gib Procedures Performed: colonoscopy Operative Findings/Diagnosis: diverticulosis, hemorrhoids Specimen: none Pt Tolerated Procedure Well: Yes Estimated Blood Loss: none Anesthesia Anesthesiologist: mandy Anesthesia: MAC Inserted Devices Implant(s) used?: No Quality Quality of Bowel Preparation: Good Did scope reach the cecum?: Yes Was there any complications?: No GI Core Measures 50 yrs or older w/o bx or poly: Not Applicable 10yrs. F/U not recommended: Not Applicable FRANCO ONEIL Jun 29, 2017 14:33
--- NOTE | 2017-06-29 14:41 | Immediate Post-Op Evaluation ---
Immediate Post-Op Evalulation Immediate Post-Op Evalulation Procedure: colonoscopy Date of Evaluation: Jun 29, 2017 Time of Evaluation: 14:40 IV Fluids: 400 Blood Pressure Systolic: 112 Blood Pressure Diastolic: 75 Pulse Rate: 78 Respiratory Rate: 14 O2 Sat by Pulse Oximetry: 100 Temperature (Fahrenheit): 98.8 Pain Score (1-10): 0 Nausea: No Vomiting: No Complications none Patient Status: awake, reacts, patent Hydration Status: adequate Drug: none LAKHWINDER TALAVERA CRNA Jun 29, 2017 14:41
--- NOTE | 2017-06-29 14:43 | Anethesia Preoperative Eval ---
Anesthesia Pre-op PMH/ROS General Date of Evaluation: Jun 29, 2017 Time of Evaluation: 14:15 Anesthesiologist: calixto ASA Score: ASA 2 Mallampati Score Class I : Soft palate, uvula, fauces, pillars visible Class II: Soft palate, uvula, fauces visible Class III: Soft palate, base of uvula visible Class IV: Only hard plate visible Mallampati Classification: Class II Surgeon: lucía Diagnosis: colon ca Surgical Procedure: colonoscopy Anesthesia History: none Family History: no anesthesia problems Allergies: Coded Allergies: No Known Allergies (Unverified , 05/10/17) Medications: see eMAR Past Medical History Cardiovascular: Reports: HTN, CAD Pulmonary: Denies: asthma, COPD, KIMMY, other Gastrointestinal/Genitourinary: Reports: GERD, Denies: CRI, ESRD, other Neurologic/Psychiatric: Denies: dementia, CVA, depression/anxiety, TIA, other Endocrine: Reports: DM HEENT: Denies: cataract (L), cataract (R), glaucoma, METLAKATLA (L), METLAKATLA (R), other Hematology/Immune: Reports: anemia Musculoskeletal/Integumentary: Denies: OA, RA, DJD, DDD, edema, other Other: obesity, other - colon ca Anesthesia Pre-op Phys. Exam Physician Exam Last Vital Signs Date Time Temp Pulse Resp B/P (MAP) Pulse Ox O2 Delivery O2 Flow Rate FiO2 06/29/17 12:00 96.3 85 22 119/77 94 Room Air 96.3 06/29/17 07:53 21 06/28/17 20:31 2.0 Neurologic: CN 2-12 intact Cardiovascular: RRR Respiratory: CTA Gastrointestinal: S/NT/ND Airway Exam Mallampati Classification 3 Mallampati Score: Class III Neck: thick Teeth: missing, broken Dentures: no upper, no lower Anesthesia Pre-op A/P Labs Hematology Test 06/28/17 17:25 06/29/17 06:40 White Blood Count 6.6 K/UL (4.8-10.8) 5.1 K/UL (4.8-10.8) Red Blood Count 3.03 M/UL (4.70-6.10) L 2.99 M/UL (4.70-6.10) L Hemoglobin 9.1 G/DL (14.2-18.0) L 9.0 G/DL (14.2-18.0) L Hematocrit 28.6 % (42.0-52.0) L 28.2 % (42.0-52.0) L Mean Corpuscular Volume 94 FL (80-99) 94 FL (80-99) Mean Corpuscular Hemoglobin 30.1 PG (27.0-31.0) 30.0 PG (27.0-31.0) Mean Corpuscular Hemoglobin Concent 31.9 G/DL (32.0-36.0) L 31.9 G/DL (32.0-36.0) L Red Cell Distribution Width 17.9 % (11.6-14.8) H 18.0 % (11.6-14.8) H Platelet Count 171 K/UL (150-450) 183 K/UL (150-450) Mean Platelet Volume 9.2 FL (6.5-10.1) 8.8 FL (6.5-10.1) Neutrophils (%) (Auto) 74.8 % (45.0-75.0) 73.4 % (45.0-75.0) Lymphocytes (%) (Auto) 15.8 % (20.0-45.0) L 17.3 % (20.0-45.0) L Monocytes (%) (Auto) 6.2 % (1.0-10.0) 5.5 % (1.0-10.0) Eosinophils (%) (Auto) 2.5 % (0.0-3.0) 3.2 % (0.0-3.0) H Basophils (%) (Auto) 0.7 % (0.0-2.0) 0.7 % (0.0-2.0) Erythrocyte Sedimentation Rate 46 MM/HR (0-20) H Coagulation Test 06/29/17 06:40 Prothrombin Time 9.8 SEC (9.30-11.50) Prothromb Time International Ratio 0.9 (0.9-1.1) Activated Partial Thromboplast Time 26 SEC (23-33) Chemistry Test 06/28/17 17:25 06/29/17 06:40 Hemoglobin A1c 5.8 % (4.3-6.0) Total Protein (PEP) 5.0 g/dL (6.0-8.5) L Albumin (PEP) 2.9 g/dL (2.9-4.4) Globulin (PEP) 2.1 g/dL (2.2-3.9) L Albumin/Globulin Ratio 1.4 (0.7-1.7) Szjjw-4-Pmlvghngi 0.2 g/dL (0.0-0.4) Cgcet-3-Ktfivmvrf 0.5 g/dL (0.4-1.0) Beta Globulins 0.8 g/dL (0.7-1.3) Beta Gamma Globulin 0.5 g/dL (0.4-1.8) PEP Abnormal Protein Bands Not observed g/dL (Not Protein Electrophoresis Interpret Comment (.) Vitamin B12 Level 1255 PG/ML (193-986) H Vitamin D 25-Hydroxy Pending 25-Hydroxy Vitamin D2 Pending 25-Hydroxy Vitamin D3 Pending Thyroid Stimulating Hormone (TSH) 0.780 uiU/mL (0.358-3.740) Sodium Level 140 MMOL/L (136-145) Potassium Level 3.7 MMOL/L (3.5-5.1) Chloride Level 108 MMOL/L (98-107) H Carbon Dioxide Level 26 MMOL/L (21-32) Anion Gap 6 mmol/L (5-15) Blood Urea Nitrogen 9 mg/dL (7-18) Creatinine 1.2 MG/DL (0.55-1.30) Estimat Glomerular Filtration Rate > 60 mL/min (>60) Glucose Level 95 MG/DL (74-106) Calcium Level 9.0 MG/DL (8.5-10.1) Phosphorus Level 2.8 MG/DL (2.5-4.9) Magnesium Level 1.8 MG/DL (1.8-2.4) Iron Level 18 ug/dL (50-175) L Total Iron Binding Capacity 326 ug/dL (250-450) Percent Iron Saturation 6 % (15-50) L Unsaturated Iron Binding 308 ug/dL (112-346) Studies Pre-op Studies: EKG - sr Risk Assessment & Plan Plan: mac Pre-Antibiotics Drug: none LAKHWINDER TALAVERA CRNA Jun 29, 2017 14:43
--- NOTE | 2017-06-29 15:43 | Cardiac Electrophysiology PN ---
Assessment/Plan Assessment/Plan 1. Syncope, etiology is not clear at this time, but could be due to gastrointestinal bleed. We will watch the patient on telemetry. Echo EF 65% 2. Hypertension. Continue Norvasc 10 mg daily and lisinopril 20 mg daily. 3. Severe anemia. Hemoglobin 7.5. The patient was evaluated by Dr. Peralta. S/P colonoscopy today again DW RN Subjective Subjective Feeling better. Had Colonoscopy today. In SR Objective Last 24 Hour Vital Signs Date Time Temp Pulse Resp B/P (MAP) Pulse Ox O2 Delivery O2 Flow Rate FiO2 06/29/17 14:53 98.8 73 20 114/76 100 Room Air 98.8 06/29/17 14:43 74 20 110/78 100 Room Air 06/29/17 14:41 209.8 78 14 100 06/29/17 14:38 98.8 72 20 112/75 100 Simple Mask 5.0 98.8 06/29/17 12:00 80 06/29/17 12:00 96.3 85 22 119/77 94 Room Air 96.3 06/29/17 09:00 122/83 06/29/17 09:00 89 122/83 06/29/17 08:00 96.0 85 20 113/78 99 Room Air 96.0 06/29/17 08:00 85 87 88 06/29/17 08:00 76 06/29/17 07:53 89 20 99 Room Air 21 06/29/17 07:43 86 20 98 Room Air 21 06/29/17 07:43 98 Nasal Cannula 21 06/29/17 07:43 86 20 Room Air 21 06/29/17 07:43 Room Air 21 06/29/17 04:00 74 06/29/17 04:00 97.2 83 21 122/83 100 Room Air 97.2 06/29/17 00:00 97.7 81 20 128/79 97 Room Air 97.7 06/29/17 00:00 82 06/28/17 21:00 76 06/28/17 20:31 Nasal Cannula 2.0 28 06/28/17 20:30 99 Nasal Cannula 2.0 28 06/28/17 20:30 74 16 Room Air 21 06/28/17 20:10 105 06/28/17 20:05 90 06/28/17 20:00 98.2 83 20 117/74 100 Room Air 98.2 06/28/17 20:00 83 06/28/17 16:00 98.1 75 17 126/74 99 Room Air 98.1 06/28/17 16:00 82 Intake and Output 06/28/17 06/29/17 19:00 07:00 Intake Total 888.334 ml 310 ml Output Total 850 ml Balance 38.334 ml 310 ml Intake Oral 500 ml IV Total 388.334 ml 310 ml Output Urine Total 850 ml # Voids 3 # Bowel Movements 4 Laboratory Tests Test 06/28/17 17:25 06/29/17 06:40 White Blood Count 6.6 K/UL (4.8-10.8) 5.1 K/UL (4.8-10.8) Red Blood Count 3.03 M/UL (4.70-6.10) L 2.99 M/UL (4.70-6.10) L Hemoglobin 9.1 G/DL (14.2-18.0) L 9.0 G/DL (14.2-18.0) L Hematocrit 28.6 % (42.0-52.0) L 28.2 % (42.0-52.0) L Mean Corpuscular Volume 94 FL (80-99) 94 FL (80-99) Mean Corpuscular Hemoglobin 30.1 PG (27.0-31.0) 30.0 PG (27.0-31.0) Mean Corpuscular Hemoglobin Concent 31.9 G/DL (32.0-36.0) L 31.9 G/DL (32.0-36.0) L Red Cell Distribution Width 17.9 % (11.6-14.8) H 18.0 % (11.6-14.8) H Platelet Count 171 K/UL (150-450) 183 K/UL (150-450) Mean Platelet Volume 9.2 FL (6.5-10.1) 8.8 FL (6.5-10.1) Neutrophils (%) (Auto) 74.8 % (45.0-75.0) 73.4 % (45.0-75.0) Lymphocytes (%) (Auto) 15.8 % (20.0-45.0) L 17.3 % (20.0-45.0) L Monocytes (%) (Auto) 6.2 % (1.0-10.0) 5.5 % (1.0-10.0) Eosinophils (%) (Auto) 2.5 % (0.0-3.0) 3.2 % (0.0-3.0) H Basophils (%) (Auto) 0.7 % (0.0-2.0) 0.7 % (0.0-2.0) Erythrocyte Sedimentation Rate 46 MM/HR (0-20) H Hemoglobin A1c 5.8 % (4.3-6.0) Total Protein (PEP) 5.0 g/dL (6.0-8.5) L Albumin (PEP) 2.9 g/dL (2.9-4.4) Globulin (PEP) 2.1 g/dL (2.2-3.9) L Albumin/Globulin Ratio 1.4 (0.7-1.7) Tflek-5-Tnwzweyjb 0.2 g/dL (0.0-0.4) Lwoxs-7-Sgfdsocjj 0.5 g/dL (0.4-1.0) Beta Globulins 0.8 g/dL (0.7-1.3) Beta Gamma Globulin 0.5 g/dL (0.4-1.8) PEP Abnormal Protein Bands Not observed g/dL (Not Protein Electrophoresis Interpret Comment (.) Vitamin B12 Level 1255 PG/ML (193-986) H Vitamin D 25-Hydroxy Pending 25-Hydroxy Vitamin D2 Pending 25-Hydroxy Vitamin D3 Pending Thyroid Stimulating Hormone (TSH) 0.780 uiU/mL (0.358-3.740) Rapid Plasma Reagin Non reactive (Non Reactive) Prothrombin Time 9.8 SEC (9.30-11.50) Prothromb Time International Ratio 0.9 (0.9-1.1) Activated Partial Thromboplast Time 26 SEC (23-33) Sodium Level 140 MMOL/L (136-145) Potassium Level 3.7 MMOL/L (3.5-5.1) Chloride Level 108 MMOL/L (98-107) H Carbon Dioxide Level 26 MMOL/L (21-32) Anion Gap 6 mmol/L (5-15) Blood Urea Nitrogen 9 mg/dL (7-18) Creatinine 1.2 MG/DL (0.55-1.30) Estimat Glomerular Filtration Rate > 60 mL/min (>60) Glucose Level 95 MG/DL (74-106) Calcium Level 9.0 MG/DL (8.5-10.1) Phosphorus Level 2.8 MG/DL (2.5-4.9) Magnesium Level 1.8 MG/DL (1.8-2.4) Iron Level 18 ug/dL (50-175) L Total Iron Binding Capacity 326 ug/dL (250-450) Percent Iron Saturation 6 % (15-50) L Unsaturated Iron Binding 308 ug/dL (112-346) Microbiology Date/Time Source Procedure Growth Status 06/29/17 00:15 Stool Received Objective HEAD AND NECK: Showed no JVD. LUNGS: Clear. CARDIOVASCULAR: Shows regular S1 and S2 with no gallop or murmur. ABDOMEN: Soft. EXTREMITIES: No pitting edema. CORRIE MALAGON Jun 29, 2017 15:43
--- NOTE | 2017-06-29 16:49 | Internal Med Progress Note ---
Subjective Date of Service: Jun 29, 2017 Physician Name Heath Cruz Attending Physician Daljit Sandhu MD Current Medications Medications (Trade) Dose Ordered Sig/Blanche Route PRN Reason Start Time Stop Time Status Last Admin Dose Admin Acetaminophen (Tylenol) 650 mg Q4H PRN ORAL T>100.5 06/27/17 16:15 07/27/17 16:14 Acetaminophen/ Hydrocodone Bitart (Nikolski 5/325) 1 tab Q6H PRN ORAL Moderate Pain (Pain Scale 4-6) 06/28/17 17:30 07/04/17 20:59 Al Hydroxide/Mg Hydroxide (Mylanta II) 30 ml Q6H PRN ORAL dyspepsia 06/27/17 16:15 07/27/17 16:14 Albuterol/ Ipratropium (Albuterol/ Ipratropium) 3 ml Q4H PRN HHN Shortness of Breath 06/27/17 16:15 07/02/17 16:14 06/29/17 07:43 Amlodipine Besylate (Norvasc) 10 mg DAILY ORAL 06/28/17 09:00 07/28/17 08:59 06/28/17 09:12 Cefepime HCl 1 gm/ Sodium Chloride 55 ml @ 110 mls/hr Q12HR@0630,1830 IV 06/27/17 18:30 07/04/17 18:29 06/29/17 06:16 Citalopram Hydrobromide (celeXA) 40 mg DAILY ORAL 06/28/17 09:00 07/28/17 08:59 06/28/17 09:13 Hydrocortisone (Anusol HC) 1 supp TWICE A DAY RECTAL 06/28/17 18:00 07/28/17 17:59 06/29/17 10:12 Lisinopril (Zestril) 10 mg DAILY ORAL 06/28/17 09:00 07/28/17 08:59 06/28/17 09:13 Metronidazole 100 ml @ 100 mls/hr Q6H IVPB 06/28/17 15:30 07/05/17 15:29 06/29/17 08:53 Morphine Sulfate (Morphine Sulfate) 4 mg Q4H PRN IVP Severe Pain (Pain Scale 7-10) 06/28/17 17:30 07/05/17 17:29 06/29/17 12:59 Nitroglycerin (Ntg) 0.4 mg Q5M PRN SL Prn Chest Pain 06/27/17 17:30 07/27/17 17:29 Ondansetron HCl (Zofran) 4 mg Q6H PRN IVP Nausea & Vomiting 06/27/17 16:15 07/27/17 16:14 Pantoprazole (Protonix) 40 mg DAILY IVP 06/28/17 10:30 07/28/17 10:29 06/29/17 08:52 Polyethylene Glycol (Miralax) 17 gm DAILYPRN PRN ORAL Constipation 06/27/17 17:30 07/27/17 17:29 Promethazine HCl/ Codeine (Phenergan with Codeine) 5 ml Q4H PRN ORAL For Cough 06/27/17 16:15 07/27/17 16:14 Temazepam (Restoril) 15 mg HSPRN PRN ORAL Insomnia 06/27/17 21:00 07/04/17 20:59 Allergies: Coded Allergies: No Known Allergies (Unverified , 05/10/17) ROS Limited/Unobtainable: No Constitutional: Reports: no symptoms HEENT: Reports: no symptoms Cardiovascular: Reports: no symptoms Respiratory: Reports: no symptoms Gastrointestinal/Abdominal: Reports: no symptoms Genitourinary: Reports: no symptoms Neurologic/Psychiatric: Reports: no symptoms Subjective 61 YO M admitted with vertigo. Now anemia secondary to GI bleed. S/P colonoscopy 06/29/17. Cover for Int Bob Sandhu Objective Last Vital Signs Date Time Temp Pulse Resp B/P (MAP) Pulse Ox O2 Delivery O2 Flow Rate FiO2 06/29/17 14:53 98.8 73 20 114/76 100 Room Air 98.8 06/29/17 14:38 5.0 06/29/17 07:53 21 General Appearance: WD/WN, no apparent distress, alert EENT: PERRL/EOMI, normal ENT inspection, TMs normal Neck: non-tender, normal alignment, supple, normal inspection Cardiovascular: normal peripheral pulses, normal rate, regular rhythm, no gallop/murmur, no JVD Respiratory/Chest: chest wall non-tender, lungs clear, normal breath sounds, no respiratory distress, no accessory muscle use Abdomen: normal bowel sounds, non tender, soft, no organomegaly, no mass, abnormal bowel sounds Extremities: normal range of motion Neurologic: television installer helper II-XII grossly normal, no motor/sensory deficits Skin: normal pigmentation, warm/dry Laboratory Tests Test 06/28/17 17:25 06/29/17 06:40 White Blood Count 6.6 K/UL (4.8-10.8) 5.1 K/UL (4.8-10.8) Red Blood Count 3.03 M/UL (4.70-6.10) L 2.99 M/UL (4.70-6.10) L Hemoglobin 9.1 G/DL (14.2-18.0) L 9.0 G/DL (14.2-18.0) L Hematocrit 28.6 % (42.0-52.0) L 28.2 % (42.0-52.0) L Mean Corpuscular Volume 94 FL (80-99) 94 FL (80-99) Mean Corpuscular Hemoglobin 30.1 PG (27.0-31.0) 30.0 PG (27.0-31.0) Mean Corpuscular Hemoglobin Concent 31.9 G/DL (32.0-36.0) L 31.9 G/DL (32.0-36.0) L Red Cell Distribution Width 17.9 % (11.6-14.8) H 18.0 % (11.6-14.8) H Platelet Count 171 K/UL (150-450) 183 K/UL (150-450) Mean Platelet Volume 9.2 FL (6.5-10.1) 8.8 FL (6.5-10.1) Neutrophils (%) (Auto) 74.8 % (45.0-75.0) 73.4 % (45.0-75.0) Lymphocytes (%) (Auto) 15.8 % (20.0-45.0) L 17.3 % (20.0-45.0) L Monocytes (%) (Auto) 6.2 % (1.0-10.0) 5.5 % (1.0-10.0) Eosinophils (%) (Auto) 2.5 % (0.0-3.0) 3.2 % (0.0-3.0) H Basophils (%) (Auto) 0.7 % (0.0-2.0) 0.7 % (0.0-2.0) Erythrocyte Sedimentation Rate 46 MM/HR (0-20) H Hemoglobin A1c 5.8 % (4.3-6.0) Total Protein (PEP) 5.0 g/dL (6.0-8.5) L Albumin (PEP) 2.9 g/dL (2.9-4.4) Globulin (PEP) 2.1 g/dL (2.2-3.9) L Albumin/Globulin Ratio 1.4 (0.7-1.7) Wxshf-3-Ukvijopgd 0.2 g/dL (0.0-0.4) Coxho-5-Iqlkjpszy 0.5 g/dL (0.4-1.0) Beta Globulins 0.8 g/dL (0.7-1.3) Beta Gamma Globulin 0.5 g/dL (0.4-1.8) PEP Abnormal Protein Bands Not observed g/dL (Not Protein Electrophoresis Interpret Comment (.) Vitamin B12 Level 1255 PG/ML (193-986) H Vitamin D 25-Hydroxy Pending 25-Hydroxy Vitamin D2 Pending 25-Hydroxy Vitamin D3 Pending Thyroid Stimulating Hormone (TSH) 0.780 uiU/mL (0.358-3.740) Rapid Plasma Reagin Non reactive (Non Reactive) Prothrombin Time 9.8 SEC (9.30-11.50) Prothromb Time International Ratio 0.9 (0.9-1.1) Activated Partial Thromboplast Time 26 SEC (23-33) Sodium Level 140 MMOL/L (136-145) Potassium Level 3.7 MMOL/L (3.5-5.1) Chloride Level 108 MMOL/L (98-107) H Carbon Dioxide Level 26 MMOL/L (21-32) Anion Gap 6 mmol/L (5-15) Blood Urea Nitrogen 9 mg/dL (7-18) Creatinine 1.2 MG/DL (0.55-1.30) Estimat Glomerular Filtration Rate > 60 mL/min (>60) Glucose Level 95 MG/DL (74-106) Calcium Level 9.0 MG/DL (8.5-10.1) Phosphorus Level 2.8 MG/DL (2.5-4.9) Magnesium Level 1.8 MG/DL (1.8-2.4) Iron Level 18 ug/dL (50-175) L Total Iron Binding Capacity 326 ug/dL (250-450) Percent Iron Saturation 6 % (15-50) L Unsaturated Iron Binding 308 ug/dL (112-346) Ferritin 48 NG/ML (8-388) Microbiology Date/Time Source Procedure Growth Status 06/29/17 00:15 Stool Received Intake and Output 06/28/17 06/29/17 19:00 07:00 Intake Total 888.334 ml 310 ml Output Total 850 ml Balance 38.334 ml 310 ml Intake Oral 500 ml IV Total 388.334 ml 310 ml Output Urine Total 850 ml # Voids 3 # Bowel Movements 4 Assessment/Plan Problem List: (1) Pre-diabetes (2) History of colon cancer (3) SOB (shortness of breath) Assessment & Plan: Due to anemia. (4) Lower GI bleed Assessment & Plan: S/P colonoscopy 06/28/17. (5) Symptomatic anemia (6) Acute blood loss anemia Assessment & Plan: S/P transfusion 1 unit PRBC 06/28/17 (7) Syncope (8) Abdominal pain (9) HTN (hypertension) Assessment & Plan: Continue lisinopril and norvasc (10) Diverticulosis (11) Hemorrhoids Status: not improved HEATH CRUZ Jun 29, 2017 16:49
[2017-06-29] MEDS ORDERED: Nitroglycerin Subl 0.4mg tab SL PRN (19:35)
--- NOTE | 2017-06-29 19:45 | Procedure Note ---
DATE OF PROCEDURE: 06/29/2017 PROCEDURE: Colonoscopy. SURGEON: Emeterio Peralta M.D. INSPECTOR AND HAND PACKAGER: Agnieszka POWELL. INSTRUMENT: Olympus adult flexible colonoscope. INDICATION: GI bleeding. The procedure, risks, benefits, and possible consequences, including hemorrhage, aspiration, perforation and infection, and alternative treatments, were explained to the patient/legal guardian by Dr. Emeterio Peralta and the patient/legal guardian understood and accepted these risks. DESCRIPTION OF PROCEDURE: After informed consent was obtained and the patient was adequately sedated, first rectal exam was performed which showed positive for internal hemorrhoids. Then, the scope was advanced from rectum into the cecum documented by appendiceal orifice, ileocecal valve, and quadrant palpation. Quality of prep was good.. The patient had evidence of diverticulosis both in the right and left colon. No obvious polyp was seen. No obvious source of bleeding at this time. There was an area in the ascending colon, which was tattooed with blue tattoo color it was in a lipoma, most probably in prior colonoscopy, somebody tattooed this lipoma, otherwise this was another large polyp, basically lipoma, measured roughly about 1 to 1.5 cm. Retroflexion of rectum was performed which showed positive for internal hemorrhoids. SUMMARY OF FINDINGS: 1. Diverticulosis. 2. Lipoma. 3. Internal hemorrhoids. RECOMMENDATIONS: The patient's hemoglobin and hematocrit to be followed closely. If the stool is positive, we will consider endoscopy on Sunday. Emeterio Peralta M.D. DR: Vasile JOB#: [id number] CC:
[2017-06-29] MEDS ORDERED: Albuterol/Ipratropium 3ml neb HHN PRN (20:15)
[2017-06-29] MEDS ORDERED: Promethazine/Codeine 5ml UD ORAL PRN (20:15)
[2017-06-29] MEDS ORDERED: Mylanta II UD 30ml ORAL PRN (22:15)
[2017-06-29] MEDS ORDERED: Norco 5mg/325mg tab ORAL PRN (23:30)
[2017-06-30] VITALS: BP 135/96
--- NOTE | 2017-06-30 02:15 | Consultation ---
DATE OF CONSULTATION: 06/29/2017 HEMATOLOGY/ONCOLOGY CONSULTATION CONSULTING PHYSICIAN: Kirill Duff M.D. REFERRING PHYSICIAN: Franco Livingston M.D. REASON FOR CONSULTATION: Evaluation of anemia. IDENTIFYING DATA: Dear Dr. Franco Livingston: The patient is a pleasant 61-year-old male with past medical history significant for colon cancer, status post surgery, chronic diarrhea, lower GI bleed, hypertension, asthma, depression, presented to this hospital due to fresh blood from the rectum. The patient mentioned to have one episode of nausea and vomiting. Complains of cough and abdominal pain. ID Service consulted. GI Service consulted as well, Dr. Peralta. Planning for colonoscopy today and Hematology Service consulted given anemia. PAST MEDICAL HISTORY: Hypertension, . MEDICATIONS: Reviewed. SOCIAL HISTORY: Lives at home. No alcohol, tobacco, or illicit drug use. REVIEW OF SYSTEMS: CONSTITUTIONAL: No fever, chills, or night sweats. SKIN: No rashes, bumps, or itching. HEENT: No headache, hearing or vision changes. BREASTS: No lumps, pain, or discharge. PULMONARY: No cough, sputum, or shortness of breath. GASTROINTESTINAL: No nausea, vomiting, or diarrhea. GENITOURINARY: No dysuria, frequency, or urgency. MUSCULOSKELETAL: No joint swelling, muscle pain, or trauma. PHYSICAL EXAMINATION: VITAL SIGNS: Reviewed. GENERAL: No distress. PULMONARY: Decreased breath sounds. CARDIOVASCULAR: Regular rate. No S3 or S4. ABDOMEN: Soft, nontender, and nondistended. EXTREMITIES: No cyanosis, swelling, or edema. LABORATORY AND DIAGNOSTIC DATA: BUN 9, creatinine 1.2. WBC of 5.1, hemoglobin 9, hematocrit 28, platelet count 183,000. INR . RPR nonreactive. ASSESSMENT AND RECOMMENDATIONS: 1. Anemia due to underlying chronic disease. Hemoglobin currently at 9. Obtain appropriate workup at this time. Ferritin . The patient is iron deficient. Obtain serum protein electrophoresis within normal limits. Continue the patient on iron. 2. Anemia secondary to iron-deficiency anemia. Continue to closely monitor. Hemoglobin goal is above 7. 3. Lower abdominal pain, potentially secondary to colitis. 4. Diarrhea, chronic versus gastrointestinal bleed. 5. . 6. in the past. Continue to closely monitor. 7. Depression. I appreciate the consultation. Kirill Duff M.D. DR: Faizan JOB#: [id number] CC:
[2017-06-30 03:04] VITALS: BP 138/92
[2017-06-30] MEDS: Morphine Sulfate 4mg/ml Inj IVP PRN ×4 (03:38→18:51)
[2017-06-30] MEDS ORDERED: Cefepime HCl 1 GM in NS 55 ML IV SCH (06:30)
[2017-06-30 07:21] LABS: ANION GAP 6 mmol/L (5-15); BLOOD UREA NITROGEN 13 mg/dL (7-18); CALCIUM 8.8 MG/DL (8.5-10.1); CARBON DIOXIDE 25 MMOL/L (21-32); CHLORIDE 108 MMOL/L (98-107); CREATININE 1.4 MG/DL (0.55-1.30); POTASSIUM 4.3 MMOL/L (3.5-5.1); SODIUM 139 MMOL/L (136-145)
[2017-06-30 07:23] LABS: EOSINOPHILS % (AUTO) 1.6 % (0.0-3.0); HEMATOCRIT 26.7 % (42.0-52.0); HEMOGLOBIN 8.6 G/DL (14.2-18.0); LYMPHOCYTES % (AUTO) 8.3 % (20.0-45.0); MEAN CORPUSCULAR VOLUME 94 FL (80-99); MONOCYTES % (AUTO) 5.7 % (1.0-10.0); NEUTROPHILS % (AUTO) 83.3 % (45.0-75.0); PLATELET COUNT 172 K/UL (150-450); RED BLOOD COUNT 2.85 M/UL (4.70-6.10); RED CELL DISTRIBUTION WIDTH 17.5 % (11.6-14.8); WHITE BLOOD COUNT 7.6 K/UL (4.8-10.8)
[2017-06-30 08:00] VITALS: BP 122/83
[2017-06-30] MEDS: Hydrocortisone SUPP RECTAL SCH ×2 (09:10→17:58)
[2017-06-30] MEDS: Lisinopril 10mg tab ORAL SCH (09:10)
[2017-06-30] MEDS: Citalopram Hydrobromide 10mg Tab ORAL SCH (09:10)
[2017-06-30] MEDS: Pantoprazole Inj IVP SCH (09:10)
--- NOTE | 2017-06-30 10:34 | Infectious Diseases Prog Note ---
Assessment/Plan Assessment/Plan ASSESSMENT: The patient is a 61-year-old male with: Anemia. Lower abdominal pain. Bloody stools- .likely 2ry to diverticulosis and/or hemorrhoids -s/p colonoscopy 06/29: Diverticulosis.Lipoma.Internal hemorrhoids. ? possible colitis. Diarrhea, ? Chronic ? due to lower gastrointestinal bleed. Rule out Clostridium difficile HIV Neg February 2017 Stool negative for ova and parasites x3 ( Oxt 2016) Chest x-ray: no evidence of pulmonary disease CT of the abdomen back in May 2015: partial colectomy. Hx of lower gastrointestinal bleed ? History of colon cancer, status post surgery. History of infrarenal abdominal aorta. Hypertension. Asthma Depression PLAN: -Switch Cefepime to PO Cipro and continue Flagyl, abx d#07/11 -f/u Cdiff, if positive then continue flagyl for a total of 14 days. Monitor CBC. Monitor BMP. Monitor cultures (stool). Stool for C. diff GI f/u Discussed with Dr Rodriguez. Subjective Allergies: Coded Allergies: No Known Allergies (Unverified , 05/10/17) Subjective afebrile no leukocytosis s/p colonoscopy yesterday: diverticulosis, no obvious source of bleeding stool studies pending Objective Vital Signs Last 24 Hour Vital Signs Date Time Temp Pulse Resp B/P (MAP) Pulse Ox O2 Delivery O2 Flow Rate FiO2 06/30/17 09:10 122/83 06/30/17 09:10 91 122/83 06/30/17 09:00 94 99 100 06/30/17 08:00 98.7 91 19 122/83 99 98.7 06/30/17 07:55 90 18 Room Air 06/30/17 07:55 95 Room Air 21 06/30/17 07:55 Room Air 21 06/30/17 03:04 97.0 86 20 138/92 100 Room Air 97.0 06/30/17 00:00 98.1 87 20 135/96 98 98.1 06/29/17 21:00 81 91 90 06/29/17 20:00 97.3 92 21 120/81 96 97.3 06/29/17 19:30 97 Room Air 21 06/29/17 19:30 Room Air 21 06/29/17 19:30 90 20 Room Air 21 06/29/17 16:00 96.8 97 20 124/82 98 Room Air 96.8 06/29/17 16:00 97 06/29/17 14:53 98.8 73 20 114/76 100 Room Air 98.8 06/29/17 14:43 74 20 110/78 100 Room Air 06/29/17 14:41 209.8 78 14 100 06/29/17 14:38 98.8 72 20 112/75 100 Simple Mask 5.0 98.8 06/29/17 12:00 80 06/29/17 12:00 96.3 85 22 119/77 94 Room Air 96.3 Height (Feet): 6 Height (Inches): 0.00 Weight (Pounds): 220 Objective HEENT: anicteric Respiratory/Chest: no respiratory distress Cardiovascular: no gallop/murmur Abdomen: no organomegaly Microbiology Date/Time Source Procedure Growth Status 06/29/17 00:15 Stool Received Laboratory Tests Test 06/30/17 05:00 White Blood Count 7.6 K/UL (4.8-10.8) Red Blood Count 2.85 M/UL (4.70-6.10) L Hemoglobin 8.6 G/DL (14.2-18.0) L Hematocrit 26.7 % (42.0-52.0) L Mean Corpuscular Volume 94 FL (80-99) Mean Corpuscular Hemoglobin 30.4 PG (27.0-31.0) Mean Corpuscular Hemoglobin Concent 32.4 G/DL (32.0-36.0) Red Cell Distribution Width 17.5 % (11.6-14.8) H Platelet Count 172 K/UL (150-450) Mean Platelet Volume 8.3 FL (6.5-10.1) Neutrophils (%) (Auto) 83.3 % (45.0-75.0) H Lymphocytes (%) (Auto) 8.3 % (20.0-45.0) L Monocytes (%) (Auto) 5.7 % (1.0-10.0) Eosinophils (%) (Auto) 1.6 % (0.0-3.0) Basophils (%) (Auto) 1.0 % (0.0-2.0) Sodium Level 139 MMOL/L (136-145) Potassium Level 4.3 MMOL/L (3.5-5.1) Chloride Level 108 MMOL/L (98-107) H Carbon Dioxide Level 25 MMOL/L (21-32) Anion Gap 6 mmol/L (5-15) Blood Urea Nitrogen 13 mg/dL (7-18) Creatinine 1.4 MG/DL (0.55-1.30) H Estimat Glomerular Filtration Rate > 60 mL/min (>60) Glucose Level 97 MG/DL (74-106) Calcium Level 8.8 MG/DL (8.5-10.1) Current Medications Medications (Trade) Dose Ordered Sig/Blanche Route PRN Reason Start Time Stop Time Status Last Admin Dose Admin Acetaminophen (Tylenol) 650 mg Q4H PRN ORAL T>100.5 06/29/17 20:15 07/27/17 16:14 Acetaminophen/ Hydrocodone Bitart ([place] 5/325) 1 tab Q6H PRN ORAL Moderate Pain (Pain Scale 4-6) 06/29/17 23:30 07/04/17 20:59 Al Hydroxide/Mg Hydroxide (Mylanta II) 30 ml Q6H PRN ORAL dyspepsia 06/29/17 22:15 07/27/17 16:14 Albuterol/ Ipratropium (Albuterol/ Ipratropium) 3 ml Q4H PRN HHN Shortness of Breath 06/29/17 20:15 07/02/17 16:14 Amlodipine Besylate (Norvasc) 10 mg DAILY ORAL 06/30/17 09:00 07/28/17 08:59 06/30/17 09:10 Cefepime HCl 1 gm/ Sodium Chloride 55 ml @ 110 mls/hr Q12HR@0630,1830 IV 06/30/17 06:30 07/04/17 18:29 06/30/17 05:49 Citalopram Hydrobromide (celeXA) 40 mg DAILY ORAL 06/30/17 09:00 07/28/17 08:59 06/30/17 09:10 Hydrocortisone (Anusol HC) 1 supp TWICE A DAY RECTAL 06/30/17 09:00 07/28/17 17:59 06/30/17 09:10 Lisinopril (Zestril) 10 mg DAILY ORAL 06/30/17 09:00 07/28/17 08:59 06/30/17 09:10 Metronidazole 100 ml @ 100 mls/hr Q6H IVPB 06/29/17 21:30 07/05/17 15:29 06/30/17 09:16 Morphine Sulfate (Morphine Sulfate) 4 mg Q4H PRN IVP Severe Pain (Pain Scale 7-10) 06/29/17 21:30 07/05/17 17:29 06/30/17 08:09 Nitroglycerin (Ntg) 0.4 mg Q5M PRN SL Prn Chest Pain 06/29/17 19:35 07/27/17 17:29 Ondansetron HCl (Zofran) 4 mg Q6H PRN IVP Nausea & Vomiting 06/29/17 22:15 07/27/17 16:14 Pantoprazole (Protonix) 40 mg DAILY IVP 06/30/17 09:00 07/28/17 10:29 06/30/17 09:10 Polyethylene Glycol (Miralax) 17 gm DAILYPRN PRN ORAL Constipation 06/30/17 17:30 07/27/17 17:29 Promethazine HCl/ Codeine (Phenergan with Codeine) 5 ml Q4H PRN ORAL For Cough 06/29/17 20:15 07/27/17 16:14 Temazepam (Restoril) 15 mg HSPRN PRN ORAL Insomnia 06/29/17 21:00 07/04/17 20:59 Shivani Finney M.D. Jun 30, 2017 10:34
--- NOTE | 2017-06-30 10:39 | Pulmonology Progress Note ---
Assessment/Plan Problems: (1) Hemorrhagic shock (2) Lower GI bleed (3) Symptomatic anemia (4) Gastrointestinal malignancy Assessment/Plan colonoscopy report reviewed h/h stable GI following check h/h ID to follow, check cultures oncology f/u symptomatic treatment med/surg dc planning soon Subjective ROS Limited/Unobtainable: No Constitutional: Reports: no symptoms HEENT: Repors: no symptoms Allergies: Coded Allergies: No Known Allergies (Unverified , 05/10/17) Objective Last 24 Hour Vital Signs Date Time Temp Pulse Resp B/P (MAP) Pulse Ox O2 Delivery O2 Flow Rate FiO2 06/30/17 09:10 122/83 06/30/17 09:10 91 122/83 06/30/17 09:00 94 99 100 06/30/17 08:00 98.7 91 19 122/83 99 98.7 06/30/17 07:55 90 18 Room Air 21 06/30/17 07:55 95 Room Air 21 06/30/17 07:55 Room Air 21 06/30/17 03:04 97.0 86 20 138/92 100 Room Air 97.0 06/30/17 00:00 98.1 87 20 135/96 98 98.1 06/29/17 21:00 81 91 90 06/29/17 20:00 97.3 92 21 120/81 96 97.3 06/29/17 19:30 97 Room Air 21 06/29/17 19:30 Room Air 21 06/29/17 19:30 90 20 Room Air 21 06/29/17 16:00 96.8 97 20 124/82 98 Room Air 96.8 06/29/17 16:00 97 06/29/17 14:53 98.8 73 20 114/76 100 Room Air 98.8 06/29/17 14:43 74 20 110/78 100 Room Air 06/29/17 14:41 209.8 78 14 100 06/29/17 14:38 98.8 72 20 112/75 100 Simple Mask 5.0 98.8 06/29/17 12:00 80 06/29/17 12:00 96.3 85 22 119/77 94 Room Air 96.3 Intake and Output 06/29/17 06/30/17 19:00 07:00 Intake Total 500 ml Output Total 4 ml Balance 496 ml Intake Oral 500 ml Stool Total 4 ml # Voids 6 2 # Bowel Movements 4 Objective General Appearance: WD/WN, no apparent distress Lines, tubes and drains: peripheral HEENT: normocephalic, atraumatic Neck: non-tender, normal alignment Respiratory/Chest: chest wall non-tender, lungs clear Breasts: no masses Cardiovascular/Chest: normal peripheral pulses Abdomen: normal bowel sounds, non tender Genitourinary/Rectal: normal genital exam Extremities: normal range of motion Skin Exam: normal pigmentation Microbiology Date/Time Source Procedure Growth Status 06/29/17 00:15 Stool Received Laboratory Tests 06/30/17 05:00: White Blood Count 7.6, Red Blood Count 2.85L, Hemoglobin 8.6L, Hematocrit 26.7L , Mean Corpuscular Volume 94, Mean Corpuscular Hemoglobin 30.4, Mean Corpuscular Hemoglobin Concent 32.4, Red Cell Distribution Width 17.5H, Platelet Count 172, Mean Platelet Volume 8.3, Neutrophils (%) (Auto) 83.3H, Lymphocytes (%) (Auto) 8.3L, Monocytes (%) (Auto) 5.7, Eosinophils (%) (Auto) 1.6, Basophils (%) (Auto) 1.0, Sodium Level 139, Potassium Level 4.3, Chloride Level 108H, Carbon Dioxide Level 25, Anion Gap 6, Blood Urea Nitrogen 13, Creatinine 1.4H, Estimat Glomerular Filtration Rate > 60, Glucose Level 97, Calcium Level 8.8 Current Medications Medications (Trade) Dose Ordered Sig/Blanche Route PRN Reason Start Time Stop Time Status Last Admin Dose Admin Acetaminophen (Tylenol) 650 mg Q4H PRN ORAL T>100.5 06/29/17 20:15 07/27/17 16:14 Acetaminophen/ Hydrocodone Bitart ([place] 5/325) 1 tab Q6H PRN ORAL Moderate Pain (Pain Scale 4-6) 06/29/17 23:30 07/04/17 20:59 Al Hydroxide/Mg Hydroxide (Mylanta II) 30 ml Q6H PRN ORAL dyspepsia 06/29/17 22:15 07/27/17 16:14 Albuterol/ Ipratropium (Albuterol/ Ipratropium) 3 ml Q4H PRN HHN Shortness of Breath 06/29/17 20:15 07/02/17 16:14 Amlodipine Besylate (Norvasc) 10 mg DAILY ORAL 06/30/17 09:00 07/28/17 08:59 06/30/17 09:10 Cefepime HCl 1 gm/ Sodium Chloride 55 ml @ 110 mls/hr Q12HR@0630,1830 IV 06/30/17 06:30 07/04/17 18:29 06/30/17 05:49 Citalopram Hydrobromide (celeXA) 40 mg DAILY ORAL 06/30/17 09:00 07/28/17 08:59 06/30/17 09:10 Hydrocortisone (Anusol HC) 1 supp TWICE A DAY RECTAL 06/30/17 09:00 07/28/17 17:59 06/30/17 09:10 Lisinopril (Zestril) 10 mg DAILY ORAL 06/30/17 09:00 07/28/17 08:59 06/30/17 09:10 Metronidazole 100 ml @ 100 mls/hr Q6H IVPB 06/29/17 21:30 07/05/17 15:29 06/30/17 09:16 Morphine Sulfate (Morphine Sulfate) 4 mg Q4H PRN IVP Severe Pain (Pain Scale 7-10) 06/29/17 21:30 07/05/17 17:29 06/30/17 08:09 Nitroglycerin (Ntg) 0.4 mg Q5M PRN SL Prn Chest Pain 06/29/17 19:35 07/27/17 17:29 Ondansetron HCl (Zofran) 4 mg Q6H PRN IVP Nausea & Vomiting 06/29/17 22:15 07/27/17 16:14 Pantoprazole (Protonix) 40 mg DAILY IVP 06/30/17 09:00 07/28/17 10:29 06/30/17 09:10 Polyethylene Glycol (Miralax) 17 gm DAILYPRN PRN ORAL Constipation 06/30/17 17:30 07/27/17 17:29 Promethazine HCl/ Codeine (Phenergan with Codeine) 5 ml Q4H PRN ORAL For Cough 06/29/17 20:15 07/27/17 16:14 Temazepam (Restoril) 15 mg HSPRN PRN ORAL Insomnia 06/29/17 21:00 07/04/17 20:59 ANURAG GARCIA Jun 30, 2017 10:38
[2017-06-30 12:00] VITALS: BP 127/69
[2017-06-30] MEDS: Ciprofloxacin 500mg tab ORAL SCH ×2 (12:24→20:58)
--- NOTE | 2017-06-30 14:08 | Internal Med Progress Note ---
Subjective Date of Service: Jun 30, 2017 Physician Name CruzFranco Attending Physician Daljit Sandhu MD Current Medications Medications (Trade) Dose Ordered Sig/Blanche Route PRN Reason Start Time Stop Time Status Last Admin Dose Admin Acetaminophen (Tylenol) 650 mg Q4H PRN ORAL T>100.5 06/29/17 20:15 07/27/17 16:14 Acetaminophen/ Hydrocodone Bitart ([place] 5/325) 1 tab Q6H PRN ORAL Moderate Pain (Pain Scale 4-6) 06/29/17 23:30 07/04/17 20:59 Al Hydroxide/Mg Hydroxide (Mylanta II) 30 ml Q6H PRN ORAL dyspepsia 06/29/17 22:15 07/27/17 16:14 Albuterol/ Ipratropium (Albuterol/ Ipratropium) 3 ml Q4H PRN HHN Shortness of Breath 06/29/17 20:15 07/02/17 16:14 Amlodipine Besylate (Norvasc) 10 mg DAILY ORAL 06/30/17 09:00 07/28/17 08:59 06/30/17 09:10 Ciprofloxacin (Cipro 500mg tab) 500 mg EVERY 12 HOURS ORAL 06/30/17 11:30 07/07/17 11:29 06/30/17 12:24 Citalopram Hydrobromide (celeXA) 40 mg DAILY ORAL 06/30/17 09:00 07/28/17 08:59 06/30/17 09:10 Hydrocortisone (Anusol HC) 1 supp TWICE A DAY RECTAL 06/30/17 09:00 07/28/17 17:59 06/30/17 09:10 Lisinopril (Zestril) 10 mg DAILY ORAL 06/30/17 09:00 07/28/17 08:59 06/30/17 09:10 Metronidazole (Flagyl) 500 mg Q8HR ORAL 06/30/17 17:00 07/07/17 16:59 Morphine Sulfate (Morphine Sulfate) 4 mg Q4H PRN IVP Severe Pain (Pain Scale 7-10) 06/29/17 21:30 07/05/17 17:29 06/30/17 12:47 Nitroglycerin (Ntg) 0.4 mg Q5M PRN SL Prn Chest Pain 06/29/17 19:35 07/27/17 17:29 Ondansetron HCl (Zofran) 4 mg Q6H PRN IVP Nausea & Vomiting 06/29/17 22:15 07/27/17 16:14 Pantoprazole (Protonix) 40 mg DAILY IVP 06/30/17 09:00 07/28/17 10:29 06/30/17 09:10 Polyethylene Glycol (Miralax) 17 gm DAILYPRN PRN ORAL Constipation 06/30/17 17:30 07/27/17 17:29 Promethazine HCl/ Codeine (Phenergan with Codeine) 5 ml Q4H PRN ORAL For Cough 06/29/17 20:15 07/27/17 16:14 Temazepam (Restoril) 15 mg HSPRN PRN ORAL Insomnia 06/29/17 21:00 07/04/17 20:59 Allergies: Coded Allergies: No Known Allergies (Unverified , 05/10/17) ROS Limited/Unobtainable: No Constitutional: Reports: no symptoms HEENT: Reports: no symptoms Cardiovascular: Reports: no symptoms Respiratory: Reports: no symptoms Gastrointestinal/Abdominal: Reports: no symptoms Genitourinary: Reports: no symptoms Neurologic/Psychiatric: Reports: no symptoms Subjective 61 YO M admitted with vertigo. Now anemia secondary to GI bleed. S/P colonoscopy 06/29/17. Cover for Int Med Dr Sandhu Objective Last Vital Signs Date Time Temp Pulse Resp B/P (MAP) Pulse Ox O2 Delivery O2 Flow Rate FiO2 06/30/17 12:00 98.5 88 19 127/69 97 98.5 06/30/17 07:55 Room Air 21 06/29/17 14:38 5.0 Laboratory Tests Test 06/30/17 05:00 White Blood Count 7.6 K/UL (4.8-10.8) Red Blood Count 2.85 M/UL (4.70-6.10) L Hemoglobin 8.6 G/DL (14.2-18.0) L Hematocrit 26.7 % (42.0-52.0) L Mean Corpuscular Volume 94 FL (80-99) Mean Corpuscular Hemoglobin 30.4 PG (27.0-31.0) Mean Corpuscular Hemoglobin Concent 32.4 G/DL (32.0-36.0) Red Cell Distribution Width 17.5 % (11.6-14.8) H Platelet Count 172 K/UL (150-450) Mean Platelet Volume 8.3 FL (6.5-10.1) Neutrophils (%) (Auto) 83.3 % (45.0-75.0) H Lymphocytes (%) (Auto) 8.3 % (20.0-45.0) L Monocytes (%) (Auto) 5.7 % (1.0-10.0) Eosinophils (%) (Auto) 1.6 % (0.0-3.0) Basophils (%) (Auto) 1.0 % (0.0-2.0) Sodium Level 139 MMOL/L (136-145) Potassium Level 4.3 MMOL/L (3.5-5.1) Chloride Level 108 MMOL/L (98-107) H Carbon Dioxide Level 25 MMOL/L (21-32) Anion Gap 6 mmol/L (5-15) Blood Urea Nitrogen 13 mg/dL (7-18) Creatinine 1.4 MG/DL (0.55-1.30) H Estimat Glomerular Filtration Rate > 60 mL/min (>60) Glucose Level 97 MG/DL (74-106) Calcium Level 8.8 MG/DL (8.5-10.1) Microbiology Date/Time Source Procedure Growth Status 06/29/17 00:15 Stool Received Intake and Output 06/29/17 06/30/17 19:00 07:00 Intake Total 500 ml Output Total 4 ml Balance 496 ml Intake Oral 500 ml Stool Total 4 ml # Voids 6 2 # Bowel Movements 4 Objective General Appearance: WD/WN, no apparent distress, alert EENT: PERRL/EOMI, normal ENT inspection, TMs normal Neck: non-tender, normal alignment, supple, normal inspection Cardiovascular: normal peripheral pulses, normal rate, regular rhythm, no gallop/murmur, no JVD Respiratory/Chest: chest wall non-tender, lungs clear, normal breath sounds, no respiratory distress, no accessory muscle use Abdomen: normal bowel sounds, non tender, soft, no organomegaly, no mass, abnormal bowel sounds Extremities: normal range of motion Neurologic: reconciliation analyst II-XII grossly normal, no motor/sensory deficits Skin: normal pigmentation, warm/dry Assessment/Plan Problem List: (1) Pre-diabetes (2) History of colon cancer (3) SOB (shortness of breath) Assessment & Plan: Due to anemia. (4) Lower GI bleed Assessment & Plan: See GI note. S/P colonoscopy 06/28/17. (5) Symptomatic anemia (6) Acute blood loss anemia Assessment & Plan: S/P transfusion 1 unit PRBC 06/28/17. Start IV venofer. See hematology note. (7) Syncope (8) Abdominal pain (9) HTN (hypertension) Assessment & Plan: Continue lisinopril and norvasc (10) Diverticulosis (11) Hemorrhoids Status: not improved FRANCO CRUZ Jun 30, 2017 14:08
--- NOTE | 2017-06-30 14:58 | Cardiac Electrophysiology PN ---
Assessment/Plan Assessment/Plan 1. Syncope, etiology is not clear at this time, but could be due to gastrointestinal bleed. Echo EF 65% 2. Hypertension. Continue Norvasc 10 mg daily and lisinopril 20 mg daily. 3. Severe anemia. Hemoglobin 7.5. The patient was evaluated by Dr. Peralta. S/P colonoscopy again AMANDA RN Subjective Subjective Has constipation. No chest pain or SOB. Objective Last 24 Hour Vital Signs Date Time Temp Pulse Resp B/P (MAP) Pulse Ox O2 Delivery O2 Flow Rate FiO2 06/30/17 12:00 98.5 88 19 127/69 97 98.5 06/30/17 09:10 122/83 06/30/17 09:10 91 122/83 06/30/17 09:00 94 99 100 06/30/17 08:00 98.7 91 19 122/83 99 98.7 06/30/17 07:55 90 18 Room Air 21 06/30/17 07:55 95 Room Air 21 06/30/17 07:55 Room Air 21 06/30/17 03:04 97.0 86 20 138/92 100 Room Air 97.0 06/30/17 00:00 98.1 87 20 135/96 98 98.1 06/29/17 21:00 81 91 90 06/29/17 20:00 97.3 92 21 120/81 96 97.3 06/29/17 19:30 97 Room Air 21 06/29/17 19:30 Room Air 21 06/29/17 19:30 90 20 Room Air 21 06/29/17 16:00 96.8 97 20 124/82 98 Room Air 96.8 06/29/17 16:00 97 Intake and Output 06/29/17 06/30/17 19:00 07:00 Intake Total 500 ml Output Total 4 ml Balance 496 ml Intake Oral 500 ml Stool Total 4 ml # Voids 6 2 # Bowel Movements 4 Laboratory Tests Test 06/30/17 05:00 White Blood Count 7.6 K/UL (4.8-10.8) Red Blood Count 2.85 M/UL (4.70-6.10) L Hemoglobin 8.6 G/DL (14.2-18.0) L Hematocrit 26.7 % (42.0-52.0) L Mean Corpuscular Volume 94 FL (80-99) Mean Corpuscular Hemoglobin 30.4 PG (27.0-31.0) Mean Corpuscular Hemoglobin Concent 32.4 G/DL (32.0-36.0) Red Cell Distribution Width 17.5 % (11.6-14.8) H Platelet Count 172 K/UL (150-450) Mean Platelet Volume 8.3 FL (6.5-10.1) Neutrophils (%) (Auto) 83.3 % (45.0-75.0) H Lymphocytes (%) (Auto) 8.3 % (20.0-45.0) L Monocytes (%) (Auto) 5.7 % (1.0-10.0) Eosinophils (%) (Auto) 1.6 % (0.0-3.0) Basophils (%) (Auto) 1.0 % (0.0-2.0) Sodium Level 139 MMOL/L (136-145) Potassium Level 4.3 MMOL/L (3.5-5.1) Chloride Level 108 MMOL/L (98-107) H Carbon Dioxide Level 25 MMOL/L (21-32) Anion Gap 6 mmol/L (5-15) Blood Urea Nitrogen 13 mg/dL (7-18) Creatinine 1.4 MG/DL (0.55-1.30) H Estimat Glomerular Filtration Rate > 60 mL/min (>60) Glucose Level 97 MG/DL (74-106) Calcium Level 8.8 MG/DL (8.5-10.1) Microbiology Date/Time Source Procedure Growth Status 06/29/17 00:15 Stool Received Objective HEAD AND NECK: No JVD. LUNGS: Clear. CARDIOVASCULAR: Regular S1 and S2 with no gallop or murmur. ABDOMEN: Soft. EXTREMITIES: No pitting edema. CORRIE MALAGON Jun 30, 2017 14:58
[2017-06-30] MEDS ORDERED: Magnesium Citrate Liq Btl ORAL ONE (15:00)
--- NOTE | 2017-06-30 15:40 | Neurology Progress Note ---
Interim History Interim History Interim History Mr. Morales feels a little better. He has not moved his bowels today and has not passed any blood per rectum. He did get a little lightheaded for a few seconds when he walked today. He continues to feel generally weak. He has had no further episodes of loss of consciousness. Review of Systems Neuro Review of Systems Benign. Objective Physical Exam Last Vital Signs Date Time Temp Pulse Resp B/P (MAP) Pulse Ox O2 Delivery O2 Flow Rate FiO2 06/30/17 12:00 98.5 88 19 127/69 97 98.5 06/30/17 07:55 Room Air 21 06/29/17 14:38 5.0 Laboratory Tests Test 06/30/17 05:00 White Blood Count 7.6 K/UL (4.8-10.8) Red Blood Count 2.85 M/UL (4.70-6.10) L Hemoglobin 8.6 G/DL (14.2-18.0) L Hematocrit 26.7 % (42.0-52.0) L Mean Corpuscular Volume 94 FL (80-99) Mean Corpuscular Hemoglobin 30.4 PG (27.0-31.0) Mean Corpuscular Hemoglobin Concent 32.4 G/DL (32.0-36.0) Red Cell Distribution Width 17.5 % (11.6-14.8) H Platelet Count 172 K/UL (150-450) Mean Platelet Volume 8.3 FL (6.5-10.1) Neutrophils (%) (Auto) 83.3 % (45.0-75.0) H Lymphocytes (%) (Auto) 8.3 % (20.0-45.0) L Monocytes (%) (Auto) 5.7 % (1.0-10.0) Eosinophils (%) (Auto) 1.6 % (0.0-3.0) Basophils (%) (Auto) 1.0 % (0.0-2.0) Sodium Level 139 MMOL/L (136-145) Potassium Level 4.3 MMOL/L (3.5-5.1) Chloride Level 108 MMOL/L (98-107) H Carbon Dioxide Level 25 MMOL/L (21-32) Anion Gap 6 mmol/L (5-15) Blood Urea Nitrogen 13 mg/dL (7-18) Creatinine 1.4 MG/DL (0.55-1.30) H Estimat Glomerular Filtration Rate > 60 mL/min (>60) Glucose Level 97 MG/DL (74-106) Calcium Level 8.8 MG/DL (8.5-10.1) Neurologic Exam Objective PHYSICAL EXAMINATION: GENERAL: He is a well-developed, well-nourished, pleasant, black gentleman, lying in bed, in no acute distress. HEAD: Normocephalic and atraumatic. NECK: No neck rigidity was observed. EENT: Benign. NEUROLOGICAL EXAMINATION: MENTAL STATUS EXAMINATION: He was awake and alert. He was oriented to person, place, and time. He was able to recall 3/3 words immediately, but could only remember 2/3 words in 1 minute and 3 minutes. He was able to remember presidents, Trump and Obama spontaneously, but needed hints to remember presidents up to [place] and could not remember presidents prior to that. His mathematical skills were fairly good. His visuospatial function was preserved. SPEECH: He had no dysarthria. LANGUAGE: He had a mild anomia for low-frequency words. However, it is unclear as to what his educational level is. CRANIAL NERVE EXAMINATION: II: The visual brar were intact on confrontation testing. III, IV & : The external ocular movements were full and the pupils 3 mm in diameter, equal, round, regular, and reactive to light. V: He had normal facial sensations and the temporales, masseters, and pterygoids functioned normally. VII: He had normal facial expressions and no facial asymmetry. VIII: He was able to hear well bilaterally and had no nystagmus. IX: The palate moved symmetrically on phonation. X: He had no hoarseness of voice. XI: The sternocleidomastoids and trapezii functioned normally. XII: The tongue was in the midline without any fasciculations or atrophy. MOTOR SYSTEM: The tone was normal in all four extremities. Examination of muscle mass revealed no focal wasting. Examination of power revealed G 5/5 power in all muscle groups tested. SENSORY EXAMINATION: He had intact sensations to pinprick, light touch, and graphesthesia. COORDINATION: He performed well on [id number] and [id number] testing. On Romberg test, he swayed, but did not fall to one side or the other. REFLEXES: Trace+ and bilaterally symmetrical at the biceps, triceps, brachioradialis, and knees, 0 at both ankles. The plantar responses were flexor bilaterally. STANCE: He had a minimally wide-based, but stable stance. GAIT: He walked with a minimally wide-based, but stable gait. Impression/Recommendations Status: not improved Diagnostic Impression 1. Mr. Michel Morales is a 61-year-old, right-handed, black gentleman, who does have a past history of hypertension, borderline diabetes mellitus, dyslipidemia , and since January 2017, multiple episodes of bleeding per rectum, one of them followed by a syncopal event. He again started bleeding per rectum on and after an episode of loss of consciousness, he was brought into the [facility] Emergency Room and has since been admitted. He he was given some blood and felt better. 2. He feels a little better. He has stopped passing blood per rectum. He did get a little lightheaded when he walked earlier. He continues to feel generally weak. He has had no further episodes of loss of consciousness. 3. On neurological examination, at this time, he does have mild problems with recent and remote memory, a mild anomia, and globally diminished deep tendon reflexes with a wide-based stance and gait. The rest of the neurological examination is essentially benign. 4. Laboratory data on my initial evaluation revealed that his hemoglobin had dropped down to 7.4 G. His chemistry panel was relatively benign except for a low albumin of 2.8. His urinalysis revealed 1+ leukocyte esterase, 0 red blood cells, and 2 to 4 white blood cells per high-power field. 5. The patient's history, neurological examination, and laboratory data are most compatible with a syncopal event due to acute blood loss. He also exhibits some mild cognitive dysfunction, which may be related to the anemia versus other etiology. Recommendations 1. Continue present management. 2. Treatment of GI source of bleeding as per GI specialist. 3. Correct hemoglobin to greater than 10 G. 4. Observe. Ezequiel Sanchez M.D., M.S.P.H. EZEQUIEL SANCHEZ Jun 30, 2017 15:40
[2017-06-30 16:00] VITALS: BP 104/73
[2017-06-30] MEDS ORDERED: NS 275ml ONE (16:06)
[2017-06-30] MEDS ORDERED: Miralax 17gm pkt ORAL PRN (17:30)
[2017-06-30] MEDS: metroNIDAZOLE 500mg tab ORAL SCH ×2 (17:58→20:58)
--- NOTE | 2017-06-30 18:32 | General Progress Note ---
Assessment/Plan Assessment/Plan Assessment (1) Lower GI bleed ICD Codes: K92.2 - Gastrointestinal hemorrhage, unspecified SNOMED: 84984444 (2) Iron deficiency anemia ICD Codes: D50.9 - Iron deficiency anemia, unspecified SNOMED: 76855821 (3) Anemia ICD Codes: D64.9 - Anemia, unspecified SNOMED: 601093498 Recommendations - po as tolerated - OOB - follow labs Subjective Allergies: Coded Allergies: No Known Allergies (Unverified , 05/10/17) Subjective C/o some abdominal discomfort c/o come nausea but able to tolerate PO Objective Last 24 Hour Vital Signs Date Time Temp Pulse Resp B/P (MAP) Pulse Ox O2 Delivery O2 Flow Rate FiO2 06/30/17 16:00 98.6 92 19 104/73 97 98.6 06/30/17 12:00 98.5 88 19 127/69 97 98.5 06/30/17 09:10 122/83 06/30/17 09:10 91 122/83 06/30/17 09:00 94 99 100 06/30/17 08:00 98.7 91 19 122/83 99 98.7 06/30/17 07:55 90 18 Room Air 21 06/30/17 07:55 95 Room Air 21 06/30/17 07:55 Room Air 21 06/30/17 03:04 97.0 86 20 138/92 100 Room Air 97.0 06/30/17 00:00 98.1 87 20 135/96 98 98.1 06/29/17 21:00 81 91 90 06/29/17 20:00 97.3 92 21 120/81 96 97.3 06/29/17 19:30 97 Room Air 21 06/29/17 19:30 Room Air 21 06/29/17 19:30 90 20 Room Air 21 Intake and Output 06/29/17 06/30/17 19:00 07:00 Intake Total 500 ml Output Total 4 ml Balance 496 ml Intake Oral 500 ml Stool Total 4 ml # Voids 6 2 # Bowel Movements 4 Laboratory Tests 06/30/17 05:00: White Blood Count 7.6, Red Blood Count 2.85L, Hemoglobin 8.6L, Hematocrit 26.7L , Mean Corpuscular Volume 94, Mean Corpuscular Hemoglobin 30.4, Mean Corpuscular Hemoglobin Concent 32.4, Red Cell Distribution Width 17.5H, Platelet Count 172, Mean Platelet Volume 8.3, Neutrophils (%) (Auto) 83.3H, Lymphocytes (%) (Auto) 8.3L, Monocytes (%) (Auto) 5.7, Eosinophils (%) (Auto) 1.6, Basophils (%) (Auto) 1.0, Sodium Level 139, Potassium Level 4.3, Chloride Level 108H, Carbon Dioxide Level 25, Anion Gap 6, Blood Urea Nitrogen 13, Creatinine 1.4H, Estimat Glomerular Filtration Rate > 60, Glucose Level 97, Calcium Level 8.8 Height (Feet): 6 Height (Inches): 0.00 Weight (Pounds): 220 Objective WDWN NCAT supple CTA RRR Soft ND, (+) mild RLQ > LLQ TTP no edema SYD GRAMAJO Jun 30, 2017 18:32
[2017-06-30 20:00] VITALS: BP 116/77
[2017-06-30] MEDS: Iron Sucrose 100 MG in NS 55 ML IV SCH (20:58)
[2017-07-01] VITALS: BP 133/83
[2017-07-01] MEDS: Morphine Sulfate 4mg/ml Inj IVP PRN ×5 (00:24→19:09)
[2017-07-01 04:00] VITALS: BP 124/74
[2017-07-01] MEDS: metroNIDAZOLE 500mg tab ORAL SCH ×3 (04:42→20:50)
[2017-07-01 07:28] LABS: EOSINOPHILS % (AUTO) 2.3 % (0.0-3.0); HEMATOCRIT 27.4 % (42.0-52.0); HEMOGLOBIN 8.8 G/DL (14.2-18.0); LYMPHOCYTES % (AUTO) 17.7 % (20.0-45.0); MEAN CORPUSCULAR VOLUME 94 FL (80-99); MONOCYTES % (AUTO) 8.2 % (1.0-10.0); NEUTROPHILS % (AUTO) 70.9 % (45.0-75.0); PLATELET COUNT 166 K/UL (150-450); RED BLOOD COUNT 2.93 M/UL (4.70-6.10); RED CELL DISTRIBUTION WIDTH 16.8 % (11.6-14.8); WHITE BLOOD COUNT 5.8 K/UL (4.8-10.8)
[2017-07-01 07:48] LABS: ALANINE AMINOTRANSFERASE 25 U/L (12-78); ALBUMIN 2.9 G/DL (3.4-5.0); ALBUMIN/GLOBULIN RATIO 0.9 (1.0-2.7); ALKALINE PHOSPHATASE 66 U/L (46-116); ANION GAP 5 mmol/L (5-15); ASPARTATE AMINO TRANSFERASE 13 U/L (15-37); BILIRUBIN,TOTAL 0.1 MG/DL (0.2-1.0); BLOOD UREA NITROGEN 12 mg/dL (7-18); CALCIUM 8.7 MG/DL (8.5-10.1); CARBON DIOXIDE 28 MMOL/L (21-32); CHLORIDE 108 MMOL/L (98-107); CREATININE 1.3 MG/DL (0.55-1.30); PHOSPHORUS 2.5 MG/DL (2.5-4.9); SODIUM 141 MMOL/L (136-145)
[2017-07-01 08:05] VITALS: BP 143/92
[2017-07-01] MEDS: Pantoprazole Inj IVP SCH (09:31)
[2017-07-01] MEDS: Ciprofloxacin 500mg tab ORAL SCH ×2 (09:32→20:50)
[2017-07-01] MEDS: Lisinopril 10mg tab ORAL SCH (09:32)
[2017-07-01] MEDS: Hydrocortisone SUPP RECTAL SCH ×2 (09:33→18:16)
[2017-07-01] MEDS: Citalopram Hydrobromide 10mg Tab ORAL SCH (09:37)
--- NOTE | 2017-07-01 10:10 | Neurology Progress Note ---
Interim History Interim History Interim History Mr. Morales feels better. He has not moved his bowels today and has not passed any blood per rectum. He did get a little lightheaded for a few seconds when he walked yesterday. He continues to feel generally weak. He has had no further episodes of loss of consciousness. His energy level is still down. He denies any new neurologic symptoms. Review of Systems Neuro Review of Systems Benign. Objective Physical Exam Last Vital Signs Date Time Temp Pulse Resp B/P (MAP) Pulse Ox O2 Delivery O2 Flow Rate FiO2 07/01/17 09:32 122/75 07/01/17 09:32 81 07/01/17 09:16 97.9 07/01/17 08:12 20 100 Room Air 07/01/17 08:02 21 06/29/17 14:38 5.0 Laboratory Tests Test 07/01/17 04:50 White Blood Count 5.8 K/UL (4.8-10.8) Red Blood Count 2.93 M/UL (4.70-6.10) L Hemoglobin 8.8 G/DL (14.2-18.0) L Hematocrit 27.4 % (42.0-52.0) L Mean Corpuscular Volume 94 FL (80-99) Mean Corpuscular Hemoglobin 29.8 PG (27.0-31.0) Mean Corpuscular Hemoglobin Concent 31.9 G/DL (32.0-36.0) L Red Cell Distribution Width 16.8 % (11.6-14.8) H Platelet Count 166 K/UL (150-450) Mean Platelet Volume 9.0 FL (6.5-10.1) Neutrophils (%) (Auto) 70.9 % (45.0-75.0) Lymphocytes (%) (Auto) 17.7 % (20.0-45.0) L Monocytes (%) (Auto) 8.2 % (1.0-10.0) Eosinophils (%) (Auto) 2.3 % (0.0-3.0) Basophils (%) (Auto) 1.0 % (0.0-2.0) Erythrocyte Sedimentation Rate 67 MM/HR (0-20) H Sodium Level 141 MMOL/L (136-145) Potassium Level 4.0 MMOL/L (3.5-5.1) Chloride Level 108 MMOL/L (98-107) H Carbon Dioxide Level 28 MMOL/L (21-32) Anion Gap 5 mmol/L (5-15) Blood Urea Nitrogen 12 mg/dL (7-18) Creatinine 1.3 MG/DL (0.55-1.30) Estimat Glomerular Filtration Rate > 60 mL/min (>60) Glucose Level 104 MG/DL (74-106) Calcium Level 8.7 MG/DL (8.5-10.1) Phosphorus Level 2.5 MG/DL (2.5-4.9) Magnesium Level 2.0 MG/DL (1.8-2.4) Total Bilirubin 0.1 MG/DL (0.2-1.0) L Aspartate Amino Transf (AST/SGOT) 13 U/L (15-37) L Alanine Aminotransferase (ALT/SGPT) 25 U/L (12-78) Alkaline Phosphatase 66 U/L (46-116) C-Reactive Protein, Quantitative 5.8 mg/dL (0.00-0.90) H Total Protein 6.2 G/DL (6.4-8.2) L Albumin 2.9 G/DL (3.4-5.0) L Globulin 3.3 g/dL Albumin/Globulin Ratio 0.9 (1.0-2.7) L Neurologic Exam Objective PHYSICAL EXAMINATION: GENERAL: He is a well-developed, well-nourished, pleasant, black gentleman, lying in bed, in no acute distress. HEAD: Normocephalic and atraumatic. NECK: No neck rigidity was observed. EENT: Benign. NEUROLOGICAL EXAMINATION: MENTAL STATUS EXAMINATION: He was awake and alert. He was oriented to person, place, and time. He was able to recall 3/3 words immediately, but could only remember 2/3 words in 1 minute and 3 minutes. He was able to remember presidents, Trump and Obama spontaneously, but needed hints to remember presidents up to [place] and could not remember presidents prior to that. His mathematical skills were fairly good. His visuospatial function was preserved. SPEECH: He had no dysarthria. LANGUAGE: He had a mild anomia for low-frequency words. However, it is unclear as to what his educational level is. CRANIAL NERVE EXAMINATION: II: The visual brar were intact on confrontation testing. III, IV & : The external ocular movements were full and the pupils 3 mm in diameter, equal, round, regular, and reactive to light. V: He had normal facial sensations and the temporales, masseters, and pterygoids functioned normally. VII: He had normal facial expressions and no facial asymmetry. VIII: He was able to hear well bilaterally and had no nystagmus. IX: The palate moved symmetrically on phonation. X: He had no hoarseness of voice. XI: The sternocleidomastoids and trapezii functioned normally. XII: The tongue was in the midline without any fasciculations or atrophy. MOTOR SYSTEM: The tone was normal in all four extremities. Examination of muscle mass revealed no focal wasting. Examination of power revealed G 5/5 power in all muscle groups tested. SENSORY EXAMINATION: He had intact sensations to pinprick, light touch, and graphesthesia. COORDINATION: He performed well on kgolcz-ta-coon and qayy-sw-ldgs testing. On Romberg test, he swayed, but did not fall to one side or the other. REFLEXES: Trace+ and bilaterally symmetrical at the biceps, triceps, brachioradialis, and knees, 0 at both ankles. The plantar responses were flexor bilaterally. STANCE: He had a minimally wide-based, but stable stance. GAIT: He walked with a minimally wide-based, but stable gait. Impression/Recommendations Diagnostic Impression 1. Mr. Michel Morales is a 61-year-old, right-handed, black gentleman, who does have a past history of hypertension, borderline diabetes mellitus, dyslipidemia , and since January 2017, multiple episodes of bleeding per rectum, one of them followed by a syncopal event. He again started bleeding per rectum on and after an episode of loss of consciousness, he was brought into the [facility] Emergency Room and has since been admitted. He he was given some blood and felt better. 2. He feels a little better. He has stopped passing blood per rectum. He did get a little lightheaded when he walked yesterday. He continues to feel generally weak. He has had no further episodes of loss of consciousness. 3. On neurological examination, at this time, he does have mild problems with recent and remote memory, a mild anomia, and globally diminished deep tendon reflexes with a wide-based stance and gait. The rest of the neurological examination is essentially benign. 4. Laboratory data on my initial evaluation revealed that his hemoglobin had dropped down to 7.4 G. His chemistry panel was relatively benign except for a low albumin of 2.8. His urinalysis revealed 1+ leukocyte esterase, 0 red blood cells, and 2 to 4 white blood cells per high-power field. 5. The patient's history, neurological examination, and laboratory data are most compatible with a syncopal event due to acute blood loss. He also exhibits some mild cognitive dysfunction, which may be related to the anemia versus other etiology. Recommendations 1. Continue present management. 2. Treatment of GI source of bleeding as per GI specialist. 3. Correct hemoglobin to greater than 10 G. 4. Observe. Ezequiel Sanchez M.D., M.S.P.[place]. EZEQUIEL SANCHEZ Jul 01, 2017 10:10
[2017-07-01 11:40] VITALS: BP 126/80
--- NOTE | 2017-07-01 12:49 | General Progress Note ---
Assessment/Plan Assessment/Plan #. Anemia due to underlying chronic disease. Hemoglobin currently at 9. --> Anemia workup reviewed. Iron 18, TIBC 326 --> Transfuse if hgb <7 or symptomatic. #. Anemia secondary to iron-deficiency anemia. Continue to closely monitor. Hemoglobin goal is above 7. --> The patient is iron deficient. Ferritin 48 --> Obtain serum protein electrophoresis Continue the patient on iron. #. Lower abdominal pain, potentially secondary to colitis. --> On pain management. #. Diarrhea, chronic versus gastrointestinal bleed. #. Depression. Subjective Date patient seen: Jun 30, 2017 Constitutional: Denies: no symptoms, chills, diaphoresis, fever, malaise, weakness, other HEENT: Denies: no symptoms, eye pain, blurred vision, tearing, double vision, ear pain, ear discharge, nose pain, nose congestion, throat pain, throat swelling, mouth pain, mouth swelling, other Cardiovascular: Denies: no symptoms, chest pain, edema, irregular heart rate, lightheadedness, palpitations, syncope, other Respiratory: Denies: no symptoms, cough, orthopnea, shortness of breath, SOB with excertion, SOB at rest, sputum, stridor, wheezing, other Gastrointestinal/Abdominal: Denies: no symptoms, abdomen distended, abdominal pain, black stools, tarry stools, blood in stool, constipated, diarrhea, difficulty swallowing, nausea, poor appetite, poor fluid intake, rectal bleeding , vomiting, other Genitourinary: Denies: no symptoms, burning, discharge, frequency, flank pain, hematuria, incontinence, pain, urgency, other Hematologic/Lymphatic: Reports: anemia Allergies: Coded Allergies: No Known Allergies (Unverified , 05/10/17) Subjective Some abd pain. On pain control. Objective Last 24 Hour Vital Signs Date Time Temp Pulse Resp B/P (MAP) Pulse Ox O2 Delivery O2 Flow Rate FiO2 07/01/17 11:40 98.1 79 18 126/80 97 Room Air 98.1 07/01/17 09:32 122/75 07/01/17 09:32 81 122/75 07/01/17 09:16 97.9 07/01/17 08:51 85 92 117 07/01/17 08:12 82 20 100 Room Air 07/01/17 08:05 97.9 89 18 143/92 99 Room Air 97.9 07/01/17 08:02 90 18 100 Room Air 21 07/01/17 08:00 90 18 Room Air 07/01/17 05:12 98.0 07/01/17 04:42 98.0 07/01/17 04:00 98.0 74 18 124/74 100 Room Air 98.0 07/01/17 00:24 98.2 07/01/17 00:00 98.4 81 18 133/83 98 Room Air 98.4 06/30/17 20:00 98.2 70 20 116/77 96 Room Air 98.2 06/30/17 19:30 93 20 Room Air 21 06/30/17 16:00 98.6 92 19 104/73 97 98.6 Intake and Output 06/30/17 07/01/17 19:00 07:00 Intake Total 930 ml 60 ml Output Total 400 ml Balance 530 ml 60 ml Intake Oral 830 ml IV Total 100 ml 60 ml Output Urine Total 400 ml # Voids 2 3 # Bowel Movements 1 Laboratory Tests 07/01/17 04:50: White Blood Count 5.8, Red Blood Count 2.93L, Hemoglobin 8.8L, Hematocrit 27.4L , Mean Corpuscular Volume 94, Mean Corpuscular Hemoglobin 29.8, Mean Corpuscular Hemoglobin Concent 31.9L, Red Cell Distribution Width 16.8H, Platelet Count 166, Mean Platelet Volume 9.0, Neutrophils (%) (Auto) 70.9, Lymphocytes (%) (Auto) 17.7L, Monocytes (%) (Auto) 8.2, Eosinophils (%) (Auto) 2.3, Basophils (%) (Auto) 1.0, Erythrocyte Sedimentation Rate 67H, Sodium Level 141, Potassium Level 4.0, Chloride Level 108H, Carbon Dioxide Level 28, Anion Gap 5, Blood Urea Nitrogen 12, Creatinine 1.3, Estimat Glomerular Filtration Rate > 60, Glucose Level 104, Calcium Level 8.7, Phosphorus Level 2.5, Magnesium Level 2.0, Total Bilirubin 0.1L, Aspartate Amino Transf (AST/SGOT) 13L , Alanine Aminotransferase (ALT/SGPT) 25, Alkaline Phosphatase 66, C-Reactive Protein, Quantitative 5.8H, Total Protein 6.2L, Albumin 2.9L, Globulin 3.3, Albumin/Globulin Ratio 0.9L Height (Feet): 6 Height (Inches): 0.00 Weight (Pounds): 220 General Appearance: mild distress Respiratory/Chest: decreased breath sounds Edema: no edema noted Arm (L), no edema noted Arm (R), no edema noted Leg (L), no edema noted Leg (R) 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
--- NOTE | 2017-07-01 14:55 | Cardiology Report ---
APPROVED REPORT EXAM: Two-dimensional and M-mode echocardiogram with Doppler and color Doppler. INDICATION Syncope M-Mode DIMENSIONS IVSd1.6 (0.7-1.1cm)Left Atrium (MM)3.2 (1.6-4.0cm) LVDd4.3 (3.5-5.6cm)Aortic Root3.2 (2.0-3.7cm) PWd2.0 (0.7-1.1cm)Aortic Cusp Exc.2.4 (1.5-2.0cm) LVDs2.4 (2.5-4.0cm) PWs2.8 cm Normal left ventricular chamber size, systolic function and wall motion. Left ventricular ejection fraction estimated to be 60-65 %. Mild left ventricular hypertrophy. Anterior Echo-free space, may be due to pericardial fat or effusion. Mild left atrial enlargement. Mild right ventricular enlargement. Right atrial chamber size is within normal limits. Focal aortic valve sclerosis with adequate cusp excursion. Thickened mitral valve leaflets with normal excursion. Mild mitral annulus and aortic root calcification. Normal pulmonic valve structure. Normal tricuspid valve structure. IVC is normal in size with physiological collapse. A color flow and spectral Doppler study was performed and revealed: Mild aortic insufficiency. Trace mitral regurgitation. reduced left ventricular relaxation c/w impaired relaxation diastolic dysfunction. Mild tricuspid regurgitation. Tricuspid systolic velocities suggests peak right ventricular systolic pressure of 41 mmHg, consistent with mild pulmonary hypertension. No pulmonic regurgitation present.
--- NOTE | 2017-07-01 14:58 | Cardiac Electrophysiology PN ---
Assessment/Plan Assessment/Plan 1. Syncope, etiology is not clear at this time, but could be due to GI bleed. Echo EF 65% 2. Hypertension. Continue Norvasc 10 mg daily and lisinopril 20 mg daily. 3. Severe anemia. Hemoglobin 7.5. The patient was evaluated by Dr. Peralta. S/P colonoscopy. AMANDA RN Subjective Subjective On nonmonitored bed. No chest pain or SOB.Still has abdominal pain. Objective Last 24 Hour Vital Signs Date Time Temp Pulse Resp B/P (MAP) Pulse Ox O2 Delivery O2 Flow Rate FiO2 07/01/17 11:40 98.1 79 18 126/80 97 Room Air 98.1 07/01/17 09:32 122/75 07/01/17 09:32 81 122/75 07/01/17 09:16 97.9 07/01/17 08:51 85 92 117 07/01/17 08:12 82 20 100 Room Air 07/01/17 08:05 97.9 89 18 143/92 99 Room Air 97.9 07/01/17 08:02 90 18 100 Room Air 21 07/01/17 08:00 90 18 Room Air 07/01/17 05:12 98.0 07/01/17 04:42 98.0 07/01/17 04:00 98.0 74 18 124/74 100 Room Air 98.0 07/01/17 00:24 98.2 07/01/17 00:00 98.4 81 18 133/83 98 Room Air 98.4 06/30/17 20:00 98.2 70 20 116/77 96 Room Air 98.2 06/30/17 19:30 93 20 Room Air 21 06/30/17 16:00 98.6 92 19 104/73 97 98.6 Intake and Output 06/30/17 07/01/17 19:00 07:00 Intake Total 930 ml 60 ml Output Total 400 ml Balance 530 ml 60 ml Intake Oral 830 ml IV Total 100 ml 60 ml Output Urine Total 400 ml # Voids 2 3 # Bowel Movements 1 Laboratory Tests Test 07/01/17 04:50 White Blood Count 5.8 K/UL (4.8-10.8) Red Blood Count 2.93 M/UL (4.70-6.10) L Hemoglobin 8.8 G/DL (14.2-18.0) L Hematocrit 27.4 % (42.0-52.0) L Mean Corpuscular Volume 94 FL (80-99) Mean Corpuscular Hemoglobin 29.8 PG (27.0-31.0) Mean Corpuscular Hemoglobin Concent 31.9 G/DL (32.0-36.0) L Red Cell Distribution Width 16.8 % (11.6-14.8) H Platelet Count 166 K/UL (150-450) Mean Platelet Volume 9.0 FL (6.5-10.1) Neutrophils (%) (Auto) 70.9 % (45.0-75.0) Lymphocytes (%) (Auto) 17.7 % (20.0-45.0) L Monocytes (%) (Auto) 8.2 % (1.0-10.0) Eosinophils (%) (Auto) 2.3 % (0.0-3.0) Basophils (%) (Auto) 1.0 % (0.0-2.0) Erythrocyte Sedimentation Rate 67 MM/HR (0-20) H Sodium Level 141 MMOL/L (136-145) Potassium Level 4.0 MMOL/L (3.5-5.1) Chloride Level 108 MMOL/L (98-107) H Carbon Dioxide Level 28 MMOL/L (21-32) Anion Gap 5 mmol/L (5-15) Blood Urea Nitrogen 12 mg/dL (7-18) Creatinine 1.3 MG/DL (0.55-1.30) Estimat Glomerular Filtration Rate > 60 mL/min (>60) Glucose Level 104 MG/DL (74-106) Calcium Level 8.7 MG/DL (8.5-10.1) Phosphorus Level 2.5 MG/DL (2.5-4.9) Magnesium Level 2.0 MG/DL (1.8-2.4) Total Bilirubin 0.1 MG/DL (0.2-1.0) L Aspartate Amino Transf (AST/SGOT) 13 U/L (15-37) L Alanine Aminotransferase (ALT/SGPT) 25 U/L (12-78) Alkaline Phosphatase 66 U/L (46-116) C-Reactive Protein, Quantitative 5.8 mg/dL (0.00-0.90) H Total Protein 6.2 G/DL (6.4-8.2) L Albumin 2.9 G/DL (3.4-5.0) L Globulin 3.3 g/dL Albumin/Globulin Ratio 0.9 (1.0-2.7) L Microbiology Date/Time Source Procedure Growth Status 06/30/17 19:00 Stool Clostridium difficile Toxin Assay - Final Complete 06/29/17 00:15 Stool Stool Culture - Preliminary NO SALMONELLA,SHIGELLA OR CAMPYLOBACT... Resulted Objective HEAD AND NECK: No JVD. LUNGS: Clear. CARDIOVASCULAR: Regular S1 and S2 with no gallop or murmur. ABDOMEN: Soft. EXTREMITIES: No pitting edema. CORRIE MALAGON Jul 01, 2017 14:58
--- NOTE | 2017-07-01 15:12 | Internal Med Progress Note ---
Subjective Date of Service: Jul 01, 2017 Physician Name Heath Cruz Attending Physician Daljit Sandhu MD Current Medications Medications (Trade) Dose Ordered Sig/Blanche Route PRN Reason Start Time Stop Time Status Last Admin Dose Admin Acetaminophen (Tylenol) 650 mg Q4H PRN ORAL T>100.5 06/29/17 20:15 07/27/17 16:14 Acetaminophen/ Hydrocodone Bitart ([place] 5/325) 1 tab Q6H PRN ORAL Moderate Pain (Pain Scale 4-6) 06/29/17 23:30 07/04/17 20:59 Al Hydroxide/Mg Hydroxide (Mylanta II) 30 ml Q6H PRN ORAL dyspepsia 06/29/17 22:15 07/27/17 16:14 Albuterol/ Ipratropium (Albuterol/ Ipratropium) 3 ml Q4H PRN HHN Shortness of Breath 06/29/17 20:15 07/02/17 16:14 07/01/17 08:02 Amlodipine Besylate (Norvasc) 10 mg DAILY ORAL 06/30/17 09:00 07/28/17 08:59 07/01/17 09:32 Ciprofloxacin (Cipro 500mg tab) 500 mg EVERY 12 HOURS ORAL 06/30/17 11:30 07/07/17 11:29 07/01/17 09:32 Citalopram Hydrobromide (celeXA) 40 mg DAILY ORAL 06/30/17 09:00 07/28/17 08:59 07/01/17 09:37 Hydrocortisone (Anusol HC) 1 supp TWICE A DAY RECTAL 06/30/17 09:00 07/28/17 17:59 07/01/17 09:33 Iron Sucrose 100 mg/Sodium Chloride 60 ml @ 240 mls/hr BEDTIME IV 06/30/17 21:00 07/04/17 21:14 06/30/17 20:58 Lisinopril (Zestril) 10 mg DAILY ORAL 06/30/17 09:00 07/28/17 08:59 07/01/17 09:32 Metronidazole (Flagyl) 500 mg Q8HR ORAL 06/30/17 17:00 07/07/17 16:59 07/01/17 14:17 Morphine Sulfate (Morphine Sulfate) 4 mg Q4H PRN IVP Severe Pain (Pain Scale 7-10) 06/29/17 21:30 07/05/17 17:29 07/01/17 14:33 Nitroglycerin (Ntg) 0.4 mg Q5M PRN SL Prn Chest Pain 06/29/17 19:35 07/27/17 17:29 Ondansetron HCl (Zofran) 4 mg Q6H PRN IVP Nausea & Vomiting 06/29/17 22:15 07/27/17 16:14 Pantoprazole (Protonix) 40 mg DAILY IVP 06/30/17 09:00 07/28/17 10:29 07/01/17 09:31 Polyethylene Glycol (Miralax) 17 gm DAILYPRN PRN ORAL Constipation 06/30/17 17:30 07/27/17 17:29 Promethazine HCl/ Codeine (Phenergan with Codeine) 5 ml Q4H PRN ORAL For Cough 06/29/17 20:15 07/27/17 16:14 Temazepam (Restoril) 15 mg HSPRN PRN ORAL Insomnia 06/29/17 21:00 07/04/17 20:59 06/30/17 20:58 Allergies: Coded Allergies: No Known Allergies (Unverified , 05/10/17) ROS Limited/Unobtainable: No Constitutional: Reports: no symptoms HEENT: Reports: no symptoms Cardiovascular: Reports: no symptoms Respiratory: Reports: no symptoms Gastrointestinal/Abdominal: Reports: abdominal pain, rectal bleeding Genitourinary: Reports: no symptoms Neurologic/Psychiatric: Reports: no symptoms Subjective 61 YO M admitted with vertigo. Now anemia secondary to GI bleed. S/P colonoscopy 06/29/17. Cover for Int Bob Sandhu Objective Last Vital Signs Date Time Temp Pulse Resp B/P (MAP) Pulse Ox O2 Delivery O2 Flow Rate FiO2 07/01/17 11:40 98.1 79 18 126/80 97 Room Air 98.1 07/01/17 08:02 21 06/29/17 14:38 5.0 Laboratory Tests Test 07/01/17 04:50 White Blood Count 5.8 K/UL (4.8-10.8) Red Blood Count 2.93 M/UL (4.70-6.10) L Hemoglobin 8.8 G/DL (14.2-18.0) L Hematocrit 27.4 % (42.0-52.0) L Mean Corpuscular Volume 94 FL (80-99) Mean Corpuscular Hemoglobin 29.8 PG (27.0-31.0) Mean Corpuscular Hemoglobin Concent 31.9 G/DL (32.0-36.0) L Red Cell Distribution Width 16.8 % (11.6-14.8) H Platelet Count 166 K/UL (150-450) Mean Platelet Volume 9.0 FL (6.5-10.1) Neutrophils (%) (Auto) 70.9 % (45.0-75.0) Lymphocytes (%) (Auto) 17.7 % (20.0-45.0) L Monocytes (%) (Auto) 8.2 % (1.0-10.0) Eosinophils (%) (Auto) 2.3 % (0.0-3.0) Basophils (%) (Auto) 1.0 % (0.0-2.0) Erythrocyte Sedimentation Rate 67 MM/HR (0-20) H Sodium Level 141 MMOL/L (136-145) Potassium Level 4.0 MMOL/L (3.5-5.1) Chloride Level 108 MMOL/L (98-107) H Carbon Dioxide Level 28 MMOL/L (21-32) Anion Gap 5 mmol/L (5-15) Blood Urea Nitrogen 12 mg/dL (7-18) Creatinine 1.3 MG/DL (0.55-1.30) Estimat Glomerular Filtration Rate > 60 mL/min (>60) Glucose Level 104 MG/DL (74-106) Calcium Level 8.7 MG/DL (8.5-10.1) Phosphorus Level 2.5 MG/DL (2.5-4.9) Magnesium Level 2.0 MG/DL (1.8-2.4) Total Bilirubin 0.1 MG/DL (0.2-1.0) L Aspartate Amino Transf (AST/SGOT) 13 U/L (15-37) L Alanine Aminotransferase (ALT/SGPT) 25 U/L (12-78) Alkaline Phosphatase 66 U/L (46-116) C-Reactive Protein, Quantitative 5.8 mg/dL (0.00-0.90) H Total Protein 6.2 G/DL (6.4-8.2) L Albumin 2.9 G/DL (3.4-5.0) L Globulin 3.3 g/dL Albumin/Globulin Ratio 0.9 (1.0-2.7) L Microbiology Date/Time Source Procedure Growth Status 06/30/17 19:00 Stool Clostridium difficile Toxin Assay - Final Complete 06/29/17 00:15 Stool Stool Culture - Preliminary NO SALMONELLA,SHIGELLA OR CAMPYLOBACT... Resulted Intake and Output 06/30/17 07/01/17 19:00 07:00 Intake Total 930 ml 60 ml Output Total 400 ml Balance 530 ml 60 ml Intake Oral 830 ml IV Total 100 ml 60 ml Output Urine Total 400 ml # Voids 2 3 # Bowel Movements 1 Objective General Appearance: WD/WN, no apparent distress, alert EENT: PERRL/EOMI, normal ENT inspection, TMs normal Neck: non-tender, normal alignment, supple, normal inspection Cardiovascular: normal peripheral pulses, normal rate, regular rhythm, no gallop/murmur, no JVD Respiratory/Chest: chest wall non-tender, lungs clear, normal breath sounds, no respiratory distress, no accessory muscle use Abdomen: normal bowel sounds, non tender, soft, no organomegaly, no mass, abnormal bowel sounds Extremities: normal range of motion 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 (4) Lower GI bleed Assessment & Plan: See GI note. S/P colonoscopy 06/28/17. (5) Symptomatic anemia (6) Acute blood loss anemia Assessment & Plan: S/P transfusion 1 unit PRBC 06/28/17. Start IV venofer. See hematology note. (7) Syncope (8) Abdominal pain (9) HTN (hypertension) Assessment & Plan: Continue lisinopril and norvasc (10) Diverticulosis (11) Hemorrhoids Status: progressing HEATH CRUZ Jul 01, 2017 15:12
--- NOTE | 2017-07-01 15:28 | General Progress Note ---
Assessment/Plan Assessment/Plan Assessment (1) Lower GI bleed ICD Codes: K92.2 - Gastrointestinal hemorrhage, unspecified SNOMED: 75089277 (2) Iron deficiency anemia ICD Codes: D50.9 - Iron deficiency anemia, unspecified SNOMED: 95874693 (3) Anemia ICD Codes: D64.9 - Anemia, unspecified SNOMED: [id number] Recommendations - po as tolerated - OOB - follow labs - laxative Subjective Allergies: Coded Allergies: No Known Allergies (Unverified , 05/10/17) Subjective C/o some abdominal discomfort c/o come nausea wants laxative Objective Last 24 Hour Vital Signs Date Time Temp Pulse Resp B/P (MAP) Pulse Ox O2 Delivery O2 Flow Rate FiO2 07/01/17 11:40 98.1 79 18 126/80 97 Room Air 98.1 07/01/17 09:32 122/75 07/01/17 09:32 81 122/75 07/01/17 09:16 97.9 07/01/17 08:51 85 92 117 07/01/17 08:12 82 20 100 Room Air 07/01/17 08:05 97.9 89 18 143/92 99 Room Air 97.9 07/01/17 08:02 90 18 100 Room Air 21 07/01/17 08:00 90 18 Room Air 07/01/17 05:12 98.0 07/01/17 04:42 98.0 07/01/17 04:00 98.0 74 18 124/74 100 Room Air 98.0 07/01/17 00:24 98.2 07/01/17 00:00 98.4 81 18 133/83 98 Room Air 98.4 06/30/17 20:00 98.2 70 20 116/77 96 Room Air 98.2 06/30/17 19:30 93 20 Room Air 21 06/30/17 16:00 98.6 92 19 104/73 97 98.6 Intake and Output 06/30/17 07/01/17 19:00 07:00 Intake Total 930 ml 60 ml Output Total 400 ml Balance 530 ml 60 ml Intake Oral 830 ml IV Total 100 ml 60 ml Output Urine Total 400 ml # Voids 2 3 # Bowel Movements 1 Laboratory Tests 07/01/17 04:50: White Blood Count 5.8, Red Blood Count 2.93L, Hemoglobin 8.8L, Hematocrit 27.4L , Mean Corpuscular Volume 94, Mean Corpuscular Hemoglobin 29.8, Mean Corpuscular Hemoglobin Concent 31.9L, Red Cell Distribution Width 16.8H, Platelet Count 166, Mean Platelet Volume 9.0, Neutrophils (%) (Auto) 70.9, Lymphocytes (%) (Auto) 17.7L, Monocytes (%) (Auto) 8.2, Eosinophils (%) (Auto) 2.3, Basophils (%) (Auto) 1.0, Erythrocyte Sedimentation Rate 67H, Sodium Level 141, Potassium Level 4.0, Chloride Level 108H, Carbon Dioxide Level 28, Anion Gap 5, Blood Urea Nitrogen 12, Creatinine 1.3, Estimat Glomerular Filtration Rate > 60, Glucose Level 104, Calcium Level 8.7, Phosphorus Level 2.5, Magnesium Level 2.0, Total Bilirubin 0.1L, Aspartate Amino Transf (AST/SGOT) 13L , Alanine Aminotransferase (ALT/SGPT) 25, Alkaline Phosphatase 66, C-Reactive Protein, Quantitative 5.8H, Total Protein 6.2L, Albumin 2.9L, Globulin 3.3, Albumin/Globulin Ratio 0.9L Height (Feet): 6 Height (Inches): 0.00 Weight (Pounds): 220 Objective WDWN NCAT supple CTA RRR Soft ND, (+) mild RLQ > LLQ TTP no edema SYD GRAMAJO Jul 01, 2017 15:28
--- NOTE | 2017-07-01 15:45 | Cardiology Report ---
APPROVED REPORT EKG Measurement Heart [id number] Normal sinus rhythm Nonspecific T wave abnormality Abnormal ECG
[2017-07-01 16:17] VITALS: BP 120/72
[2017-07-01] MEDS ORDERED: Bisacodyl EC 5mg tab ORAL ONE (16:30)
[2017-07-01] MEDS ORDERED: Magnesium Citrate Liq Btl ORAL ONE (16:30)
--- NOTE | 2017-07-01 17:42 | Pulmonology Progress Note ---
Assessment/Plan Problems: (1) Hemorrhagic shock (2) Lower GI bleed (3) Symptomatic anemia (4) Gastrointestinal malignancy Assessment/Plan colonoscopy report reviewed h/h stable GI following check h/h ID to follow, check cultures oncology f/u symptomatic treatment med/surg dc planning soon Subjective ROS Limited/Unobtainable: No Allergies: Coded Allergies: No Known Allergies (Unverified , 05/10/17) Objective Last 24 Hour Vital Signs Date Time Temp Pulse Resp B/P (MAP) Pulse Ox O2 Delivery O2 Flow Rate FiO2 07/01/17 16:17 98.1 81 18 120/72 98 Room Air 98.1 07/01/17 11:40 98.1 79 18 126/80 97 Room Air 98.1 07/01/17 09:32 122/75 07/01/17 09:32 81 122/75 07/01/17 09:16 97.9 07/01/17 08:51 85 92 117 07/01/17 08:12 82 20 100 Room Air 07/01/17 08:05 97.9 89 18 143/92 99 Room Air 97.9 07/01/17 08:02 90 18 100 Room Air 21 07/01/17 08:00 90 18 Room Air 07/01/17 05:12 98.0 07/01/17 04:42 98.0 07/01/17 04:00 98.0 74 18 124/74 100 Room Air 98.0 07/01/17 00:24 98.2 07/01/17 00:00 98.4 81 18 133/83 98 Room Air 98.4 06/30/17 20:00 98.2 70 20 116/77 96 Room Air 98.2 06/30/17 19:30 93 20 Room Air 21 Intake and Output 06/30/17 07/01/17 19:00 07:00 Intake Total 930 ml 60 ml Output Total 400 ml Balance 530 ml 60 ml Intake Oral 830 ml IV Total 100 ml 60 ml Output Urine Total 400 ml # Voids 2 3 # Bowel Movements 1 Objective General Appearance: WD/WN, no apparent distress Lines, tubes and drains: peripheral HEENT: normocephalic, atraumatic Neck: non-tender, normal alignment Respiratory/Chest: chest wall non-tender, lungs clear Breasts: no masses Cardiovascular/Chest: normal peripheral pulses Abdomen: normal bowel sounds, non tender Genitourinary/Rectal: normal genital exam Extremities: normal range of motion Skin Exam: normal pigmentation Microbiology Date/Time Source Procedure Growth Status 06/30/17 19:00 Stool Clostridium difficile Toxin Assay - Final Complete 06/29/17 00:15 Stool Stool Culture - Preliminary NO SALMONELLA,SHIGELLA OR CAMPYLOBACT... Resulted Laboratory Tests 07/01/17 04:50: White Blood Count 5.8, Red Blood Count 2.93L, Hemoglobin 8.8L, Hematocrit 27.4L , Mean Corpuscular Volume 94, Mean Corpuscular Hemoglobin 29.8, Mean Corpuscular Hemoglobin Concent 31.9L, Red Cell Distribution Width 16.8H, Platelet Count 166, Mean Platelet Volume 9.0, Neutrophils (%) (Auto) 70.9, Lymphocytes (%) (Auto) 17.7L, Monocytes (%) (Auto) 8.2, Eosinophils (%) (Auto) 2.3, Basophils (%) (Auto) 1.0, Erythrocyte Sedimentation Rate 67H, Sodium Level 141, Potassium Level 4.0, Chloride Level 108H, Carbon Dioxide Level 28, Anion Gap 5, Blood Urea Nitrogen 12, Creatinine 1.3, Estimat Glomerular Filtration Rate > 60, Glucose Level 104, Calcium Level 8.7, Phosphorus Level 2.5, Magnesium Level 2.0, Total Bilirubin 0.1L, Aspartate Amino Transf (AST/SGOT) 13L , Alanine Aminotransferase (ALT/SGPT) 25, Alkaline Phosphatase 66, C-Reactive Protein, Quantitative 5.8H, Total Protein 6.2L, Albumin 2.9L, Globulin 3.3, Albumin/Globulin Ratio 0.9L Current Medications Medications (Trade) Dose Ordered Sig/Blanche Route PRN Reason Start Time Stop Time Status Last Admin Dose Admin Acetaminophen (Tylenol) 650 mg Q4H PRN ORAL T>100.5 06/29/17 20:15 07/27/17 16:14 Acetaminophen/ Hydrocodone Bitart ([place] 5/325) 1 tab Q6H PRN ORAL Moderate Pain (Pain Scale 4-6) 06/29/17 23:30 07/04/17 20:59 Al Hydroxide/Mg Hydroxide (Mylanta II) 30 ml Q6H PRN ORAL dyspepsia 06/29/17 22:15 07/27/17 16:14 Albuterol/ Ipratropium (Albuterol/ Ipratropium) 3 ml Q4H PRN HHN Shortness of Breath 06/29/17 20:15 07/02/17 16:14 07/01/17 08:02 Amlodipine Besylate (Norvasc) 10 mg DAILY ORAL 06/30/17 09:00 07/28/17 08:59 07/01/17 09:32 Ciprofloxacin (Cipro 500mg tab) 500 mg EVERY 12 HOURS ORAL 06/30/17 11:30 07/07/17 11:29 07/01/17 09:32 Citalopram Hydrobromide (celeXA) 40 mg DAILY ORAL 06/30/17 09:00 07/28/17 08:59 07/01/17 09:37 Hydrocortisone (Anusol HC) 1 supp TWICE A DAY RECTAL 06/30/17 09:00 07/28/17 17:59 07/01/17 09:33 Iron Sucrose 100 mg/Sodium Chloride 60 ml @ 240 mls/hr BEDTIME IV 06/30/17 21:00 07/04/17 21:14 06/30/17 20:58 Lisinopril (Zestril) 10 mg DAILY ORAL 06/30/17 09:00 07/28/17 08:59 07/01/17 09:32 Metronidazole (Flagyl) 500 mg Q8HR ORAL 06/30/17 17:00 07/07/17 16:59 07/01/17 14:17 Morphine Sulfate (Morphine Sulfate) 4 mg Q4H PRN IVP Severe Pain (Pain Scale 7-10) 06/29/17 21:30 07/05/17 17:29 07/01/17 14:33 Nitroglycerin (Ntg) 0.4 mg Q5M PRN SL Prn Chest Pain 06/29/17 19:35 07/27/17 17:29 Ondansetron HCl (Zofran) 4 mg Q6H PRN IVP Nausea & Vomiting 06/29/17 22:15 07/27/17 16:14 Pantoprazole (Protonix) 40 mg DAILY IVP 06/30/17 09:00 07/28/17 10:29 07/01/17 09:31 Polyethylene Glycol (Miralax) 17 gm DAILYPRN PRN ORAL Constipation 06/30/17 17:30 07/27/17 17:29 Promethazine HCl/ Codeine (Phenergan with Codeine) 5 ml Q4H PRN ORAL For Cough 06/29/17 20:15 07/27/17 16:14 Temazepam (Restoril) 15 mg HSPRN PRN ORAL Insomnia 06/29/17 21:00 07/04/17 20:59 06/30/17 20:58 ANURAG GARCIA Jul 01, 2017 17:42
[2017-07-01 20:00] VITALS: BP 118/74
[2017-07-01] MEDS: Iron Sucrose 100 MG in NS 55 ML IV SCH (20:50)
--- NOTE | 2017-07-01 23:32 | General Progress Note ---
Assessment/Plan Assessment/Plan #. Anemia due to underlying chronic disease. --> Anemia workup reviewed. Iron 18, TIBC 326 --> Hemoglobin has been >9, does not need transfusion at this time --> Transfuse if hgb <7 or symptomatic. #. Anemia secondary to iron-deficiency anemia. --> Continue to closely monitor. Hemoglobin goal is above 7. --> The patient is iron deficient. Ferritin 48 --> Obtain serum protein electrophoresis Continue the patient on iron. #. Lower abdominal pain, potentially secondary to colitis. --> On pain management. #. Diarrhea, chronic versus gastrointestinal bleed. #. Depression. Subjective Date patient seen: Jul 01, 2017 Constitutional: Denies: no symptoms, chills, diaphoresis, fever, malaise, weakness, other HEENT: Denies: no symptoms, eye pain, blurred vision, tearing, double vision, ear pain, ear discharge, nose pain, nose congestion, throat pain, throat swelling, mouth pain, mouth swelling, other Cardiovascular: Denies: no symptoms, chest pain, edema, irregular heart rate, lightheadedness, palpitations, syncope, other Respiratory: Denies: no symptoms, cough, orthopnea, shortness of breath, SOB with excertion, SOB at rest, sputum, stridor, wheezing, other Gastrointestinal/Abdominal: Denies: no symptoms, abdomen distended, abdominal pain, black stools, tarry stools, blood in stool, constipated, diarrhea, difficulty swallowing, nausea, poor appetite, poor fluid intake, rectal bleeding , vomiting, other Genitourinary: Denies: no symptoms, burning, discharge, frequency, flank pain, hematuria, incontinence, pain, urgency, other Hematologic/Lymphatic: Reports: anemia Allergies: Coded Allergies: No Known Allergies (Unverified , 05/10/17) Subjective Pt complained of some abd pain. Pain control meds were given. Objective Last 24 Hour Vital Signs Date Time Temp Pulse Resp B/P (MAP) Pulse Ox O2 Delivery O2 Flow Rate FiO2 07/01/17 20:00 97.9 85 19 118/74 92 Room Air 97.9 07/01/17 19:39 98.1 07/01/17 16:17 98.1 81 18 120/72 98 Room Air 98.1 07/01/17 11:40 98.1 79 18 126/80 97 Room Air 98.1 07/01/17 09:32 122/75 07/01/17 09:32 81 122/75 07/01/17 09:16 97.9 07/01/17 08:51 85 92 117 07/01/17 08:12 82 20 100 Room Air 07/01/17 08:05 97.9 89 18 143/92 99 Room Air 97.9 07/01/17 08:02 90 18 100 Room Air 21 07/01/17 08:00 90 18 Room Air 07/01/17 04:42 98.0 07/01/17 04:00 98.0 74 18 124/74 100 Room Air 98.0 07/01/17 00:24 98.2 07/01/17 00:00 98.4 81 18 133/83 98 Room Air 98.4 Intake and Output 06/30/17 07/01/17 19:00 07:00 Intake Total 930 ml 60 ml Output Total 400 ml Balance 530 ml 60 ml Intake Oral 830 ml IV Total 100 ml 60 ml Output Urine Total 400 ml # Voids 2 3 # Bowel Movements 1 Laboratory Tests 07/01/17 04:50: White Blood Count 5.8, Red Blood Count 2.93L, Hemoglobin 8.8L, Hematocrit 27.4L , Mean Corpuscular Volume 94, Mean Corpuscular Hemoglobin 29.8, Mean Corpuscular Hemoglobin Concent 31.9L, Red Cell Distribution Width 16.8H, Platelet Count 166, Mean Platelet Volume 9.0, Neutrophils (%) (Auto) 70.9, Lymphocytes (%) (Auto) 17.7L, Monocytes (%) (Auto) 8.2, Eosinophils (%) (Auto) 2.3, Basophils (%) (Auto) 1.0, Erythrocyte Sedimentation Rate 67H, Sodium Level 141, Potassium Level 4.0, Chloride Level 108H, Carbon Dioxide Level 28, Anion Gap 5, Blood Urea Nitrogen 12, Creatinine 1.3, Estimat Glomerular Filtration Rate > 60, Glucose Level 104, Calcium Level 8.7, Phosphorus Level 2.5, Magnesium Level 2.0, Total Bilirubin 0.1L, Aspartate Amino Transf (AST/SGOT) 13L , Alanine Aminotransferase (ALT/SGPT) 25, Alkaline Phosphatase 66, C-Reactive Protein, Quantitative 5.8H, Total Protein 6.2L, Albumin 2.9L, Globulin 3.3, Albumin/Globulin Ratio 0.9L Height (Feet): 6 Height (Inches): 0.00 Weight (Pounds): 220 General Appearance: no apparent distress Respiratory/Chest: decreased breath sounds Abdomen: non tender, soft Edema: trace edema Skin: warm/dry Kirill Duff Jul 01, 2017 23:32
[2017-07-02] VITALS: BP 118/78
[2017-07-02] MEDS: Morphine Sulfate 4mg/ml Inj IVP PRN ×4 (00:15→14:14)
[2017-07-02 04:00] VITALS: BP 118/79
[2017-07-02] MEDS: metroNIDAZOLE 500mg tab ORAL SCH ×2 (05:05→14:17)
[2017-07-02 07:36] LABS: BASOPHILS % (AUTO) 0.8 % (0.0-2.0); EOSINOPHILS % (AUTO) 3.6 % (0.0-3.0); HEMATOCRIT 25.9 % (42.0-52.0); HEMOGLOBIN 8.3 G/DL (14.2-18.0); LYMPHOCYTES % (AUTO) 20.9 % (20.0-45.0); MEAN CORPUSCULAR VOLUME 93 FL (80-99); MONOCYTES % (AUTO) 9.1 % (1.0-10.0); NEUTROPHILS % (AUTO) 65.7 % (45.0-75.0); PLATELET COUNT 172 K/UL (150-450); RED BLOOD COUNT 2.78 M/UL (4.70-6.10); RED CELL DISTRIBUTION WIDTH 17.1 % (11.6-14.8); WHITE BLOOD COUNT 4.2 K/UL (4.8-10.8)
[2017-07-02 07:47] LABS: ANION GAP 4 mmol/L (5-15); BLOOD UREA NITROGEN 14 mg/dL (7-18); CALCIUM 8.8 MG/DL (8.5-10.1); CARBON DIOXIDE 29 MMOL/L (21-32); CHLORIDE 108 MMOL/L (98-107); CREATININE 1.2 MG/DL (0.55-1.30); POTASSIUM 4.2 MMOL/L (3.5-5.1); SODIUM 141 MMOL/L (136-145)
[2017-07-02 08:00] VITALS: BP 127/77
[2017-07-02] MEDS: Ciprofloxacin 500mg tab ORAL SCH (08:28)
[2017-07-02] MEDS: Pantoprazole Inj IVP SCH (08:28)
[2017-07-02] MEDS: Lisinopril 10mg tab ORAL SCH (08:28)
[2017-07-02] MEDS: Hydrocortisone SUPP RECTAL SCH (08:28)
[2017-07-02] MEDS: Citalopram Hydrobromide 10mg Tab ORAL SCH (08:29)
--- NOTE | 2017-07-02 09:35 | Infectious Diseases Prog Note ---
Assessment/Plan Assessment/Plan ASSESSMENT: The patient is a 61-year-old male with: Lower abdominal pain. Bloody stools- .likely 2ry to diverticulosis and/or hemorrhoids -s/p colonoscopy 06/29: Diverticulosis.Lipoma.Internal hemorrhoids. ? possible colitis. Diarrhea, ? Chronic ? due to lower gastrointestinal bleed. pt was constipated 2 d ago , needed laxatives stool Cx and Clostridium difficile : neg HIV Neg February 2017 Stool negative for ova and parasites x3 ( Feb 2017) Chest x-ray: no evidence of pulmonary disease CT of the abdomen back in May 2015: partial colectomy. Anemia. Hx of lower gastrointestinal bleed ? History of colon cancer, status post surgery. History of infrarenal abdominal aorta. Hypertension. Asthma Depression PLAN: -PO Cipro and continue Flagyl, abx d# 5/5 , ok to DC pt off of AB Rx - 06/30 SP Cefepime d# 3 Monitor CBC. Monitor BMP. GI f/u Subjective Constitutional: Denies: no symptoms, fever, chills, fatigue, anorexia, drenching sweats, other Allergies: Coded Allergies: No Known Allergies (Unverified , 05/10/17) Subjective Afebrile Objective Vital Signs Last 24 Hour Vital Signs Date Time Temp Pulse Resp B/P (MAP) Pulse Ox O2 Delivery O2 Flow Rate FiO2 07/02/17 08:30 80 20 Room Air 21 07/02/17 08:29 86 127/77 07/02/17 08:28 127/77 07/02/17 05:36 96.5 07/02/17 05:06 96.5 07/02/17 04:00 96.5 83 19 118/79 98 Room Air 96.5 07/02/17 00:15 97.9 07/02/17 00:00 99.0 77 20 118/78 94 Room Air 99.0 07/01/17 20:00 97.9 85 19 118/74 92 Room Air 97.9 07/01/17 19:00 83 20 Room Air 21 07/01/17 16:17 98.1 81 18 120/72 98 Room Air 98.1 07/01/17 11:40 98.1 79 18 126/80 97 Room Air 98.1 Height (Feet): 6 Height (Inches): 0.00 Weight (Pounds): 220 HEENT: mucous membranes moist Respiratory/Chest: no respiratory distress Cardiovascular: normal rate Abdomen: no mass Microbiology Date/Time Source Procedure Growth Status 06/30/17 19:00 Stool Clostridium difficile Toxin Assay - Final Complete Laboratory Tests Test 07/02/17 06:20 White Blood Count 4.2 K/UL (4.8-10.8) L Red Blood Count 2.78 M/UL (4.70-6.10) L Hemoglobin 8.3 G/DL (14.2-18.0) L Hematocrit 25.9 % (42.0-52.0) L Mean Corpuscular Volume 93 FL (80-99) Mean Corpuscular Hemoglobin 29.8 PG (27.0-31.0) Mean Corpuscular Hemoglobin Concent 32.0 G/DL (32.0-36.0) Red Cell Distribution Width 17.1 % (11.6-14.8) H Platelet Count 172 K/UL (150-450) Mean Platelet Volume 8.6 FL (6.5-10.1) Neutrophils (%) (Auto) 65.7 % (45.0-75.0) Lymphocytes (%) (Auto) 20.9 % (20.0-45.0) Monocytes (%) (Auto) 9.1 % (1.0-10.0) Eosinophils (%) (Auto) 3.6 % (0.0-3.0) H Basophils (%) (Auto) 0.8 % (0.0-2.0) Sodium Level 141 MMOL/L (136-145) Potassium Level 4.2 MMOL/L (3.5-5.1) Chloride Level 108 MMOL/L (98-107) H Carbon Dioxide Level 29 MMOL/L (21-32) Anion Gap 4 mmol/L (5-15) L Blood Urea Nitrogen 14 mg/dL (7-18) Creatinine 1.2 MG/DL (0.55-1.30) Estimat Glomerular Filtration Rate > 60 mL/min (>60) Glucose Level 90 MG/DL (74-106) Calcium Level 8.8 MG/DL (8.5-10.1) Current Medications Medications (Trade) Dose Ordered Sig/Blanche Route PRN Reason Start Time Stop Time Status Last Admin Dose Admin Acetaminophen (Tylenol) 650 mg Q4H PRN ORAL T>100.5 06/29/17 20:15 07/27/17 16:14 Acetaminophen/ Hydrocodone Bitart ([place] 5/325) 1 tab Q6H PRN ORAL Moderate Pain (Pain Scale 4-6) 06/29/17 23:30 07/04/17 20:59 Al Hydroxide/Mg Hydroxide (Mylanta II) 30 ml Q6H PRN ORAL dyspepsia 06/29/17 22:15 07/27/17 16:14 Albuterol/ Ipratropium (Albuterol/ Ipratropium) 3 ml Q4H PRN HHN Shortness of Breath 06/29/17 20:15 07/02/17 16:14 07/01/17 08:02 Amlodipine Besylate (Norvasc) 10 mg DAILY ORAL 06/30/17 09:00 07/28/17 08:59 07/02/17 08:29 Ciprofloxacin (Cipro 500mg tab) 500 mg EVERY 12 HOURS ORAL 06/30/17 11:30 07/07/17 11:29 07/02/17 08:28 Citalopram Hydrobromide (celeXA) 40 mg DAILY ORAL 06/30/17 09:00 07/28/17 08:59 07/02/17 08:29 Hydrocortisone (Anusol HC) 1 supp TWICE A DAY RECTAL 06/30/17 09:00 07/28/17 17:59 07/02/17 08:28 Iron Sucrose 100 mg/Sodium Chloride 60 ml @ 240 mls/hr BEDTIME IV 06/30/17 21:00 07/04/17 21:14 07/01/17 20:50 Lisinopril (Zestril) 10 mg DAILY ORAL 06/30/17 09:00 07/28/17 08:59 07/02/17 08:28 Metronidazole (Flagyl) 500 mg Q8HR ORAL 06/30/17 17:00 07/07/17 16:59 07/02/17 05:05 Morphine Sulfate (Morphine Sulfate) 4 mg Q4H PRN IVP Severe Pain (Pain Scale 7-10) 06/29/17 21:30 07/05/17 17:29 07/02/17 05:06 Nitroglycerin (Ntg) 0.4 mg Q5M PRN SL Prn Chest Pain 06/29/17 19:35 3/23/18 17:29 Ondansetron HCl (Zofran) 4 mg Q6H PRN IVP Nausea & Vomiting 06/29/17 22:15 07/27/17 16:14 Pantoprazole (Protonix) 40 mg DAILY IVP 06/30/17 09:00 07/28/17 10:29 07/02/17 08:28 Polyethylene Glycol (Miralax) 17 gm DAILYPRN PRN ORAL Constipation 06/30/17 17:30 07/27/17 17:29 Promethazine HCl/ Codeine (Phenergan with Codeine) 5 ml Q4H PRN ORAL For Cough 06/29/17 20:15 07/27/17 16:14 Temazepam (Restoril) 15 mg HSPRN PRN ORAL Insomnia 06/29/17 21:00 07/04/17 20:59 07/02/17 00:15 MANOHAR KNIGHT M.D. Jul 02, 2017 09:34
--- NOTE | 2017-07-02 09:42 | Neurology Progress Note ---
Interim History Interim History Interim History Mr. Morales feels better. He moved his bowels yesterday and did not pass any significant blood per rectum. He still gets a little lightheaded for a few seconds when he walks. He continues to feel generally weak. He has had no further episodes of loss of consciousness. His energy level is still down. He denies any new neurologic symptoms. Review of Systems Neuro Review of Systems Benign. Objective Physical Exam Last Vital Signs Date Time Temp Pulse Resp B/P (MAP) Pulse Ox O2 Delivery O2 Flow Rate FiO2 07/02/17 08:30 80 20 Room Air 21 07/02/17 08:29 127/77 07/02/17 05:36 96.5 07/02/17 04:00 98 06/29/17 14:38 5.0 Laboratory Tests Test 07/02/17 06:20 White Blood Count 4.2 K/UL (4.8-10.8) L Red Blood Count 2.78 M/UL (4.70-6.10) L Hemoglobin 8.3 G/DL (14.2-18.0) L Hematocrit 25.9 % (42.0-52.0) L Mean Corpuscular Volume 93 FL (80-99) Mean Corpuscular Hemoglobin 29.8 PG (27.0-31.0) Mean Corpuscular Hemoglobin Concent 32.0 G/DL (32.0-36.0) Red Cell Distribution Width 17.1 % (11.6-14.8) H Platelet Count 172 K/UL (150-450) Mean Platelet Volume 8.6 FL (6.5-10.1) Neutrophils (%) (Auto) 65.7 % (45.0-75.0) Lymphocytes (%) (Auto) 20.9 % (20.0-45.0) Monocytes (%) (Auto) 9.1 % (1.0-10.0) Eosinophils (%) (Auto) 3.6 % (0.0-3.0) H Basophils (%) (Auto) 0.8 % (0.0-2.0) Sodium Level 141 MMOL/L (136-145) Potassium Level 4.2 MMOL/L (3.5-5.1) Chloride Level 108 MMOL/L (98-107) H Carbon Dioxide Level 29 MMOL/L (21-32) Anion Gap 4 mmol/L (5-15) L Blood Urea Nitrogen 14 mg/dL (7-18) Creatinine 1.2 MG/DL (0.55-1.30) Estimat Glomerular Filtration Rate > 60 mL/min (>60) Glucose Level 90 MG/DL (74-106) Calcium Level 8.8 MG/DL (8.5-10.1) Neurologic Exam Objective PHYSICAL EXAMINATION: GENERAL: He is a well-developed, well-nourished, pleasant, black gentleman, sitting up at the edge of his bed, in no acute distress. HEAD: Normocephalic and atraumatic. NECK: No neck rigidity was observed. EENT: Benign. NEUROLOGICAL EXAMINATION: MENTAL STATUS EXAMINATION: He was awake and alert. He was oriented to person, place, and time. He was able to recall 3/3 words immediately, and could remember them in 1 minute and 3 minutes. He was able to remember presidents, Trump and Obama spontaneously, but needed hints to remember presidents up to [place] and could not remember presidents prior to that. His mathematical skills were fairly good. His visuospatial function was preserved. SPEECH: He had no dysarthria. LANGUAGE: He had a mild anomia for low-frequency words. However, it is unclear as to what his educational level is. CRANIAL NERVE EXAMINATION: II: The visual brar were intact on confrontation testing. III, IV & : The external ocular movements were full and the pupils 3 mm in diameter, equal, round, regular, and reactive to light. V: He had normal facial sensations and the temporales, masseters, and pterygoids functioned normally. VII: He had normal facial expressions and no facial asymmetry. VIII: He was able to hear well bilaterally and had no nystagmus. IX: The palate moved symmetrically on phonation. X: He had no hoarseness of voice. XI: The sternocleidomastoids and trapezii functioned normally. XII: The tongue was in the midline without any fasciculations or atrophy. MOTOR SYSTEM: The tone was normal in all four extremities. Examination of muscle mass revealed no focal wasting. Examination of power revealed G 5/5 power in all muscle groups tested. SENSORY EXAMINATION: He had intact sensations to pinprick, light touch, and graphesthesia. COORDINATION: He performed well on [id number] and [id number] testing. On Romberg test, he swayed, but did not fall to one side or the other. REFLEXES: Trace+ and bilaterally symmetrical at the biceps, triceps, brachioradialis, and knees, 0 at both ankles. The plantar responses were flexor bilaterally. STANCE: He had a minimally wide-based, but stable stance. GAIT: He walked with a minimally wide-based, but stable gait. Impression/Recommendations Diagnostic Impression 1. Mr. Michel Morales is a 61-year-old, right-handed, black gentleman, who does have a past history of hypertension, borderline diabetes mellitus, dyslipidemia , and since January 2017, multiple episodes of bleeding per rectum, one of them followed by a syncopal event. He again started bleeding per rectum on and after an episode of loss of consciousness, he was brought into the [facility] Emergency Room and has since been admitted. He he was given some blood and felt better. 2. He feels better. He has stopped passing blood per rectum. He still gets a little lightheaded when he walks. He continues to feel generally weak. He has had no further episodes of loss of consciousness. 3. On neurological examination, at this time, he does have mild problems with memory, a mild anomia, and globally diminished deep tendon reflexes with a wide- based stance and gait. The rest of the neurological examination is essentially benign. 4. Laboratory data on my initial evaluation revealed that his hemoglobin had dropped down to 7.4 G. His chemistry panel was relatively benign except for a low albumin of 2.8. His urinalysis revealed 1+ leukocyte esterase, 0 red blood cells, and 2 to 4 white blood cells per high-power field. 5. The patient's history, neurological examination, and laboratory data are most compatible with a syncopal event due to acute blood loss. He also exhibits some mild cognitive dysfunction, which may be related to the anemia versus other etiology. Recommendations 1. Continue present management. 2. Treatment of GI source of bleeding as per GI specialist. 3. Correct hemoglobin to greater than 10 G. 4. Observe. Ezequiel Morales M.D., M.S.EZEQUIEL DUFF Jul 02, 2017 09:42
--- NOTE | 2017-07-02 10:38 | Internal Med Progress Note ---
Subjective Date of Service: Jul 02, 2017 Physician Name Franco Cruz Attending Physician Daljit Sandhu MD Current Medications Medications (Trade) Dose Ordered Sig/Blanche Route PRN Reason Start Time Stop Time Status Last Admin Dose Admin Acetaminophen (Tylenol) 650 mg Q4H PRN ORAL T>100.5 06/29/17 20:15 07/27/17 16:14 Acetaminophen/ Hydrocodone Bitart ([place] 5/325) 1 tab Q6H PRN ORAL Moderate Pain (Pain Scale 4-6) 06/29/17 23:30 07/04/17 20:59 Al Hydroxide/Mg Hydroxide (Mylanta II) 30 ml Q6H PRN ORAL dyspepsia 06/29/17 22:15 07/27/17 16:14 Albuterol/ Ipratropium (Albuterol/ Ipratropium) 3 ml Q4H PRN HHN Shortness of Breath 06/29/17 20:15 07/02/17 16:14 07/01/17 08:02 Amlodipine Besylate (Norvasc) 10 mg DAILY ORAL 06/30/17 09:00 07/28/17 08:59 07/02/17 08:29 Ciprofloxacin (Cipro 500mg tab) 500 mg EVERY 12 HOURS ORAL 06/30/17 11:30 07/02/17 23:30 07/02/17 08:28 Citalopram Hydrobromide (celeXA) 40 mg DAILY ORAL 06/30/17 09:00 07/28/17 08:59 07/02/17 08:29 Hydrocortisone (Anusol HC) 1 supp TWICE A DAY RECTAL 06/30/17 09:00 07/28/17 17:59 07/02/17 08:28 Iron Sucrose 100 mg/Sodium Chloride 60 ml @ 240 mls/hr BEDTIME IV 06/30/17 21:00 07/04/17 21:14 07/01/17 20:50 Lisinopril (Zestril) 10 mg DAILY ORAL 06/30/17 09:00 07/28/17 08:59 07/02/17 08:28 Metronidazole (Flagyl) 500 mg Q8HR ORAL 06/30/17 17:00 07/02/17 23:30 07/02/17 05:05 Morphine Sulfate (Morphine Sulfate) 4 mg Q4H PRN IVP Severe Pain (Pain Scale 7-10) 06/29/17 21:30 07/05/17 17:29 07/02/17 09:54 Nitroglycerin (Ntg) 0.4 mg Q5M PRN SL Prn Chest Pain 06/29/17 19:35 07/27/17 17:29 Ondansetron HCl (Zofran) 4 mg Q6H PRN IVP Nausea & Vomiting 06/29/17 22:15 07/27/17 16:14 Pantoprazole (Protonix) 40 mg DAILY IVP 06/30/17 09:00 07/28/17 10:29 07/02/17 08:28 Polyethylene Glycol (Miralax) 17 gm DAILYPRN PRN ORAL Constipation 06/30/17 17:30 07/27/17 17:29 Promethazine HCl/ Codeine (Phenergan with Codeine) 5 ml Q4H PRN ORAL For Cough 06/29/17 20:15 07/27/17 16:14 Temazepam (Restoril) 15 mg HSPRN PRN ORAL Insomnia 06/29/17 21:00 07/04/17 20:59 07/02/17 00:15 Allergies: Coded Allergies: No Known Allergies (Unverified , 05/10/17) ROS Limited/Unobtainable: No Constitutional: Reports: no symptoms HEENT: Reports: no symptoms Cardiovascular: Reports: no symptoms Respiratory: Reports: no symptoms Gastrointestinal/Abdominal: Reports: no symptoms Genitourinary: Reports: no symptoms Neurologic/Psychiatric: Reports: no symptoms Subjective 61 YO M admitted with vertigo. Now anemia secondary to GI bleed. S/P colonoscopy 06/29/17. Cover for Int Med Dr Sandhu Objective Last Vital Signs Date Time Temp Pulse Resp B/P (MAP) Pulse Ox O2 Delivery O2 Flow Rate FiO2 07/02/17 08:30 80 20 Room Air 21 07/02/17 08:29 127/77 07/02/17 05:36 96.5 07/02/17 04:00 98 06/29/17 14:38 5.0 Laboratory Tests Test 07/02/17 06:20 White Blood Count 4.2 K/UL (4.8-10.8) L Red Blood Count 2.78 M/UL (4.70-6.10) L Hemoglobin 8.3 G/DL (14.2-18.0) L Hematocrit 25.9 % (42.0-52.0) L Mean Corpuscular Volume 93 FL (80-99) Mean Corpuscular Hemoglobin 29.8 PG (27.0-31.0) Mean Corpuscular Hemoglobin Concent 32.0 G/DL (32.0-36.0) Red Cell Distribution Width 17.1 % (11.6-14.8) H Platelet Count 172 K/UL (150-450) Mean Platelet Volume 8.6 FL (6.5-10.1) Neutrophils (%) (Auto) 65.7 % (45.0-75.0) Lymphocytes (%) (Auto) 20.9 % (20.0-45.0) Monocytes (%) (Auto) 9.1 % (1.0-10.0) Eosinophils (%) (Auto) 3.6 % (0.0-3.0) H Basophils (%) (Auto) 0.8 % (0.0-2.0) Sodium Level 141 MMOL/L (136-145) Potassium Level 4.2 MMOL/L (3.5-5.1) Chloride Level 108 MMOL/L (98-107) H Carbon Dioxide Level 29 MMOL/L (21-32) Anion Gap 4 mmol/L (5-15) L Blood Urea Nitrogen 14 mg/dL (7-18) Creatinine 1.2 MG/DL (0.55-1.30) Estimat Glomerular Filtration Rate > 60 mL/min (>60) Glucose Level 90 MG/DL (74-106) Calcium Level 8.8 MG/DL (8.5-10.1) Microbiology Date/Time Source Procedure Growth Status 06/30/17 19:00 Stool Clostridium difficile Toxin Assay - Final Complete Intake and Output 07/01/17 07/02/17 19:00 07:00 Intake Total 720 ml Output Total 400 ml Balance 320 ml Intake Oral 720 ml Output Urine Total 400 ml # Voids 3 # Bowel Movements 2 Objective General Appearance: WD/WN, no apparent distress, alert EENT: PERRL/EOMI, normal ENT inspection, TMs normal Neck: non-tender, normal alignment, supple, normal inspection Cardiovascular: normal peripheral pulses, normal rate, regular rhythm, no gallop/murmur, no JVD Respiratory/Chest: chest wall non-tender, lungs clear, normal breath sounds, no respiratory distress, no accessory muscle use Abdomen: normal bowel sounds, non tender, soft, no organomegaly, no mass, abnormal bowel sounds Extremities: normal range of motion 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 (4) Lower GI bleed Assessment & Plan: See GI note. S/P colonoscopy 06/28/17. (5) Symptomatic anemia (6) Acute blood loss anemia Assessment & Plan: S/P transfusion 1 unit PRBC 06/28/17. Start IV venofer. See hematology note. (7) Syncope (8) Abdominal pain (9) HTN (hypertension) Assessment & Plan: Continue lisinopril and norvasc (10) Diverticulosis Assessment & Plan: Continue cipro and flagyl per GI (11) Hemorrhoids Status: stable Assessment/Plan Discharge home today with home health. F/U Dr Peralta for outpatient endoscopy vs capsule endoscopy FRANCO CRUZ Jul 02, 2017 10:38
--- NOTE | 2017-07-02 11:42 | GI Progress Note ---
Assessment/Plan Problems: (1) Anemia ICD Codes: D64.9 - Anemia, unspecified SNOMED: 092674821 (2) Iron deficiency anemia ICD Codes: D50.9 - Iron deficiency anemia, unspecified SNOMED: 71764024 (3) Abdominal pain ICD Codes: R10.9 - Unspecified abdominal pain SNOMED: 76279675 (4) Dark stools ICD Codes: R19.5 - Other fecal abnormalities SNOMED: 18410370 Status: stable Status Narrative Discussed with Dr. Peralta. Assessment/Plan okay for DC per GI standpoint po as tolerated OOB follow labs laxative send for OB stool now outpatient follow up for possible EGD/capsule to evaluate anemia. Subjective Gastrointestinal/Abdominal: Reports: no symptoms Objective Last 24 Hour Vital Signs Date Time Temp Pulse Resp B/P (MAP) Pulse Ox O2 Delivery O2 Flow Rate FiO2 07/02/17 09:00 86 90 96 07/02/17 08:30 80 20 Room Air 21 07/02/17 08:29 86 127/77 07/02/17 08:28 127/77 07/02/17 08:00 97.8 86 20 127/77 98 Room Air 97.8 07/02/17 05:36 96.5 07/02/17 05:06 96.5 07/02/17 04:00 96.5 83 19 118/79 98 Room Air 96.5 07/02/17 00:15 97.9 07/02/17 00:00 99.0 77 20 118/78 94 Room Air 99.0 07/01/17 20:00 97.9 85 19 118/74 92 Room Air 97.9 07/01/17 19:00 83 20 Room Air 21 07/01/17 16:17 98.1 81 18 120/72 98 Room Air 98.1 Intake and Output 07/01/17 07/02/17 19:00 07:00 Intake Total 720 ml Output Total 400 ml Balance 320 ml Intake Oral 720 ml Output Urine Total 400 ml # Voids 3 # Bowel Movements 2 Laboratory Tests Test 07/02/17 06:20 White Blood Count 4.2 K/UL (4.8-10.8) L Red Blood Count 2.78 M/UL (4.70-6.10) L Hemoglobin 8.3 G/DL (14.2-18.0) L Hematocrit 25.9 % (42.0-52.0) L Mean Corpuscular Volume 93 FL (80-99) Mean Corpuscular Hemoglobin 29.8 PG (27.0-31.0) Mean Corpuscular Hemoglobin Concent 32.0 G/DL (32.0-36.0) Red Cell Distribution Width 17.1 % (11.6-14.8) H Platelet Count 172 K/UL (150-450) Mean Platelet Volume 8.6 FL (6.5-10.1) Neutrophils (%) (Auto) 65.7 % (45.0-75.0) Lymphocytes (%) (Auto) 20.9 % (20.0-45.0) Monocytes (%) (Auto) 9.1 % (1.0-10.0) Eosinophils (%) (Auto) 3.6 % (0.0-3.0) H Basophils (%) (Auto) 0.8 % (0.0-2.0) Sodium Level 141 MMOL/L (136-145) Potassium Level 4.2 MMOL/L (3.5-5.1) Chloride Level 108 MMOL/L (98-107) H Carbon Dioxide Level 29 MMOL/L (21-32) Anion Gap 4 mmol/L (5-15) L Blood Urea Nitrogen 14 mg/dL (7-18) Creatinine 1.2 MG/DL (0.55-1.30) Estimat Glomerular Filtration Rate > 60 mL/min (>60) Glucose Level 90 MG/DL (74-106) Calcium Level 8.8 MG/DL (8.5-10.1) Height (Feet): 6 Height (Inches): 0.00 Weight (Pounds): 220 General Appearance: WD/WN, no apparent distress, alert Cardiovascular: normal rate Respiratory/Chest: normal breath sounds, no respiratory distress Abdominal Exam: normal bowel sounds, non tender, soft Extremities: normal range of motion, non-tender Tiny Hall N.P. Jul 02, 2017 11:41
[2017-07-02 12:00] VITALS: BP 132/90
[2017-07-02] MEDS ORDERED: Magnesium Citrate Liq Btl ORAL ONE (12:00)
--- NOTE | 2017-07-02 13:40 | Cardiac Electrophysiology PN ---
Assessment/Plan Assessment/Plan 1. Syncope, etiology is not clear at this time, but could be due to GI bleed. Echo EF 65% 2. Hypertension. Continue Norvasc 10 mg daily and lisinopril 20 mg daily. 3. Severe anemia. Hemoglobin 7.5. Follow up by Dr. Peralta. S/P colonoscopy. AMANDA RN Subjective Subjective On Med surge. No chest pain or SOB. Objective Last 24 Hour Vital Signs Date Time Temp Pulse Resp B/P (MAP) Pulse Ox O2 Delivery O2 Flow Rate FiO2 07/02/17 12:00 97.2 86 20 132/90 99 Room Air 97.2 07/02/17 09:00 86 90 96 07/02/17 08:30 80 20 Room Air 21 07/02/17 08:29 86 127/77 07/02/17 08:28 127/77 07/02/17 08:00 97.8 86 20 127/77 98 Room Air 97.8 07/02/17 05:36 96.5 07/02/17 05:06 96.5 07/02/17 04:00 96.5 83 19 118/79 98 Room Air 96.5 07/02/17 00:15 97.9 07/02/17 00:00 99.0 77 20 118/78 94 Room Air 99.0 07/01/17 20:00 97.9 85 19 118/74 92 Room Air 97.9 07/01/17 19:00 83 20 Room Air 21 07/01/17 16:17 98.1 81 18 120/72 98 Room Air 98.1 Intake and Output 07/01/17 07/02/17 19:00 07:00 Intake Total 720 ml Output Total 400 ml Balance 320 ml Intake Oral 720 ml Output Urine Total 400 ml # Voids 3 # Bowel Movements 2 Laboratory Tests Test 07/02/17 06:20 White Blood Count 4.2 K/UL (4.8-10.8) L Red Blood Count 2.78 M/UL (4.70-6.10) L Hemoglobin 8.3 G/DL (14.2-18.0) L Hematocrit 25.9 % (42.0-52.0) L Mean Corpuscular Volume 93 FL (80-99) Mean Corpuscular Hemoglobin 29.8 PG (27.0-31.0) Mean Corpuscular Hemoglobin Concent 32.0 G/DL (32.0-36.0) Red Cell Distribution Width 17.1 % (11.6-14.8) H Platelet Count 172 K/UL (150-450) Mean Platelet Volume 8.6 FL (6.5-10.1) Neutrophils (%) (Auto) 65.7 % (45.0-75.0) Lymphocytes (%) (Auto) 20.9 % (20.0-45.0) Monocytes (%) (Auto) 9.1 % (1.0-10.0) Eosinophils (%) (Auto) 3.6 % (0.0-3.0) H Basophils (%) (Auto) 0.8 % (0.0-2.0) Sodium Level 141 MMOL/L (136-145) Potassium Level 4.2 MMOL/L (3.5-5.1) Chloride Level 108 MMOL/L (98-107) H Carbon Dioxide Level 29 MMOL/L (21-32) Anion Gap 4 mmol/L (5-15) L Blood Urea Nitrogen 14 mg/dL (7-18) Creatinine 1.2 MG/DL (0.55-1.30) Estimat Glomerular Filtration Rate > 60 mL/min (>60) Glucose Level 90 MG/DL (74-106) Calcium Level 8.8 MG/DL (8.5-10.1) Microbiology Date/Time Source Procedure Growth Status 06/30/17 19:00 Stool Clostridium difficile Toxin Assay - Final Complete Objective HEAD AND NECK: No JVD. LUNGS: Clear. CARDIOVASCULAR: Regular S1 and S2 with no gallop or murmur. ABDOMEN: Soft. EXTREMITIES: No pitting edema. CORRIE MALAGON Jul 02, 2017 13:40
[2017-07-02 16:00] VITALS: BP 128/70
--- NOTE | 2017-07-02 17:26 | Pulmonology Progress Note ---
Assessment/Plan Problems: (1) Hemorrhagic shock (2) Lower GI bleed (3) Symptomatic anemia (4) Gastrointestinal malignancy Assessment/Plan colonoscopy report reviewed h/h stable GI following check h/h ID to follow, check cultures oncology f/u symptomatic treatment med/surg dc planning soon Subjective Allergies: Coded Allergies: No Known Allergies (Unverified , 05/10/17) Objective Last 24 Hour Vital Signs Date Time Temp Pulse Resp B/P (MAP) Pulse Ox O2 Delivery O2 Flow Rate FiO2 07/02/17 16:00 97.8 79 20 128/70 98 97.8 07/02/17 12:00 97.2 86 20 132/90 99 Room Air 97.2 07/02/17 09:00 86 90 96 07/02/17 08:30 80 20 Room Air 21 07/02/17 08:29 86 127/77 07/02/17 08:28 127/77 07/02/17 08:00 97.8 86 20 127/77 98 Room Air 97.8 07/02/17 05:36 96.5 07/02/17 05:06 96.5 07/02/17 04:00 96.5 83 19 118/79 98 Room Air 96.5 07/02/17 00:15 97.9 07/02/17 00:00 99.0 77 20 118/78 94 Room Air 99.0 07/01/17 20:00 97.9 85 19 118/74 92 Room Air 97.9 07/01/17 19:00 83 20 Room Air 21 Intake and Output 07/01/17 07/02/17 19:00 07:00 Intake Total 720 ml Output Total 400 ml Balance 320 ml Intake Oral 720 ml Output Urine Total 400 ml # Voids 3 # Bowel Movements 2 Objective General Appearance: WD/WN, no apparent distress Lines, tubes and drains: peripheral HEENT: normocephalic, atraumatic Neck: non-tender, normal alignment Respiratory/Chest: chest wall non-tender, lungs clear Breasts: no masses Cardiovascular/Chest: normal peripheral pulses Abdomen: normal bowel sounds, non tender Genitourinary/Rectal: normal genital exam Extremities: normal range of motion Skin Exam: normal pigmentation Microbiology Date/Time Source Procedure Growth Status 06/30/17 19:00 Stool Clostridium difficile Toxin Assay - Final Complete Laboratory Tests 07/02/17 06:20: White Blood Count 4.2L, Red Blood Count 2.78L, Hemoglobin 8.3L, Hematocrit 25.9L , Mean Corpuscular Volume 93, Mean Corpuscular Hemoglobin 29.8, Mean Corpuscular Hemoglobin Concent 32.0, Red Cell Distribution Width 17.1H, Platelet Count 172, Mean Platelet Volume 8.6, Neutrophils (%) (Auto) 65.7, Lymphocytes (%) (Auto) 20.9, Monocytes (%) (Auto) 9.1, Eosinophils (%) (Auto) 3.6H, Basophils (%) (Auto) 0.8, Sodium Level 141, Potassium Level 4.2, Chloride Level 108H, Carbon Dioxide Level 29, Anion Gap 4L, Blood Urea Nitrogen 14, Creatinine 1.2, Estimat Glomerular Filtration Rate > 60, Glucose Level 90, Calcium Level 8.8 Current Medications Medications (Trade) Dose Ordered Sig/Blanche Route PRN Reason Start Time Stop Time Status Last Admin Dose Admin Acetaminophen (Tylenol) 650 mg Q4H PRN ORAL T>100.5 06/29/17 20:15 07/27/17 16:14 Acetaminophen/ Hydrocodone Bitart ([place] 5/325) 1 tab Q6H PRN ORAL Moderate Pain (Pain Scale 4-6) 06/29/17 23:30 07/04/17 20:59 Al Hydroxide/Mg Hydroxide (Mylanta II) 30 ml Q6H PRN ORAL dyspepsia 06/29/17 22:15 07/27/17 16:14 Amlodipine Besylate (Norvasc) 10 mg DAILY ORAL 06/30/17 09:00 07/28/17 08:59 07/02/17 08:29 Ciprofloxacin (Cipro 500mg tab) 500 mg EVERY 12 HOURS ORAL 06/30/17 11:30 07/02/17 23:30 07/02/17 08:28 Citalopram Hydrobromide (celeXA) 40 mg DAILY ORAL 06/30/17 09:00 07/28/17 08:59 07/02/17 08:29 Hydrocortisone (Anusol HC) 1 supp TWICE A DAY RECTAL 06/30/17 09:00 07/28/17 17:59 07/02/17 08:28 Iron Sucrose 100 mg/Sodium Chloride 60 ml @ 240 mls/hr BEDTIME IV 06/30/17 21:00 07/04/17 21:14 07/01/17 20:50 Lisinopril (Zestril) 10 mg DAILY ORAL 06/30/17 09:00 07/28/17 08:59 07/02/17 08:28 Metronidazole (Flagyl) 500 mg Q8HR ORAL 06/30/17 17:00 07/02/17 23:30 07/02/17 14:17 Morphine Sulfate (Morphine Sulfate) 4 mg Q4H PRN IVP Severe Pain (Pain Scale 7-10) 06/29/17 21:30 07/05/17 17:29 07/02/17 14:14 Nitroglycerin (Ntg) 0.4 mg Q5M PRN SL Prn Chest Pain 06/29/17 19:35 07/27/17 17:29 Ondansetron HCl (Zofran) 4 mg Q6H PRN IVP Nausea & Vomiting 06/29/17 22:15 07/27/17 16:14 Pantoprazole (Protonix) 40 mg DAILY IVP 06/30/17 09:00 07/28/17 10:29 07/02/17 08:28 Polyethylene Glycol (Miralax) 17 gm DAILYPRN PRN ORAL Constipation 06/30/17 17:30 07/27/17 17:29 Promethazine HCl/ Codeine (Phenergan with Codeine) 5 ml Q4H PRN ORAL For Cough 06/29/17 20:15 07/27/17 16:14 Temazepam (Restoril) 15 mg HSPRN PRN ORAL Insomnia 06/29/17 21:00 07/04/17 20:59 07/02/17 00:15 ANURAG GARCIA Jul 02, 2017 17:26
--- NOTE | 2017-07-02 23:32 | General Progress Note ---
Assessment/Plan Assessment/Plan #. Anemia due to underlying chronic disease. --> Anemia workup reviewed. Iron 18, TIBC 326 --> Hemoglobin has been >9, does not need transfusion at this time --> Transfuse if hgb <7 or symptomatic. --> continue to monitor closely and trend cbc daily. #. Anemia secondary to iron-deficiency anemia. --> Continue to closely monitor. Hemoglobin goal is above 7. --> The patient is iron deficient. Ferritin 48 --> Obtain serum protein electrophoresis Continue the patient on iron. #. Lower abdominal pain, potentially secondary to colitis. --> On pain management. --> Improving and controlled. #. Diarrhea, chronic versus gastrointestinal bleed. #. Depression. Subjective Date patient seen: Jul 02, 2017 Constitutional: Denies: no symptoms, chills, diaphoresis, fever, malaise, weakness, other HEENT: Denies: no symptoms, eye pain, blurred vision, tearing, double vision, ear pain, ear discharge, nose pain, nose congestion, throat pain, throat swelling, mouth pain, mouth swelling, other Cardiovascular: Denies: no symptoms, chest pain, edema, irregular heart rate, lightheadedness, palpitations, syncope, other Respiratory: Denies: no symptoms, cough, orthopnea, shortness of breath, SOB with excertion, SOB at rest, sputum, stridor, wheezing, other Gastrointestinal/Abdominal: Denies: no symptoms, abdomen distended, abdominal pain, black stools, tarry stools, blood in stool, constipated, diarrhea, difficulty swallowing, nausea, poor appetite, poor fluid intake, rectal bleeding , vomiting, other Genitourinary: Denies: no symptoms, burning, discharge, frequency, flank pain, hematuria, incontinence, pain, urgency, other Hematologic/Lymphatic: Reports: anemia Allergies: Coded Allergies: No Known Allergies (Unverified , 05/10/17) Subjective No acute events overnight. On pain control. No fever Objective Last 24 Hour Vital Signs Date Time Temp Pulse Resp B/P (MAP) Pulse Ox O2 Delivery O2 Flow Rate FiO2 07/02/17 16:00 97.8 79 20 128/70 98 97.8 07/02/17 12:00 97.2 86 20 132/90 99 Room Air 97.2 07/02/17 09:00 86 90 96 07/02/17 08:30 80 20 Room Air 21 07/02/17 08:29 86 127/77 07/02/17 08:28 127/77 07/02/17 08:00 97.8 86 20 127/77 98 Room Air 97.8 07/02/17 05:36 96.5 07/02/17 05:06 96.5 07/02/17 04:00 96.5 83 19 118/79 98 Room Air 96.5 07/02/17 00:15 97.9 07/02/17 00:00 99.0 77 20 118/78 94 Room Air 99.0 Intake and Output 07/01/17 07/02/17 19:00 07:00 Intake Total 720 ml Output Total 400 ml Balance 320 ml Intake Oral 720 ml Output Urine Total 400 ml # Voids 3 # Bowel Movements 2 Laboratory Tests 07/02/17 06:20: White Blood Count 4.2L, Red Blood Count 2.78L, Hemoglobin 8.3L, Hematocrit 25.9L , Mean Corpuscular Volume 93, Mean Corpuscular Hemoglobin 29.8, Mean Corpuscular Hemoglobin Concent 32.0, Red Cell Distribution Width 17.1H, Platelet Count 172, Mean Platelet Volume 8.6, Neutrophils (%) (Auto) 65.7, Lymphocytes (%) (Auto) 20.9, Monocytes (%) (Auto) 9.1, Eosinophils (%) (Auto) 3.6H, Basophils (%) (Auto) 0.8, Sodium Level 141, Potassium Level 4.2, Chloride Level 108H, Carbon Dioxide Level 29, Anion Gap 4L, Blood Urea Nitrogen 14, Creatinine 1.2, Estimat Glomerular Filtration Rate > 60, Glucose Level 90, Calcium Level 8.8 Height (Feet): 6 Height (Inches): 0.00 Weight (Pounds): 220 General Appearance: no apparent distress EENT: normal ENT inspection Respiratory/Chest: decreased breath sounds Abdomen: non tender, soft Neurologic: typing section chief II-XII grossly normal Skin: warm/dry Kirill Duff Jul 02, 2017 23:32
--- NOTE | 2017-07-03 11:05 | Discharge Summary ---
Discharge Summary Hospital Course Date of Admission Jun 27, 2017 at 16:00 Date of Discharge Jul 02, 2017 at 18:30 Admitting Diagnosis SYNCOPE,LOWER G.I.BLEED HPI Michel Morales is a 61 year old male who was admitted on Jun 27, 2017 at 16:00 for Syncope, Lower Gastrointestinal Bleed Hospital Course dc summary#[id number] Discharge Medications Continued Medications: Acetaminophen With Codeine (T#3) (Tylenol #3 Tab*) Y Tab 1 TAB ORAL Q6HR PRN for For Pain Amlodipine Besylate* (Amlodipine Besylate*) 10 Mg Tablet 10 MG ORAL DAILY, TAB Ascorbic Acid* (Vitamin C*) 500 Mg Tablet 500 MG ORAL DAILY, #30 TAB 0 Refills Aspirin* (Aspirin*) 81 Mg Tab.chew 81 MG ORAL DAILY Citalopram Hydrobromide* (Citalopram Hbr*) 40 Mg Tablet 40 MG ORAL DAILY, TAB Dextran 70/Hypromellose (Artificial Tears Eye Drops*) 15 Ml Drops 1 DROP BOTH EYES BID, #15 ML 0 Refills Diphenhydramine Hcl* (Benadryl*) 25 Mg Capsule 25 MG ORAL QHS PRN for Itching Ferrous Sulfate* (Ferrous Sulfate*) 325 Mg Tablet 325 MG ORAL DAILY, #60 TAB 0 Refills Fluconazole (Fluconazole) 100 Mg Tablet 100 MG ORAL DAILY, #7 TAB Hydrocodone Bit/Acetaminophen 5-325* ([place] 5-325*) 1 Each Tablet 1 TAB ORAL Q6H PRN for For Pain, #20 TAB 0 Refills Lisinopril* (Lisinopril*) 10 Mg Tablet 10 MG ORAL DAILY Metoprolol Tartrate* (Metoprolol Tartrate*) 25 Mg Tablet 25 MG ORAL DAILY Multivitamin With Minerals (Multivitamins With Minerals*) 1 Each Tablet 1 TAB ORAL DAILY, TAB Nitroglycerin (Nitroglycerin) 0.4 Mg Tab.subl 0.4 MG SL, TAB Pantoprazole* (Pantoprazole*) 40 Mg Tablet. 40 MG ORAL DAILY Discontinued Medications: Omeprazole (Omeprazole) 20 Mg Capsule. 20 MG ORAL DAILY Discharge Condition Upon Discharge: stable Discharge Disposition Patient was discharged home with [facility] Discharge Diagnoses: Discharge Instructions Discharge Instructions Special Instructions I have been assigned to complete a D/C Summary on this account. I was not involved in the patient management Elisabeth Harrell NP ([place]) Jul 03, 2017 11:05
--- NOTE | 2017-07-04 04:45 | Discharge Summary 2 SIG ---
DATE OF ADMISSION: 06/27/2017 DATE OF DISCHARGE: 07/02/2017 REASON FOR ADMISSION: 61-year-old male with history of hypertension, depression, colon cancer, GI bleeding, presented with abdominal pain and generalized weakness. He reported bright red rectal bleeding x 1 day. The patient reported shortness of breath, dizziness and passing out. The patient reported shortness of breath and black bowel movements for two days. Upon evaluation, vital signs were stable. Blood pressure was stable. No leukocytosis. Hemoglobin- 8.4, hematocrit -27.1. Stool OB was positive. Troponin was negative. Chest x-ray revealed no acute cardiopulmonary pathology. The patient was previously hospitalized in [facility] in May and at that time, he had undergone colonoscopy and endoscopy. The patient was admitted with diagnoses of hemorrhagic shock, anemia of acute blood loss, lower GI bleeding, history of colon cancer, and syncopal episode likely due to acute blood-loss anemia. HOSPITAL COURSE: The patient admitted. The patient started on IV fluids. Cardiology, Neurology, Pulmonology, and Hematology/Oncology along with GI consults were requested. The patient subsequently had undergone colonoscopy which revealed diverticulosis, lipoma, and internal hemorrhoids. After procedure, GI recommended to closely monitor hemoglobin and hematocrit. Stool for C. difficile was negative. Stool culture was negative. The patient required transfusion of 1 unit of blood for hemoglobin- 7.4 and hematocrit - 23.1. GI closely followed. According to processing tech, syncopal episode was likely secondary to acute blood-loss anemia. Blood pressure was managed with beta-albin and calcium-channel albin. Echocardiogram revealed preserved ejection fraction of 60% to 65%, right ventricular systolic pressure of 41 consistent with mild pulmonary hypertension. Venous duplex of bilateral lower extremities was negative. The patient initially also reported shortness of breath and was placed on supplemental oxygen. Prior to discharge, pulse oximetry was stable on room air. Preschool Special Education Teacher /oncologist closely followed. The patient had iron-deficiency anemia and anemia of chronic disease. The patient had undergone infusion with Venofer. Bowel regimen instituted. Initially complained of diarrhea. ID followed for possible colitis and possible infectiosus causes of diarrhea. Stool culture and stool for C. difficile were negative. The patient was treated empirically with Flagyl and Cipro. ID specialist cleared the patient to be discharged off antibiotics. Anusol provided for hemorrhoids. GI prophylaxis provided. Pain management provided. The patient clinically was improving. The patient to follow up with GI as an outpatient. Neurologist seen and evaluated the patient due to syncopal episode. He concluded that the patient's syncopal episode was likely due to the acute blood loss. All consultants cleared the patient for discharge. FINAL DIAGNOSES: 1. Hemorrhagic shock secondary to anemia of acute blood loss. 2. Anemia of acute blood loss. 3. Lower GI bleeding/rectal bleeding. 4. Hypertension. 5. Possible colitis. 6. History of colon cancer, status post surgery. 7. Syncopal episode, likely due to acute blood-loss anemia. 8. Iron-deficiency anemia. 9. Anemia of chronic disease. 10. Internal hemorrhoids 11. Diverticulosis DISCHARGE MEDICATIONS: See medication reconciliation list. DISCHARGE INSTRUCTIONS: The patient discharged home with home health services. Follow up with primary care provider next week. Daljit Sandhu M.D. I have been assigned to dictate discharge summary on this account and I was not involved in the patient's management. Elisabeth RoseHenry J. Carter Specialty Hospital And Nursing Facilitycolby N.PRox DR: Wilfrido JOB#: [id number] CC: VICENTA
--- NOTE | 2017-07-04 13:05 | Diagnostic Imaging Report ---
APPROVED REPORT CPT Code: 41750 Vascular Symptoms Syncope Doppler Spectral Velocity Analysis RightLeft RIGHT SIDE: CCA - Imaging reveals no significant plaque within the extracranial carotid arteries. The Doppler spectral flow analysis is within normal limits throughout the extracranial carotid arteries. VERTEBRAL - The vertebral artery is within normal limits. LEFT SIDE: CCA - Imaging reveals no significant plaque in the common carotid artery. ICA arteries. The Doppler signal indicates the degree of stenosis is minimal (20%) in the internal carotid, and (10%) in the external carotid arteries. VERTEBRAL - The vertebral artery is patent, without evidence of stenosis or steal.
--- NOTE | 2017-07-04 13:07 | Diagnostic Imaging Report ---
APPROVED REPORT CPT Code: 82123 Present Symptoms Comments: Pain R/O DVT BILATERAL: Imaging revealed a patent deep venous system bilaterally. There is no evidence of thrombus within the femoral, popliteal or tibial segments. The greater saphenous veins are also within normal limits. Doppler indicates normal spontaneous flow within these segments.
--- NOTE | 2017-07-06 11:39 | Cardiology Report ---
APPROVED REPORT EKG Measurement Heart [id number] OR [id number] [id number] Normal sinus rhythm Possible Left atrial enlargement Borderline ECG
== END 2017-07-02 18:30 | disposition home or self-care (01) | DRG 377 ==
LOC: EMR 14:00 → 2E 16:00 → EDBEDREQ 17:15 → 4W 06-29 18:47
PROC: 30233N1 Transfusion of Nonautologous Red Blood Cells into Peripheral Vein, Percutaneous Approach (ICD-10-PCS; principal; 2017-06-28)
PROC: 0DJD8ZZ Inspection of Lower Intestinal Tract, Via Natural or Artificial Opening Endoscopic (ICD-10-PCS; 2017-06-29)
DX: K92.2 Gastrointestinal hemorrhage, unspecified (principal); R57.8 Other shock; C16.9 Malignant neoplasm of stomach, unspecified; I10 Essential (primary) hypertension; D63.8 Anemia in other chronic diseases classified elsewhere; F32.9 Major depressive disorder, single episode, unspecified; D62 Acute posthemorrhagic anemia; K64.9 Unspecified hemorrhoids; K52.9 Noninfective gastroenteritis and colitis, unspecified; K57.90 Diverticulosis of intestine, part unspecified, without perforation or abscess without bleeding; J44.9 Chronic obstructive pulmonary disease, unspecified; F17.210 Nicotine dependence, cigarettes, uncomplicated; R73.03 Prediabetes; K64.8 Other hemorrhoids; Z79.82 Long term (current) use of aspirin; Z23 Encounter for immunization; Z78.1 Physical restraint status
CPT/HCPCS: 36415; 71045; 80048; 80053; 80069; 81003; 82306; 82607; 82728; 83036; 83540; 83550; 83690; 83735; 84100; 84165; 84443; 84484; 85007; 85025; 85610; 85651; 85730; 86140; 86592; 86850; 86900; 86901; 86920; 87045; 87324; 90630; 90732; 93005; 93306; 93880; 93970; 94003; 94150; 94640; 94664; 94760; 99285; J7620

== ENCOUNTER 2018-10-29 10:47 | Emergency (ER) | payer MEDICARE, OTHER ==
[~2018-10-29] VITALS: Ht 182.9 cm; Wt 106.1 kg
[~2018-10-29 10:47] MED LIST changes: +ACETAMINOPHEN-1 EAC1 ORAL; +ASPIRIN81 MG ORAL; +BENADRYL25 MG ORAL; +FLUCONAZOLE100 MG ORAL; +METOPROLOL TART25 MG ORAL; +OMEPRAZOLE20 M2 ORAL; +PANTOPRAZOLE SO40 MG ORAL
[2018-10-29] MEDS ORDERED: LEVSIN-SL0.125 MG SL (11:02)
[2018-10-29] MEDS ORDERED: OXYBUTYNIN CHLOR5 M1 ORAL (11:02)
[2018-10-29] MEDS ORDERED: METHOCARBAMOL750 MG ORAL (11:02)
[2018-10-29] MEDS ORDERED: HYDRALAZINE HCL25 M1 ORAL (11:02)
--- NOTE | 2018-10-29 11:05 | NUR ---
ED Nurse Note: PT CAME IN DUE TO HEADACHE AND BLURRING OF VISION CONSISTENT X 1 MONTH. DENIES N/V AND CP. PT HAS AN OPHTOMETRIST APPOINTMENT A MONTH AGO AND IS WAITING FOR A NEW READING GLASSESS. PT ALSO HAS HX OF HTN. AAO X4, AMBULATORY WITH NON LABORED BREATHING. PT STATES, " THE THINGS, I SEE IT'S BLURRY.
[2018-10-29 11:07] VITALS: BP 169/111
--- NOTE | 2018-10-29 11:21 | Emergency Room Report ---
History of Present Illness General Chief Complaint: Headache Source: Patient Present Illness HPI The patient presents with a headache. In addition he has some right hand weakness and some blurred vision. The latter 2 are intermittent. They do not seem related to the headache. He has not been taking his blood pressure medication for over a month. He states he is not sure which he should be taking and when. He does have hydralazine 25 mg. He states he has run out of previous blood pressure medication. He states he gets a headache like this when his blood pressures out of control. He states that recently he was treated at [facility] for having some bleeding from 1 of his kidneys. This required blood transfusions. That was the last time he was taking blood pressure medication which was over a month ago. No fevers, chills, chest pain, palpitations, nausea, vomiting, diarrhea, dysuria , abdominal pain, shortness of breath, depression. He has an appointment with his doctor at 2 PM today but felt he could not make it. Allergies: Coded Allergies: No Known Allergies (Unverified , 05/10/17) Patient History Past Medical History: see triage record Social History: Reports: smoking Social History Narrative came by bus Reviewed Nursing Documentation: PMH: Agreed; PSxH: Agreed Nursing Documentation-PMH Past Medical History: No History, Except For Hx Cardiac Problems: Yes - heart murmur, stents Hx Hypertension: Yes Hx Pacemaker: No Hx Asthma: Yes Hx COPD: Yes Hx Diabetes: Yes - Borderline diabetic Hx Cancer: Yes - Gastric cancer with surgical intervention x3 Hx Gastrointestinal Problems: Yes - GI bleed, hernia repair Hx Dialysis: No Hx Neurological Problems: Yes Hx Cerebrovascular Accident: No Hx Transient Ischemic Attacks: No Hx Dementia: No Hx Alzheimer's Disease: No Hx Parkinson's Disease: No Hx Meningitis: No Hx Encephalitis: No Hx Seizures: No Hx Epilepsy: No Hx Multiple Sclerosis: No Hx Cerebral Palsy: No Hx Amyotrophic Lat Sclerosis: No Hx Guillian-[place] Syndrome: No Hx Paralysis: No Hx Peripheral Neuropathy: No Hx Spinal Cord Injury: No Hx Head Trauma: Yes - year 1998 Hx Traumatic Brain Injury: Yes - year 1998 Hx Memory Loss: No Hx Concentration Difficulty: No Hx Speech Problem: No Hx Tremors: No Hx Vertigo: Yes Hx Dizziness: Yes Hx Syncope: Yes Hx Headaches: No Hx Aphasia: No Hx Dysphasia: No Hx Numbness: Yes - fingers and legs Hx Weakness: Yes - general Hx Fatigue: Yes - general Hx Neurologic Surgery: No Hx Brain Shunt: No Review of Systems All Other Systems: negative except mentioned in HPI Physical Exam Vital Signs Date Time Temp Pulse Resp B/P (MAP) Pulse Ox O2 Delivery O2 Flow Rate FiO2 10/29/18 10:55 98.2 86 21 154/101 (118) 98 Room Air Sp02 EP Interpretation: reviewed, normal General Appearance: well appearing, no apparent distress, GCS 15 Head: normocephalic, atraumatic Eyes: bilateral eye normal inspection, bilateral eye PERRL, bilateral eye EOMI ENT: normal pharynx, moist mucus membranes Neck: supple Respiratory: lungs clear, normal breath sounds Cardiovascular #1: regular rate, rhythm, edema - trace bilat Cardiovascular #2: 2+ radial (R) Gastrointestinal: normal inspection, normal bowel sounds, non tender, no mass, non-distended Musculoskeletal: back normal, gait/station normal, normal range of motion Neurologic: alert, oriented x3, recoating machine operator III-XII nml as tested, motor strength/tone normal, DTRs symmetric, sensory intact, cerebellar normal, normal gait, speech normal Psychiatric: mood/affect normal Skin: normal inspection, warm/dry Medical Decision Making Diagnostic Impression: Primary Impression: HTN (hypertension) Qualified Codes: I10 - Essential (primary) hypertension Additional Impression: Renal insufficiency ER Course Patient presents with headache, blurred vision, right hand weakness that is intermittent and noncompliance with blood pressure medication. Differential includes acute myocardial infarction, stroke, renal failure, electrolyte imbalance amongst others. Patient will be evaluated with EKG, chest x-ray, CT of the head and labs. The patient will be treated with Reglan and Benadryl. The patient was placed on a gambling monitor. EKG without injury. Chest x-ray possible nodule left. Labs with mild anemia, renal insufficiency, slightly elevated sodium. Patient states that headache is resolved. His blood pressure is controlled with 1 dose of hydralazine. Discussed the need to go see his doctor for the appointment he has. He feels stable to do so. The patient was given copies of his EKG and labs. Patient stable for outpatient observation and treatment. Laboratory Tests Test 10/29/18 12:03 10/29/18 12:40 Sodium Level 146 MMOL/L (136-145) H Potassium Level 4.5 MMOL/L (3.5-5.1) Chloride Level 112 MMOL/L (98-107) H Carbon Dioxide Level 22 MMOL/L (21-32) Anion Gap 12 mmol/L (5-15) Blood Urea Nitrogen 19 mg/dL (7-18) H Creatinine 1.4 MG/DL (0.55-1.30) H Estimate Glomerular Filtration Rate > 60 mL/min (>60) Glucose Level 91 MG/DL (74-106) Calcium Level 9.5 MG/DL (8.5-10.1) Total Bilirubin 0.1 MG/DL (0.2-1.0) L Aspartate Amino Transferase (AST) 22 U/L (15-37) Alanine Aminotransferase (ALT) 22 U/L (12-78) Alkaline Phosphatase 84 U/L (46-116) Total Creatine Kinase 166 U/L (26-308) Troponin I 0.008 ng/mL (0.000-0.056) Pro-B-Type Natriuretic Peptide 45 pg/mL (0-125) Total Protein 7.3 G/DL (6.4-8.2) Albumin 3.3 G/DL (3.4-5.0) L Globulin 4.0 g/dL Albumin/Globulin Ratio 0.8 (1.0-2.7) L White Blood Count 6.0 K/UL (4.8-10.8) Red Blood Count 4.80 M/UL (4.70-6.10) Hemoglobin 12.4 G/DL (14.2-18.0) L Hematocrit 39.7 % (42.0-52.0) L Mean Corpuscular Volume 83 FL (80-99) Mean Corpuscular Hemoglobin 25.8 PG (27.0-31.0) L Mean Corpuscular Hemoglobin Concent 31.1 G/DL (32.0-36.0) L Red Cell Distribution Width 18.1 % (11.6-14.8) H Platelet Count 225 K/UL (150-450) Mean Platelet Volume 10.0 FL (6.5-10.1) Neutrophils (%) (Auto) % (45.0-75.0) Lymphocytes (%) (Auto) % (20.0-45.0) Monocytes (%) (Auto) % (1.0-10.0) Eosinophils (%) (Auto) % (0.0-3.0) Basophils (%) (Auto) % (0.0-2.0) Differential Total Cells Counted 100 Neutrophils % (Manual) 59 % (45-75) Lymphocytes % (Manual) 32 % (20-45) Monocytes % (Manual) 6 % (1-10) Eosinophils % (Manual) 3 % (0-3) Basophils % (Manual) 0 % (0-2) Band Neutrophils 0 % (0-8) Platelet Estimate Adequate Platelet Morphology Normal Anisocytosis 1+ Prothrombin Time 9.8 SEC (9.30-11.50) Prothrombin Time INR 0.9 (0.9-1.1) PTT 27 SEC (23-33) EKG Diagnostic Results Rate: normal Rhythm: NSR ST Segments: no acute changes - LAE Rhythm Strip Diag. Results EP Interpretation: yes Rhythm: NSR, no PVC's, no ectopy Chest X-Ray Diagnostic Results Chest X-Ray Diagnostic Results : Chest X-Ray Ordered: Yes # of Views/Limited/Complete: 1 View Indication: Other EP Interpretation: Yes Interpretation: no consolidation, no effusion, no pneumothorax Impression: No acute disease Electronically Signed by: Electronically signed by Fabio Tinoco MD CT/MRI/US Diagnostic Results CT/MRI/US Diagnostic Results : Imaging Test Ordered: Head Impression No bleed or infarct Last Vital Signs Date Time Temp Pulse Resp B/P (MAP) Pulse Ox O2 Delivery O2 Flow Rate FiO2 10/29/18 13:40 98.6 77 12 139/79 100 Room Air Status: improved Disposition: HOME, SELF-CARE Condition: Improved Scripts Acetaminophen (Tylenol) 325 Mg Tablet 650 MG ORAL Q6H PRN for Prn Pain/Headache/Temp > 101, #20 TAB 0 Refills Prov: Fabio Tinoco MD 10/29/18 Fabio Tinoco MD Oct 29, 2018 11:21
[2018-10-29] MEDS ORDERED: Metoclopramide 10mg/2ml Inj IVP ONE (11:30)
[2018-10-29] MEDS ORDERED: DiphenhydrAMINE 50mg/ml Inj IVP ONE (11:30)
[2018-10-29] MEDS ORDERED: HydrALAZINE 25mg tab ORAL ONE (11:30)
--- NOTE | 2018-10-29 11:30 | NUR ---
ED Nurse Note: OUTPATIENT PHYSICAL THERAPIST ASSISTANT AT THE BED SIDE FOR CXR.
--- NOTE | 2018-10-29 11:41 | NUR ---
ED Nurse Note: RN UNABLE TO DRAW BLOOD FROM IV CATHETER. AUTOMATIC CENTRIFUGAL STATION OPERATOR AT THE BED SIDE FOR BLOOD DRAW.
--- NOTE | 2018-10-29 12:03 | NUR ---
ED Nurse Note: ROSANGELA APPOINTMENT SCHEDULER UNABLE TO DRAW BLOOD. GIAN FROM LAB WILL RY TO DRAW BLOOD.
--- NOTE | 2018-10-29 12:29 | Diagnostic Imaging Report ---
Indication: Chest pain Comparison: 06/27/2017 A single view chest radiograph was obtained. Findings: Cardiomediastinal appearance is within normal limits for age. The lungs are clear. Pulmonary vascularity is appropriate. The diaphragmatic contour is smooth and costophrenic angles are sharp. No pleural effusions are identified. The bones are unremarkable. Impression: No acute findings
[2018-10-29 12:31] LABS: ANION GAP 12 mmol/L (5-15); BLOOD UREA NITROGEN 19 mg/dL (7-18); CALCIUM 9.5 MG/DL (8.5-10.1); CARBON DIOXIDE 22 MMOL/L (21-32); CHLORIDE 112 MMOL/L (98-107); CREATININE 1.4 MG/DL (0.55-1.30); POTASSIUM 4.5 MMOL/L (3.5-5.1); SODIUM 146 MMOL/L (136-145)
[2018-10-29 12:42] LABS: ALANINE AMINOTRANSFERASE 22 U/L (12-78); ALBUMIN 3.3 G/DL (3.4-5.0); ALBUMIN/GLOBULIN RATIO 0.8 (1.0-2.7); ALKALINE PHOSPHATASE 84 U/L (46-116); ASPARTATE AMINO TRANSFERASE 22 U/L (15-37); BILIRUBIN,TOTAL 0.1 MG/DL (0.2-1.0); CREATINE KINASE 166 U/L (26-308)
[2018-10-29 12:48] LABS: HEMATOCRIT 39.7 % (42.0-52.0); HEMOGLOBIN 12.4 G/DL (14.2-18.0); MEAN CORPUSCULAR VOLUME 83 FL (80-99); PLATELET COUNT 225 K/UL (150-450); RED CELL DISTRIBUTION WIDTH 18.1 % (11.6-14.8)
[2018-10-29 12:57] LABS: INR 0.9 (0.9-1.1)
--- NOTE | 2018-10-29 13:05 | Diagnostic Imaging Report ---
Indication: Headache Technique: Contiguous 5 mm thick transaxial imaging of the head obtained in a Siemens Sensation [address] scanner. Soft tissue and bone windows generated. Automatic Exposure Control was utilized. Total Dose length Product (DLP): 1411.[address] Dose Index Volume (CTDIvol): 70.38 mGy Comparison: none Findings: The size and configuration of the cortical sulci, basal cisterns, and ventricles are within normal limits for age. There is no mass effect, midline shift, or edema identified. There is no evidence of acute hemorrhage or abnormal intra-axial or extra-axial fluid collections. The bones and soft tissues are unremarkable. Impression: No mass effect, edema or acute bleed. The CT scanner at [facility] is accredited by the [employer] and the scans are performed using dose optimization techniques as appropriate to a performed exam including Automatic Exposure control.
[2018-10-29] MEDS ORDERED: TYLENOL325 MG ORAL (13:24)
[2018-10-29 13:40] VITALS: BP 139/79
--- NOTE | 2018-10-29 13:40 | NUR ---
ER DISCHARGE NOTE: Patient is cleared to be discharged per ERMD, pt is aox4, on room air, with stable vital signs. pt was given dc and prescription instructions, pt was able to verbalize understanding, pt id band and iv site removed without complications. pt is able to ambulate with steady gait. pt took all belongings.
--- NOTE | 2018-11-01 12:26 | Cardiology Report ---
APPROVED REPORT EKG Measurement Heart [id number] [id number] Normal sinus rhythm Possible Left atrial enlargement Borderline ECG
== END 2018-10-29 13:40 | disposition home or self-care (01) ==
LOC: EMR 11:18
DX: I10 Essential (primary) hypertension (principal); N28.9 Disorder of kidney and ureter, unspecified; F17.200 Nicotine dependence, unspecified, uncomplicated; J44.9 Chronic obstructive pulmonary disease, unspecified; Z85.028 Personal history of other malignant neoplasm of stomach; Z87.820 Personal history of traumatic brain injury; D64.9 Anemia, unspecified
CPT/HCPCS: 36415; 70450; 71045; 80053; 82550; 83880; 84484; 85007; 85025; 85610; 85730; 93005; 96374; 96375; 99284; J1200; J2765

== ENCOUNTER 2018-11-12 12:51 | Emergency (ER) | payer MEDICARE, OTHER ==
[~2018-11-12] VITALS: Ht 182.9 cm; Wt 106.6 kg
[~2018-11-12 12:51] MED LIST changes: +HYDRALAZINE HCL25 M1 ORAL; +LEVSIN-SL0.125 MG SL; +METHOCARBAMOL750 MG ORAL; +OXYBUTYNIN CHLOR5 M1 ORAL; +TYLENOL325 MG ORAL
[2018-11-12 13:28] VITALS: BP 162/131
--- NOTE | 2018-11-12 13:28 | NUR ---
ED Nurse Note: Pt has been experiencing skin rash and weakness x 1 week , pt stated it must have been their mattress. pt complains of itchiness, no rash noted. pt was seen by bety. will continue to monitor.
[2018-11-12 13:30] LABS: BASOPHILS % (AUTO) 2.9 % (0.0-2.0); EOSINOPHILS % (AUTO) 5.4 % (0.0-3.0); HEMATOCRIT 46.2 % (42.0-52.0); LYMPHOCYTES % (AUTO) 20.7 % (20.0-45.0); MEAN CORPUSCULAR VOLUME 85 FL (80-99); MONOCYTES % (AUTO) 3.7 % (1.0-10.0); NEUTROPHILS % (AUTO) 67.4 % (45.0-75.0); PLATELET COUNT 299 K/UL (150-450); RED BLOOD COUNT 5.42 M/UL (4.70-6.10); RED CELL DISTRIBUTION WIDTH 17.9 % (11.6-14.8); WHITE BLOOD COUNT 9.4 K/UL (4.8-10.8)
[2018-11-12 13:40] LABS: ANION GAP 13 mmol/L (5-15); BLOOD UREA NITROGEN 27 mg/dL (7-18); CALCIUM 10.1 MG/DL (8.5-10.1); CARBON DIOXIDE 22 MMOL/L (21-32); CHLORIDE 109 MMOL/L (98-107); CREATININE 1.9 MG/DL (0.55-1.30); POTASSIUM 4.8 MMOL/L (3.5-5.1); SODIUM 144 MMOL/L (136-145)
[2018-11-12 13:53] LABS: ALANINE AMINOTRANSFERASE 31 U/L (12-78); ALBUMIN 3.9 G/DL (3.4-5.0); ALBUMIN/GLOBULIN RATIO 0.9 (1.0-2.7); ALKALINE PHOSPHATASE 107 U/L (46-116); ASPARTATE AMINO TRANSFERASE 30 U/L (15-37); BILIRUBIN,TOTAL 0.3 MG/DL (0.2-1.0); CKMB 4.1 NG/ML (0.0-3.6); CREATINE KINASE 328 U/L (26-308)
[2018-11-12] MEDS ORDERED: PERMETHRIN60 GM TOPIC (14:18)
--- NOTE | 2018-11-12 14:30 | Emergency Room Report ---
History of Present Illness General Chief Complaint: General Complaint Source: Patient Present Illness HPI Patient presents emergency department today with multiple complaints. Patient complains of diffuse body pain itching and states that he thinks he has a mattress which is causing bedbug bites. In any fever. Complains of some mild nausea. Denies any chest pain or shortness of breath. No other complaints are noted. Symptoms noted to be moderate. No other modifying factors. No other associated signs and symptoms. No other complaints were noted. Allergies: Coded Allergies: No Known Allergies (Unverified , 05/10/17) Patient History Past Medical History: HTN, CAD, other - Heart murmur, stents PMH Narrative GI bleed hernia repair Past Surgical History: PTCA Social History: Denies: smoking, alcohol use, drug use Reviewed Nursing Documentation: PMH: Agreed; PSxH: Agreed Nursing Documentation-PMH Past Medical History: No History, Except For Hx Cardiac Problems: Yes - heart murmur, stents Hx Hypertension: Yes Hx Pacemaker: No Hx Asthma: Yes Hx COPD: Yes Hx Diabetes: Yes - Borderline diabetic Hx Cancer: Yes - Gastric cancer with surgical intervention x3 Hx Gastrointestinal Problems: Yes - GI bleed, hernia repair Hx Dialysis: No Hx Neurological Problems: Yes Hx Cerebrovascular Accident: No Hx Transient Ischemic Attacks: No Hx Dementia: No Hx Alzheimer's Disease: No Hx Parkinson's Disease: No Hx Meningitis: No Hx Encephalitis: No Hx Seizures: No Hx Epilepsy: No Hx Multiple Sclerosis: No Hx Cerebral Palsy: No Hx Amyotrophic Lat Sclerosis: No Hx Guillian-[place] Syndrome: No Hx Paralysis: No Hx Peripheral Neuropathy: No Hx Spinal Cord Injury: No Hx Head Trauma: Yes - year 1998 Hx Traumatic Brain Injury: Yes - year 1998 Hx Memory Loss: No Hx Concentration Difficulty: No Hx Speech Problem: No Hx Tremors: No Hx Vertigo: Yes Hx Dizziness: Yes Hx Syncope: Yes Hx Headaches: No Hx Aphasia: No Hx Dysphasia: No Hx Numbness: Yes - fingers and legs Hx Weakness: Yes - general Hx Fatigue: Yes - general Hx Neurologic Surgery: No Hx Brain Shunt: No Review of Systems All Other Systems: negative except mentioned in HPI Physical Exam Vital Signs Date Time Temp Pulse Resp B/P (MAP) Pulse Ox O2 Delivery O2 Flow Rate FiO2 11/12/18 12:57 98.1 115 20 133/88 (103) 96 Room Air Sp02 EP Interpretation: reviewed, normal General Appearance: normal inspection, well appearing, no apparent distress, alert Head: atraumatic Eyes: bilateral eye normal inspection ENT: normal ENT inspection, hearing grossly normal, normal voice Neck: normal inspection, full range of motion, supple, no bony tend Respiratory: normal inspection, lungs clear, normal breath sounds, no respiratory distress, no retraction, no wheezing Cardiovascular #1: regular rate, rhythm, no edema Gastrointestinal: normal inspection, normal bowel sounds, non tender, soft, no guarding, no hernia Genitourinary: no CVA tenderness Musculoskeletal: normal inspection, back normal, normal range of motion Neurologic: normal inspection, alert, responsive, speech normal Psychiatric: normal inspection, judgement/insight normal, mood/affect normal Skin: other - Multiple excoriations but no definite evidence of cellulitis or madai ghotra or contact dermatitis. Medical Decision Making Diagnostic Impression: Primary Impression: Renal insufficiency Additional Impression: Genital pruritus ER Course Patient presents emergency department today complaint generalized body itching. Differential considerations include acute allergic reaction, scabies, bedbugs bites, electrolyte abnormality just name a few. Given the severity of the patient's presentation I felt this is a highly complex patient. This patient required extensive workup. Patient's laboratory work-up was negative. There is some evidence of renal insufficiency which likely is chronic. Given patient's presentation patient was given Elimite cream in the event that she does have some type of infestation. He is advised to follow closely with outpatient physician. Patient is advised to follow up with primary doctor in 2-3 days and return the emergency room for any worsening symptoms and as needed. Labs Test 11/12/18 13:14 White Blood Count 9.4 K/UL (4.8-10.8) Red Blood Count 5.42 M/UL (4.70-6.10) Hemoglobin 14.0 G/DL (14.2-18.0) Hematocrit 46.2 % (42.0-52.0) Mean Corpuscular Volume 85 FL (80-99) Mean Corpuscular Hemoglobin 25.8 PG (27.0-31.0) Mean Corpuscular Hemoglobin Concent 30.3 G/DL (32.0-36.0) Red Cell Distribution Width 17.9 % (11.6-14.8) Platelet Count 299 K/UL (150-450) Mean Platelet Volume 9.8 FL (6.5-10.1) Neutrophils (%) (Auto) 67.4 % (45.0-75.0) Lymphocytes (%) (Auto) 20.7 % (20.0-45.0) Monocytes (%) (Auto) 3.7 % (1.0-10.0) Eosinophils (%) (Auto) 5.4 % (0.0-3.0) Basophils (%) (Auto) 2.9 % (0.0-2.0) Sodium Level 144 MMOL/L (136-145) Potassium Level 4.8 MMOL/L (3.5-5.1) Chloride Level 109 MMOL/L (98-107) Carbon Dioxide Level 22 MMOL/L (21-32) Anion Gap 13 mmol/L (5-15) Blood Urea Nitrogen 27 mg/dL (7-18) Creatinine 1.9 MG/DL (0.55-1.30) Estimat Glomerular Filtration Rate 43.9 mL/min (>60) Glucose Level 130 MG/DL (74-106) Calcium Level 10.1 MG/DL (8.5-10.1) Total Bilirubin 0.3 MG/DL (0.2-1.0) Aspartate Amino Transf (AST/SGOT) 30 U/L (15-37) Alanine Aminotransferase (ALT/SGPT) 31 U/L (12-78) Alkaline Phosphatase 107 U/L (46-116) Total Creatine Kinase 328 U/L (26-308) Creatine Kinase MB 4.1 NG/ML (0.0-3.6) Creatine Kinase MB Relative Index 1.2 Troponin I 0.000 ng/mL (0.000-0.056) Total Protein 8.2 G/DL (6.4-8.2) Albumin 3.9 G/DL (3.4-5.0) Globulin 4.3 g/dL Albumin/Globulin Ratio 0.9 (1.0-2.7) EKG Diagnostic Results Rate: normal Rhythm: NSR ST Segments: no acute changes Rhythm Strip Diag. Results EP Interpretation: yes Rate: 100 Rhythm: NSR, no PVC's, no ectopy Last Vital Signs Date Time Temp Pulse Resp B/P (MAP) Pulse Ox O2 Delivery O2 Flow Rate FiO2 11/12/18 13:28 100 18 Room Air 11/12/18 13:28 98.1 162/131 96 Status: improved Disposition: HOME, SELF-CARE Condition: Stable Scripts Permethrin* (ELIMITE*) 60 Gm Cream..g. 1 APPLIC TOPIC ONCE, #60 GM 0 Refills Apply cream from head to toe; leave on for 8-14 hours before washing off with water; may reapply in 1 week if live mites appear. Prov: Dave Merchant MD 11/12/18 Referrals: Daljit Sandhu MD (PCP) Patient Instructions: Pruritus Dave Merchant MD Nov 12, 2018 14:30
[2018-11-12 14:48] VITALS: BP 135/98
== END 2018-11-12 14:48 | disposition home or self-care (01) ==
LOC: EMR 14:05
DX: L29.9 Pruritus, unspecified (principal); N28.9 Disorder of kidney and ureter, unspecified; R11.0 Nausea; I10 Essential (primary) hypertension; J44.9 Chronic obstructive pulmonary disease, unspecified; Z85.00 Personal history of malignant neoplasm of unspecified digestive organ; I11.9 Hypertensive heart disease without heart failure; Z87.820 Personal history of traumatic brain injury
CPT/HCPCS: 36415; 80053; 82550; 82553; 84484; 85025; 93005; 99284

== ENCOUNTER 2018-11-18 15:46 | Emergency (ER) | payer MEDICARE, OTHER ==
[~2018-11-18] VITALS: Ht 182.9 cm; Wt 106.6 kg
[~2018-11-18 15:46] MED LIST changes: +PERMETHRIN60 GM TOPIC
--- NOTE | 2018-11-18 15:55 | NUR ---
ED Nurse Note: PATIENT WALKED INTO ED FOR ELIMITE REFILL PATIENT IS ALERT AWAKE X4 AMBULATORY
--- NOTE | 2018-11-18 15:58 | Emergency Room Report ---
History of Present Illness General Chief Complaint: Medication Refill Source: Patient Present Illness HPI Patient presents with pruritic rash. He has been treated for scabies in the past with good results. He believes he has a recurrence of the scabies at this time. The rash is on his neck abdomen legs groin region. He is denies any fevers. He denies pain. The patient had multiple medical problems with rectal bleed and hemorrhagic shock and renal failure. He states that labs were taken 2 months ago and they were normal. He was admitted in June 2017 with a major GI bleed. Discharge diagnoses: 1. Hemorrhagic shock secondary to anemia of acute blood loss. 2. Anemia of acute blood loss. 3. Lower GI bleeding/rectal bleeding. 4. Hypertension. 5. Possible colitis. 6. History of colon cancer, status post surgery. 7. Syncopal episode, likely due to acute blood-loss anemia. 8. Iron-deficiency anemia. 9. Anemia of chronic disease. 10. Internal hemorrhoids 11. Diverticulosis Allergies: Coded Allergies: No Known Allergies (Unverified , 05/10/17) Patient History Past Medical History: see triage record Social History: Reports: smoking Social History Narrative From home Reviewed Nursing Documentation: PMH: Agreed; PSxH: Agreed Nursing Documentation-PMH Past Medical History: No History, Except For Hx Cardiac Problems: Yes - heart murmur, stents Hx Hypertension: Yes Hx Pacemaker: No Hx Asthma: Yes Hx COPD: Yes Hx Diabetes: Yes - Borderline diabetic Hx Cancer: Yes - Gastric cancer with surgical intervention x3 Hx Gastrointestinal Problems: Yes - GI bleed, hernia repair Hx Dialysis: No Hx Neurological Problems: Yes Hx Cerebrovascular Accident: No Hx Transient Ischemic Attacks: No Hx Dementia: No Hx Alzheimer's Disease: No Hx Parkinson's Disease: No Hx Meningitis: No Hx Encephalitis: No Hx Seizures: No Hx Epilepsy: No Hx Multiple Sclerosis: No Hx Cerebral Palsy: No Hx Amyotrophic Lat Sclerosis: No Hx Guillian-[place] Syndrome: No Hx Paralysis: No Hx Peripheral Neuropathy: No Hx Spinal Cord Injury: No Hx Head Trauma: Yes - year 1998 Hx Traumatic Brain Injury: Yes - year 1998 Hx Memory Loss: No Hx Concentration Difficulty: No Hx Speech Problem: No Hx Tremors: No Hx Vertigo: Yes Hx Dizziness: Yes Hx Syncope: Yes Hx Headaches: No Hx Aphasia: No Hx Dysphasia: No Hx Numbness: Yes - fingers and legs Hx Weakness: Yes - general Hx Fatigue: Yes - general Hx Neurologic Surgery: No Hx Brain Shunt: No Review of Systems Constitutional: Reports: see HPI Musculoskeletal: Denies: joint pain Skin: Reports: see HPI Hematologic/Lymphatic: Reports: see HPI; Denies: easy bruising Allergic: Reports: see HPI Physical Exam Vital Signs Date Time Temp Pulse Resp B/P (MAP) Pulse Ox O2 Delivery O2 Flow Rate FiO2 11/18/18 15:49 98.2 115 20 151/83 (105) 97 Room Air Sp02 EP Interpretation: reviewed, normal General Appearance: well appearing, no apparent distress, GCS 15, other - smells of alcohol Head: normocephalic Eyes: bilateral eye normal inspection, bilateral eye PERRL, bilateral eye other - No pallor ENT: moist mucus membranes Neck: supple Respiratory: chest non-tender, lungs clear Cardiovascular #1: regular rate, rhythm Gastrointestinal: normal inspection Musculoskeletal: digits/nails normal, gait/station normal Neurologic: alert, oriented x3, grossly normal Psychiatric: mood/affect normal Skin: rash - Excoriated neck abdomen and legs and groin region Medical Decision Making Diagnostic Impression: Primary Impression: Scabies ER Course Patient presents with pruritic rash. Differential includes contact dermatitis, partially treated scabies, other exanthem. There is no evidence of infection at this time with bacteria. He is certain that this needs to be treated with Elimite. The prescription will be given to the patient along with Benadryl. Patient stable for outpatient observation and treatment. He was advised to follow-up with his own physicians. Last Vital Signs Date Time Temp Pulse Resp B/P (MAP) Pulse Ox O2 Delivery O2 Flow Rate FiO2 11/18/18 16:07 98.2 98 17 149/82 98 Room Air Status: unchanged Disposition: HOME, SELF-CARE Condition: Stable Scripts Diphenhydramine Hcl* (BENADRYL*) 25 Mg Capsule 25 MG ORAL Q6H PRN for Itching, #20 CAP Prov: Fabio Tinoco MD 11/18/18 Permethrin* (ELIMITE*) 60 Gm Cream..g. 1 APPLIC TOPIC ONCE, #60 GM 0 Refills Apply cream from head to toe; leave on for 8-14 hours before washing off with water; may reapply in 1 week if live mites appear. Prov: Fabio Tinoco MD 11/18/18 Fabio Tinoco MD Nov 18, 2018 15:58
[2018-11-18] MEDS ORDERED: BENADRYL25 MG ORAL (16:00)
[2018-11-18] MEDS ORDERED: PERMETHRIN60 GM TOPIC (16:00)
[2018-11-18 16:05] VITALS: BP 149/82
[2018-11-18 16:07] VITALS: BP 149/82
--- NOTE | 2018-11-18 16:07 | NUR ---
ER DISCHARGE NOTE: Patient is cleared to be discharged per ERMD DR LESTER, pt is aox4, on room air, with stable vital signs. pt was given dc and prescription instructions, pt was able to verbalize understanding, pt id band removed without complications. pt is able to ambulate with steady gait. pt took all belongings.
== END 2018-11-18 16:07 | disposition home or self-care (01) ==
LOC: EMR 16:00
DX: B86 Scabies (principal); K57.90 Diverticulosis of intestine, part unspecified, without perforation or abscess without bleeding; F17.200 Nicotine dependence, unspecified, uncomplicated; I10 Essential (primary) hypertension; Z95.5 Presence of coronary angioplasty implant and graft; Z85.00 Personal history of malignant neoplasm of unspecified digestive organ; Z87.820 Personal history of traumatic brain injury
CPT/HCPCS: 99282

== ENCOUNTER 2018-12-04 14:02 | Emergency (ER) | payer MEDICARE, OTHER ==
[~2018-12-04] VITALS: Ht 182.9 cm; Wt 106.6 kg
--- NOTE | 2018-12-04 14:15 | NUR ---
ED Nurse Note: Pt walked in ED c/o rash and itchiness all over the body.
--- NOTE | 2018-12-04 14:30 | Emergency Room Report ---
History of Present Illness General Chief Complaint: Skin Rash/Abscess Source: Patient Present Illness HPI 63-year-old male with history of scabies who was recently seen here and treated with Dr. Tinoco, here complaining of new onset of the same rash that he has been having before very pruritic denying any pain. Denies fever and chills, reporting the pain started in both spaces of fingers and now spreading all over. Patient is hypotensive however takes his medication denying any chest pain shortness of breath dizziness, blurry vision, no other associated symptoms. Denies any recent travel, or exposure to new allergens. Denies anaphylaxis. Allergies: Coded Allergies: No Known Allergies (Unverified , 05/10/17) Patient History Past Medical History: see triage record Past Surgical History: unable to obtain Pertinent Family History: none Immunizations: UTD Reviewed Nursing Documentation: PMH: Agreed; PSxH: Agreed Nursing Documentation-PMH Past Medical History: No History, Except For Hx Cardiac Problems: Yes - heart murmur, stents Hx Hypertension: Yes Hx Pacemaker: No Hx Asthma: Yes Hx COPD: Yes Hx Diabetes: Yes - Borderline diabetic Hx Cancer: Yes - Gastric cancer with surgical intervention x3 Hx Gastrointestinal Problems: Yes - GI bleed, hernia repair Hx Dialysis: No Hx Neurological Problems: Yes Hx Cerebrovascular Accident: No Hx Transient Ischemic Attacks: No Hx Dementia: No Hx Alzheimer's Disease: No Hx Parkinson's Disease: No Hx Meningitis: No Hx Encephalitis: No Hx Seizures: No Hx Epilepsy: No Hx Multiple Sclerosis: No Hx Cerebral Palsy: No Hx Amyotrophic Lat Sclerosis: No Hx Guillian-[place] Syndrome: No Hx Paralysis: No Hx Peripheral Neuropathy: No Hx Spinal Cord Injury: No Hx Head Trauma: Yes - year 1998 Hx Traumatic Brain Injury: Yes - year 1998 Hx Memory Loss: No Hx Concentration Difficulty: No Hx Speech Problem: No Hx Tremors: No Hx Vertigo: Yes Hx Dizziness: Yes Hx Syncope: Yes Hx Headaches: No Hx Aphasia: No Hx Dysphasia: No Hx Numbness: Yes - fingers and legs Hx Weakness: Yes - general Hx Fatigue: Yes - general Hx Neurologic Surgery: No Hx Brain Shunt: No Review of Systems All Other Systems: negative except mentioned in HPI Physical Exam Vital Signs Date Time Temp Pulse Resp B/P (MAP) Pulse Ox O2 Delivery O2 Flow Rate FiO2 12/04/18 14:11 98.8 115 18 168/99 (122) 96 Room Air Sp02 EP Interpretation: reviewed, normal General Appearance: normal inspection, well appearing, no apparent distress Head: normocephalic, atraumatic Eyes: bilateral eye normal inspection, bilateral eye PERRL ENT: normal ENT inspection, hearing grossly normal Neck: normal inspection, full range of motion, supple Respiratory: normal inspection, chest non-tender, lungs clear, no wheezing Cardiovascular #1: normal inspection, normal peripheral pulses, regular rate, rhythm, no murmur Gastrointestinal: normal inspection, non tender Genitourinary: no CVA tenderness Musculoskeletal: back normal Neurologic: normal inspection, alert Psychiatric: normal inspection, judgement/insight normal Skin: other - Scabies rash noted Lymphatic: normal inspection, no adenopathy Medical Decision Making PA Attestation All diagnoses and treatment plans were reviewed and discussed with my supervising physician Dr. Valderrama Diagnostic Impression: Primary Impression: Scabies ER Course 63-year-old male with history of scabies who was recently seen here and treated with Dr. Tinoco, here complaining of new onset of the same rash that he has been having before very pruritic denying any pain. Denies fever and chills, reporting the pain started in both spaces of fingers and now spreading all over. Patient is hypotensive however takes his medication denying any chest pain shortness of breath dizziness, blurry vision, no other associated symptoms. Denies any recent travel, or exposure to new allergens. Denies anaphylaxis. Ddx considered but are not limited to: Eczema, scabies, lice, Vital signs: are WNL, pt. is afebrile H&PE are most consistent with: Scabies ORDERS: Prednisone, hydrocortisone cream, permethrin ED INTERVENTIONS: None required at this time. DISCHARGE: At this time pt. is stable for d/c to home. Will provide printed patient care instructions, and any necessary prescriptions. Care plan and follow up instructions have been discussed with the patient prior to discharge. 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 1 APPLIC TOPIC ONCE, #60 GM 0 Refills Apply cream from head to toe; leave on for 8-14 hours before washing off with water; may reapply in 1 week if live mites appear. Prov: Matt Collazo 12/04/18 Patient Instructions: Scabies, Pediatric Matt Collazo Dec 04, 2018 14:30
[2018-12-04 14:32] VITALS: BP 168/99
[2018-12-04] MEDS ORDERED: PREDNISONE5 M3 PO (14:37)
[2018-12-04] MEDS ORDERED: PERMETHRIN60 GM TOPIC (14:37)
[2018-12-04] MEDS ORDERED: HYDROCORTISONE-30 GM TOPIC (14:37)
--- NOTE | 2018-12-04 14:40 | NUR ---
ER DISCHARGE NOTE: Patient is cleared to be discharged per ERMD, pt is aox4, on room air, with stable vital signs. pt was given dc and prescription instructions, pt was able to verbalize understanding, pt id band removed. pt is able to ambulate with steady gait. pt took all belongings.
[2018-12-04 14:44] VITALS: BP 142/81
== END 2018-12-04 14:40 | disposition home or self-care (01) ==
LOC: EMR 14:35
DX: B86 Scabies (principal); Z87.820 Personal history of traumatic brain injury; R73.03 Prediabetes; Z85.00 Personal history of malignant neoplasm of unspecified digestive organ; J44.9 Chronic obstructive pulmonary disease, unspecified; Z95.5 Presence of coronary angioplasty implant and graft; R01.1 Cardiac murmur, unspecified
CPT/HCPCS: 99282